=== PATIENT | male | born 1965 | race Caucasian/White ===

== ENCOUNTER → 2019-05-26 | Outpatient (CLI) | payer BC, SELFPAY | PROVIDERS: Family Provider Nurse Practitioner Family; Visit Provider Nurse Practitioner Family | DX: K92.1 Melena (principal); R10.30 Lower abdominal pain, unspecified; Z90.49 Acquired absence of other specified parts of digestive tract | CPT/HCPCS: 74018 ==

== ENCOUNTER → 2019-06-09 13:40 | Outpatient (BNVA) | payer BC, SELFPAY | PROVIDERS: PCP Nurse Practitioner Family; Visit Provider Nurse Practitioner Psychiatric/Mental Health | DX: F33.2 Major depressive disorder, recurrent severe without psychotic features (principal); F41.1 Generalized anxiety disorder; F17.210 Nicotine dependence, cigarettes, uncomplicated | CPT/HCPCS: 99214; 99215 ==

== ENCOUNTER 2019-06-24 07:13 | Emergency (ER) | payer BC, SELFPAY ==
[2019-06-24 07:18] VITALS: BP 131/89; PULSE 101; RESP 20; TEMP 36.5; O2SAT 98; BMI 26.4
[2019-06-24 07:32] VITALS: BP 113/73; PULSE 99; RESP 18; O2SAT 97
--- NOTE | 2019-06-24 07:32 | XR_ITS ---
WS: [id number] PORTABLE CHEST HISTORY: Chest pain, SOB COMPARISON: 03/14/2019 Lungs are clear. Very slight pleural thickening at the RIGHT apex is stable. No pneumonia. Normal vas culature. No pleural effusion or pneumothorax. Cardiac size: Normal. Mediastinum/Aorta: Normal mediastinum. No osseous abnormality seen. XR/XR chest 1V portable [id number] IMPRESSION: Unremarkable portable chest.
--- NOTE | 2019-06-24 07:32 | ECG_ITS ---
Measurements Intervals [place] Rate: 99 P: 66 [place]: 146 QRS: 58 QRSD: 86 T: 72 QT: 346 QTc: 446 SINUS RHYTHM Compared to ECG 03/14/2019 23:24:25 No significant changes Electronically Signed On 06-24-2019 16:18:36 [employer] by Jhony Moe M.D. [id number] f
[2019-06-24 07:38] LABS: Basophils # 0.1 10^3/uL (0.0-0.1); Basophils % 0.7 %; Eosinophils # 0.1 10^3/uL (0.0-0.8); Eosinophils % 0.7 %; Hematocrit 41.6 % (42.0-52.0); Hemoglobin 14.2 g/dL (11.7-16.6); Lymphocytes # 1.8 10^3/uL (0.8-4.8); Lymphocytes % 26.5 %; Mean Corpuscular HGB Conc 34.1 g/dL (30.0-36.0); Mean Corpuscular Hemoglobin 32.4 pg (28.0-34.0); Mean Platelet Volume 9.2 fL (7.4-10.4); Monocytes # 0.5 10^3/uL (0.2-0.9); Monocytes % 7.9 %; Neutrophils # 4.3 10^3/uL (1.8-7.7); Neutrophils % 63.8 %; Nucleated Red Blood Cells % 0 %; Platelet Count 221 10^3/cmm (130-400); Red Blood Count 4.38 10^6/uL (4.1-5.3); Red Cell Distribution Width 11.9 % (12.1-15.1); White Blood Count 6.7 10^3/uL (4.0-10.0)
--- NOTE | 2019-06-24 07:44 | ED_ITS ---
HPI - Chest Pain General: Chief Complaint: Chest Pain Stated Complaint: Chest pain Time Seen by Provider: 06/24/19 07:43 History of Present Illness: HPI narrative: 53-year-old male presents emergency room with complaint of chest discomfort pressure radiating into his back. Is a history of atrial fibrillation he is on flecainide and atenolol he has had this multiple times in the past he tells me he started having it this morning around 430. He gets up around 3 AM he states he was sitting in a chair and began having along with episodes of anxiety and sensation of being short of breath. He has not had any fever sweats chills or productive cough. He denies previous angiography. He has intermittent atrial fibrillation. MD complaint: chest pain, chest heaviness and chest discomfort Pertinent past history: other (Atrial fibrillation) Onset (ago): hour(s) (3 to 4 hours ago) Timing of current episode: episodic Onset: during rest Pain location: substernal Pain radiation: back Severity: moderate Quality: tightness and heaviness Relieving factors: nothing Exacerbating factors: movement Associated symptoms: Reports dyspnea and sense of impending doom; Deny diaphoresis, nausea, palpitations or vomiting Treatment prior to arrival: other (His usual morning medications) Review of Systems Const: Denies: diaphoresis ENMT: Denies: throat pain, ear pain, nasal discharge or nasal congestion Card: Reports: chest pain and shortness of breath on exertion; Denies: palpitations Resp: Reports: shortness of breath GI: Denies: nausea or vomiting : Denies: flank pain, painful urination, urinary frequency or urinary urgency Skin/Breast: Denies: rash or itching PFS ED PFSH: Statuses (acute, chronic, etc) shown below reflect problem list status as previously entered and may not be historically accurate Medical History Cigarette nicotine dependence (Acute) Generalized anxiety disorder (Acute) Major depressive disorder, recurrent severe without psychotic features (Acute) Social History Smoking and tobacco status: current every day smoker Physical Exam Const: COMMON NORMALS: no apparent distress GENERAL APPEARANCE: cooperative and comfortable ORIENTATION/CONSCIOUSNESS: Yes awake, Yes oriented to person, Yes oriented to place and Yes oriented to time HENMT: COMMON NORMALS: normocephalic, head/scalp atraumatic, hearing grossly normal bilaterally, external ears normal, EAC's normal, TM's normal bilaterally, nasal mucous membranes and turbinates normal, moist oral mucous membranes and oropharynx normal HEAD & SCALP: normocephalic and atraumatic NOSE: nasal mucous membranes and turbinates normal EXTERNAL EAR: Yes external ears normal EXTERNAL AUDITORY CANAL: EAC's normal TYMPANIC MEMBRANE: TM's normal bilaterally Eye: COMMON NORMALS: PERRL, EOMs intact bilaterally, conjunctivae normal and no scleral icterus CONJUNCTIVA: Yes conjunctivae normal PUPIL: Yes PERRL Neck/C-Spine: COMMON NORMALS: full ROM, no lymphadenopathy, supple and no JVD Lymph: LYMPHATIC: no lymphadenopathy noted and no lymphedema noted Resp: COMMON NORMALS: normal respiratory effort, no retractions, no use of accessory muscles and clear to auscultation bilaterally AUSCULTATION: clear to auscultation bilaterally Cardio: COMMON NORMALS: no JVD, regular rate, regular rhythm and no murmurs RATE: regular rate RHYTHM: regular rhythm GI: COMMON NORMALS: soft to palpation and no hepatosplenomegaly AUSCULTATION: Yes normoactive bowel sounds PALPATION: Yes soft, No tender, No guarding and Yes no hepatosplenomegaly Extremity: COMMON NORMALS: normal to inspection, normal capillary refill, no clubbing, cyanosis or edema, no calf tenderness and no pedal edema Neuro: SENSORIUM/ORIENTATION: Yes oriented to person, Yes oriented to place and Yes oriented to time Skin: COMMON NORMALS: no rashes or lesions noted GENERAL SKIN EXAM: no rashes or lesions noted Course ED course: Continue his medications for now with no changes he is no longer in atrial fibrillation he is tolerating the medicine well. If he has any recurrence or change of symptoms return to the emergency room malaise follow-up with primary care provider. Vital Signs: Vital signs: Vital Signs Temperature 97.7 F 06/24/19 07:18 Pulse Rate 70 06/24/19 11:03 Respiratory Rate 18 06/24/19 11:03 Blood Pressure 114/79 06/24/19 11:03 Pulse Oximetry 96 06/24/19 11:03 MDM - Chest Pain Lab Data: Labs: Lab Results 06/24/19 06/24/19 06/24/19 Range/Units 07:32 07:32 07:32 WBC 6.7 (4.0-10.0) 10^3/ uL RBC 4.38 (4.1-5.3) 10^6/u L Hgb 14.2 (11.7-16.6) g/dL Hct 41.6 L (42.0-52.0) % MCV 95.0 H (80-94) fL MCH 32.4 (28.0-34.0) pg MCHC 34.1 (30.0-36.0) g/dL RDW 11.9 L (12.1-15.1) % Plt Count 221 (130-400) 10^3/c mm MPV 9.2 (7.4-10.4) fL Neut % (Auto) 63.8 % Lymph % (Auto) 26.5 % [place] % (Auto) 7.9 % Eos % (Auto) 0.7 % Baso % (Auto) 0.7 % Neut # (Auto) 4.3 (1.8-7.7) 10^3/u L Lymph # (Auto) 1.8 (0.8-4.8) 10^3/u L [place] # (Auto) 0.5 (0.2-0.9) 10^3/u L Eos # (Auto) 0.1 (0.0-0.8) 10^3/u L Baso # (Auto) 0.1 (0.0-0.1) 10^3/u L Nucleated RBC % (a uto) 0 % Nucleated RBCs # 0.0 /100WBC PT 13.10 (10.5-13.3) SECO NDS INR 0.96 (0.8-1.2) APTT 29.1 (23.9-36.7) SECO NDS Specimen Type Sample Site ABG pH (7.35-7.45) ABG pCO2 (35-45) mmHg ABG pO2 (80.0-100.0) mmH g ABG HCO3 (22-26) mmol/L ABG O2 Saturation ABG Base Excess (-2.0-2.0) mmol/ L Edaurdo Test A-a O2 Gradient (5-10) mmHg Hematocrit (42-52) % Hgb O2 Saturation (95-100) % Carboxyhemoglobin (0.4-20.1) %THgb Methemoglobin (0.4-1.5) % Total Hemoglobin (14-18) g/dL Ionized Calcium (1.1-1.4) mmol/L O2 Delivery Device FiO2 % Dye Machine Operator ID Sodium 138 (136-145) mmol/L Potassium 3.7 (3.5-5.1) mmol/L Chloride 101 (98-107) mmol/L Carbon Dioxide 22 (22-29) mmol/L Anion Gap 18.7 (5-19) BUN 14 (6-20) mg/dL Creatinine 0.8 (0.7-1.2) mg/dL GFR Calculation 100.7 (90-130) mL/min Glucose 121 H (74-109) mg/dL Calcium 9.9 (8.5-10.5) mg/dL Total Bilirubin 0.4 (0.15-1.2) mg/dL AST 14 (0-40) U/L ALT 16 (0-41) U/L Alkaline Phosphata se 66 (40-130) IU/L Troponin T Baselin e (0-15) ng/mL Troponin T 120 Min [place] (0-15) ng/mL Delta Troponin T (0-10) ABS# NT-Pro-B Natriuret Pep 88 (0-125) pg/mL Total Protein 7.4 (6.6-8.7) g/dL Albumin 4.9 (3.5-5.2) g/dL Globulin 2.5 (1.3-4.6) g/dL 06/24/19 06/24/19 06/24/19 Range/Units 07:32 08:00 09:27 WBC (4.0-10.0) 10^3/ uL RBC (4.1-5.3) 10^6/u L Hgb (11.7-16.6) g/dL Hct (42.0-52.0) % MCV (80-94) fL MCH (28.0-34.0) pg MCHC (30.0-36.0) g/dL RDW (12.1-15.1) % Plt Count (130-400) 10^3/c mm MPV (7.4-10.4) fL Neut % (Auto) % Lymph % (Auto) % [place] % (Auto) % Eos % (Auto) % Baso % (Auto) % Neut # (Auto) (1.8-7.7) 10^3/u L Lymph # (Auto) (0.8-4.8) 10^3/u L [place] # (Auto) (0.2-0.9) 10^3/u L Eos # (Auto) (0.0-0.8) 10^3/u L Baso # (Auto) (0.0-0.1) 10^3/u L Nucleated RBC % (a uto) % Nucleated RBCs # /100WBC PT (10.5-13.3) SECO NDS INR (0.8-1.2) APTT (23.9-36.7) SECO NDS Specimen Type Arterial Sample Site Radial, right ABG pH 7.47 H (7.35-7.45) ABG pCO2 33.2 L (35-45) mmHg ABG pO2 70.5 L (80.0-100.0) mmH g ABG HCO3 23.8 (22-26) mmol/L ABG O2 Saturation 96.5 ABG Base Excess 0.7 (-2.0-2.0) mmol/ L Eduardo Test Pos A-a O2 Gradient 36.8 H (5-10) mmHg Hematocrit 45.0 (42-52) % Hgb O2 Saturation 91.2 L (95-100) % Carboxyhemoglobin 4.6 (0.4-20.1) %THgb Methemoglobin 0.9 (0.4-1.5) % Total Hemoglobin 14.7 (14-18) g/dL Ionized Calcium 1.2 (1.1-1.4) mmol/L O2 Delivery Device None FiO2 21.0 % Dye Machine Operator ID ed Sodium 142.0 (136-145) mmol/L Potassium 3.4 L (3.5-5.1) mmol/L Chloride (98-107) mmol/L Carbon Dioxide (22-29) mmol/L Anion Gap (5-19) BUN (6-20) mg/dL Creatinine (0.7-1.2) mg/dL GFR Calculation (90-130) mL/min Glucose 105.0 (74-109) mg/dL Calcium (8.5-10.5) mg/dL Total Bilirubin (0.15-1.2) mg/dL AST (0-40) U/L ALT (0-41) U/L Alkaline Phosphata se (40-130) IU/L Troponin T Baselin e 6 (0-15) ng/mL Troponin T 120 Min [place] 6.00 (0-15) ng/mL Delta Troponin T 0 (0-10) ABS# NT-Pro-B Natriuret Pep (0-125) pg/mL Total Protein (6.6-8.7) g/dL Albumin (3.5-5.2) g/dL Globulin (1.3-4.6) g/dL Discharge Plan Discharge Patient Disposition: Home, Self-Care Clinical Impression: Atrial fibrillation, Atypical chest pain, Generalized anxiety disorder Condition: Stable Prescriptions: No Action aspirin 325 mg tablet 325 mg PO DAILY RF: 0 nitroglycerin 0.4 mg tablet, sublingual 0.4 mg SUBLINGUAL Q5M PRN (Reason: Chest Pain) RF: 0 pantoprazole 40 mg tablet,delayed release (DR/EC) 40 mg PO QAM RF: 0 lorazepam [Ativan] 0.5 mg tablet 0.5 mg PO BID PRN (Reason: anxiety) Qty: 60 RF: 4 Tylenol Extra Strength 500 mg Tablet 1,500 mg PO Q4H PRN (Reason: Pain) RF: 0 flecainide 50 mg Tablet 50 mg PO BID RF: 0 metoprolol tartrate 25 mg Tablet 25 mg PO BID RF: 0 Zoloft 100 mg tablet 100 mg PO QAM RF: 0 Discharge Orders: Discharge Order (Routine); Ordered 06/24/19 Ordered By: Jerod Nur Referrals: YING STALEY, CREDIT INTERN [Primary Care Provider] - Discharge Diet: Usual diet Discharge Activity: Resume usual activity Activity Restrictions/Additional Instructions: Case management will call to arrange for a Holter monitor. Interventions: ED Discharge Assessment Last Done: 06/24/19 11:03 Discharge Date/Time: 06/24/19 11:12 Coding Level of Care Code ED Dietary Server for Coleman Sheppard Exam Problem Focused
[2019-06-24 07:49] LABS: INR 0.96 (0.8-1.2); Partial Thromboplastin Time 29.1 SECONDS (23.9-36.7)
[2019-06-24 07:58] LABS: Troponin(5th) Baseline 6 ng/mL (0-15)
[2019-06-24 08:04] LABS: ABG PCO2 33.2 mmHg (35-45); ABG PH Result 7.47 (7.35-7.45); Alveolar-Arterial Oxygen Gradi 36.8 mmHg (5-10); Base Excess ABG 0.7 mmol/L (-2.0-2.0); Blood Gas Allen Test Pos; Blood Gas Sample Site Radial, right; Blood Gas Sample Type Arterial; Carboxyhemoglobin 4.6 %THgb (0.4-20.1); HCO3 ABG 23.8 mmol/L (22-26); HGB O2 Sat 91.2 % (95-100); Ionized Calcium Level - ABG 1.2 mmol/L (1.1-1.4); Methemoglobin 0.9 % (0.4-1.5); Oxygen Saturation ABG 96.5; PO2 ABG 70.5 mmHg (80.0-100.0); Potassium Level - ABG 3.4 mmol/L (3.5-5.0); Total Hemoglobin 14.7 g/dL (14-18)
[2019-06-24 08:06] LABS: Alanine Aminotransferase 16 U/L (0-41); Albumin Level 4.9 g/dL (3.5-5.2); Alkaline Phosphatase 66 IU/L (40-130); Anion Gap 18.7 (5-19); Aspartate Amino Transferase 14 U/L (0-40); Blood Urea Nitrogen 14 mg/dL (6-20); Calcium 9.9 mg/dL (8.5-10.5); Carbon Dioxide 22 mmol/L (22-29); Chloride 101 mmol/L (98-107); Globulin 2.5 g/dL (1.3-4.6); Glomerular Filtration Rate 100.7 mL/min (90-130); Glucose 121 mg/dL (74-109); NT Pro B Type Natriuretic Pept 88 pg/mL (0-125); Potassium 3.7 mmol/L (3.5-5.1); Sodium 138 mmol/L (136-145); Total Bilirubin 0.4 mg/dL (0.15-1.2); Total Protein 7.4 g/dL (6.6-8.7)
[2019-06-24 08:27] VITALS: BP 117/74; PULSE 82; RESP 14; O2SAT 94
--- NOTE | 2019-06-24 09:32 | ECG_ITS ---
Measurements Intervals [place] Rate: 70 P: 61 [place]: 145 QRS: 59 QRSD: 85 T: 73 QT: 397 QTc: 429 SINUS RHYTHM INTERPRETATION BASED ON A DEFAULT AGE OF 40 YEARS Compared to ECG 03/14/2019 23:24:25 No significant changes Electronically Signed On 06-24-2019 16:21:59 SLOT SERVICE SPECIALIST by Jhony Moe M.D. [id number] f
[2019-06-24 09:50] LABS: Troponin 5 2HR Delta 0 ABS# (0-10)
[2019-06-24] MEDS: LORazepam 2 mg/mL INJ 1 mL 0.5 MG IVP (10:04)
[2019-06-24 11:03] VITALS: BP 114/79; PULSE 70; RESP 18; O2SAT 96
--- NOTE | 2019-06-25 13:07 | DCPLANNER ---
medical staff manager had message to schedule a follow up appointment for a 24 hour halter monitor. medical staff manager faxed order to centralized scheduling, will call for appointment information.
--- NOTE | 2019-07-04 11:08 | DCPLANNER ---
Patient had an appointment scheduled for 06.30.19 for a 24 hour halter monitor. Patient did attend the appointment.
== END 2019-06-24 11:12 | disposition home or self-care (01) ==
PROVIDERS: Emergency Provider Family Medicine; PCP Nurse Practitioner Family
DX: I48.91 Unspecified atrial fibrillation (principal); R07.89 Other chest pain; F41.1 Generalized anxiety disorder; Z79.82 Long term (current) use of aspirin; F17.210 Nicotine dependence, cigarettes, uncomplicated
CPT/HCPCS: 36415; 36600; 71045; 80051; 80053; 82810; 83880; 83986; 84484; 85025; 85610; 85730; 93005; 96374; 99283; J2060

== ENCOUNTER 2019-08-07 17:52 | Emergency (ER) | payer BC, SELFPAY ==
[2019-08-07 17:53] VITALS: BP 135/81; PULSE 86; RESP 18; TEMP 36.7; O2SAT 95; BMI 26.4
--- NOTE | 2019-08-07 18:14 | XR_ITS ---
WS: [id number] Portable AP upright chest, 08/07/2019 Clinical Data: cough Comparison: Portable chest, 06/24/2019. Findings: No nodules, masses or effusions are seen. The heart is normal. The pulmonary vascularity is not increased. No pneumonia or pneumothorax is seen. XR/XR chest 1V portable [id number] Impression: Negative chest.
[2019-08-07 18:57] LABS: Alanine Aminotransferase 12 U/L (0-41); Albumin Level 4.3 g/dL (3.5-5.2); Alkaline Phosphatase 84 IU/L (40-130); Anion Gap 17.7 (5-19); Aspartate Amino Transferase 12 U/L (0-40); Blood Urea Nitrogen 9 mg/dL (6-20); Calcium 9.4 mg/dL (8.5-10.5); Carbon Dioxide 24 mmol/L (22-29); Chloride 99 mmol/L (98-107); Globulin 3.3 g/dL (1.3-4.6); Glomerular Filtration Rate 100.7 mL/min (90-130); Glucose 110 mg/dL (65-115); Lipase 27 U/L (13-60); Osmolality Calculated 281 mOsm/kg (285-295); Potassium 3.7 mmol/L (3.5-5.1); Sodium 137 mmol/L (136-145); Total Bilirubin 0.4 mg/dL (0.15-1.2); Total Protein 7.6 g/dL (6.6-8.7)
[2019-08-07 19:55] LABS: Basophils % 0.3 %; Eosinophils # 0.1 10^3/uL (0.0-0.8); Eosinophils % 0.4 %; Hematocrit 42.2 % (42.0-52.0); Hemoglobin 14.3 g/dL (11.7-16.6); Lymphocytes # 1.9 10^3/uL (0.8-4.8); Lymphocytes % 16.3 %; Mean Corpuscular HGB Conc 33.9 g/dL (30.0-36.0); Mean Corpuscular Volume 97.5 fL (80-94); Mean Platelet Volume 9.1 fL (7.4-10.4); Monocytes % 8.9 %; Neutrophils # 8.5 10^3/uL (1.8-7.7); Neutrophils % 73.7 %; Nucleated Red Blood Cells % 0 %; Platelet Count 233 10^3/cmm (130-400); Red Blood Count 4.33 10^6/uL (4.1-5.3); White Blood Count 11.6 10^3/uL (4.0-10.0)
--- NOTE | 2019-08-07 20:06 | ED_ITS ---
HPI - Fever General: Chief Complaint: Fever Stated Complaint: body aches/cough Time Seen by Provider: 08/07/19 20:06 Source: patient Mode of arrival: ambulatory Limitations: no limitations History of Present Illness: HPI Narrative: Patient comes in for worsening diffuse muscle and bone pain. Patient has had symptoms since May. Patient appears well. Patient appears in moderate to severe pain. Respirations are even lungs are clear to auscultation. 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 Review of Systems General: Reports: 10 or more systems reviewed and unremarkable except in HPI and below Musc: Reports: other (Diffuse muscle pain.) PFSH ED PFSH: Social History Smoking and tobacco status: current every day smoker Alcohol intake: former Physical Exam Const: COMMON NORMALS: no apparent distress and oriented x3 GENERAL APPEARANCE: cooperative HENMT: COMMON NORMALS: normocephalic, external ears normal, EAC's normal, TM's normal bilaterally and external nose normal HEAD & SCALP: normal to inspection and normocephalic FACE & SINUS: normal facial exam NOSE: external nose normal GENERAL EAR: hearing not grossly impaired EXTERNAL EAR: Yes external ears normal EXTERNAL AUDITORY CANAL: EAC's normal TYMPANIC MEMBRANE: TM's normal bilaterally MOUTH: oral and palatal mucosa normal THROAT: posterior oropharynx normal Eye: COMMON NORMALS: PERRL and EOMs intact bilaterally PUPIL: Yes PERRL Neck/C-Spine: COMMON NORMALS: full ROM and no lymphadenopathy Lymph: LYMPHATIC: no lymphedema noted Chest: COMMONS NORMALS: inspection of chest normal and palpation of chest normal Resp: COMMON NORMALS: normal respiratory effort and clear to auscultation bilaterally AUSCULTATION: clear to auscultation bilaterally Cardio: COMMON NORMALS: regular rate and regular rhythm RATE: regular rate RHYTHM: regular rhythm GI: COMMON NORMALS: normal to inspection, nondistended, normoactive bowel sounds and non-tender : COMMON NORMALS: Yes no CVA tenderness BLADDER/KIDNEY EXAM: Yes no CVA tenderness Back/Pelvis: COMMON NORMALS: no CVA tenderness and thoracic and lumbar spine normal to inspection Extremity: COMMON NORMALS: normal to inspection GENERAL: No edema Neuro: COMMON NORMALS: oriented x3, moves all extremities and no focal motor deficits Psych: COMMON NORMALS: mental status grossly normal and cooperative Skin: COMMON NORMALS: no rashes or lesions noted GENERAL SKIN EXAM: no rashes or lesions noted Course Vital Signs: Vital signs: Vital Signs Temperature 98.0 F 08/07/19 17:53 Pulse Rate 81 08/07/19 20:14 Respiratory Rate 16 08/07/19 20:14 Blood Pressure 108/73 08/07/19 20:14 Pulse Oximetry 96 08/07/19 20:14 MDM - Fever MDM Narrative: Medical decision making narrative: Patient comes in with 6 to 7 weeks of diffuse muscle pain. Patient reports over the last week it seems to have gotten worse. Patient appears well. Exam respirations are even lungs are clear to auscultation vital signs are normal. No fever is reported. Lungs are clear to auscultation. Skin is warm and dry and color is pink. Differential diagnosis includes polymyalgia rheumatica, rheumatoid arthritis, rhabdomyolysis, lupus, fibromyalgia, chronic fatigue syndrome, other autoimmune disorder, malingering. Laboratory values noted no significant white blood cell count. Metabolic panel was normal. CRP was elevated at 145. CPK was negative. Reviewed exam with patient recommended treatment to start for polymyalgia rheumatica with high-dose steroid and medication for pain. Encourage patient drink plenty of fluids and use medication as directed. Recommend follow-up with primary care in 1 week for review of outstanding lab work and need for further evaluation. Patient reports understanding agreed to plan. Lab Data: Labs: Lab Results 08/07/19 08/07/19 08/07/19 Range/Units 18:25 18:25 18:25 WBC (4.0-10.0) 10^3/ uL RBC (4.1-5.3) 10^6/u L Hgb (11.7-16.6) g/dL Hct (42.0-52.0) % MCV (80-94) fL MCH (28.0-34.0) pg MCHC (30.0-36.0) g/dL RDW (12.1-15.1) % Plt Count (130-400) 10^3/c mm MPV (7.4-10.4) fL Neut % (Auto) % Lymph % (Auto) % [place] % (Auto) % Eos % (Auto) % Baso % (Auto) % Neut # (Auto) (1.8-7.7) 10^3/u L Lymph # (Auto) (0.8-4.8) 10^3/u L [place] # (Auto) (0.2-0.9) 10^3/u L Eos # (Auto) (0.0-0.8) 10^3/u L Baso # (Auto) (0.0-0.1) 10^3/u L Nucleated RBC % (a uto) % Nucleated RBCs # /100WBC Sodium 137 (136-145) mmol/L Potassium 3.7 (3.5-5.1) mmol/L Chloride 99 (98-107) mmol/L Carbon Dioxide 24 (22-29) mmol/L Anion Gap 17.7 (5-19) BUN 9 (6-20) mg/dL Creatinine 0.8 (0.7-1.2) mg/dL GFR Calculation 100.7 (90-130) mL/min Glucose 110 (65-115) mg/dL Calculated Osmolal ity 281 L (285-295) mOsm/k g Calcium 9.4 (8.5-10.5) mg/dL Total Bilirubin 0.4 (0.15-1.2) mg/dL AST 12 (0-40) U/L ALT 12 (0-41) U/L Alkaline Phosphata se 84 (40-130) IU/L Creatine Kinase 78 (39-308) U/L C-Reactive Protein 145.7 H (0.0-4.9) mg/L Total Protein 7.6 (6.6-8.7) g/dL Albumin 4.3 (3.5-5.2) g/dL Globulin 3.3 (1.3-4.6) g/dL Lipase 27 (13-60) U/L TSH (0.27-4.20) uIU/ mL Urine Color (Yellow) Urine Appearance (CLEAR) Urine pH (5-7) Ur Specific Gravit y (1.005-1.030) Urine Protein (Negative) Urine Glucose (UA) (Normal) Urine Ketones (Negative) Urine Blood (Negative) Urine Nitrate (Negative) Urine Bilirubin (NEGATIVE) Urine Urobilinogen (Negative) mg/dL Ur Leukocyte Roselyn ase (Negative) Urine RBC (0-2) /hpf Urine WBC (0-5) /hpf Ur Squamous Epith Cells (0-5) Urine Bacteria (NONE) 08/07/19 08/07/19 08/07/19 Range/Units 18:25 19:46 21:29 WBC 11.6 H (4.0-10.0) 10^3/ uL RBC 4.33 (4.1-5.3) 10^6/u L Hgb 14.3 (11.7-16.6) g/dL Hct 42.2 (42.0-52.0) % MCV 97.5 H (80-94) fL MCH 33.0 (28.0-34.0) pg MCHC 33.9 (30.0-36.0) g/dL RDW 12.0 L (12.1-15.1) % Plt Count 233 (130-400) 10^3/c mm MPV 9.1 (7.4-10.4) fL Neut % (Auto) 73.7 % Lymph % (Auto) 16.3 % [place] % (Auto) 8.9 % Eos % (Auto) 0.4 % Baso % (Auto) 0.3 % Neut # (Auto) 8.5 H (1.8-7.7) 10^3/u L Lymph # (Auto) 1.9 (0.8-4.8) 10^3/u L [place] # (Auto) 1.0 H (0.2-0.9) 10^3/u L Eos # (Auto) 0.1 (0.0-0.8) 10^3/u L Baso # (Auto) 0.0 (0.0-0.1) 10^3/u L Nucleated RBC % (a uto) 0 % Nucleated RBCs # 0.0 /100WBC Sodium (136-145) mmol/L Potassium (3.5-5.1) mmol/L Chloride (98-107) mmol/L Carbon Dioxide (22-29) mmol/L Anion Gap (5-19) BUN (6-20) mg/dL Creatinine (0.7-1.2) mg/dL GFR Calculation (90-130) mL/min Glucose (65-115) mg/dL Calculated Osmolal ity (285-295) mOsm/k g Calcium (8.5-10.5) mg/dL Total Bilirubin (0.15-1.2) mg/dL AST (0-40) U/L ALT (0-41) U/L Alkaline Phosphata se (40-130) IU/L Creatine Kinase (39-308) U/L C-Reactive Protein (0.0-4.9) mg/L Total Protein (6.6-8.7) g/dL Albumin (3.5-5.2) g/dL Globulin (1.3-4.6) g/dL Lipase (13-60) U/L TSH 1.59 (0.27-4.20) uIU/ mL Urine Color Yellow (Yellow) Urine Appearance Clear (CLEAR) Urine pH 6 (5-7) Ur Specific Gravit y 1.010 (1.005-1.030) Urine Protein Neg (Negative) Urine Glucose (UA) Norm (Normal) Urine Ketones Negative (Negative) Urine Blood Neg (Negative) Urine Nitrate Negative (Negative) Urine Bilirubin Neg (NEGATIVE) Urine Urobilinogen Norm (Negative) mg/dL Ur Leukocyte Roselyn ase Negative (Negative) Urine RBC None (0-2) /hpf Urine WBC None (0-5) /hpf Ur Squamous Epith Cells None (0-5) Urine Bacteria None (NONE) Discharge Plan Discharge Patient Disposition: Home, Self-Care Clinical Impression: Polymyalgia rheumatica Condition: Stable Prescriptions: New prednisone 20 mg tablet 20 mg PO DAILY Qty: 35 RF: 0 hydrocodone-acetaminophen 5-325 mg tablet 1 tab PO Q6H PRN (Reason: pain (scale score 7-10)) Qty: 10 RF: 0 No Action aspirin 325 mg tablet 325 mg PO DAILY RF: 0 nitroglycerin 0.4 mg tablet, sublingual 0.4 mg SUBLINGUAL Q5M PRN (Reason: Chest Pain) RF: 0 pantoprazole 40 mg tablet,delayed release (DR/EC) 40 mg PO QAM RF: 0 lorazepam [Ativan] 0.5 mg tablet 0.5 mg PO BID PRN (Reason: anxiety) Qty: 60 RF: 4 Tylenol Extra Strength 500 mg Tablet 1,500 mg PO Q4H PRN (Reason: Pain) RF: 0 flecainide 50 mg Tablet 50 mg PO BID RF: 0 metoprolol tartrate 25 mg Tablet 25 mg PO BID RF: 0 Zoloft 100 mg tablet 100 mg PO QAM RF: 0 Discharge Orders: Discharge Order (Routine); Ordered 08/07/19 Ordered By: Lloyd Rosas Referrals: YING STALEY FNP [Primary Care Provider] - Discharge Diet: Usual diet Discharge Activity: Increase activity as tolerated Patient Instructions: Polymyalgia Rheumatica Activity Restrictions/Additional Instructions: Take medications as directed. Drink plenty of fluids with medications. Activity as tolerated. Follow-up with primary care in 3 to 5 days for recheck on symptoms, and to review outstanding labs. Return to the emergency room for high fever or new concerns. Coding Level of Care Code ED Journeyman Electrician for Coleman Fwraghav Exam Comprehensive
[2019-08-07 20:14] VITALS: BP 108/73; PULSE 81; RESP 16; O2SAT 96
[2019-08-07 20:41] LABS: Creatine Phosphokinase 78 U/L (39-308)
[2019-08-07] MEDS: sodium chloride 0.9% 500 ML 999 ML IV (20:41)
[2019-08-07] MEDS: ketorolac 30 mg/mL INJ 15 MG IVP (20:42)
[2019-08-07 21:04] LABS: C Reactive Protein 145.7 mg/L (0.0-4.9)
[2019-08-07] MEDS: HYDROcodone-acetaminophen 7.5-325 mg Tablet 1 TAB PO (21:25)
[2019-08-07 21:42] LABS: Thyroid Stimulating Hormone 1.59 uIU/mL (0.27-4.20)
[2019-08-07 21:46] LABS: Urine Appearance Clear (CLEAR); Urine Color Yellow (Yellow); pH Urine 6 (5-7)
[2019-08-07 21:47] LABS: Bilirubin Urine Neg (NEGATIVE); Blood Urine Neg (Negative); Glucose Urine UA Norm (Normal); Ketones Urine Negative (Negative); Leukocyte Esterase Urine Negative (Negative); Nitrate Urine Negative (Negative); Protein Urine Neg (Negative); Urobilinogen Urine Norm (Negative)
[2019-08-07] MEDS: dexamethasone 10 mg/mL INJ IVP (22:00)
[2019-08-07 22:29] VITALS: BP 116/75; PULSE 67; RESP 12; O2SAT 92
[2019-08-11 12:21] LABS: Anti-Double Strand DNA AB 1 IU/mL; Jo-1 Antibody <1.0 NEG AI (<1.0 NEG); SM/RNP Antibodies <1.0 NEG AI (<1.0 NEG); SS-B/LA IGG <1.0 NEG AI (<1.0 NEG); Scleroderma Ab(Scl-70) Ab <1.0 NEG AI (<1.0 NEG); Ss-A/Ro Igg <1.0 NEG AI (<1.0 NEG)
== END 2019-08-07 22:31 | disposition home or self-care (01) ==
PROVIDERS: Emergency Medicine; Emergency Provider Nurse Practitioner Family; PCP Nurse Practitioner Family
DX: M35.3 Polymyalgia rheumatica (principal); F17.200 Nicotine dependence, unspecified, uncomplicated
CPT/HCPCS: 12345; 36415; 71045; 80053; 81001; 82550; 83690; 84443; 85025; 86140; 86225; 86235; 86431; 87040; 96360; 96374; 96375; 99283; 99284; J1100; J1885; J2930; J7040

== ENCOUNTER 2019-09-08 09:35 | Outpatient (CLI) | payer BC, SELFPAY ==
--- NOTE | 2019-09-08 09:45 | XR_ITS ---
WS: [id number] CHEST 2 VIEWS HISTORY: PMR,STARTING METHOTREXATE COMPARISON: None available. Lungs: Clear with no abnormality. Mild hyperexpansion. No pleural effusion or pneumothorax. No bullou s disease identified radiographically. Cardiac size: Normal. Mediastinum/Aorta: Normal mediastinum. Bones: Normal. XR/XR chest 2V* [id number] IMPRESSION: Mild emphysema. Otherwise negative.
[2019-09-10 14:41] LABS: Quantiferon Mitogen 6.85 IU/mL; Quantiferon Nil 0.02 IU/mL; Quantiferon Plus TB2 0.01 IU/mL; Quantiferon TB Gold NEGATIVE (NEGATIVE)
== END 2019-09-08 09:36 | disposition home or self-care (01) ==
LOC: RAD 09:41
PROVIDERS: PCP Nurse Practitioner Family; Visit Provider Family Medicine
DX: M35.3 Polymyalgia rheumatica (principal); J43.9 Emphysema, unspecified
CPT/HCPCS: 71046; 86480

== ENCOUNTER → 2019-09-11 08:28 | Outpatient (BNVA) | payer BC, SELFPAY | PROVIDERS: PCP Nurse Practitioner Family; Visit Provider Nurse Practitioner Psychiatric/Mental Health | DX: F33.2 Major depressive disorder, recurrent severe without psychotic features (principal); F41.1 Generalized anxiety disorder; F17.210 Nicotine dependence, cigarettes, uncomplicated; M35.3 Polymyalgia rheumatica; I48.19 Other persistent atrial fibrillation; G47.33 Obstructive sleep apnea (adult) (pediatric); Z79.899 Other long term (current) drug therapy; Z79.52 Long term (current) use of systemic steroids | CPT/HCPCS: 99204; 99213 ==

== ENCOUNTER → 2019-10-31 12:08 | Outpatient (BNVA) | payer BC, SELFPAY | PROVIDERS: PCP Nurse Practitioner Family; Visit Provider Internal Medicine Rheumatology | DX: M35.3 Polymyalgia rheumatica (principal); Z79.899 Other long term (current) drug therapy; L23.9 Allergic contact dermatitis, unspecified cause; I48.19 Other persistent atrial fibrillation; F17.210 Nicotine dependence, cigarettes, uncomplicated | CPT/HCPCS: 36415; 80076; 82306; 82565; 85025; 85651; 86140; 96372; 99214; J1040 ==

== ENCOUNTER 2019-11-14 04:53 | Emergency (ER) | payer BC, SELFPAY ==
[2019-11-14] VITALS (15 sets, daily range): BP systolic 120–165; BP diastolic 71–111; PULSE 49–71; RESP 8–20; TEMP 36.5; O2SAT 92–98; BMI 27.8
--- NOTE | 2019-11-14 05:39 | ECG_ITS ---
[facility] Test Date: 2019-11-14 Pat Name: Dalton Dumont Department: Room: Gender: Male Piler: : 1965 Requested By: America Braga Order Number: [id number] Green MD: Jhony Moe M.D. Measurements Intervals [place] Rate: 50 P: 51 [place]: 131 QRS: 44 QRSD: 86 T: 46 QT: 437 QTc: 401 Interpretive Statements SINUS BRADYCARDIA WITH SINUS ARRHYTHMIA Compared to ECG 06/24/2019 09:05:05 Sinus rhythm no longer present Electronically Signed On 11-14-2019 13:06:46 CDT by Jhony Moe M.D. [id number]
[2019-11-14] MEDS: ondansetron 2 mg/ML SDV 2 mL 4 MG IVP (05:55)
[2019-11-14] MEDS: HYDROmorphone 1 mg/mL INJ 1 mL IVP (05:56)
[2019-11-14] MEDS: sodium chloride 0.9% 1,000 ML 100 ML IV (05:56)
[2019-11-14 05:58] LABS: Basophils % 0.1 %; Eosinophils # 0.1 10^3/uL (0.0-0.8); Eosinophils % 0.4 %; Hematocrit 45.3 % (42.0-52.0); Hemoglobin 15.1 g/dL (11.7-16.6); Lymphocytes # 2.9 10^3/uL (0.8-4.8); Lymphocytes % 20.7 %; Mean Corpuscular HGB Conc 33.3 g/dL (30.0-36.0); Mean Corpuscular Hemoglobin 33.2 pg (28.0-34.0); Mean Corpuscular Volume 99.6 fL (80-94); Mean Platelet Volume 8.9 fL (7.4-10.4); Monocytes % 7.1 %; Neutrophils # 9.6 10^3/uL (1.8-7.7); Neutrophils % 69.9 %; Nucleated Red Blood Cells % 0 %; Platelet Count 290 10^3/cmm (130-400); Red Blood Count 4.55 10^6/uL (4.1-5.3); Red Cell Distribution Width 14.5 % (12.1-15.1); White Blood Count 13.8 10^3/uL (4.0-10.0)
[2019-11-14 06:21] LABS: Alanine Aminotransferase 18 U/L (0-41); Albumin Level 4.9 g/dL (3.5-5.2); Alkaline Phosphatase 47 IU/L (40-130); Anion Gap 17.4 (5-19); Aspartate Amino Transferase 15 U/L (0-40); Blood Urea Nitrogen 25 mg/dL (6-20); C Reactive Protein 2.6 mg/L (0.0-4.9); Carbon Dioxide 29 mmol/L (22-29); Chloride 97 mmol/L (98-107); Creatine Phosphokinase 138 U/L (39-308); Globulin 2.3 g/dL (1.3-4.6); Glomerular Filtration Rate 77.9 mL/min (90-130); Glucose 111 mg/dL (65-115); Magnesium 2.5 mg/dL (1.7-2.3); Osmolality Calculated 286 mOsm/kg (285-295); Potassium 4.4 mmol/L (3.5-5.1); Sodium 139 mmol/L (136-145); Total Bilirubin 0.6 mg/dL (0.15-1.2); Total Protein 7.2 g/dL (6.6-8.7)
[2019-11-14 06:23] LABS: Troponin(5th) Baseline 13 ng/L (0-15)
--- NOTE | 2019-11-14 06:24 | W.ED.GENADLT ---
Documented by User: America Briceno 11/14/19 06:29 HPI - General Adult General: Chief complaint: General Medical Stated complaint: leg and arm pain Time Seen by Provider: 11/14/19 05:32 Source: patient Mode of arrival: ambulatory Limitations: no limitations History of Present Illness: HPI narrative: Dalton is a 53-year-old male who comes in complaining of diffuse pain. He complains of pain in his shoulders, legs, back, chest and all of his joints. He believes this is a flareup of his polymyalgia rheumatica. Patient states he is on prednisone which takes care of most of his discomfort but over the past few days his pain is been severe. He denies fever, chills, cough, abdominal pain or any other focal symptoms just diffuse aches and pains. Associated symptoms: Reports malaise; Deny chest pain, confusion, diaphoresis, dyspnea, headache(s), nausea, rash, palpitations, syncope or vomiting Review of Systems Const: Reports: body aches, fatigue and malaise; Denies: fever(s), chills or diaphoresis Eyes: Denies: change in vision, blurry vision, blind spots, photophobia, eye discharge or eye redness ENMT: Denies: throat pain, odynophagia, hoarseness, swelling of lips/tongue, oral sores, ear or mastoid pain, ear discharge, change in hearing or nasal discharge Card: Denies: chest pain, palpitations, irregular heart rhythm, edema, lightheadedness, syncope, pre-syncope, dyspnea on exertion or orthopnea Resp: Denies: dyspnea, productive cough, non-productive cough, wheezing, hemoptysis or chest congestion GI: Denies: abdominal pain, nausea, vomiting, hematemesis, coffee ground emesis, heartburn, diarrhea, constipation, GI cramping, hematochezia or melena : Denies: flank pain, dysuria, urinary frequency, urinary urgency or hematuria Musc: Reports: extremity pain and joint pain; Denies: neck pain, back pain, extremity swelling, joint swelling, joint redness, joint warmth or joint stiffness Skin/Breast: Denies: rash, pruritus, erythema, skin tenderness or jaundice Neuro: Denies: headache(s), numbness in extremities, weakness in extremities, sensory changes, lack of coordination, difficulty walking, dizziness, vertigo, confusion, Slurred speech present or seizure-like activity Jonathan/Lymph: Denies: easy bruising, easy bleeding, petechiae, purpura or enlarged lymph nodes All/Imm: Denies: urticaria, throat swelling, tongue swelling, facial swelling or acute wheezing PFSH ED PFSH: Medical History Allergic contact dermatitis Atrial fibrillation Cigarette nicotine dependence Generalized anxiety disorder GERD (gastroesophageal reflux disease) High risk medication use Major depressive disorder, recurrent severe without psychotic features Polymyalgia rheumatica Smoking addiction 30 years currently smokes half a pack a day. Squamous cell carcinoma Surgical History History of kidney surgery Previous back surgery Family History Other Cancer Diabetes Family history of premature coronary artery disease Hypertension Psychiatric illness Rheumatoid arthritis Stroke Denies family history of Chronic kidney disease (CKD) Systemic lupus erythematosus (SLE) in adult Social History Smoking and tobacco status: current every day smoker Alcohol intake: former History of recent travel: No Physical Exam Const: COMMON NORMALS: no acute distress, patient oriented x3, no limitations, healthy appearing and well nourished GENERAL APPEARANCE: cooperative, well kempt and well developed HENMT: COMMON NORMALS: normocephalic, atraumatic, external ears normal, EAC's normal and Normal external nose present HEAD & SCALP: normal to inspection, normocephalic and atraumatic FACE & SINUS: normal facial exam and face symmetric NOSE: Normal external nose present and Normal nares present EXTERNAL EAR: Yes external ears normal EXTERNAL AUDITORY CANAL: EAC's normal MOUTH: Normal oral and palatal mucosa present, lip normal and tongue normal Eye: COMMON NORMALS: Equal, round and reactive pupils present and conjunctivae normal GENERAL EYE: appearance normal, both eyes and all related structures ALIGNMENT: Yes alignment normal PERIORBITAL: periorbital findings normal EYELID: eyelids normal CONJUNCTIVA: Yes conjunctivae normal SCLERA: sclerae normal PUPIL: Yes Equal, round and reactive pupils present Neck/C-Spine: COMMON NORMALS: full ROM, no lymphadenopathy, supple, no meningeal signs and no JVD GENERAL: Yes normal visual inspection and Yes trachea midline Chest: COMMONS NORMALS: normal inspection of the chest and normal palpation of entire chest wall Resp: COMMON NORMALS: normal respiratory effort, No retractions and No use of accessory muscles EFFORT & INSPECTION: Yes able to speak in complete sentences and Yes symmetric chest movement AUSCULTATION: no crackles, no rales, no rhonchi and no wheezes Cardio: COMMON NORMALS: no JVD, regular rate, regular rhythm, S1 normal heart sound present and S2 normal heart sound present RATE: regular rate RHYTHM: regular rhythm HEART SOUNDS: S1 normal heart sound present, S2 normal heart sound present, no click, no gallops, no murmurs, no rubs and abnormal split S2 GI: COMMON NORMALS: Soft to palpation and No hepatosplenomegaly present PALPATION: Yes Soft to palpation, No Tenderness to palpation present (GI), No Guarding due to palpation present (GI), No Rigid due to palpation, Yes No hepatosplenomegaly present, No Hernia present, No Palpable mass present and No Pulsatile mass present : COMMON NORMALS: Yes no CVA tenderness BLADDER/KIDNEY EXAM: Yes no CVA tenderness Back/Pelvis: COMMON NORMALS: no CVA tenderness, thoracic and lumbar spine normal to inspection, no thoracic nor lumbar tenderness and thoraco-lumbar ROM normal Extremity: COMMON NORMALS: normal to inspection, full ROM, capillary refill normal, no joint enlargement, no clubbing, cyanosis or edema and no calf tenderness Neuro: COMMON NORMALS: patient oriented x3, CN's II-XII intact bilaterally, moves all extremities, no focal motor deficits and no sensory deficits noted MENINGEAL SIGNS: Yes no meningeal signs SPEECH: speech normal Psych: COMMON NORMALS: mental status grossly normal, Normal thought process present, cooperative, normal affect, speech normal and activity/motor behavior normal APPEARANCE: Yes well kempt SPEECH: Yes normal speech THOUGHT PROCESS: Normal thought process present Skin: COMMON NORMALS: no rashes or lesions noted, turgor normal, no jaundice, no petechiae and no mottling GENERAL SKIN EXAM: no rashes or lesions noted and turgor normal Course Vital Signs: Vital signs: Vital Signs Temperature 97.7 F 11/14/19 05:09 Pulse Rate 56 L 11/14/19 11:36 Respiratory Rate 18 11/14/19 11:36 Blood Pressure 165/103 11/14/19 11:36 Pulse Oximetry 98 11/14/19 11:36 MDM - General Adult MDM Narrative: Medical decision making narrative: Case turned over to Dr. Nur at change of shift. Lab Data: Labs: Lab Results 11/14/19 11/14/19 11/14/19 Range/Units 05:51 05:51 05:51 WBC 13.8 H (4.0-10.0) 10^3/ uL RBC 4.55 (4.1-5.3) 10^6/u L Hgb 15.1 (11.7-16.6) g/dL Hct 45.3 (42.0-52.0) % MCV 99.6 H (80-94) fL MCH 33.2 (28.0-34.0) pg MCHC 33.3 (30.0-36.0) g/dL RDW 14.5 (12.1-15.1) % Plt Count 290 (130-400) 10^3/c mm MPV 8.9 (7.4-10.4) fL Neut % (Auto) 69.9 % Lymph % (Auto) 20.7 % Newton % (Auto) 7.1 % Eos % (Auto) 0.4 % Baso % (Auto) 0.1 % Neut # (Auto) 9.6 H (1.8-7.7) 10^3/u L Lymph # (Auto) 2.9 (0.8-4.8) 10^3/u L Newton # (Auto) 1.0 H (0.2-0.9) 10^3/u L Eos # (Auto) 0.1 (0.0-0.8) 10^3/u L Baso # (Auto) 0.0 (0.0-0.1) 10^3/u L Nucleated RBC % (a uto) 0 % Nucleated RBCs # 0.0 /100WBC ESR 8 (0-10) mm/hr Sodium 139 (136-145) mmol/L Potassium 4.4 (3.5-5.1) mmol/L Chloride 97 L (98-107) mmol/L Carbon Dioxide 29 (22-29) mmol/L Anion Gap 17.4 (5-19) BUN 25 H (6-20) mg/dL Creatinine 1.0 (0.7-1.2) mg/dL GFR Calculation 77.9 L (90-130) mL/min Glucose 111 (65-115) mg/dL Calculated Osmolal ity 286 (285-295) mOsm/k g Calcium 10.0 (8.5-10.5) mg/dL Phosphorus (2.5-4.5) mg/dL Magnesium 2.5 H (1.7-2.3) mg/dL Total Bilirubin 0.6 (0.15-1.2) mg/dL AST 15 (0-40) U/L ALT 18 (0-41) U/L Alkaline Phosphata se 47 (40-130) IU/L Creatine Kinase 138 (39-308) U/L Troponin T Baselin e (0-15) ng/L C-Reactive Protein 2.6 (0.0-4.9) mg/L Total Protein 7.2 (6.6-8.7) g/dL Albumin 4.9 (3.5-5.2) g/dL Globulin 2.3 (1.3-4.6) g/dL 11/14/19 11/14/19 Range/Units 05:51 05:51 WBC (4.0-10.0) 10^3/ uL RBC (4.1-5.3) 10^6/u L Hgb (11.7-16.6) g/dL Hct (42.0-52.0) % MCV (80-94) fL MCH (28.0-34.0) pg MCHC (30.0-36.0) g/dL RDW (12.1-15.1) % Plt Count (130-400) 10^3/c mm MPV (7.4-10.4) fL Neut % (Auto) % Lymph % (Auto) % Newton % (Auto) % Eos % (Auto) % Baso % (Auto) % Neut # (Auto) (1.8-7.7) 10^3/u L Lymph # (Auto) (0.8-4.8) 10^3/u L Newton # (Auto) (0.2-0.9) 10^3/u L Eos # (Auto) (0.0-0.8) 10^3/u L Baso # (Auto) (0.0-0.1) 10^3/u L Nucleated RBC % (a uto) % Nucleated RBCs # /100WBC ESR (0-10) mm/hr Sodium (136-145) mmol/L Potassium (3.5-5.1) mmol/L Chloride (98-107) mmol/L Carbon Dioxide (22-29) mmol/L Anion Gap (5-19) BUN (6-20) mg/dL Creatinine (0.7-1.2) mg/dL GFR Calculation (90-130) mL/min Glucose (65-115) mg/dL Calculated Osmolal ity (285-295) mOsm/k g Calcium (8.5-10.5) mg/dL Phosphorus 4.5 (2.5-4.5) mg/dL Magnesium (1.7-2.3) mg/dL Total Bilirubin (0.15-1.2) mg/dL AST (0-40) U/L ALT (0-41) U/L Alkaline Phosphata se (40-130) IU/L Creatine Kinase (39-308) U/L Troponin T Baselin e 13 (0-15) ng/L C-Reactive Protein (0.0-4.9) mg/L Total Protein (6.6-8.7) g/dL Albumin (3.5-5.2) g/dL Globulin (1.3-4.6) g/dL Discharge Plan Discharge Patient Disposition: Home, Self-Care Clinical Impression: Polymyalgia rheumatica Condition: Stable Prescriptions: New methylprednisolone 8 mg tablet 40 mg PO BID Qty: 90 RF: 0 tizanidine 4 mg capsule 4 mg PO TID PRN (Reason: muscle spasticity) Qty: 90 RF: 0 Discontinued prednisone 5 mg tablet See Rx Instructions PO .COMPLEX Qty: 210 RF: 2 No Action Zoloft 100 mg tablet 100 mg PO QAM Qty: 30 RF: 3 aspirin 325 mg tablet 325 mg PO DAILY RF: 0 nitroglycerin 0.4 mg tablet, sublingual 0.4 mg SUBLINGUAL Q5M PRN (Reason: Chest Pain) RF: 0 pantoprazole 40 mg tablet,delayed release (DR/EC) 40 mg PO QAM RF: 0 lorazepam [Ativan] 0.5 mg tablet 0.5 mg PO BID PRN (Reason: anxiety) Qty: 60 RF: 4 flecainide 50 mg tablet 50 mg PO BID Qty: 180 RF: 3 metoprolol tartrate 25 mg tablet 25 mg PO BID Qty: 180 RF: 3 ProAir HFA 90 mcg/actuation Hfa Aerosol Inhaler 2 puff INHALATION Q4H PRN (Reason: Shortness Of Breath) RF: 0 Vitamin C 2 tab PO DAILY RF: 0 Vitamin D3 2 tab PO DAILY RF: 0 acetaminophen [Tylenol Extra Strength] 500 mg Tablet 1,500 mg PO Q4H PRN (Reason: Pain) RF: 0 Discharge Orders: Discharge Order (Routine); Ordered 11/14/19 Ordered By: Jerod Nur Referrals: YING STALEY SOUND RECORDING TECHNICIAN [Primary Care Provider] - Discharge Diet: Usual diet Discharge Activity: Increase activity as tolerated Activity Restrictions/Additional Instructions: This management will call to follow-up with rheumatology early next week. Stand Alone Forms: Work/School Release Discharge Date/Time: 11/14/19 11:37 Sign Out Sign Out Data: Patient Sign Out occurred on 11/14/19 at 07:30. Patient's care was discussed, and care was transferred from to Jerod Nur DO. Coding Level of Care Code ED Brand Protection Manager for Chg Fwd Exam Comprehensive Documented by User: Jerod Nur DO 11/17/19 06:26 HPI - General Adult General: Chief complaint: General Medical Stated complaint: leg and arm pain Time Seen by Provider: 11/14/19 05:32 PFSH ED PFSH: Medical History Allergic contact dermatitis Atrial fibrillation Cigarette nicotine dependence Generalized anxiety disorder GERD (gastroesophageal reflux disease) High risk medication use Major depressive disorder, recurrent severe without psychotic features Polymyalgia rheumatica Smoking addiction 30 years currently smokes half a pack a day. Squamous cell carcinoma Surgical History History of kidney surgery Previous back surgery Family History Other Cancer Diabetes Family history of premature coronary artery disease Hypertension Psychiatric illness Rheumatoid arthritis Stroke Denies family history of Chronic kidney disease (CKD) Systemic lupus erythematosus (SLE) in adult Social History Smoking and tobacco status: current every day smoker Alcohol intake: former History of recent travel: No Course Vital Signs: Vital signs: Vital Signs Temperature 97.7 F 11/14/19 05:09 Pulse Rate 56 L 11/14/19 11:36 Respiratory Rate 18 11/14/19 11:36 Blood Pressure 165/103 11/14/19 11:36 Pulse Oximetry 98 11/14/19 11:36 MDM - General Adult MDM Narrative: Medical decision making narrative: Discussed with 1 of the services tech at the rheumatology clinic here at [facility]. We reviewed his entire case including his previous work-up. Is somewhat concerning that at the high doses of prednisone that he is on is not had improvement with polymyalgia rheumatica generally at 20 mg daily would expect to see market improvement. That does raise concern that there is some other underlying or other secondary process going on. He recommends we change the patient to methylprednisolone 40 mg twice daily. He also recommends a return to the rheumatology clinic for further evaluation. Had a very long discussion with the patient regarding this approach. Did advise him that neither the services tech nor I are convinced that this change in medication will bring about significant improvement however it is encouraging that the last time he was here with [facility]-Medrol he noted a big improvement. More we do hope to see some improvement of his overall symptoms with this change to methylprednisolone. In addition to that discussed the potential that there may be another underlying problem and he may need further evaluation and reexamination in the rheumatology clinic that this is not likely to be something that we can fully diagnose in the emergency room as it appears to be more of an advanced rheumatology issue. He is welcome to return if he has any significant problems and he was asked to call the rheumatology clinic at his first possible convenience to reschedule a follow-up. Lab Data: Labs: Lab Results 11/14/19 11/14/19 11/14/19 Range/Units 05:51 05:51 05:51 WBC 13.8 H (4.0-10.0) 10^3/ uL RBC 4.55 (4.1-5.3) 10^6/u L Hgb 15.1 (11.7-16.6) g/dL Hct 45.3 (42.0-52.0) % MCV 99.6 H (80-94) fL MCH 33.2 (28.0-34.0) pg MCHC 33.3 (30.0-36.0) g/dL RDW 14.5 (12.1-15.1) % Plt Count 290 (130-400) 10^3/c mm MPV 8.9 (7.4-10.4) fL Neut % (Auto) 69.9 % Lymph % (Auto) 20.7 % Newton % (Auto) 7.1 % Eos % (Auto) 0.4 % Baso % (Auto) 0.1 % Neut # (Auto) 9.6 H (1.8-7.7) 10^3/u L Lymph # (Auto) 2.9 (0.8-4.8) 10^3/u L Newton # (Auto) 1.0 H (0.2-0.9) 10^3/u L Eos # (Auto) 0.1 (0.0-0.8) 10^3/u L Baso # (Auto) 0.0 (0.0-0.1) 10^3/u L Nucleated RBC % (a uto) 0 % Nucleated RBCs # 0.0 /100WBC ESR 8 (0-10) mm/hr Sodium 139 (136-145) mmol/L Potassium 4.4 (3.5-5.1) mmol/L Chloride 97 L (98-107) mmol/L Carbon Dioxide 29 (22-29) mmol/L Anion Gap 17.4 (5-19) BUN 25 H (6-20) mg/dL Creatinine 1.0 (0.7-1.2) mg/dL GFR Calculation 77.9 L (90-130) mL/min Glucose 111 (65-115) mg/dL Calculated Osmolal ity 286 (285-295) mOsm/k g Calcium 10.0 (8.5-10.5) mg/dL Phosphorus (2.5-4.5) mg/dL Magnesium 2.5 H (1.7-2.3) mg/dL Total Bilirubin 0.6 (0.15-1.2) mg/dL AST 15 (0-40) U/L ALT 18 (0-41) U/L Alkaline Phosphata se 47 (40-130) IU/L Creatine Kinase 138 (39-308) U/L Troponin T Baselin e (0-15) ng/L C-Reactive Protein 2.6 (0.0-4.9) mg/L Total Protein 7.2 (6.6-8.7) g/dL Albumin 4.9 (3.5-5.2) g/dL Globulin 2.3 (1.3-4.6) g/dL 11/14/19 11/14/19 Range/Units 05:51 05:51 WBC (4.0-10.0) 10^3/ uL RBC (4.1-5.3) 10^6/u L Hgb (11.7-16.6) g/dL Hct (42.0-52.0) % MCV (80-94) fL MCH (28.0-34.0) pg MCHC (30.0-36.0) g/dL RDW (12.1-15.1) % Plt Count (130-400) 10^3/c mm MPV (7.4-10.4) fL Neut % (Auto) % Lymph % (Auto) % Newton % (Auto) % Eos % (Auto) % Baso % (Auto) % Neut # (Auto) (1.8-7.7) 10^3/u L Lymph # (Auto) (0.8-4.8) 10^3/u L Newton # (Auto) (0.2-0.9) 10^3/u L Eos # (Auto) (0.0-0.8) 10^3/u L Baso # (Auto) (0.0-0.1) 10^3/u L Nucleated RBC % (a uto) % Nucleated RBCs # /100WBC ESR (0-10) mm/hr Sodium (136-145) mmol/L Potassium (3.5-5.1) mmol/L Chloride (98-107) mmol/L Carbon Dioxide (22-29) mmol/L Anion Gap (5-19) BUN (6-20) mg/dL Creatinine (0.7-1.2) mg/dL GFR Calculation (90-130) mL/min Glucose (65-115) mg/dL Calculated Osmolal ity (285-295) mOsm/k g Calcium (8.5-10.5) mg/dL Phosphorus 4.5 (2.5-4.5) mg/dL Magnesium (1.7-2.3) mg/dL Total Bilirubin (0.15-1.2) mg/dL AST (0-40) U/L ALT (0-41) U/L Alkaline Phosphata se (40-130) IU/L Creatine Kinase (39-308) U/L Troponin T Baselin e 13 (0-15) ng/L C-Reactive Protein (0.0-4.9) mg/L Total Protein (6.6-8.7) g/dL Albumin (3.5-5.2) g/dL Globulin (1.3-4.6) g/dL Discharge Plan Discharge Patient Disposition: Home, Self-Care Clinical Impression: Polymyalgia rheumatica Condition: Stable Prescriptions: New methylprednisolone 8 mg tablet 40 mg PO BID Qty: 90 RF: 0 tizanidine 4 mg capsule 4 mg PO TID PRN (Reason: muscle spasticity) Qty: 90 RF: 0 Discontinued prednisone 5 mg tablet See Rx Instructions PO .COMPLEX Qty: 210 RF: 2 No Action Zoloft 100 mg tablet 100 mg PO QAM Qty: 30 RF: 3 aspirin 325 mg tablet 325 mg PO DAILY RF: 0 nitroglycerin 0.4 mg tablet, sublingual 0.4 mg SUBLINGUAL Q5M PRN (Reason: Chest Pain) RF: 0 pantoprazole 40 mg tablet,delayed release (DR/EC) 40 mg PO QAM RF: 0 lorazepam [Ativan] 0.5 mg tablet 0.5 mg PO BID PRN (Reason: anxiety) Qty: 60 RF: 4 flecainide 50 mg tablet 50 mg PO BID Qty: 180 RF: 3 metoprolol tartrate 25 mg tablet 25 mg PO BID Qty: 180 RF: 3 ProAir HFA 90 mcg/actuation Hfa Aerosol Inhaler 2 puff INHALATION Q4H PRN (Reason: Shortness Of Breath) RF: 0 Vitamin C 2 tab PO DAILY RF: 0 Vitamin D3 2 tab PO DAILY RF: 0 acetaminophen [Tylenol Extra Strength] 500 mg Tablet 1,500 mg PO Q4H PRN (Reason: Pain) RF: 0 Discharge Orders: Discharge Order (Routine); Ordered 11/14/19 Ordered By: Jerod Nur Referrals: YING STALEY, SOUND RECORDING TECHNICIAN [Primary Care Provider] - Discharge Diet: Usual diet Discharge Activity: Increase activity as tolerated Activity Restrictions/Additional Instructions: This management will call to follow-up with rheumatology early next week. Stand Alone Forms: Work/School Release Discharge Date/Time: 11/14/19 11:37 Sign Out Sign Out Data: Patient Sign Out occurred on 11/14/19 at 07:30. Patient's care was discussed, and care was transferred from to Jerod Nur DO. Coding Level of Care Code ED Brand Protection Manager for Chg Fwd Exam Comprehensive
[2019-11-14 06:52] LABS: Erythrocyte Sedimentation Rate 8 mm/hr (0-10)
--- NOTE | 2019-11-14 07:39 | ECG_ITS ---
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 Measurements Intervals [place] Rate: 51 P: 41 ME: 119 QRS: 56 QRSD: 83 T: 58 QT: 440 QTc: 407 Interpretive Statements SINUS BRADYCARDIA WITH SHORT ME INTERVAL Compared to ECG 11/14/2019 08:22:44 Short ME interval now present Sinus arrhythmia no longer present Electronically Signed On 11-15-2019 23:02:34 CDT by Lorin Andujar M.D. [id number]
[2019-11-14] MEDS: ketorolac 30 mg/mL INJ IVP (07:53)
[2019-11-14] MEDS: HYDROmorphone 1 mg/mL INJ 1 mL 0.5 MG IVP (09:42)
--- NOTE | 2019-11-14 10:20 | XR_ITS ---
WS: [id number] XR lumbar spine 2-3V* [id number] REASON FOR EXAM: pain FINDINGS: The disc spaces and vertebral body heights are normal. There is arteriosclerotic changes of the aorta and iliac arteries. The lamina, pedicles, spinous processes, were all normal. There is no fractures or other dyscrasias seen. 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
--- NOTE | 2019-11-14 10:20 | XR_ITS ---
WS: [id number] XR cervical spine 3V* [id number] REASON FOR EXAM: pain FINDINGS: Mild spurring of the joints of [place]. There is degenerate disc changes C5-C6. The remaining cervical spine essentially normal. The odontoid process was normal. The lamina, pedicles, spinous processes are normal. XR/XR cervical spine 3V* [id number] IMPRESSION: Mild cervical spondylosis Degenerated disc changes C5-C6.
--- NOTE | 2019-11-14 10:20 | XR_ITS ---
WS: [id number] XR thoracic spine 3V* [id number] REASON FOR EXAM: pain FINDINGS: The cervicothoracic junction was normal. No disc bulge or herniation C7-T1. No fractures no shara. The remaining thoracic spine show normal disc spaces and vertebral body heights. There was no hernias seen or fractures noted. XR/XR thoracic spine 3V* [id number] IMPRESSION: Normal thoracic spine series.
[2019-11-14 10:52] LABS: Phosphorus 4.5 mg/dL (2.5-4.5)
--- NOTE | 2019-11-14 12:21 | DCPLANNER ---
Addendum entered by Cathy Zacarias 11/14/19 12:23: pharmacy operations manager called patient and informed patient of the scheduled appointment. Original Note: pharmacy operations manager was asked to schedule a follow up appointment for patient with rheumatology. pharmacy operations manager called the rheumatology clinic, spoke with Johnny, a follow up appointment was scheduled for November at 10:[address] Cool.
--- NOTE | 2019-11-27 10:47 | DCPLANNER ---
Patient did attend appointment scheduled for 11.26.19 with rheumatology.
== END 2019-11-14 11:37 | disposition home or self-care (01) ==
PROVIDERS: Emergency Medicine; Emergency Provider Family Medicine; PCP Nurse Practitioner Family
DX: M35.3 Polymyalgia rheumatica (principal); Z79.82 Long term (current) use of aspirin; I48.91 Unspecified atrial fibrillation; F17.210 Nicotine dependence, cigarettes, uncomplicated
CPT/HCPCS: 12345; 72040; 72072; 72100; 80053; 82550; 83735; 84100; 84484; 85025; 85651; 86140; 93005; 96361; 96374; 96375; 96376; 99284; J0131; J1170; J1885; J2405; J2930; J7030

== ENCOUNTER → 2019-11-26 10:00 | Outpatient (BNVA) | payer BC, SELFPAY | PROVIDERS: PCP Nurse Practitioner Family; Visit Provider Internal Medicine Rheumatology | DX: M35.3 Polymyalgia rheumatica (principal); M05.9 Rheumatoid arthritis with rheumatoid factor, unspecified; Z79.899 Other long term (current) drug therapy; F17.210 Nicotine dependence, cigarettes, uncomplicated; I48.91 Unspecified atrial fibrillation; Z79.52 Long term (current) use of systemic steroids | CPT/HCPCS: 99214 ==

== ENCOUNTER 2019-12-22 09:33 | Outpatient (CLI) | payer BC, SELFPAY ==
--- NOTE | 2019-12-22 09:44 | XR_ITS ---
WS: [id number] CHEST 2 VIEWS HISTORY: COUGH COMPARISON: 09/08/2019 Lungs: Mild pulmonary hyperinflation with flattening of the diaphragms. No mass or nodule. No pneumon ia. Normal vasculature. Cardiac size: Normal. Mediastinum/Aorta: Normal mediastinum. Bones: Normal. XR/XR chest 2V* [id number] IMPRESSION: Mild chronic emphysema. No pneumonia.
== END 2019-12-22 09:34 | disposition home or self-care (01) ==
LOC: RADWPI 09:36
PROVIDERS: PCP Nurse Practitioner Family; Visit Provider Nurse Practitioner Family
DX: R05 Cough (principal); J43.9 Emphysema, unspecified
CPT/HCPCS: 71046

== ENCOUNTER 2019-12-24 16:41 | Emergency (ER) | payer BC, SELFPAY ==
[2019-12-24 16:42] VITALS: BMI 27.1
[2019-12-24 16:46] VITALS: BP 138/79; PULSE 114; RESP 20; TEMP 36.8; O2SAT 99
--- NOTE | 2019-12-24 16:46 | ECG_ITS ---
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 Measurements Intervals [place] Rate: 111 P: 53 MA: 134 QRS: 46 QRSD: 80 T: 65 QT: 321 QTc: 438 Interpretive Statements SINUS TACHYCARDIA POSSIBLE LEFT ATRIAL ENLARGEMENT [-0.1mV P WAVE IN V1/V2] NONSPECIFIC ST & T-WAVE ABNORMALITY ABNORMAL RHYTHM ECG Compared to ECG 11/14/2019 11:12:54 T-wave abnormality now present Sinus bradycardia no longer present Short MA interval no longer present Electronically Signed On 12-25-2019 0:21:39 CDT by Klaudia Rose M.D. [id number]
[2019-12-24 17:10] LABS: Basophils % 0.4 %; Hematocrit 42.5 % (42.0-52.0); Hemoglobin 14.4 g/dL (11.7-16.6); Lymphocytes % 13.1 %; Mean Corpuscular HGB Conc 33.9 g/dL (30.0-36.0); Mean Corpuscular Hemoglobin 35.2 pg (28.0-34.0); Mean Corpuscular Volume 103.9 fL (80-94); Mean Platelet Volume 8.9 fL (7.4-10.4); Monocytes # 0.3 10^3/uL (0.2-0.9); Monocytes % 4.2 %; Neutrophils # 5.88 10^3/uL (1.8-7.7); Neutrophils % 80.4 %; Nucleated Red Blood Cells % 0 %; Platelet Count 184 10^3/cmm (130-400); Red Blood Count 4.09 10^6/uL (4.1-5.3); Red Cell Distribution Width 13.4 % (12.1-15.1); White Blood Count 7.3 10^3/uL (4.0-10.0)
--- NOTE | 2019-12-24 17:17 | W.ED.CHESTPA ---
Documented by User: Jerod Nur DO 12/25/19 06:05 HPI - Chest Pain General: Chief Complaint: Chest Pain Stated Complaint: CHEST PAIN Time Seen by Provider: 12/24/19 16:45 History of Present Illness: HPI narrative: 54-year-old male comes in complaining of chest pain that he had today while rest today he was having what he thought was atrial fibrillation symptoms he took a nitro which states he is also having some chest discomfort states he did not have any relief from them sublingual nitro. He has a history of atrial fibrillation he sees Dr. Rose he also has a history of polymyalgia rheumatica he states he has been sick off and on for the last 2 weeks with respiratory symptoms and a cough he has seen his primary care doctor been tested for flu and COVID both of which were negative. Paid the discomfort did not radiate to the neck or arms he has not been diaphoretic dyspneic or nauseous. He does states he has had several stress tests in the past all of which have been negative. But he cannot recall the date of his last test. Reviewing old records patient had a normal cardiac catheterization in 2015 and subsequently in July 2018 he had a normal sestamibi stress test MD complaint: chest heaviness and chest discomfort Pertinent past history: other (Normal stress test and cath see above) Onset (ago): hour(s) Timing of current episode: episodic Prior episodes: Yes Onset: during rest Pain location: left chest Pain radiation: none Quality: heaviness Relieving factors: nothing Exacerbating factors: nothing Context: recent illness (Upper respiratory janine illness) Associated symptoms: Reports palpitations and sense of impending doom; Deny abdominal pain, dyspnea, fever(s), nausea or vomiting Treatment prior to arrival: nitroglycerin Review of Systems Const: Denies: fever(s), chills, body aches, change in appetite, fatigue or malaise ENMT: Denies: throat pain, ear or mastoid pain, nasal discharge or nasal congestion Card: Reports: palpitations Resp: Denies: dyspnea, productive cough or non-productive cough GI: Denies: abdominal pain, nausea, vomiting, hematemesis, coffee ground emesis, diarrhea, constipation, bloating, hematochezia or melena : Denies: flank pain, dysuria, urinary frequency or urinary urgency Skin/Breast: Denies: rash or pruritus PFSH ED PFSH: Medical History Allergic contact dermatitis Atrial fibrillation Cigarette nicotine dependence Generalized anxiety disorder GERD (gastroesophageal reflux disease) High risk medication use Major depressive disorder, recurrent severe without psychotic features Polymyalgia rheumatica Smoking addiction 30 years currently smokes half a pack a day. Squamous cell carcinoma Surgical History History of kidney surgery Previous back surgery Family History Other Cancer Diabetes Family history of premature coronary artery disease Hypertension Psychiatric illness Rheumatoid arthritis Stroke Denies family history of Chronic kidney disease (CKD) Systemic lupus erythematosus (SLE) in adult Social History Smoking and tobacco status: current every day smoker Alcohol intake: former History of recent travel: No Physical Exam Const: COMMON NORMALS: no acute distress GENERAL APPEARANCE: cooperative and comfortable ORIENTATION/CONSCIOUSNESS: Yes awake, Yes oriented to person, Yes oriented to place and Yes oriented to time HENMT: COMMON NORMALS: normocephalic and atraumatic HEAD & SCALP: normocephalic and atraumatic Eye: COMMON NORMALS: Equal, round and reactive pupils present, EOMs intact bilaterally, conjunctivae normal and no scleral icterus CONJUNCTIVA: Yes conjunctivae normal PUPIL: Yes Equal, round and reactive pupils present Neck/C-Spine: COMMON NORMALS: full ROM, no lymphadenopathy, supple and no JVD Lymph: LYMPHATIC: no lymphadenopathy noted and no lymphedema noted Resp: COMMON NORMALS: normal respiratory effort, No retractions, No use of accessory muscles and clear to auscultation bilaterally AUSCULTATION: clear to auscultation bilaterally Cardio: COMMON NORMALS: no JVD, regular rate, regular rhythm and No murmurs present (Cardio) RATE: regular rate RHYTHM: regular rhythm GI: COMMON NORMALS: Soft to palpation and No hepatosplenomegaly present AUSCULTATION: Yes normoactive bowel sounds PALPATION: Yes Soft to palpation, No Tenderness to palpation present (GI), No Guarding due to palpation present (GI) and Yes No hepatosplenomegaly present Extremity: COMMON NORMALS: normal to inspection, capillary refill normal, no clubbing, cyanosis or edema, no calf tenderness and no pedal edema Neuro: SENSORIUM/ORIENTATION: Yes oriented to person, Yes oriented to place and Yes oriented to time Skin: COMMON NORMALS: no rashes or lesions noted GENERAL SKIN EXAM: no rashes or lesions noted Course Vital Signs: Vital signs: Vital Signs Temperature 98.0 F 12/24/19 20:54 Pulse Rate 110 H 12/24/19 20:54 Respiratory Rate 16 12/24/19 20:54 Blood Pressure 127/88 12/24/19 20:54 Pulse Oximetry 96 12/24/19 20:54 MDM - Chest Pain MDM Narrative: Medical decision making narrative: Care turned over to Dr. Redd at change of shift Lab Data: Labs: Lab Results 12/24/19 12/24/19 12/24/19 Range/Units 17:03 17:03 17:03 WBC 7.3 (4.0-10.0) 10^3/ uL RBC 4.09 L (4.1-5.3) 10^6/u L Hgb 14.4 (11.7-16.6) g/dL Hct 42.5 (42.0-52.0) % MCV 103.9 H (80-94) fL MCH 35.2 H (28.0-34.0) pg MCHC 33.9 (30.0-36.0) g/dL RDW 13.4 (12.1-15.1) % Plt Count 184 (130-400) 10^3/c mm MPV 8.9 (7.4-10.4) fL Neut % (Auto) 80.4 % Lymph % (Auto) 13.1 % [place] % (Auto) 4.2 % Eos % (Auto) 0.0 % Baso % (Auto) 0.4 % Neut # (Auto) 5.88 (1.8-7.7) 10^3/u L Lymph # (Auto) 1.0 (0.8-4.8) 10^3/u L [place] # (Auto) 0.3 (0.2-0.9) 10^3/u L Eos # (Auto) 0.0 (0.0-0.8) 10^3/u L Baso # (Auto) 0.0 (0.0-0.1) 10^3/u L Nucleated RBC % (a uto) 0 % Nucleated RBCs # 0.0 /100WBC Sodium 136 (136-145) mmol/L Potassium 3.9 (3.5-5.1) mmol/L Chloride 97 L (98-107) mmol/L Carbon Dioxide 26 (22-29) mmol/L Anion Gap 16.9 (5-19) BUN 13 (6-20) mg/dL Creatinine 0.9 (0.7-1.2) mg/dL GFR Calculation 87.6 L (90-130) mL/min Glucose 104 (65-115) mg/dL Calculated Osmolal ity 278 L (285-295) mOsm/k g Calcium 9.4 (8.5-10.5) mg/dL Total Bilirubin 0.7 (0.15-1.2) mg/dL AST 16 (0-40) U/L ALT 25 (0-41) U/L Alkaline Phosphata se 83 (40-130) IU/L Troponin T Baselin e 21 H (0-15) ng/L Troponin T 120 Min [place] (0-15) ng/L Delta Troponin T (0-10) ABS# Total Protein 6.9 (6.6-8.7) g/dL Albumin 4.3 (3.5-5.2) g/dL Globulin 2.6 (1.3-4.6) g/dL 12/24/19 Range/Units 18:54 WBC (4.0-10.0) 10^3/ uL RBC (4.1-5.3) 10^6/u L Hgb (11.7-16.6) g/dL Hct (42.0-52.0) % MCV (80-94) fL MCH (28.0-34.0) pg MCHC (30.0-36.0) g/dL RDW (12.1-15.1) % Plt Count (130-400) 10^3/c mm MPV (7.4-10.4) fL Neut % (Auto) % Lymph % (Auto) % [place] % (Auto) % Eos % (Auto) % Baso % (Auto) % Neut # (Auto) (1.8-7.7) 10^3/u L Lymph # (Auto) (0.8-4.8) 10^3/u L [place] # (Auto) (0.2-0.9) 10^3/u L Eos # (Auto) (0.0-0.8) 10^3/u L Baso # (Auto) (0.0-0.1) 10^3/u L Nucleated RBC % (a uto) % Nucleated RBCs # /100WBC Sodium (136-145) mmol/L Potassium (3.5-5.1) mmol/L Chloride (98-107) mmol/L Carbon Dioxide (22-29) mmol/L Anion Gap (5-19) BUN (6-20) mg/dL Creatinine (0.7-1.2) mg/dL GFR Calculation (90-130) mL/min Glucose (65-115) mg/dL Calculated Osmolal ity (285-295) mOsm/k g Calcium (8.5-10.5) mg/dL Total Bilirubin (0.15-1.2) mg/dL AST (0-40) U/L ALT (0-41) U/L Alkaline Phosphata se (40-130) IU/L Troponin T Baselin e (0-15) ng/L Troponin T 120 Min [place] 21.95 H (0-15) ng/L Delta Troponin T 0.95 (0-10) ABS# Total Protein (6.6-8.7) g/dL Albumin (3.5-5.2) g/dL Globulin (1.3-4.6) g/dL Discharge Plan Discharge Patient Disposition: Home Clinical Impression: Atypical chest pain, Generalized anxiety disorder Condition: Stable Prescriptions: No Action Zoloft 100 mg tablet 100 mg PO QAM Qty: 30 RF: 3 aspirin 325 mg tablet 325 mg PO DAILY RF: 0 nitroglycerin 0.4 mg tablet, sublingual 0.4 mg SUBLINGUAL Q5M PRN (Reason: Chest Pain) RF: 0 pantoprazole 40 mg tablet,delayed release (DR/EC) 40 mg PO QAM RF: 0 lorazepam [Ativan] 0.5 mg tablet 0.5 mg PO BID PRN (Reason: anxiety) Qty: 60 RF: 4 folic acid 1 mg tablet 1 mg PO DAILY Qty: 90 RF: 3 flecainide 50 mg tablet 50 mg PO BID Qty: 180 RF: 3 metoprolol tartrate 25 mg tablet 25 mg PO BID Qty: 180 RF: 3 prednisone 5 mg tablet See Rx Instructions PO .COMPLEX Qty: 210 RF: 3 hydroxyzine pamoate [Vistaril] 50 mg capsule 50 mg PO TID PRN (Reason: anxiety) Qty: 90 RF: 0 Vitamin C 2 tab PO DAILY RF: 0 Vitamin D3 2 - 3 tab PO DAILY RF: 0 Advair Diskus 250-50 mcg/dose blister with device 1 inh INHALATION BID RF: 0 Anoro Ellipta 62.5-25 mcg/actuation blister with device 1 inh INHALATION DAILY RF: 0 methotrexate sodium 2.5 mg tablet 15 mg PO Q7D RF: 0 acetaminophen [Tylenol Extra Strength] 500 mg Tablet 1,500 mg PO Q4H PRN (Reason: Pain) RF: 0 Discharge Orders: Discharge Order (Routine); Ordered 12/24/19 Ordered By: Vinnie Redd Referrals: YING STALEY, TUBULAR RIVETER [Primary Care Provider] - 1-3 days Discharge Diet: Advance as tolerated Discharge Activity: Resume usual activity Patient Instructions: Chest Pain (ED) Discharge Date/Time: 12/24/19 21:13 Coding Level of Care Code ED Online Banking Specialist for Chg Fwd Exam Comprehensive Documented by User: Vinnie Redd MD 12/24/19 21:20 HPI - Chest Pain General: Chief Complaint: Chest Pain Stated Complaint: CHEST PAIN Time Seen by Provider: 12/24/19 16:45 PFSH ED PFSH: Medical History Allergic contact dermatitis Atrial fibrillation Cigarette nicotine dependence Generalized anxiety disorder GERD (gastroesophageal reflux disease) High risk medication use Major depressive disorder, recurrent severe without psychotic features Polymyalgia rheumatica Smoking addiction 30 years currently smokes half a pack a day. Squamous cell carcinoma Surgical History History of kidney surgery Previous back surgery Family History Other Cancer Diabetes Family history of premature coronary artery disease Hypertension Psychiatric illness Rheumatoid arthritis Stroke Denies family history of Chronic kidney disease (CKD) Systemic lupus erythematosus (SLE) in adult Social History Smoking and tobacco status: current every day smoker Alcohol intake: former History of recent travel: No Course Vital Signs: Vital signs: Vital Signs Temperature 98.0 F 12/24/19 20:54 Pulse Rate 110 H 12/24/19 20:54 Respiratory Rate 16 12/24/19 20:54 Blood Pressure 127/88 12/24/19 20:54 Pulse Oximetry 96 12/24/19 20:54 MDM - Chest Pain MDM Narrative: Medical decision making narrative: Patient presents for chest pain is likely anxiety related. He states he has been quite anxious. He feels much improved here and GI cocktail took his pain completely away. Patient's x-ray and troponins are normal. Patient is stable for discharge and return if worsening. Lab Data: Labs: Lab Results 12/24/19 12/24/19 12/24/19 Range/Units 17:03 17:03 17:03 WBC 7.3 (4.0-10.0) 10^3/ uL RBC 4.09 L (4.1-5.3) 10^6/u L Hgb 14.4 (11.7-16.6) g/dL Hct 42.5 (42.0-52.0) % MCV 103.9 H (80-94) fL MCH 35.2 H (28.0-34.0) pg MCHC 33.9 (30.0-36.0) g/dL RDW 13.4 (12.1-15.1) % Plt Count 184 (130-400) 10^3/c mm MPV 8.9 (7.4-10.4) fL Neut % (Auto) 80.4 % Lymph % (Auto) 13.1 % [place] % (Auto) 4.2 % Eos % (Auto) 0.0 % Baso % (Auto) 0.4 % Neut # (Auto) 5.88 (1.8-7.7) 10^3/u L Lymph # (Auto) 1.0 (0.8-4.8) 10^3/u L [place] # (Auto) 0.3 (0.2-0.9) 10^3/u L Eos # (Auto) 0.0 (0.0-0.8) 10^3/u L Baso # (Auto) 0.0 (0.0-0.1) 10^3/u L Nucleated RBC % (a uto) 0 % Nucleated RBCs # 0.0 /100WBC Sodium 136 (136-145) mmol/L Potassium 3.9 (3.5-5.1) mmol/L Chloride 97 L (98-107) mmol/L Carbon Dioxide 26 (22-29) mmol/L Anion Gap 16.9 (5-19) BUN 13 (6-20) mg/dL Creatinine 0.9 (0.7-1.2) mg/dL GFR Calculation 87.6 L (90-130) mL/min Glucose 104 (65-115) mg/dL Calculated Osmolal ity 278 L (285-295) mOsm/k g Calcium 9.4 (8.5-10.5) mg/dL Total Bilirubin 0.7 (0.15-1.2) mg/dL AST 16 (0-40) U/L ALT 25 (0-41) U/L Alkaline Phosphata se 83 (40-130) IU/L Troponin T Baselin e 21 H (0-15) ng/L Troponin T 120 Min [place] (0-15) ng/L Delta Troponin T (0-10) ABS# Total Protein 6.9 (6.6-8.7) g/dL Albumin 4.3 (3.5-5.2) g/dL Globulin 2.6 (1.3-4.6) g/dL 12/24/19 Range/Units 18:54 WBC (4.0-10.0) 10^3/ uL RBC (4.1-5.3) 10^6/u L Hgb (11.7-16.6) g/dL Hct (42.0-52.0) % MCV (80-94) fL MCH (28.0-34.0) pg MCHC (30.0-36.0) g/dL RDW (12.1-15.1) % Plt Count (130-400) 10^3/c mm MPV (7.4-10.4) fL Neut % (Auto) % Lymph % (Auto) % [place] % (Auto) % Eos % (Auto) % Baso % (Auto) % Neut # (Auto) (1.8-7.7) 10^3/u L Lymph # (Auto) (0.8-4.8) 10^3/u L [place] # (Auto) (0.2-0.9) 10^3/u L Eos # (Auto) (0.0-0.8) 10^3/u L Baso # (Auto) (0.0-0.1) 10^3/u L Nucleated RBC % (a uto) % Nucleated RBCs # /100WBC Sodium (136-145) mmol/L Potassium (3.5-5.1) mmol/L Chloride (98-107) mmol/L Carbon Dioxide (22-29) mmol/L Anion Gap (5-19) BUN (6-20) mg/dL Creatinine (0.7-1.2) mg/dL GFR Calculation (90-130) mL/min Glucose (65-115) mg/dL Calculated Osmolal ity (285-295) mOsm/k g Calcium (8.5-10.5) mg/dL Total Bilirubin (0.15-1.2) mg/dL AST (0-40) U/L ALT (0-41) U/L Alkaline Phosphata se (40-130) IU/L Troponin T Baselin e (0-15) ng/L Troponin T 120 Min [place] 21.95 H (0-15) ng/L Delta Troponin T 0.95 (0-10) ABS# Total Protein (6.6-8.7) g/dL Albumin (3.5-5.2) g/dL Globulin (1.3-4.6) g/dL Imaging Data^: CXR: Attestation: I personally reviewed and interpreted this imaging study as follows: My impression: No acute abnormality EKG Data^: EKG 2: Attestation: I personally reviewed and interpreted this EKG as follows: EKG interpretation date: 12/24/19 EKG interpretation time: 18:36 Interpretation: sinus tach hr [address] or t wave abnormalities qrs 81 qtc 371 Discharge Plan Discharge Patient Disposition: Home Clinical Impression: Atypical chest pain, Generalized anxiety disorder Condition: Stable Prescriptions: No Action Zoloft 100 mg tablet 100 mg PO QAM Qty: 30 RF: 3 aspirin 325 mg tablet 325 mg PO DAILY RF: 0 nitroglycerin 0.4 mg tablet, sublingual 0.4 mg SUBLINGUAL Q5M PRN (Reason: Chest Pain) RF: 0 pantoprazole 40 mg tablet,delayed release (DR/EC) 40 mg PO QAM RF: 0 lorazepam [Ativan] 0.5 mg tablet 0.5 mg PO BID PRN (Reason: anxiety) Qty: 60 RF: 4 folic acid 1 mg tablet 1 mg PO DAILY Qty: 90 RF: 3 flecainide 50 mg tablet 50 mg PO BID Qty: 180 RF: 3 metoprolol tartrate 25 mg tablet 25 mg PO BID Qty: 180 RF: 3 prednisone 5 mg tablet See Rx Instructions PO .COMPLEX Qty: 210 RF: 3 hydroxyzine pamoate [Vistaril] 50 mg capsule 50 mg PO TID PRN (Reason: anxiety) Qty: 90 RF: 0 Vitamin C 2 tab PO DAILY RF: 0 Vitamin D3 2 - 3 tab PO DAILY RF: 0 Advair Diskus 250-50 mcg/dose blister with device 1 inh INHALATION BID RF: 0 Anoro Ellipta 62.5-25 mcg/actuation blister with device 1 inh INHALATION DAILY RF: 0 methotrexate sodium 2.5 mg tablet 15 mg PO Q7D RF: 0 acetaminophen [Tylenol Extra Strength] 500 mg Tablet 1,500 mg PO Q4H PRN (Reason: Pain) RF: 0 Discharge Orders: Discharge Order (Routine); Ordered 12/24/19 Ordered By: Vinnie Redd Referrals: YING STALEY TUBULAR RIVETER [Primary Care Provider] - 1-3 days Discharge Diet: Advance as tolerated Discharge Activity: Resume usual activity Patient Instructions: Chest Pain (ED) Discharge Date/Time: 12/24/19 21:13 Coding Level of Care Code ED Online Banking Specialist for Vasiliyg Fwd Exam Comprehensive
[2019-12-24 17:28] LABS: Alanine Aminotransferase 25 U/L (0-41); Albumin Level 4.3 g/dL (3.5-5.2); Alkaline Phosphatase 83 IU/L (40-130); Anion Gap 16.9 (5-19); Aspartate Amino Transferase 16 U/L (0-40); Blood Urea Nitrogen 13 mg/dL (6-20); Calcium 9.4 mg/dL (8.5-10.5); Carbon Dioxide 26 mmol/L (22-29); Chloride 97 mmol/L (98-107); Globulin 2.6 g/dL (1.3-4.6); Glomerular Filtration Rate 87.6 mL/min (90-130); Glucose 104 mg/dL (65-115); Osmolality Calculated 278 mOsm/kg (285-295); Potassium 3.9 mmol/L (3.5-5.1); Sodium 136 mmol/L (136-145); Total Bilirubin 0.7 mg/dL (0.15-1.2); Total Protein 6.9 g/dL (6.6-8.7); Troponin(5th) Baseline 21 ng/L (0-15)
[2019-12-24] MEDS: aspirin 81 mg Chew Tablet 324 MG PO (17:57)
[2019-12-24] MEDS: LORazepam 2 mg/mL INJ 1 mL 1 MG IVP (17:57)
[2019-12-24 18:18] VITALS: BP 122/79; PULSE 112; RESP 20; O2SAT 97
[2019-12-24 18:43] VITALS: RESP 16
[2019-12-24] MEDS: morphine 4 mg/mL SDV 1 mL IVP (18:43)
[2019-12-24 18:46] VITALS: BP 122/79; PULSE 115; RESP 18; TEMP 36.8; O2SAT 97
--- NOTE | 2019-12-24 18:46 | ECG_ITS ---
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 Measurements Intervals [place] Rate: 112 P: 55 NV: 131 QRS: 51 QRSD: 81 T: 66 QT: 305 QTc: 417 Interpretive Statements SINUS TACHYCARDIA NONSPECIFIC ST & T-WAVE ABNORMALITY ABNORMAL RHYTHM ECG Compared to ECG 12/24/2019 17:04:31 No significant changes Electronically Signed On 12-25-2019 0:30:19 CDT by Klaudia Rose M.D. [email or web address]
--- NOTE | 2019-12-24 19:01 | XRR_ITS ---
PROCEDURE INFORMATION: Exam: XR Chest, 1 View Exam date and time: 12/24/2019 7:16 PM Age: 54 years old Clinical indication: Chest pain; Other: [facility]; Additional info: Cp TECHNIQUE: Imaging protocol: XR of the chest Views: 1 view. Other technique: Frontal portable upright view of the chest. COMPARISON: CR XR chest 2V* [id number] 12/22/2019 9:49 AM FINDINGS: Lungs: The lungs are clear bilaterally. The pulmonary vasculature is normal. Pleural space: No pleural effusion. No pneumothorax. Heart/Mediastinum: The heart is normal in size and contour. Mediastinum: Stable. Bones/joints: Stable. XR/XR chest 1V portable [id number] IMPRESSION: No acute cardiopulmonary abnormality identified.
[2019-12-24 19:03] VITALS: BP 138/93; PULSE 57; RESP 18; O2SAT 96
[2019-12-24 19:16] LABS: Troponin 5 2HR 21.95 ng/L (0-15); Troponin 5 2HR Delta 0.95 ABS# (0-10)
[2019-12-24] MEDS: lidocaine 2% viscous 15 ML, aluminum-mag hydrox-simethicon 30 ML, sucralfate oral liq 1 GM PO (19:24)
[2019-12-24] MEDS: LORazepam 1 mg Tablet PO (19:49)
[2019-12-24 20:54] VITALS: BP 127/88; PULSE 110; RESP 16; TEMP 36.7; O2SAT 96
== END 2019-12-24 21:13 | disposition home or self-care (01) ==
PROVIDERS: Family Medicine; Emergency Provider Emergency Medicine; PCP Nurse Practitioner Family
DX: R07.89 Other chest pain (principal); F41.1 Generalized anxiety disorder; Z79.82 Long term (current) use of aspirin; I48.91 Unspecified atrial fibrillation; Z85.828 Personal history of other malignant neoplasm of skin; F17.210 Nicotine dependence, cigarettes, uncomplicated
CPT/HCPCS: 12345; 36415; 71045; 80053; 84484; 85025; 93005; 96374; 96375; 99283; 99284; J2060; J2270

== ENCOUNTER → 2019-12-26 07:38 | Outpatient (BNVA) | payer BC, SELFPAY | PROVIDERS: PCP Nurse Practitioner Family; Visit Provider Nurse Practitioner Psychiatric/Mental Health | DX: F33.2 Major depressive disorder, recurrent severe without psychotic features (principal); F41.1 Generalized anxiety disorder; F17.210 Nicotine dependence, cigarettes, uncomplicated | CPT/HCPCS: 99214 ==

== ENCOUNTER → 2019-12-29 08:44 | Outpatient (BNVA) | payer BC, SELFPAY | PROVIDERS: PCP Nurse Practitioner Family; Visit Provider Internal Medicine Rheumatology | DX: Z79.899 Other long term (current) drug therapy (principal) | CPT/HCPCS: 36415; 80076; 82565; 85025; 85651; 86140 ==

== ENCOUNTER → 2020-01-26 07:48 | Outpatient (BNVA) | payer BC, SELFPAY | PROVIDERS: PCP Nurse Practitioner Family; Visit Provider Nurse Practitioner Psychiatric/Mental Health | DX: F33.2 Major depressive disorder, recurrent severe without psychotic features (principal); F41.1 Generalized anxiety disorder; F17.210 Nicotine dependence, cigarettes, uncomplicated | CPT/HCPCS: 99214 ==

== ENCOUNTER → 2020-02-19 13:16 | Outpatient (BNVA) | payer BC, SELFPAY | PROVIDERS: PCP Nurse Practitioner Family; Visit Provider Internal Medicine Rheumatology | DX: M35.3 Polymyalgia rheumatica (principal); Z79.899 Other long term (current) drug therapy; L23.9 Allergic contact dermatitis, unspecified cause; I48.19 Other persistent atrial fibrillation; F17.210 Nicotine dependence, cigarettes, uncomplicated; M54.5 Low back pain; G89.29 Other chronic pain; Z79.52 Long term (current) use of systemic steroids | CPT/HCPCS: 99214 ==

== ENCOUNTER → 2020-03-15 07:25 | Outpatient (BNVA) | payer BC, SELFPAY | PROVIDERS: PCP Nurse Practitioner Family; Visit Provider Nurse Practitioner Psychiatric/Mental Health | DX: F33.2 Major depressive disorder, recurrent severe without psychotic features (principal); F41.1 Generalized anxiety disorder; F17.210 Nicotine dependence, cigarettes, uncomplicated | CPT/HCPCS: 99214 ==

== ENCOUNTER 2020-04-17 03:08 | Emergency (ER) | payer BC, SELFPAY ==
[2020-04-17] VITALS (10 sets, daily range): BP systolic 116–173; BP diastolic 88–99; PULSE 81–109; RESP 15–24; TEMP 36.9; O2SAT 93–98; BMI 27.8
--- NOTE | 2020-04-17 03:46 | XRR_ITS ---
PROCEDURE INFORMATION: Exam: XR Chest, 1 View Exam date and time: 04/17/2020 4:01 AM Age: 54 years old Clinical indication: Chest pain; Type not specified; Additional info: Cp TECHNIQUE: Imaging protocol: XR of the chest Views: 1 view. COMPARISON: CR XR chest 1V portable [id number] 12/24/2019 7:06 PM FINDINGS: Lungs: Emphysematous change and interstitial prominence. Pleural space: Mild pleural thickening without dependent pleural effusion. Heart/Mediastinum: Epicardial fat, without cardiomegaly. Bones/joints: Unremarkable. When correlating with the previous study, no significant interval changes are present. XR/XR chest 1V portable [id number] IMPRESSION: Emphysematous change and interstitial prominence.
--- NOTE | 2020-04-17 03:49 | ECG_ITS ---
[facility] Test Date: 2020-04-17 Pat Name: Dalton Dumont Department: Room: Gender: Male Data Conversion Developer: : 1965 Requested By: Xander Lofton Order Number: [id number] Peter MD: Kennedy Bunn M.D. Measurements Intervals [place] Rate: 96 P: 53 [place]: 142 QRS: 40 QRSD: 82 T: 62 QT: 334 QTc: 423 Interpretive Statements SINUS RHYTHM POSSIBLE LEFT ATRIAL ENLARGEMENT [-0.1mV P WAVE IN V1/V2] NONSPECIFIC T-WAVE ABNORMALITY Compared to ECG 12/24/2019 18:36:48 Sinus tachycardia no longer present T-wave abnormality still present Electronically Signed On 04-18-2020 18:47:36 [employer] BUSINESS INTELLIGENCE CONSULTANT by Kennedy Bunn M.D. [id number]
[2020-04-17 03:54] LABS: Basophils % 0.4 %; Eosinophils % 0.2 %; Hematocrit 42.2 % (42.0-52.0); Hemoglobin 14.5 g/dL (11.7-16.6); Lymphocytes # 1.6 10^3/uL (0.8-4.8); Lymphocytes % 14.6 %; Mean Corpuscular HGB Conc 34.4 g/dL (30.0-36.0); Mean Corpuscular Volume 99.1 fL (80-94); Mean Platelet Volume 9.3 fL (7.4-10.4); Monocytes # 0.9 10^3/uL (0.2-0.9); Monocytes % 8.7 %; Neutrophils # 8.13 10^3/uL (1.8-7.7); Neutrophils % 75.3 %; Nucleated Red Blood Cells % 0 %; Platelet Count 198 10^3/cmm (130-400); Red Blood Count 4.26 10^6/uL (4.1-5.3); Red Cell Distribution Width 12.5 % (12.1-15.1); White Blood Count 10.8 10^3/uL (4.0-10.0)
[2020-04-17] MEDS: ondansetron 2 mg/ML SDV 2 mL 4 MG IVP (04:01)
[2020-04-17] MEDS: HYDROmorphone 1 mg/mL INJ 1 mL IVP ×2 (04:02→06:59)
[2020-04-17 04:07] LABS: Troponin(5th) Baseline 16 ng/L (0-15)
[2020-04-17] MEDS: sodium chloride 0.9% 1,000 ML 999 ML IV (04:11)
[2020-04-17 04:16] LABS: Procalcitonin 2.35 ng/mL (0-0.5)
[2020-04-17 04:27] LABS: Alanine Aminotransferase 20 U/L (0-41); Albumin Level 4.6 g/dL (3.5-5.2); Alkaline Phosphatase 76 IU/L (40-130); Anion Gap 19.9 (5-19); Aspartate Amino Transferase 14 U/L (0-40); Blood Urea Nitrogen 11 mg/dL (6-20); C Reactive Protein 205.7 mg/L (0.0-4.9); Calcium 10.5 mg/dL (8.5-10.5); Carbon Dioxide 21 mmol/L (22-29); Chloride 97 mmol/L (98-107); Globulin 2.2 g/dL (1.3-4.6); Glomerular Filtration Rate 139.9 mL/min (90-130); Glucose 139 mg/dL (65-115); Lipase 40 U/L (13-60); Magnesium 1.5 mg/dL (1.7-2.3); Osmolality Calculated 280 mOsm/kg (285-295); Potassium 3.9 mmol/L (3.5-5.1); Sodium 134 mmol/L (136-145); Total Bilirubin 0.5 mg/dL (0.15-1.2); Total Protein 6.8 g/dL (6.6-8.7)
--- NOTE | 2020-04-17 04:39 | ED_ITS ---
HPI - General Adult General: Chief complaint: General Medical Stated complaint: diah/vomiting/lower back pain/ bmr symptoms Time Seen by Provider: 04/17/20 03:17 History of Present Illness: HPI narrative: 54-year-old gentleman with a history of PMR presents to the ER with pain to the upper extremities and across his upper back, belly discomfort, distention, vomiting, and diarrhea. No blood in the stool. No fever. He states that the pain was quite intense. No known contact with anyone with Covid, or any other illness. Onset (ago): hour(s) Location: back and upper extremity Radiation: non-radiation Severity: moderate and similar to prior episodes Pain Consistency: constant Relieving factors: none Exacerbating factors: none Associated symptoms: Reports cough, headache(s), nausea and vomiting; Deny chest pain, dyspnea, fevers/chills or rash Review of Systems Const: Denies: fever(s) or chills Eyes: Denies: change in vision ENMT: Denies: odynophagia or swelling of lips/tongue Card: Denies: chest pain, irregular heart rhythm or orthopnea Resp: Denies: dyspnea, productive cough, non-productive cough or wheezing GI: Reports: nausea and vomiting : Denies: difficulty urinating or hematuria Musc: Denies: neck pain, back pain, joint redness or joint warmth Skin/Breast: Denies: rash Neuro: Reports: headache(s) Psych: Denies: anxiety, visual hallucinations or auditory hallucinations PFSH ED PFSH: Medical History (Updated 04/17/20 @ 07:41 by Xander Davila DO) Allergic contact dermatitis Atrial fibrillation Chronic steroid use Cigarette nicotine dependence Generalized anxiety disorder Severe GERD (gastroesophageal reflux disease) High risk medication use Major depressive disorder, recurrent severe without psychotic features Polymyalgia rheumatica Smoking addiction 30 years currently smokes half a pack a day. Squamous cell carcinoma Surgical History History of kidney surgery Previous back surgery Family History Other Cancer Diabetes Family history of premature coronary artery disease Hypertension Psychiatric illness Rheumatoid arthritis Stroke Denies family history of Chronic kidney disease (CKD) Systemic lupus erythematosus (SLE) in adult Social History (Reviewed 02/19/20 @ 13:38 by TAMI Ortiz Smoking and tobacco status: current every day smoker Alcohol intake: former History of recent travel: No Physical Exam Const: GENERAL APPEARANCE: cooperative, well developed and ill appearing ORIENTATION/CONSCIOUSNESS: Yes oriented to person, Yes oriented to place and Yes oriented to time HENMT: COMMON NORMALS: normocephalic, external ears normal and Normal external nose present HEAD & SCALP: normocephalic FACE & SINUS: normal facial exam NOSE: Normal external nose present and No nasal discharge present EXTERNAL EAR: Yes external ears normal THROAT: posterior oropharynx normal; no peritonsillar mass Eye: COMMON NORMALS: Equal, round and reactive pupils present, EOMs intact bilaterally and conjunctivae normal EYELID: eyelids normal CONJUNCTIVA: Yes conjunctivae normal PUPIL: Yes Equal, round and reactive pupils present Neck/C-Spine: GENERAL: No tracheal deviation Chest: COMMONS NORMALS: normal inspection of the chest CHEST: No tenderness Resp: COMMON NORMALS: clear to auscultation bilaterally EFFORT & INSPECTION: No tachypneic, No respiratory distress, No retractions, No uses accessory muscles and No tracheal deviation AUSCULTATION: clear to auscultati on bilaterally, no rhonchi, no wheezes and lung sounds not diminished Cardio: COMMON NORMALS: regular rate and regular rhythm RATE: regular rate RHYTHM: regular rhythm HEART SOUNDS: no murmurs PERIPHERAL PULSES: radial pulses present GI: INSPECTION: No abdominal distension AUSCULTATION: No Hyperactive bowel sounds present and No Hypoactive bowel sounds present PALPATION: Yes Firmness to palpation present (GI), Yes Tenderness to palpation present (GI), No Guarding due to palpation present (GI) and No Rigid due to palpation PERCUSSION: no dullness to percussion and tympanic to percussion Neuro: SENSORIUM/ORIENTATION: Yes oriented to person, Yes oriented to place and Yes oriented to time Psych: COMMON NORMALS: mental status grossly normal Skin: COMMON NORMALS: no rashes or lesions noted GENERAL SKIN EXAM: no rashes or lesions noted Course Vital Signs: Vital signs: Vital Signs Temperature 98.5 F 04/17/20 03:19 Pulse Rate 84 04/17/20 07:03 Respiratory Rate 23 H 04/17/20 05:00 Blood Pressure 173/99 04/17/20 07:03 Pulse Oximetry 96 04/17/20 07:03 MDM - General Adult MDM Narrative: Medical decision making narrative: 54-year-old male with a flare in his polymyalgia rheumatica pain, along with abdominal pain and distention with vomiting and diarrhea. His white blood cell count is 10.8. His CRP is significantly elevated. His sed rate is mildly elevated. He is feeling better after steroids, and some pain medication. Awaiting CT result CT shows acute diverticulitis, likely the cause of the elevation in inflammatory markers. We will treat polymyalgia rheumatica flare with a Medrol Dosepak, and diverticulitis as an outpatient, as the patient would like to try treatment at home. No vomiting since here. Lab Data: Labs: Lab Results 04/17/20 04/17/20 04/17/20 Range/Units 03:32 03:32 03:32 WBC 10.8 H (4.0-10.0) 10^3/ uL RBC 4.26 (4.1-5.3) 10^6/u L Hgb 14.5 (11.7-16.6) g/dL Hct 42.2 (42.0-52.0) % MCV 99.1 H (80-94) fL MCH 34.0 (28.0-34.0) pg MCHC 34.4 (30.0-36.0) g/dL RDW 12.5 (12.1-15.1) % Plt Count 198 (130-400) 10^3/c mm MPV 9.3 (7.4-10.4) fL Neut % (Auto) 75.3 % Lymph % (Auto) 14.6 % [place] % (Auto) 8.7 % Eos % (Auto) 0.2 % Baso % (Auto) 0.4 % Neut # (Auto) 8.13 H (1.8-7.7) 10^3/u L Lymph # (Auto) 1.6 (0.8-4.8) 10^3/u L [place] # (Auto) 0.9 (0.2-0.9) 10^3/u L Eos # (Auto) 0.0 (0.0-0.8) 10^3/u L Baso # (Auto) 0.0 (0.0-0.1) 10^3/u L Nucleated RBC % (a uto) 0 % Nucleated RBCs # 0.0 /100WBC ESR 57 H (0-10) mm/hr Sodium 134 L (136-145) mmol/L Potassium 3.9 (3.5-5.1) mmol/L Chloride 97 L (98-107) mmol/L Carbon Dioxide 21 L (22-29) mmol/L Anion Gap 19.9 H (5-19) BUN 11 (6-20) mg/dL Creatinine 0.6 L (0.7-1.2) mg/dL GFR Calculation 139.9 H (90-130) mL/min Glucose 139 H (65-115) mg/dL Calculated Osmolal ity 280 L (285-295) mOsm/k g Lactate (0.5-2.2) mmol/L Calcium 10.5 (8.5-10.5) mg/dL Magnesium 1.5 L (1.7-2.3) mg/dL Total Bilirubin 0.5 (0.15-1.2) mg/dL AST 14 (0-40) U/L ALT 20 (0-41) U/L Alkaline Phosphata se 76 (40-130) IU/L Troponin T Baselin e (0-15) ng/L Troponin T 120 Min [place] (0-15) ng/L Delta Troponin T (0-10) ABS# C-Reactive Protein 205.7 H (0.0-4.9) mg/L Total Protein 6.8 (6.6-8.7) g/dL Albumin 4.6 (3.5-5.2) g/dL Globulin 2.2 (1.3-4.6) g/dL Lipase 40 (13-60) U/L Procalcitonin 2.35 H (0-0.5) ng/mL Urine Color (Yellow) Urine Appearance (CLEAR) Urine pH (5-7) Ur Specific Gravit y (1.005-1.030) Urine Protein (Negative) Urine Glucose (UA) (Normal) Urine Ketones (Negative) Urine Blood (Negative) Urine Nitrate (Negative) Urine Bilirubin (Negative) Urine Urobilinogen (Negative) mg/dL Ur Leukocyte Roselyn ase (Negative) 04/17/20 04/17/20 04/17/20 Range/Units 03:32 04:21 05:00 WBC (4.0-10.0) 10^3/ uL RBC (4.1-5.3) 10^6/u L Hgb (11.7-16.6) g/dL Hct (42.0-52.0) % MCV (80-94) fL MCH (28.0-34.0) pg MCHC (30.0-36.0) g/dL RDW (12.1-15.1) % Plt Count (130-400) 10^3/c mm MPV (7.4-10.4) fL Neut % (Auto) % Lymph % (Auto) % [place] % (Auto) % Eos % (Auto) % Baso % (Auto) % Neut # (Auto) (1.8-7.7) 10^3/u L Lymph # (Auto) (0.8-4.8) 10^3/u L [place] # (Auto) (0.2-0.9) 10^3/u L Eos # (Auto) (0.0-0.8) 10^3/u L Baso # (Auto) (0.0-0.1) 10^3/u L Nucleated RBC % (a uto) % Nucleated RBCs # /100WBC ESR (0-10) mm/hr Sodium (136-145) mmol/L Potassium (3.5-5.1) mmol/L Chloride (98-107) mmol/L Carbon Dioxide (22-29) mmol/L Anion Gap (5-19) BUN (6-20) mg/dL Creatinine (0.7-1.2) mg/dL GFR Calculation (90-130) mL/min Glucose (65-115) mg/dL Calculated Osmolal ity (285-295) mOsm/k g Lactate 1.4 (0.5-2.2) mmol/L Calcium (8.5-10.5) mg/dL Magnesium (1.7-2.3) mg/dL Total Bilirubin (0.15-1.2) mg/dL AST (0-40) U/L ALT (0-41) U/L Alkaline Phosphata se (40-130) IU/L Troponin T Baselin e 16 H (0-15) ng/L Troponin T 120 Min [place] (0-15) ng/L Delta Troponin T (0-10) ABS# C-Reactive Protein (0.0-4.9) mg/L Total Protein (6.6-8.7) g/dL Albumin (3.5-5.2) g/dL Globulin (1.3-4.6) g/dL Lipase (13-60) U/L Procalcitonin (0-0.5) ng/mL Urine Color Yellow (Yellow) Urine Appearance Clear (CLEAR) Urine pH 5 (5-7) Ur Specific Gravit y 1.015 (1.005-1.030) Urine Protein Neg (Negative) Urine Glucose (UA) Norm (Normal) Urine Ketones Negative (Negative) Urine Blood Neg (Negative) Urine Nitrate Negative (Negative) Urine Bilirubin Neg (Negative) Urine Urobilinogen Norm (Negative) mg/dL Ur Leukocyte Roselyn ase Negative (Negative) 04/17/20 Range/Units 06:06 WBC (4.0-10.0) 10^3/ uL RBC (4.1-5.3) 10^6/u L Hgb (11.7-16.6) g/dL Hct (42.0-52.0) % MCV (80-94) fL MCH (28.0-34.0) pg MCHC (30.0-36.0) g/dL RDW (12.1-15.1) % Plt Count (130-400) 10^3/c mm MPV (7.4-10.4) fL Neut % (Auto) % Lymph % (Auto) % [place] % (Auto) % Eos % (Auto) % Baso % (Auto) % Neut # (Auto) (1.8-7.7) 10^3/u L Lymph # (Auto) (0.8-4.8) 10^3/u L [place] # (Auto) (0.2-0.9) 10^3/u L Eos # (Auto) (0.0-0.8) 10^3/u L Baso # (Auto) (0.0-0.1) 10^3/u L Nucleated RBC % (a uto) % Nucleated RBCs # /100WBC ESR (0-10) mm/hr Sodium (136-145) mmol/L Potassium (3.5-5.1) mmol/L Chloride (98-107) mmol/L Carbon Dioxide (22-29) mmol/L Anion Gap (5-19) BUN (6-20) mg/dL Creatinine (0.7-1.2) mg/dL GFR Calculation (90-130) mL/min Glucose (65-115) mg/dL Calculated Osmolal ity (285-295) mOsm/k g Lactate (0.5-2.2) mmol/L Calcium (8.5-10.5) mg/dL Magnesium (1.7-2.3) mg/dL Total Bilirubin (0.15-1.2) mg/dL AST (0-40) U/L ALT (0-41) U/L Alkaline Phosphata se (40-130) IU/L Troponin T Baselin e (0-15) ng/L Troponin T 120 Min [place] 13.27 (0-15) ng/L Delta Troponin T -2.73 L (0-10) ABS# C-Reactive Protein (0.0-4.9) mg/L Total Protein (6.6-8.7) g/dL Albumin (3.5-5.2) g/dL Globulin (1.3-4.6) g/dL Lipase (13-60) U/L Procalcitonin (0-0.5) ng/mL Urine Color (Yellow) Urine Appearance (CLEAR) Urine pH (5-7) Ur Specific Gravit y (1.005-1.030) Urine Protein (Negative) Urine Glucose (UA) (Normal) Urine Ketones (Negative) Urine Blood (Negative) Urine Nitrate (Negative) Urine Bilirubin (Negative) Urine Urobilinogen (Negative) mg/dL Ur Leukocyte Roselyn ase (Negative) Discharge Plan Discharge Patient Disposition: Home Clinical Impression: Diverticulitis, Polymyalgia rheumatica Condition: Stable Prescriptions: New Flagyl 500 mg tablet 500 mg PO BID 7 Days Qty: 14 RF: 0 Cipro 500 mg tablet 500 mg PO BID Qty: 14 RF: 0 Zofran 4 mg tablet 4 mg PO Q6H PRN (Reason: nausea and vomiting) Qty: 10 RF: 0 Percocet 7.5-325 mg tablet 1 tab PO Q6H PRN (Reason: pain) Qty: 10 RF: 0 Medrol ([place]) 4 mg tablets,dose pack See Rx Instructions .ROUTE .COMPLEX Qty: 21 RF: 0 No Action pantoprazole 40 mg tablet,delayed release (DR/EC) 40 mg PO QAM Qty: 30 RF: 3 prednisone 5 mg tablet See Rx Instructions PO .COMPLEX Qty: 210 RF: 3 diclofenac sodium 1 % gel 2 gm TOPICAL QID Qty: 100 RF: 2 Actemra ACTPen 162 mg/0.9 mL pen injector 162 mg SUBCUT .Q7days Qty: 4 RF: 2 aspirin 325 mg tablet 325 mg PO DAILY RF: 0 nitroglycerin 0.4 mg tablet, sublingual 0.4 mg SUBLINGUAL Q5M PRN (Reason: Chest Pain) RF: 0 lorazepam 1 mg tablet 1 mg PO TID PRN (Reason: anxiety) Qty: 90 RF: 3 Zoloft 100 mg tablet 200 mg PO QAM Qty: 60 RF: 3 gabapentin 300 mg capsule 300 mg PO BID Qty: 60 RF: 3 flecainide 50 mg tablet 50 mg PO BID Qty: 180 RF: 3 metoprolol tartrate 25 mg tablet 25 mg PO BID Qty: 180 RF: 3 Vitamin C 2 tab PO DAILY RF: 0 Vitamin D3 2 - 3 tab PO DAILY RF: 0 Advair Diskus 250-50 mcg/dose blister with device 1 inh INHALATION BID RF: 0 Anoro Ellipta 62.5-25 mcg/actuation blister with device 1 inh INHALATION DAILY RF: 0 acetaminophen [Tylenol Extra Strength] 500 mg Tablet 1,500 mg PO Q4H PRN (Reason: Pain) RF: 0 Discharge Orders: Discharge Order (Routine); Ordered 04/17/20 Ordered By: Xander Davila Referrals: YING 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 Coding Level of Care Code ED Epitaxial Reactor Operator for Coleman Fwd Exam Comprehensive
[2020-04-17 04:49] LABS: Erythrocyte Sedimentation Rate 57 mm/hr (0-10)
[2020-04-17 05:01] LABS: Lactate (Lactic Acid level) 1.4 mmol/L (0.5-2.2)
[2020-04-17 05:45] LABS: Add Urine Microscopic? NO
--- NOTE | 2020-04-17 06:06 | CTR_ITS ---
PROCEDURE INFORMATION: Exam: CT Abdomen And Pelvis With Contrast Exam date and time: 04/17/2020 6:24 AM Age: 54 years old Clinical indication: Abdominal tenderness and vomiting; Additional info: Vomiting, abdominal pain TECHNIQUE: Imaging protocol: Computed tomography of the abdomen and pelvis with intravenous contrast. Radiation optimization: All CT scans at this facility use at least one of these dose optimization techniques: automated exposure control; mA and/or kV adjustment per patient size (includes targeted exams where dose is matched to clinical indication); or iterative reconstruction. Contrast material: OMNI 300; Contrast volume: 95 ml; Contrast route: INTRAVENOUS (IV); COMPARISON: CR XR KUB [id number] 05/26/2019 12:07 PM RADIATION DOSE METRICS: Total DLP (mGy-cm): 1125.28 FINDINGS: Lungs: Interstitial prominence and trace airspace disease. Extrapleural thickening. Small hiatal hernia. Liver: Fatty infiltration of the liver. Gallbladder and bile ducts: No cholelithiasis or biliary ductal dilatation. Pancreas: No pancreatic mass or ductal dilatation. Spleen: No splenomegaly. Adrenal glands: Status post right adrenalectomy. Left adrenal nodularity. Kidneys and ureters: Normal renal morphology. No hydronephrosis. Stomach and bowel: Gastric wall thickening. No significant small bowel dilatation. Sigmoid diverticulitis. Mild rectocolonic wall thickening and scattered diverticula. Appendix: No acute appendicitis. Intraperitoneal space: No significant free fluid. Vasculature: Normal caliber of the abdominal aorta. Vascular calcification. Lymph nodes: Subcentimeter lymph nodes. Urinary bladder: Normal bladder morphology. Reproductive: Punctate prostate calcification. Bones/joints: Healing right rib fractures. Transitional vertebra at the lumbosacral junction. Mild degenerative change. Soft tissues: Small fat containing inguinal hernia. CT/CT abdomen pelvis w con* [id number] IMPRESSION: 1. Gastric wall thickening. 2. Sigmoid diverticulitis. 3. Additional findings as described above. Radiation Dose CTDIVOL = (mGy): DLP = 1125.28 (mGy-cm)
[2020-04-17 06:26] LABS: Bilirubin Urine Neg (Negative); Blood Urine Neg (Negative); Glucose Urine UA Norm (Normal); Ketones Urine Negative (Negative); Leukocyte Esterase Urine Negative (Negative); Nitrate Urine Negative (Negative); Protein Urine Neg (Negative); Specific Gravity, Urine 1.015 (1.005-1.030); Urine Appearance Clear (CLEAR); Urine Color Yellow (Yellow); Urobilinogen Urine Norm (Negative); pH Urine 5 (5-7)
[2020-04-17] MEDS: iohexol 300 mg/mL 100 mL Btl IV (06:40)
[2020-04-17 06:55] LABS: Troponin 5 2HR 13.27 ng/L (0-15)
[2020-04-17 06:58] LABS: Troponin 5 2HR Delta -2.73 ABS# (0-10)
[2020-04-17] MEDS: ketorolac 30 mg/mL INJ IVP (06:59)
[2020-04-17] MEDS: ciprofloxacin 500 mg Tablet PO (07:42)
[2020-04-17] MEDS: metroNIDAZOLE 500 MG Tablet PO (07:42)
--- NOTE | 2020-04-17 07:57 | PC.NURSE ---
Discharge instructions and prescriptions given to patient, verbal understanding. IV removed.
== END 2020-04-17 08:00 | disposition home or self-care (01) ==
PROVIDERS: Emergency Provider Emergency Medicine; PCP Nurse Practitioner Family
DX: K57.92 Diverticulitis of intestine, part unspecified, without perforation or abscess without bleeding (principal); M35.3 Polymyalgia rheumatica; Z79.82 Long term (current) use of aspirin; I48.91 Unspecified atrial fibrillation; F17.210 Nicotine dependence, cigarettes, uncomplicated
CPT/HCPCS: 12345; 71045; 74177; 80053; 81003; 83605; 83690; 83735; 84145; 84484; 85025; 85651; 86140; 93005; 96361; 96374; 96375; 96376; 99283; 99284; J1170; J1885; J2405; J2930; J7030; Q9967

== ENCOUNTER → 2020-04-19 07:45 | Outpatient (BNVA) | payer BC, SELFPAY | PROVIDERS: PCP Nurse Practitioner Family; Visit Provider Nurse Practitioner Psychiatric/Mental Health | DX: F33.2 Major depressive disorder, recurrent severe without psychotic features (principal); F41.1 Generalized anxiety disorder; F17.210 Nicotine dependence, cigarettes, uncomplicated | CPT/HCPCS: 99214 ==

== ENCOUNTER 2020-04-21 04:31 | Emergency (ER) | payer BC, SELFPAY ==
[2020-04-21] VITALS (8 sets, daily range): BP systolic 94–120; BP diastolic 48–81; PULSE 70–91; RESP 18–26; TEMP 36.6–37.2; O2SAT 91–95; BMI 27.8
--- NOTE | 2020-04-21 04:45 | XR_ITS ---
WS: [id number] XR chest 1V portable [id number] REASON FOR EXAM: Chest pressure FINDINGS: The chest is unchanged compared to previous examination of 04/17/2020. The heart and mediastinum are within normal limits. Calcified granulomatous changes in both hemithoraces. No active pulmonary parenchymal or pleural dise ase. Bony thorax is intact. XR/XR chest 1V portable [id number] IMPRESSION: No acute abnormality.
--- NOTE | 2020-04-21 04:45 | CTR_ITS ---
PROCEDURE INFORMATION: Exam: CT Abdomen And Pelvis With Contrast Exam date and time: 04/21/2020 4:58 AM Age: 54 years old Clinical indication: Abdominal pain; Generalized TECHNIQUE: Imaging protocol: Computed tomography of the abdomen and pelvis with intravenous contrast. Radiation optimization: All CT scans at this facility use at least one of these dose optimization techniques: automated exposure control; mA and/or kV adjustment per patient size (includes targeted exams where dose is matched to clinical indication); or iterative reconstruction. Contrast material: OMNIPAQUE 300; Contrast volume: 95 ml; Contrast route: INTRAVENOUS (IV); COMPARISON: CT abdomen pelvis w con* [id number] 04/17/2020 6:21 AM RADIATION DOSE METRICS: Total DLP (mGy-cm): 1166.14 FINDINGS: Lungs: Mild interstitial prominence. Extrapleural thickening. Liver: Fatty infiltration of the liver. Gallbladder and bile ducts: no cholelithiasis or biliary ductal dilatation. Pancreas: borderline pancreatic ductal dilatation without focal mass. Spleen: No splenomegaly. Adrenal glands: Right adrenalectomy. Stable left adrenal nodularity. Kidneys and ureters: Normal renal morphology. No hydronephrosis. Mild infiltration of perinephric fat. New Stomach and bowel: Gastric wall thickening. No significant small bowel dilatation. Prominent stool and diverticula. Interval resolution of previously visualized sigmoid diverticulitis. Appendix: No acute appendicitis. Intraperitoneal space: No significant free fluid. Vasculature: Vascular calcification. Normal caliber of the abdominal aorta. Lymph nodes: Subcentimeter lymph nodes. Urinary bladder: Normal bladder morphology. Reproductive: punctate prostate calcification. Bones/joints: Healing bilateral rib fractures. Mild degenerative change. Transitional vertebra at the lumbosacral junction. Soft tissues: Small fat containing umbilical and inguinal hernias. CT/CT abdomen pelvis w con* [id number] IMPRESSION: 1. Gastric wall thickening. 2. Interval resolution of previously visualized sigmoid diverticulitis. 3. Additional findings as described above. Radiation Dose CTDIVOL = (mGy): DLP = 1166.14 (mGy-cm)
--- NOTE | 2020-04-21 04:47 | ECG_ITS ---
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: : 1965 Requested By: America Braga Order Number: [id number] Peter MD: DARYN NANCE Measurements Intervals [place] Rate: 92 P: 55 NH: 137 QRS: 40 QRSD: 81 T: 63 QT: 342 QTc: 424 Interpretive Statements SINUS RHYTHM POSSIBLE LEFT ATRIAL ENLARGEMENT [-0.1mV P WAVE IN V1/V2] INTERPRETATION BASED ON A DEFAULT AGE OF 40 YEARS Compared to ECG 04/17/2020 04:19:32 T-wave abnormality no longer present Electronically Signed On 04-22-2020 15:24:27 BRIDGE ENGINEER by DARYN NANCE [id number]
--- NOTE | 2020-04-21 04:48 | W.ED.CHESTPA ---
Documented by User: America Briceno 04/21/20 05:11 HPI - Chest Pain General: Chief Complaint: Chest Pain Stated Complaint: suspects heart attack Time Seen by Provider: 04/21/20 04:37 Source: patient Mode of arrival: ambulatory Limitations: no limitations History of Present Illness: HPI narrative: Mr. Dumont is a 54-year-old male who comes in with multiple complaints. First complaint is that of chest discomfort. Describes the pain as a pressure in his chest. It radiates through to his back. He has associated nausea and diaphoresis. Patient not vomited. He does have shortness of breath. She complains that of abdominal pain. Patient states he has severe pain when he wipes. He is having diarrhea. He denies any fever. Of note the patient was seen here 4 days ago for similar complaints. At that time he was found to have diverticulitis and was placed on Cipro and Flagyl. Since leaving the patient states that his symptoms have not improved and tonight they got much worse. Because of this he thought he could be having a heart attack and he came here to the hospital. When asked what hurts more his chest or his abdomen the patient cannot answer this directly but complains of both problems again. He has no exacerbating or alleviating factors. He denies other complaints or concerns. Associated symptoms: Reports abdominal pain, diaphoresis and nausea; Deny fever(s), palpitations, syncope or vomiting Review of Systems Const: Reports: diaphoresis; Denies: fever(s), chills, body aches, fatigue or malaise Eyes: Denies: change in vision, blurry vision, photophobia, eye discomfort, eye discharge, eye redness or yellow eyes ENMT: Denies: throat pain, odynophagia, hoarseness, swelling of lips/tongue, ear or mastoid pain, ear discharge, change in hearing or nasal discharge Card: Reports: chest pain; Denies: palpitations, irregular heart rhythm, edema, lightheadedness, syncope, pre-syncope, dyspnea on exertion or orthopnea Resp: Denies: productive cough, non-productive cough, wheezing, hemoptysis or chest congestion GI: Reports: abdominal pain and nausea; Denies: vomiting, hematemesis, coffee ground emesis, heartburn, diarrhea, constipation, GI cramping, hematochezia or melena : Denies: flank pain, dysuria, urinary frequency, urinary urgency or hematuria Musc: Denies: neck pain, back pain, extremity pain, extremity swelling, joint pain, joint swelling, joint redness, joint warmth or joint stiffness Skin/Breast: Denies: rash, pruritus, erythema, skin pain or skin tenderness Neuro: Denies: headache(s), numbness in extremities, weakness in extremities, sensory changes, lack of coordination, difficulty walking, dizziness, vertigo, confusion, Slurred speech present or seizure-like activity Jonathan/Lymph: Denies: easy bruising, easy bleeding, petechiae, purpura or enlarged lymph nodes All/Imm: Denies: urticaria, throat swelling, tongue swelling, facial swelling or acute wheezing PFSH ED PFSH: Medical History Allergic contact dermatitis Atrial fibrillation Chronic steroid use Cigarette nicotine dependence Generalized anxiety disorder Severe GERD (gastroesophageal reflux disease) High risk medication use Major depressive disorder, recurrent severe without psychotic features Polymyalgia rheumatica Smoking addiction 30 years currently smokes half a pack a day. Squamous cell carcinoma Surgical History History of kidney surgery Previous back surgery Family History Other Cancer Diabetes Family history of premature coronary artery disease Hypertension Psychiatric illness Rheumatoid arthritis Stroke Denies family history of Chronic kidney disease (CKD) Systemic lupus erythematosus (SLE) in adult Social History Smoking and tobacco status: current every day smoker Alcohol intake: former History of recent travel: No Physical Exam Const: COMMON NORMALS: no acute distress, patient oriented x3, no limitations and alert GENERAL APPEARANCE: cooperative HENMT: COMMON NORMALS: normocephalic, atraumatic, external ears normal, EAC's normal and Normal external nose present HEAD & SCALP: normal to inspection, normocephalic and atraumatic FACE & SINUS: normal facial exam and face symmetric NOSE: Normal external nose present and Normal nares present EXTERNAL EAR: Yes external ears normal EXTERNAL AUDITORY CANAL: EAC's normal MOUTH: Normal oral and palatal mucosa present, lip normal and tongue normal Eye: COMMON NORMALS: Equal, round and reactive pupils present and conjunctivae normal GENERAL EYE: appearance normal, both eyes and all related structures ALIGNMENT: Yes alignment normal PERIORBITAL: periorbital findings normal EYELID: eyelids normal CONJUNCTIVA: Yes conjunctivae normal SCLERA: sclerae normal PUPIL: Yes Equal, round and reactive pupils present Neck/C-Spine: COMMON NORMALS: full ROM, no lymphadenopathy, supple, no meningeal signs and no JVD GENERAL: Yes normal visual inspection and Yes trachea midline Chest: COMMONS NORMALS: normal inspection of the chest and normal palpation of entire chest wall Resp: COMMON NORMALS: normal respiratory effort, No retractions, No use of accessory muscles and clear to auscultation bilaterally EFFORT & INSPECTION: Yes able to speak in complete sentences and Yes symmetric chest movement AUSCULTATION: clear to auscultation bilaterally, no crackles, no rales, no rhonchi and no wheezes Cardio: COMMON NORMALS: no JVD, regular rate, regular rhythm, S1 normal heart sound present and S2 normal heart sound present RATE: regular rate RHYTHM: regular rhythm HEART SOUNDS: S1 normal heart sound present, S2 normal heart sound present, no click, no gallops, no murmurs and no rubs GI: COMMON NORMALS: Soft to palpation and No hepatosplenomegaly present PALPATION: Yes Soft to palpation, Yes Tenderness to palpation present (GI) (Diffusely), No Guarding due to palpation present (GI), No Rigid due to palpation, Yes No hepatosplenomegaly present, No Hernia present, No Palpable mass present and No Pulsatile mass present : COMMON NORMALS: Yes no CVA tenderness BLADDER/KIDNEY EXAM: Yes no CVA tenderness Back/Pelvis: COMMON NORMALS: no CVA tenderness, thoracic and lumbar spine normal to inspection, no thoracic nor lumbar tenderness and thoraco-lumbar ROM normal Extremity: COMMON NORMALS: normal to inspection, full ROM, capillary refill normal, no joint enlargement, no clubbing, cyanosis or edema and no calf tenderness Neuro: COMMON NORMALS: patient oriented x3, CN's II-XII intact bilaterally, moves all extremities, no focal motor deficits and no sensory deficits noted SENSORIUM/ORIENTATION: Yes alert MENINGEAL SIGNS: Yes no meningeal signs SPEECH: speech normal Psych: COMMON NORMALS: mental status grossly normal, Normal thought process present, cooperative, normal affect, speech normal and activity/motor behavior normal SPEECH: Yes normal speech THOUGHT PROCESS: Normal thought process present Skin: COMMON NORMALS: no rashes or lesions noted, turgor normal, no jaundice, no petechiae and no mottling GENERAL SKIN EXAM: no rashes or lesions noted and turgor normal Course Vital Signs: Vital signs: Vital Signs Temperature 97.9 F 04/21/20 04:36 Pulse Rate 70 04/21/20 07:08 Respiratory Rate 18 04/21/20 07:08 Blood Pressure 103/58 04/21/20 07:08 Pulse Oximetry 92 04/21/20 07:08 MDM - Chest Pain Lab Data: Labs: Lab Results 04/21/20 04/21/20 04/21/20 Range/Units 04:46 04:46 04:46 WBC 8.0 (4.0-10.0) 10^3/ uL RBC 4.40 (4.1-5.3) 10^6/u L Hgb 14.7 (11.7-16.6) g/dL Hct 44.2 (42.0-52.0) % MCV 100.5 H (80-94) fL MCH 33.4 (28.0-34.0) pg MCHC 33.3 (30.0-36.0) g/dL RDW 12.3 (12.1-15.1) % Plt Count 247 (130-400) 10^3/c mm MPV 9.6 (7.4-10.4) fL Neut % (Auto) 51.5 % Lymph % (Auto) 38.3 % Runnels % (Auto) 6.9 % Eos % (Auto) 0.4 % Baso % (Auto) 0.6 % Neut # (Auto) 4.10 (1.8-7.7) 10^3/u L Lymph # (Auto) 3.1 (0.8-4.8) 10^3/u L Runnels # (Auto) 0.6 (0.2-0.9) 10^3/u L Eos # (Auto) 0.0 (0.0-0.8) 10^3/u L Baso # (Auto) 0.1 (0.0-0.1) 10^3/u L Nucleated RBC % (a uto) 0.4 % Nucleated RBCs # 0.0 /100WBC Sodium 143 (136-145) mmol/L Potassium 3.6 (3.5-5.1) mmol/L Chloride 101 (98-107) mmol/L Carbon Dioxide 27 (22-29) mmol/L Anion Gap 18.6 (5-19) BUN 13 (6-20) mg/dL Creatinine 0.8 (0.7-1.2) mg/dL GFR Calculation 100.4 (90-130) mL/min Glucose 129 H (65-115) mg/dL Calculated Osmolal ity 298 H (285-295) mOsm/k g Lactic Acid 3.1 H (0.5-2.2) mmol/L Lactic Acid (Sepsi s) (0.5-2.2) mmol/L Calcium 10.0 (8.5-10.5) mg/dL Magnesium 1.7 (1.7-2.3) mg/dL Total Bilirubin 0.3 (0.15-1.2) mg/dL AST 12 (0-40) U/L ALT 18 (0-41) U/L Alkaline Phosphata se 78 (40-130) IU/L Troponin T Baselin e (0-15) ng/L Troponin T 120 Min port gamble (0-15) ng/L Delta Troponin T (0-10) ABS# Total Protein 6.3 L (6.6-8.7) g/dL Albumin 4.4 (3.5-5.2) g/dL Globulin 1.9 (1.3-4.6) g/dL Lipase 45 (13-60) U/L Urine Color (Yellow) Urine Appearance (CLEAR) Urine pH (5-7) Ur Specific Gravit y (1.005-1.030) Urine Protein (Negative) Urine Glucose (UA) (Normal) Urine Ketones (Negative) Urine Blood (Negative) Urine Nitrate (Negative) Urine Bilirubin (Negative) Urine Urobilinogen (Negative) mg/dL Ur Leukocyte Roselyn ase (Negative) 04/21/20 04/21/20 04/21/20 Range/Units 04:46 06:10 06:42 WBC (4.0-10.0) 10^3/ uL RBC (4.1-5.3) 10^6/u L Hgb (11.7-16.6) g/dL Hct (42.0-52.0) % MCV (80-94) fL MCH (28.0-34.0) pg MCHC (30.0-36.0) g/dL RDW (12.1-15.1) % Plt Count (130-400) 10^3/c mm MPV (7.4-10.4) fL Neut % (Auto) % Lymph % (Auto) % Runnels % (Auto) % Eos % (Auto) % Baso % (Auto) % Neut # (Auto) (1.8-7.7) 10^3/u L Lymph # (Auto) (0.8-4.8) 10^3/u L Runnels # (Auto) (0.2-0.9) 10^3/u L Eos # (Auto) (0.0-0.8) 10^3/u L Baso # (Auto) (0.0-0.1) 10^3/u L Nucleated RBC % (a uto) % Nucleated RBCs # /100WBC Sodium (136-145) mmol/L Potassium (3.5-5.1) mmol/L Chloride (98-107) mmol/L Carbon Dioxide (22-29) mmol/L Anion Gap (5-19) BUN (6-20) mg/dL Creatinine (0.7-1.2) mg/dL GFR Calculation (90-130) mL/min Glucose (65-115) mg/dL Calculated Osmolal ity (285-295) mOsm/k g Lactic Acid (0.5-2.2) mmol/L Lactic Acid (Sepsi s) (0.5-2.2) mmol/L Calcium (8.5-10.5) mg/dL Magnesium (1.7-2.3) mg/dL Total Bilirubin (0.15-1.2) mg/dL AST (0-40) U/L ALT (0-41) U/L Alkaline Phosphata se (40-130) IU/L Troponin T Baselin e 20 H (0-15) ng/L Troponin T 120 Min port gamble 18.03 H (0-15) ng/L Delta Troponin T -1.97 L (0-10) ABS# Total Protein (6.6-8.7) g/dL Albumin (3.5-5.2) g/dL Globulin (1.3-4.6) g/dL Lipase (13-60) U/L Urine Color Straw (Yellow) Urine Appearance Clear (CLEAR) Urine pH 7.0 (5-7) Ur Specific Gravit y 1.005 (1.005-1.030) Urine Protein Neg (Negative) Urine Glucose (UA) Norm (Normal) Urine Ketones Negative (Negative) Urine Blood Neg (Negative) Urine Nitrate Negative (Negative) Urine Bilirubin Neg (Negative) Urine Urobilinogen Norm (Negative) mg/dL Ur Leukocyte Roselyn ase Negative (Negative) 04/21/20 Range/Units 07:05 WBC (4.0-10.0) 10^3/ uL RBC (4.1-5.3) 10^6/u L Hgb (11.7-16.6) g/dL Hct (42.0-52.0) % MCV (80-94) fL MCH (28.0-34.0) pg MCHC (30.0-36.0) g/dL RDW (12.1-15.1) % Plt Count (130-400) 10^3/c mm MPV (7.4-10.4) fL Neut % (Auto) % Lymph % (Auto) % Runnels % (Auto) % Eos % (Auto) % Baso % (Auto) % Neut # (Auto) (1.8-7.7) 10^3/u L Lymph # (Auto) (0.8-4.8) 10^3/u L Runnels # (Auto) (0.2-0.9) 10^3/u L Eos # (Auto) (0.0-0.8) 10^3/u L Baso # (Auto) (0.0-0.1) 10^3/u L Nucleated RBC % (a uto) % Nucleated RBCs # /100WBC Sodium (136-145) mmol/L Potassium (3.5-5.1) mmol/L Chloride (98-107) mmol/L Carbon Dioxide (22-29) mmol/L Anion Gap (5-19) BUN (6-20) mg/dL Creatinine (0.7-1.2) mg/dL GFR Calculation (90-130) mL/min Glucose (65-115) mg/dL Calculated Osmolal ity (285-295) mOsm/k g Lactic Acid (0.5-2.2) mmol/L Lactic Acid (Sepsi s) 1.0 (0.5-2.2) mmol/L Calcium (8.5-10.5) mg/dL Magnesium (1.7-2.3) mg/dL Total Bilirubin (0.15-1.2) mg/dL AST (0-40) U/L ALT (0-41) U/L Alkaline Phosphata se (40-130) IU/L Troponin T Baselin e (0-15) ng/L Troponin T 120 Min port gamble (0-15) ng/L Delta Troponin T (0-10) ABS# Total Protein (6.6-8.7) g/dL Albumin (3.5-5.2) g/dL Globulin (1.3-4.6) g/dL Lipase (13-60) U/L Urine Color (Yellow) Urine Appearance (CLEAR) Urine pH (5-7) Ur Specific Gravit y (1.005-1.030) Urine Protein (Negative) Urine Glucose (UA) (Normal) Urine Ketones (Negative) Urine Blood (Negative) Urine Nitrate (Negative) Urine Bilirubin (Negative) Urine Urobilinogen (Negative) mg/dL Ur Leukocyte Roselyn ase (Negative) Imaging Data^: CXR: Attestation: I personally reviewed and interpreted this imaging study as follows: My impression: No acute cardiopulmonary findings. EKG Data^: EKG 1: Attestation: I personally reviewed and interpreted this EKG as follows: EKG interpretation date: 04/21/20 EKG interpretation time: 04:36 Interpretation: Normal sinus rhythm at 92 beats a minute, normal axis, no blocks, normal intervals, no acute ST-T wave changes. Discharge Plan Discharge Patient Disposition: Home Clinical Impression: Atypical chest pain, Polymyalgia rheumatica, Generalized anxiety disorder, Diverticulitis, Chronic steroid use, Atrial fibrillation, IVON (obstructive sleep apnea) Condition: Stable Prescriptions: Changed pantoprazole 40 mg tablet,delayed release (DR/EC) 40 mg PO BID Qty: 30 RF: 3 No Action prednisone 5 mg tablet See Rx Instructions PO .COMPLEX Qty: 210 RF: 3 diclofenac sodium 1 % gel 2 gm TOPICAL QID Qty: 100 RF: 2 Actemra ACTPen 162 mg/0.9 mL pen injector 162 mg SUBCUT .Q7days Qty: 4 RF: 2 sertraline [Zoloft] 50 mg tablet 50 mg PO .morning Qty: 30 RF: 1 buspirone 10 mg tablet 10 mg PO .morning Qty: 30 RF: 1 aspirin 325 mg tablet 325 mg PO DAILY RF: 0 nitroglycerin 0.4 mg tablet, sublingual 0.4 mg SUBLINGUAL Q5M PRN (Reason: Chest Pain) RF: 0 lorazepam 1 mg tablet 1 mg PO TID PRN (Reason: anxiety) Qty: 90 RF: 3 gabapentin 300 mg capsule 300 mg PO BID Qty: 60 RF: 3 flecainide 50 mg tablet 50 mg PO BID Qty: 180 RF: 3 metoprolol tartrate 25 mg tablet 25 mg PO BID Qty: 180 RF: 3 Vitamin C 2 tab PO DAILY RF: 0 Vitamin D3 2 - 3 tab PO DAILY RF: 0 Advair Diskus 250-50 mcg/dose blister with device 1 inh INHALATION BID RF: 0 Anoro Ellipta 62.5-25 mcg/actuation blister with device 1 inh INHALATION DAILY RF: 0 acetaminophen [Tylenol Extra Strength] 500 mg Tablet 1,500 mg PO Q4H PRN (Reason: Pain) RF: 0 Flagyl 500 mg tablet 500 mg PO BID 7 Days Qty: 14 RF: 0 Cipro 500 mg tablet 500 mg PO BID Qty: 14 RF: 0 Zofran 4 mg tablet 4 mg PO Q6H PRN (Reason: nausea and vomiting) Qty: 10 RF: 0 Percocet 7.5-325 mg tablet 1 tab PO Q6H PRN (Reason: pain) Qty: 10 RF: 0 Medrol (Chaparro) 4 mg tablets,dose pack See Rx Instructions .ROUTE .COMPLEX Qty: 21 RF: 0 Discharge Orders: Discharge Order (Routine); Ordered 04/21/20 Ordered By: Jerod Nur Referrals: YING STALEY, NEUROPSYCHIATRIST [Primary Care Provider] - Discharge Activity: Increase activity as tolerated Activity Restrictions/Additional Instructions: Increase your pantoprazole to twice a day for 7 days then resume once a day. Case management will call to get you set up for a stress test and a 24-hour Holter. After these are completed follow-up with Dr. Rose. Sign Out Sign Out Data: Patient Sign Out occurred on 04/21/20 at 06:03. Patient's care was discussed, and care was transferred from to Jerod Nur DO. Coding Level of Care Code ED Financial Systems Manager for Chg Fwd Exam Comprehensive Documented by User: Jerod Nur DO 04/21/20 07:47 HPI - Chest Pain General: Chief Complaint: Chest Pain Stated Complaint: suspects heart attack Time Seen by Provider: 04/21/20 04:37 PFSH ED PFSH: Medical History Allergic contact dermatitis Atrial fibrillation Chronic steroid use Cigarette nicotine dependence Generalized anxiety disorder Severe GERD (gastroesophageal reflux disease) High risk medication use Major depressive disorder, recurrent severe without psychotic features Polymyalgia rheumatica Smoking addiction 30 years currently smokes half a pack a day. Squamous cell carcinoma Surgical History History of kidney surgery Previous back surgery Family History Other Cancer Diabetes Family history of premature coronary artery disease Hypertension Psychiatric illness Rheumatoid arthritis Stroke Denies family history of Chronic kidney disease (CKD) Systemic lupus erythematosus (SLE) in adult Social History Smoking and tobacco status: current every day smoker Alcohol intake: former History of recent travel: No Course Vital Signs: Vital signs: Vital Signs Temperature 97.9 F 04/21/20 04:36 Pulse Rate 70 04/21/20 07:08 Respiratory Rate 18 04/21/20 07:08 Blood Pressure 103/58 04/21/20 07:08 Pulse Oximetry 92 04/21/20 07:08 MDM - Chest Pain MDM Narrative: Medical decision making narrative: Care assumed a change of shift chest pain resolved patient is not in A. fib although he reports earlier today feeling like he was he took his regular medications and felt like it resolved. His troponin delta is negative and his EKGs do not show anything acute we will go ahead and discharge him home. I suspect there is significant GI component here he has had that in the past recently the addition of Flagyl will probably exacerbate that as well as a prednisone that he is on and the no NSAIDs. In addition to that he has had a stress test about 4 years ago which was negative we will go ahead and repeat the stress test and set him up for 24-hour Holter to see how well his A. fib is controlled. Return if he has further problems otherwise follow-up with Dr. Rose when these tests are completed. We are going to have him double up on his Protonix for the next 7 days then resume daily after that. Lab Data: Labs: Lab Results 04/21/20 04/21/20 04/21/20 Range/Units 04:46 04:46 04:46 WBC 8.0 (4.0-10.0) 10^3/ uL RBC 4.40 (4.1-5.3) 10^6/u L Hgb 14.7 (11.7-16.6) g/dL Hct 44.2 (42.0-52.0) % MCV 100.5 H (80-94) fL MCH 33.4 (28.0-34.0) pg MCHC 33.3 (30.0-36.0) g/dL RDW 12.3 (12.1-15.1) % Plt Count 247 (130-400) 10^3/c mm MPV 9.6 (7.4-10.4) fL Neut % (Auto) 51.5 % Lymph % (Auto) 38.3 % Runnels % (Auto) 6.9 % Eos % (Auto) 0.4 % Baso % (Auto) 0.6 % Neut # (Auto) 4.10 (1.8-7.7) 10^3/u L Lymph # (Auto) 3.1 (0.8-4.8) 10^3/u L Runnels # (Auto) 0.6 (0.2-0.9) 10^3/u L Eos # (Auto) 0.0 (0.0-0.8) 10^3/u L Baso # (Auto) 0.1 (0.0-0.1) 10^3/u L Nucleated RBC % (a uto) 0.4 % Nucleated RBCs # 0.0 /100WBC Sodium 143 (136-145) mmol/L Potassium 3.6 (3.5-5.1) mmol/L Chloride 101 (98-107) mmol/L Carbon Dioxide 27 (22-29) mmol/L Anion Gap 18.6 (5-19) BUN 13 (6-20) mg/dL Creatinine 0.8 (0.7-1.2) mg/dL GFR Calculation 100.4 (90-130) mL/min Glucose 129 H (65-115) mg/dL Calculated Osmolal ity 298 H (285-295) mOsm/k g Lactic Acid 3.1 H (0.5-2.2) mmol/L Lactic Acid (Sepsi s) (0.5-2.2) mmol/L Calcium 10.0 (8.5-10.5) mg/dL Magnesium 1.7 (1.7-2.3) mg/dL Total Bilirubin 0.3 (0.15-1.2) mg/dL AST 12 (0-40) U/L ALT 18 (0-41) U/L Alkaline Phosphata se 78 (40-130) IU/L Troponin T Baselin e (0-15) ng/L Troponin T 120 Min port gamble (0-15) ng/L Delta Troponin T (0-10) ABS# Total Protein 6.3 L (6.6-8.7) g/dL Albumin 4.4 (3.5-5.2) g/dL Globulin 1.9 (1.3-4.6) g/dL Lipase 45 (13-60) U/L Urine Color (Yellow) Urine Appearance (CLEAR) Urine pH (5-7) Ur Specific Gravit y (1.005-1.030) Urine Protein (Negative) Urine Glucose (UA) (Normal) Urine Ketones (Negative) Urine Blood (Negative) Urine Nitrate (Negative) Urine Bilirubin (Negative) Urine Urobilinogen (Negative) mg/dL Ur Leukocyte Roselyn ase (Negative) 04/21/20 04/21/20 04/21/20 Range/Units 04:46 06:10 06:42 WBC (4.0-10.0) 10^3/ uL RBC (4.1-5.3) 10^6/u L Hgb (11.7-16.6) g/dL Hct (42.0-52.0) % MCV (80-94) fL MCH (28.0-34.0) pg MCHC (30.0-36.0) g/dL RDW (12.1-15.1) % Plt Count (130-400) 10^3/c mm MPV (7.4-10.4) fL Neut % (Auto) % Lymph % (Auto) % Runnels % (Auto) % Eos % (Auto) % Baso % (Auto) % Neut # (Auto) (1.8-7.7) 10^3/u L Lymph # (Auto) (0.8-4.8) 10^3/u L Runnels # (Auto) (0.2-0.9) 10^3/u L Eos # (Auto) (0.0-0.8) 10^3/u L Baso # (Auto) (0.0-0.1) 10^3/u L Nucleated RBC % (a uto) % Nucleated RBCs # /100WBC Sodium (136-145) mmol/L Potassium (3.5-5.1) mmol/L Chloride (98-107) mmol/L Carbon Dioxide (22-29) mmol/L Anion Gap (5-19) BUN (6-20) mg/dL Creatinine (0.7-1.2) mg/dL GFR Calculation (90-130) mL/min Glucose (65-115) mg/dL Calculated Osmolal ity (285-295) mOsm/k g Lactic Acid (0.5-2.2) mmol/L Lactic Acid (Sepsi s) (0.5-2.2) mmol/L Calcium (8.5-10.5) mg/dL Magnesium (1.7-2.3) mg/dL Total Bilirubin (0.15-1.2) mg/dL AST (0-40) U/L ALT (0-41) U/L Alkaline Phosphata se (40-130) IU/L Troponin T Baselin e 20 H (0-15) ng/L Troponin T 120 Min port gamble 18.03 H (0-15) ng/L Delta Troponin T -1.97 L (0-10) ABS# Total Protein (6.6-8.7) g/dL Albumin (3.5-5.2) g/dL Globulin (1.3-4.6) g/dL Lipase (13-60) U/L Urine Color Straw (Yellow) Urine Appearance Clear (CLEAR) Urine pH 7.0 (5-7) Ur Specific Gravit y 1.005 (1.005-1.030) Urine Protein Neg (Negative) Urine Glucose (UA) Norm (Normal) Urine Ketones Negative (Negative) Urine Blood Neg (Negative) Urine Nitrate Negative (Negative) Urine Bilirubin Neg (Negative) Urine Urobilinogen Norm (Negative) mg/dL Ur Leukocyte Roselyn ase Negative (Negative) 04/21/20 Range/Units 07:05 WBC (4.0-10.0) 10^3/ uL RBC (4.1-5.3) 10^6/u L Hgb (11.7-16.6) g/dL Hct (42.0-52.0) % MCV (80-94) fL MCH (28.0-34.0) pg MCHC (30.0-36.0) g/dL RDW (12.1-15.1) % Plt Count (130-400) 10^3/c mm MPV (7.4-10.4) fL Neut % (Auto) % Lymph % (Auto) % Runnels % (Auto) % Eos % (Auto) % Baso % (Auto) % Neut # (Auto) (1.8-7.7) 10^3/u L Lymph # (Auto) (0.8-4.8) 10^3/u L Runnels # (Auto) (0.2-0.9) 10^3/u L Eos # (Auto) (0.0-0.8) 10^3/u L Baso # (Auto) (0.0-0.1) 10^3/u L Nucleated RBC % (a uto) % Nucleated RBCs # /100WBC Sodium (136-145) mmol/L Potassium (3.5-5.1) mmol/L Chloride (98-107) mmol/L Carbon Dioxide (22-29) mmol/L Anion Gap (5-19) BUN (6-20) mg/dL Creatinine (0.7-1.2) mg/dL GFR Calculation (90-130) mL/min Glucose (65-115) mg/dL Calculated Osmolal ity (285-295) mOsm/k g Lactic Acid (0.5-2.2) mmol/L Lactic Acid (Sepsi s) 1.0 (0.5-2.2) mmol/L Calcium (8.5-10.5) mg/dL Magnesium (1.7-2.3) mg/dL Total Bilirubin (0.15-1.2) mg/dL AST (0-40) U/L ALT (0-41) U/L Alkaline Phosphata se (40-130) IU/L Troponin T Baselin e (0-15) ng/L Troponin T 120 Min port gamble (0-15) ng/L Delta Troponin T (0-10) ABS# Total Protein (6.6-8.7) g/dL Albumin (3.5-5.2) g/dL Globulin (1.3-4.6) g/dL Lipase (13-60) U/L Urine Color (Yellow) Urine Appearance (CLEAR) Urine pH (5-7) Ur Specific Gravit y (1.005-1.030) Urine Protein (Negative) Urine Glucose (UA) (Normal) Urine Ketones (Negative) Urine Blood (Negative) Urine Nitrate (Negative) Urine Bilirubin (Negative) Urine Urobilinogen (Negative) mg/dL Ur Leukocyte Roselyn ase (Negative) Discharge Plan Discharge Patient Disposition: Home Clinical Impression: Atypical chest pain, Polymyalgia rheumatica, Generalized anxiety disorder, Diverticulitis, Chronic steroid use, Atrial fibrillation, IVON (obstructive sleep apnea) Condition: Stable Prescriptions: Changed pantoprazole 40 mg tablet,delayed release (DR/EC) 40 mg PO BID Qty: 30 RF: 3 No Action prednisone 5 mg tablet See Rx Instructions PO .COMPLEX Qty: 210 RF: 3 diclofenac sodium 1 % gel 2 gm TOPICAL QID Qty: 100 RF: 2 Actemra ACTPen 162 mg/0.9 mL pen injector 162 mg SUBCUT .Q7days Qty: 4 RF: 2 sertraline [Zoloft] 50 mg tablet 50 mg PO .morning Qty: 30 RF: 1 buspirone 10 mg tablet 10 mg PO .morning Qty: 30 RF: 1 aspirin 325 mg tablet 325 mg PO DAILY RF: 0 nitroglycerin 0.4 mg tablet, sublingual 0.4 mg SUBLINGUAL Q5M PRN (Reason: Chest Pain) RF: 0 lorazepam 1 mg tablet 1 mg PO TID PRN (Reason: anxiety) Qty: 90 RF: 3 gabapentin 300 mg capsule 300 mg PO BID Qty: 60 RF: 3 flecainide 50 mg tablet 50 mg PO BID Qty: 180 RF: 3 metoprolol tartrate 25 mg tablet 25 mg PO BID Qty: 180 RF: 3 Vitamin C 2 tab PO DAILY RF: 0 Vitamin D3 2 - 3 tab PO DAILY RF: 0 Advair Diskus 250-50 mcg/dose blister with device 1 inh INHALATION BID RF: 0 Anoro Ellipta 62.5-25 mcg/actuation blister with device 1 inh INHALATION DAILY RF: 0 acetaminophen [Tylenol Extra Strength] 500 mg Tablet 1,500 mg PO Q4H PRN (Reason: Pain) RF: 0 Flagyl 500 mg tablet 500 mg PO BID 7 Days Qty: 14 RF: 0 Cipro 500 mg tablet 500 mg PO BID Qty: 14 RF: 0 Zofran 4 mg tablet 4 mg PO Q6H PRN (Reason: nausea and vomiting) Qty: 10 RF: 0 Percocet 7.5-325 mg tablet 1 tab PO Q6H PRN (Reason: pain) Qty: 10 RF: 0 Medrol ([place]) 4 mg tablets,dose pack See Rx Instructions .ROUTE .COMPLEX Qty: 21 RF: 0 Discharge Orders: Discharge Order (Routine); Ordered 04/21/20 Ordered By: Jerod Nur Referrals: YING STALEY, NEUROPSYCHIATRIST [Primary Care Provider] - Discharge Activity: Increase activity as tolerated Activity Restrictions/Additional Instructions: Increase your pantoprazole to twice a day for 7 days then resume once a day. Case management will call to get you set up for a stress test and a 24-hour Holter. After these are completed follow-up with Dr. Rose. Sign Out Sign Out Data: Patient Sign Out occurred on 04/21/20 at 06:03. Patient's care was discussed, and care was transferred from to Jerod Nur DO. Coding Level of Care Code ED Financial Systems Manager for [facility] Fwd Exam Comprehensive
--- NOTE | 2020-04-21 04:51 | PC.NURSE ---
Pt reports took 325mg aspirin at home around 4:[address] Briceno notified and order to discontinue aspirin received.
[2020-04-21] MEDS: ondansetron 2 mg/ML SDV 2 mL 4 MG IVP (04:54)
[2020-04-21] MEDS: sodium chloride 0.9% 1,000 ML 100 ML IV (04:55)
[2020-04-21] MEDS: morphine 4 mg/mL SDV 1 mL 5 MG IVP (04:56)
[2020-04-21 04:59] LABS: Basophils # 0.1 10^3/uL (0.0-0.1); Basophils % 0.6 %; Eosinophils % 0.4 %; Hematocrit 44.2 % (42.0-52.0); Hemoglobin 14.7 g/dL (11.7-16.6); Lymphocytes # 3.1 10^3/uL (0.8-4.8); Lymphocytes % 38.3 %; Mean Corpuscular HGB Conc 33.3 g/dL (30.0-36.0); Mean Corpuscular Hemoglobin 33.4 pg (28.0-34.0); Mean Corpuscular Volume 100.5 fL (80-94); Mean Platelet Volume 9.6 fL (7.4-10.4); Monocytes # 0.6 10^3/uL (0.2-0.9); Monocytes % 6.9 %; Neutrophils % 51.5 %; Nucleated Red Blood Cells % 0.4 %; Platelet Count 247 10^3/cmm (130-400); Red Cell Distribution Width 12.3 % (12.1-15.1)
[2020-04-21] MEDS: nitroglycerin 0.4 mg sublingual Tablet SUBLINGUAL ×2 (05:04→05:13)
--- NOTE | 2020-04-21 05:14 | PC.NURSE ---
pain 9/10 after Morphine given Ntg after 5 min no change 2nd Ntg given- with increase in pain per patient- very anxious restless
[2020-04-21] MEDS: LORazepam 2 mg/mL INJ 1 mL 1 MG IVP (05:15)
[2020-04-21 05:27] LABS: Lactic Sepsis W/Reflex 3.1 mmol/L (0.5-2.2)
[2020-04-21 05:28] LABS: Alanine Aminotransferase 18 U/L (0-41); Albumin Level 4.4 g/dL (3.5-5.2); Alkaline Phosphatase 78 IU/L (40-130); Anion Gap 18.6 (5-19); Aspartate Amino Transferase 12 U/L (0-40); Blood Urea Nitrogen 13 mg/dL (6-20); Carbon Dioxide 27 mmol/L (22-29); Chloride 101 mmol/L (98-107); Globulin 1.9 g/dL (1.3-4.6); Glomerular Filtration Rate 100.4 mL/min (90-130); Glucose 129 mg/dL (65-115); Lipase 45 U/L (13-60); Magnesium 1.7 mg/dL (1.7-2.3); Osmolality Calculated 298 mOsm/kg (285-295); Potassium 3.6 mmol/L (3.5-5.1); Sodium 143 mmol/L (136-145); Total Bilirubin 0.3 mg/dL (0.15-1.2); Total Protein 6.3 g/dL (6.6-8.7)
[2020-04-21 05:30] LABS: Troponin(5th) Baseline 20 ng/L (0-15)
[2020-04-21] MEDS: iohexol 300 mg/mL 100 mL Btl IV (05:41)
[2020-04-21 06:20] LABS: Add Urine Microscopic? NO
[2020-04-21 06:27] LABS: Bilirubin Urine Neg (Negative); Blood Urine Neg (Negative); Glucose Urine UA Norm (Normal); Ketones Urine Negative (Negative); Leukocyte Esterase Urine Negative (Negative); Nitrate Urine Negative (Negative); Protein Urine Neg (Negative); Specific Gravity, Urine 1.005 (1.005-1.030); Urine Appearance Clear (CLEAR); Urine Color Straw (Yellow); Urobilinogen Urine Norm (Negative)
[2020-04-21 06:45] LABS: Reflex Lactate Order REFLEX LACTIC ORDERD
--- NOTE | 2020-04-21 06:47 | ECG_ITS ---
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
--- NOTE | 2020-04-21 07:08 | PC.NURSE ---
Received report assumed care. No acute distress note. Rates pain 11/04. at bedside. Labs drawn and taken to lab. Continue to monitor.
[2020-04-21 07:15] LABS: Troponin 5 2HR 18.03 ng/L (0-15)
[2020-04-21 07:16] LABS: Troponin 5 2HR Delta -1.97 ABS# (0-10)
--- NOTE | 2020-04-21 09:11 | DCPLANNER ---
commercial portfolio manager had message to schedule an outpatient stress test for patient and a 24 hour halter monitor for patient. commercial portfolio manager faxed orders to Centralized scheduling, and to [facility]. Clinic and centralized scheduling will call patient with appointment information.
--- NOTE | 2020-04-28 10:30 | DCPLANNER ---
Patient has a follow up appointment scheduled for a holter monitor for Sunday, May 12, 2020 with [facility]. Clinic will call patient with appointment information.
--- NOTE | 2020-04-30 10:54 | DCPLANNER ---
Centralized scheduling contacted casey saw operator stating that patients insurance required a peer to peer for a stress test to be scheduled. manager track called patient and explained that with his insurance he would need to see his primary care physician, or heart care. Patient stated that he would follow up with his internal control analyst. manager track offered to schedule a follow up appointment for patient with [facility]. Patient stated that he would like for casey saw operator to make appointment. manager track called the [facility] heart care and lung clinic, spoke with Carin, a follow up appointment was scheduled for Tuesday, May 12, 2020 at 10:[address] Rose. manager track called patient with the appointment information.
--- NOTE | 2020-05-13 13:37 | DCPLANNER ---
Patient had a follow up appointment scheduled for 05.12.20 with [facility] and for testing - patient attended both appointments.
== END 2020-04-21 08:04 | disposition home or self-care (01) ==
PROVIDERS: Emergency Medicine; Emergency Provider Family Medicine; PCP Nurse Practitioner Family
DX: R07.89 Other chest pain (principal); M35.3 Polymyalgia rheumatica; F41.1 Generalized anxiety disorder; K57.92 Diverticulitis of intestine, part unspecified, without perforation or abscess without bleeding; Z79.52 Long term (current) use of systemic steroids; I48.91 Unspecified atrial fibrillation; G47.33 Obstructive sleep apnea (adult) (pediatric); Z79.82 Long term (current) use of aspirin; F17.210 Nicotine dependence, cigarettes, uncomplicated
CPT/HCPCS: 12345; 71045; 74177; 80053; 81003; 83605; 83690; 83735; 84484; 85025; 93005; 96361; 96374; 96375; 99283; 99284; J2060; J2270; J2405; J7030; Q9967

== ENCOUNTER → 2020-05-18 07:33 | Outpatient (BNVA) | payer BC, SELFPAY | PROVIDERS: PCP Nurse Practitioner Family; Visit Provider Nurse Practitioner Psychiatric/Mental Health | DX: F33.2 Major depressive disorder, recurrent severe without psychotic features (principal); F41.1 Generalized anxiety disorder; F17.210 Nicotine dependence, cigarettes, uncomplicated | CPT/HCPCS: 99214 ==

== ENCOUNTER → 2020-06-07 07:32 | Outpatient (BNVA) | payer BC, SELFPAY | PROVIDERS: PCP Nurse Practitioner Family; Visit Provider Nurse Practitioner Psychiatric/Mental Health | DX: F33.2 Major depressive disorder, recurrent severe without psychotic features (principal); F41.1 Generalized anxiety disorder; F17.210 Nicotine dependence, cigarettes, uncomplicated | CPT/HCPCS: 99214 ==

== ENCOUNTER → 2020-06-08 13:52 | Outpatient (BNVA) | payer BC, SELFPAY | PROVIDERS: PCP Nurse Practitioner Family; Visit Provider Internal Medicine Rheumatology | DX: M35.3 Polymyalgia rheumatica (principal); M19.90 Unspecified osteoarthritis, unspecified site; Z79.899 Other long term (current) drug therapy; Z79.52 Long term (current) use of systemic steroids; M54.5 Low back pain; G89.29 Other chronic pain; M31.6 Other giant cell arteritis; F17.210 Nicotine dependence, cigarettes, uncomplicated | CPT/HCPCS: 99214 ==

== ENCOUNTER → 2020-06-25 07:47 | Outpatient (BNVA) | payer BC, SELFPAY | PROVIDERS: PCP Nurse Practitioner Family; Visit Provider Nurse Practitioner Psychiatric/Mental Health | DX: F33.2 Major depressive disorder, recurrent severe without psychotic features (principal); F41.1 Generalized anxiety disorder; F17.210 Nicotine dependence, cigarettes, uncomplicated | CPT/HCPCS: 99214 ==

== ENCOUNTER 2020-07-05 07:40 | Inpatient (IN) | payer MEDICAID, SELFPAY ==
[2020-07-05 07:47] VITALS: BP 181/107; PULSE 92; RESP 18; TEMP 35.8; O2SAT 96; BMI 29.5
--- NOTE | 2020-07-05 08:17 | XRR_ITS ---
PROCEDURE INFORMATION: Exam: XR Chest, 1 View Exam date and time: 07/05/2020 8:44 AM Age: 54 years old Clinical indication: Cough and dyspnea; Additional info: Dyspnea/cough TECHNIQUE: Imaging protocol: XR of the chest Views: 1 view. COMPARISON: CR XR chest 1V portable [id number] 04/21/2020 4:57 AM FINDINGS: Lungs: Unremarkable. No consolidation. Pleural spaces: Unremarkable. No pleural effusion. No pneumothorax. Heart/Mediastinum: Unremarkable. No cardiomegaly. Bones/joints: Unremarkable. XR/XR chest 1V portable [id number] IMPRESSION: No acute findings.
--- NOTE | 2020-07-05 08:18 | ED_ITS ---
HPI - Psych General: Chief Complaint: Psychiatric Symptoms Stated Complaint: in mental/physical pain Time Seen by Provider: 07/05/20 07:50 History of Present Illness: HPI Narrative: 54-year-old male presents emergency room with complaint of severe myalgias. He has been being treated for polymyalgia rheumatica he is very frustrated the process does not feel like he is getting better he seen a bonded structures repairer a couple times we have seen him in the emergency room sometime in the past I have consulted the bonded structures repairer there is concern that there may be some other underlying cause bonded structures repairer that we consulted on the phone agreed and advised us to increase his prednisone and then follow-up for reevaluation to the clinic they have some biological that he is to start but these not yet begun. Patient become extremely frustrated to the point of self mutilating and stating he does not want to live. He is not previously been hospitalized for suicidalIdeation in the past. MD complaint: suicidal ideation and feels depressed Onset (ago): week(s) Duration: constant History of same: No Relieving factors: none Exacerbating factors: other (Myalgia) Associated psychiatric symptoms: depression and suicidal ideation Associated symptoms: Reports depression and suicidal ideation; Deny auditory hallucinations, visual hallucinations, delusions, homicidal ideation or racing thoughts Treatments prior to arrival: none If self harm: admits thoughts of self harm and self-inflicted trauma Review of Systems Const: Denies: fever(s), chills, body aches, change in appetite, fatigue or malaise ENMT: Denies: throat pain, ear or mastoid pain, nasal discharge or nasal congestion Card: Denies: chest pain, edema, dyspnea on exertion or orthopnea Resp: Denies: dyspnea, productive cough or non-productive cough GI: Denies: abdominal pain, nausea, vomiting, hematemesis, coffee ground emesis, diarrhea, constipation, bloating, hematochezia or melena : Denies: flank pain, dysuria, urinary frequency or urinary urgency Skin/Breast: Denies: rash or pruritus Psych: Reports: depression and suicidal ideation; Denies: visual hallucinations, auditory hallucinations or homicidal ideation PFS ED PFSH: Medical History (Updated 07/05/20 @ 15:19 by Jerod Nur DO) Allergic contact dermatitis Atrial fibrillation Benign essential HTN Chronic steroid use Cigarette nicotine dependence Generalized anxiety disorder Severe GERD (gastroesophageal reflux disease) High risk medication use Inflammatory arthritis Major depressive disorder, recurrent severe without psychotic features Paroxysmal atrial fibrillation Polymyalgia rheumatica Smoking addiction 30 years currently smokes half a pack a day. Squamous cell carcinoma Surgical History History of kidney surgery Previous back surgery Family History Sister CAD (coronary artery disease) Psychiatric illness Mother Cancer Rheumatoid arthritis Father Diabetes Hyperlipidemia Hypertension Grandmother Diabetes Other Family history of premature coronary artery disease Denies family history of Clotting disorder Dementia Chronic kidney disease (CKD) Systemic lupus erythematosus (SLE) in adult Suicide Anesthesia complication Bleeding disorder Lung disease Stroke Social History Smoking and tobacco status: current every day smoker Alcohol intake: former History of recent travel: No Physical Exam Const: COMMON NORMALS: no acute distress GENERAL APPEARANCE: cooperative and comfortable ORIENTATION/CONSCIOUSNESS: Yes awake, Yes oriented to person, Yes oriented to place and Yes oriented to time HENMT: COMMON NORMALS: normocephalic, atraumatic and hearing grossly normal bilaterally HEAD & SCALP: normocephalic and atraumatic Neck/C-Spine: COMMON NORMALS: no JVD Resp: COMMON NORMALS: normal respiratory effort, No retractions, No use of accessory muscles and clear to auscultation bilaterally AUSCULTATION: clear to auscultation bilaterally Cardio: COMMON NORMALS: no JVD, regular rate, regular rhythm and No murmurs present (Cardio) RATE: regular rate RHYTHM: regular rhythm GI: COMMON NORMALS: Soft to palpation and No hepatosplenomegaly present AUSCULTATION: Yes normoactive bowel sounds PALPATION: Yes Soft to palpation, No Tenderness to palpation present (GI), No Guarding due to palpation present (GI) and Yes No hepatosplenomegaly present Extremity: COMMON NORMALS: normal to inspection, capillary refill normal, no clubbing, cyanosis or edema, no calf tenderness and no pedal edema Neuro: SENSORIUM/ORIENTATION: Yes oriented to person, Yes oriented to place and Yes oriented to time Psych: THOUGHT CONTENT: No delusions Skin: COMMON NORMALS: no rashes or lesions noted GENERAL SKIN EXAM: no rashes or lesions noted MDM - Psych MDM Narrative: Medical decision making narrative: Patient has multiple cuts on his forearms from self-mutilation from within the last 24 hours. He makes comments about harming himself in a more permanent manner. We will go ahead and admit him to the psychiatric unit discussed with Dr. Gonzalez. Will also get medical consult because of his rheumatologic issues that are ongoing. Lab Data: Labs: Lab Results 07/05/20 07/05/20 07/05/20 Range/Units 08:32 08:32 08:32 WBC 8.4 (4.0-10.0) 10^3/ uL RBC 4.26 (4.1-5.3) 10^6/u L Hgb 14.6 (11.7-16.6) g/dL Hct 43.5 (42.0-52.0) % MCV 102.1 H (80-94) fL MCH 34.3 H (28.0-34.0) pg MCHC 33.6 (30.0-36.0) g/dL RDW 14.3 (12.1-15.1) % Plt Count 185 (130-400) 10^3/c mm MPV 9.9 (7.4-10.4) fL Neut % (Auto) 76.5 % Lymph % (Auto) 13.4 % Talbot % (Auto) 6.8 % Eos % (Auto) 0.1 % Baso % (Auto) 0.2 % Neut # (Auto) 6.41 (1.8-7.7) 10^3/u L Lymph # (Auto) 1.1 (0.8-4.8) 10^3/u L Talbot # (Auto) 0.6 (0.2-0.9) 10^3/u L Eos # (Auto) 0.0 (0.0-0.8) 10^3/u L Baso # (Auto) 0.0 (0.0-0.1) 10^3/u L Nucleated RBC % (a uto) 0.4 % Nucleated RBCs # 0.0 /100WBC Sodium 135 L (136-145) mmol/L Potassium 4.1 (3.5-5.1) mmol/L Chloride 98 (98-107) mmol/L Carbon Dioxide 26 (22-29) mmol/L Anion Gap 15.1 (5-19) BUN 24 H (6-20) mg/dL Creatinine 0.9 (0.7-1.2) mg/dL GFR Calculation 87.6 L (90-130) mL/min Glucose 96 (65-115) mg/dL Calculated Osmolal ity 284 L (285-295) mOsm/k g Calcium 8.9 (8.5-10.5) mg/dL Total Bilirubin 0.4 (0.15-1.2) mg/dL AST 28 (0-40) U/L ALT 58 H (0-41) U/L Alkaline Phosphata se 76 (40-130) IU/L Total Protein 6.5 L (6.6-8.7) g/dL Albumin 4.2 (3.5-5.2) g/dL Globulin 2.3 (1.3-4.6) g/dL Urine Color (Yellow) Urine Appearance (CLEAR) Urine pH (5-7) Ur Specific Gravit y (1.005-1.030) Urine Protein (Negative) Urine Glucose (UA) (Normal) Urine Ketones (Negative) Urine Blood (Negative) Urine Nitrate (Negative) Urine Bilirubin (Negative) Urine Urobilinogen (Negative) mg/dL Ur Leukocyte Roselyn ase (Negative) Salicylates 0.5 L (3-10) mg/dL Urine Opiates Scre en (Negative) ng/mL Acetaminophen < 5.0 L (10-30) ug/mL Ur Barbiturates Sc reen (Negative) ng/mL Ur Phencyclidine S crn (Negative) ng/mL Ur Amphetamines Sc reen (Negative) ng/mL U Benzodiazepines Scrn (Negative) ng/mL Urine Cocaine Scre en (Negative) ng/mL U Marijuana (THC) Screen (Negative) ng/mL Ethyl Alcohol < 10 (0-10) mg/dL SARS-CoV-2 Ag (Rap id) Negative (Negative) 07/05/20 07/05/20 Range/Units 08:40 08:40 WBC (4.0-10.0) 10^3/ uL RBC (4.1-5.3) 10^6/u L Hgb (11.7-16.6) g/dL Hct (42.0-52.0) % MCV (80-94) fL MCH (28.0-34.0) pg MCHC (30.0-36.0) g/dL RDW (12.1-15.1) % Plt Count (130-400) 10^3/c mm MPV (7.4-10.4) fL Neut % (Auto) % Lymph % (Auto) % Talbot % (Auto) % Eos % (Auto) % Baso % (Auto) % Neut # (Auto) (1.8-7.7) 10^3/u L Lymph # (Auto) (0.8-4.8) 10^3/u L Talbot # (Auto) (0.2-0.9) 10^3/u L Eos # (Auto) (0.0-0.8) 10^3/u L Baso # (Auto) (0.0-0.1) 10^3/u L Nucleated RBC % (a uto) % Nucleated RBCs # /100WBC Sodium (136-145) mmol/L Potassium (3.5-5.1) mmol/L Chloride (98-107) mmol/L Carbon Dioxide (22-29) mmol/L Anion Gap (5-19) BUN (6-20) mg/dL Creatinine (0.7-1.2) mg/dL GFR Calculation (90-130) mL/min Glucose (65-115) mg/dL Calculated Osmolal ity (285-295) mOsm/k g Calcium (8.5-10.5) mg/dL Total Bilirubin (0.15-1.2) mg/dL AST (0-40) U/L ALT (0-41) U/L Alkaline Phosphata se (40-130) IU/L Total Protein (6.6-8.7) g/dL Albumin (3.5-5.2) g/dL Globulin (1.3-4.6) g/dL Urine Color Yellow (Yellow) Urine Appearance Clear (CLEAR) Urine pH 6 (5-7) Ur Specific Gravit y 1.010 (1.005-1.030) Urine Protein Neg (Negative) Urine Glucose (UA) Norm (Normal) Urine Ketones Negative (Negative) Urine Blood Neg (Negative) Urine Nitrate Negative (Negative) Urine Bilirubin Neg (Negative) Urine Urobilinogen 1 H (Negative) mg/dL Ur Leukocyte Roselyn ase Negative (Negative) Salicylates (3-10) mg/dL Urine Opiates Scre en Negative (Negative) ng/mL Acetaminophen (10-30) ug/mL Ur Barbiturates Sc reen Negative (Negative) ng/mL Ur Phencyclidine S crn Negative (Negative) ng/mL Ur Amphetamines Sc reen Negative (Negative) ng/mL U Benzodiazepines Scrn Positive H (Negative) ng/mL Urine Cocaine Scre en Negative (Negative) ng/mL U Marijuana (THC) Screen Negative (Negative) ng/mL Ethyl Alcohol (0-10) mg/dL SARS-CoV-2 Ag (Rap id) (Negative) Discharge Plan Discharge Patient Disposition: Admitted As Inpatient Admit Provider: Mario Alberto Gonzalez Clinical Impression: Suicidal ideation, Major depressive disorder, recurrent severe without psychotic features, Self-mutilation Condition: Stable Coding Level of Care Code ED Costume Shop Coordinator for [facility] Exam Comprehensive
[2020-07-05 08:50] LABS: Basophils % 0.2 %; Eosinophils % 0.1 %; Hematocrit 43.5 % (42.0-52.0); Hemoglobin 14.6 g/dL (11.7-16.6); Lymphocytes # 1.1 10^3/uL (0.8-4.8); Lymphocytes % 13.4 %; Mean Corpuscular HGB Conc 33.6 g/dL (30.0-36.0); Mean Corpuscular Hemoglobin 34.3 pg (28.0-34.0); Mean Corpuscular Volume 102.1 fL (80-94); Mean Platelet Volume 9.9 fL (7.4-10.4); Monocytes # 0.6 10^3/uL (0.2-0.9); Monocytes % 6.8 %; Neutrophils # 6.41 10^3/uL (1.8-7.7); Neutrophils % 76.5 %; Nucleated Red Blood Cells % 0.4 %; Platelet Count 185 10^3/cmm (130-400); Red Blood Count 4.26 10^6/uL (4.1-5.3); Red Cell Distribution Width 14.3 % (12.1-15.1); White Blood Count 8.4 10^3/uL (4.0-10.0)
[2020-07-05 09:04] LABS: Add Urine Microscopic? NO
[2020-07-05] MEDS: tetanus-dipt-pertussis 0.5 mL SDV IM (09:24)
[2020-07-05 09:31] LABS: Bilirubin Urine Neg (Negative); Blood Urine Neg (Negative); Glucose Urine UA Norm (Normal); Ketones Urine Negative (Negative); Leukocyte Esterase Urine Negative (Negative); Nitrate Urine Negative (Negative); Protein Urine Neg (Negative); Urine Appearance Clear (CLEAR); Urine Color Yellow (Yellow); Urobilinogen Urine 1 mg/dL (Negative); pH Urine 6 (5-7)
[2020-07-05 09:37] LABS: SARS Covid-2 Antigen Negative (Negative)
[2020-07-05 09:40] LABS: Amphetamines Screen Urine Negative (Negative); Barbiturates Screen Urine Negative (Negative); Benzodiazepines Screen Urine Positive (Negative); Cocaine Screen Urine Negative (Negative); Opiate Screen Urine Negative (Negative); PCP Screen Urine Negative (Negative); THC Screen Urine Negative (Negative)
[2020-07-05 09:42] LABS: Acetaminophen < 5.0 ug/mL (10-30); Alanine Aminotransferase 58 U/L (0-41); Albumin Level 4.2 g/dL (3.5-5.2); Alcohol Level < 10 mg/dL (0-10); Alkaline Phosphatase 76 IU/L (40-130); Anion Gap 15.1 (5-19); Aspartate Amino Transferase 28 U/L (0-40); Blood Urea Nitrogen 24 mg/dL (6-20); Calcium 8.9 mg/dL (8.5-10.5); Carbon Dioxide 26 mmol/L (22-29); Chloride 98 mmol/L (98-107); Globulin 2.3 g/dL (1.3-4.6); Glomerular Filtration Rate 87.6 mL/min (90-130); Glucose 96 mg/dL (65-115); Osmolality Calculated 284 mOsm/kg (285-295); Potassium 4.1 mmol/L (3.5-5.1); Salicylate 0.5 mg/dL (3-10); Sodium 135 mmol/L (136-145); Total Bilirubin 0.4 mg/dL (0.15-1.2); Total Protein 6.5 g/dL (6.6-8.7)
[2020-07-05] MEDS: HYDROcodone-acetaminophen 10-325 mg Tablet 2 TAB PO (09:47)
[2020-07-05] MEDS: LORazepam 2 mg Tablet PO (09:48)
[2020-07-05 11:18] VITALS: BP 162/94; PULSE 87; RESP 18; O2SAT 96
[2020-07-05 11:29] VITALS: BP 148/90; PULSE 88; RESP 18; TEMP 36.2; O2SAT 95
[2020-07-05] MEDS: nicotine 2 mg Gum BUCCAL (13:34)
--- NOTE | 2020-07-05 13:51 | P.CONIM_ITS ---
Providers/Reason For Consult Consulting Physican/Specialty*: Artie Goodwin MD, hospitalist Reason for Consult*: Medical management Attending Physician: Mario Alberto Gonzalez MD Primary Care Provider: Sugar Adams History of Present Illness History of Present Illness Dalton Dumont is a 54 year old male with polymyalgia rheumatica and chronic pain who presents to the emergency department with history of self-mutilation on Sunday after he had been drinking. He admits to severe depression. He reports he is severely depressed secondary to his chronic pain and polymyalgia rheumatica for which he sees rheumatology. He is awaiting to start a biologic medication that was recently prescribed. Currently he is on prednisone 35 mg a day. He denies any recent fever. He reports no history of Covid, or exposure to it. He is very frustrated regarding his underlying medical condition, and very anxious and depressed about it. Review of Systems General: Reports: 10 or more systems reviewed and unremarkable except in HPI and below Const: Denies: fever(s) or chills Eyes: Denies: change in vision ENMT: Denies: throat pain Card: Denies: chest pain Resp: Reports: wheezing (Reports he chronically wheezes) GI: Denies: abdominal pain : Denies: flank pain Musc: Reports: neck pain, back pain, extremity pain and joint pain Skin/Breast: Denies: rash Neuro: Denies: headache(s) Psych: Reports: anxiety and depression Endo: Denies: polyuria Jonathan/Lymph: Denies: easy bruising All/Imm: Denies: urticaria Meds/Allergies Home Medications and Allergies Home Medications Medication Instructions Recorded Confirmed Last Taken Type aspirin 325 mg tablet 325 mg PO DAILY tab 06/09/19 07/05/20 07/04/20 History nitroglycerin 0.4 mg sublingual 0.4 mg SUBLINGUAL Q5M PRN 06/09/19 07/05/20 12/24/19 History tablet metoprolol tartrate 25 mg tablet 25 mg PO BID #180 tab 09/16/19 07/05/20 07/04/20 Rx Vitamin C 2 tab PO DAILY 11/14/19 07/05/20 07/04/20 History Vitamin D3 2 - 3 tab PO DAILY 11/14/19 07/05/20 07/04/20 History fluticasone propion-salmeterol 1 inh INHALATION BID 12/24/19 07/05/20 07/04/20 History [Advair Diskus] umeclidinium-vilanterol [Anoro 1 inh INHALATION DAILY 12/24/19 07/05/20 07/04/20 History Ellipta] diclofenac sodium 1 % topical gel 2 gm TOPICAL QID #100 gm 02/19/20 07/05/20 Unknown Rx lorazepam 1 mg tablet 1 mg PO TID PRN #90 tab 03/15/20 07/05/20 Unknown Rx pantoprazole 40 mg PO BID #30 tab 04/21/20 07/05/20 07/04/20 Rx flecainide 100 mg tablet 50 mg PO Q12H 30 Days #30 tab MDD 05/12/20 07/05/20 07/04/20 Rx 100 mg in AM and 50 mg PM gabapentin 600 mg tablet 600 mg PO TID #90 tab 06/08/20 07/05/20 07/04/20 Rx prednisone 10 mg tablet See Rx Instructions PO DAILY 90 06/08/20 07/05/20 07/04/20 Rx Days #315 tab tocilizumab 162 mg/0.9 mL 162 mg SUBCUT .Q7days #4 ml 06/08/20 07/05/20 Unknown Rx subcutaneous pen injector ibuprofen 200 mg capsule 400 mg PO BID PRN cap 06/24/20 07/05/20 Unknown History vitamin B complex 1 tab PO DAILY 06/24/20 07/05/20 07/04/20 History Effexor XR 150 mg PO DAILY 07/05/20 07/05/20 07/04/20 History albuterol sulfate [ProAir HFA] 2 puff INHALATION Q6H PRN 07/05/20 07/05/20 Unknown History buspirone 20 mg PO DAILY 07/05/20 07/05/20 07/04/20 History Allergies Allergy/AdvReac Type Severity Reaction Status Date / Time cayenne pepper fruits Allergy Unknown ALGY-Swell Verified 07/05/20 07:52 Lip/Tongue/Throat diltiazem Allergy Unknown ALGY-Swell Verified 07/05/20 07:52 Lip/Tongue/Throat cayenne Allergy Unknown Verified 07/05/20 07:52 methotrexate AdvReac Intermediate tremors Verified 07/05/20 07:52 and nausea and not feel good tizanidine AdvReac Intermediate pain juliette Verified 07/05/20 07:52 in head tramadol AdvReac Mild nausea Verified 07/05/20 07:52 Current Medications Current Medications Generic Name Dose Route Start Last Admin Trade Name Freq PRN Reason Stop Dose Admin Nicotine Polacrilex 2 mg 07/05/20 11:29 07/05/20 13:34 Nicotine 2 Mg Gum BUCCAL 2 mg Q2H PRN Administration NICOTINE WITHDRAWAL PFSH Acute PFSH: Medical History (Updated 07/05/20 @ 14:26 by Artie Goodwin MD) Allergic contact dermatitis Atrial fibrillation Benign essential HTN Chronic steroid use Cigarette nicotine dependence Generalized anxiety disorder Severe GERD (gastroesophageal reflux disease) High risk medication use Inflammatory arthritis Major depressive disorder, recurrent severe without psychotic features Paroxysmal atrial fibrillation Polymyalgia rheumatica Smoking addiction 30 years currently smokes half a pack a day. Squamous cell carcinoma Surgical History History of kidney surgery Previous back surgery Family History Sister CAD (coronary artery disease) Psychiatric illness Mother Cancer Rheumatoid arthritis Father Diabetes Hyperlipidemia Hypertension Grandmother Diabetes Other Family history of premature coronary artery disease Denies family history of Clotting disorder Dementia Chronic kidney disease (CKD) Systemic lupus erythematosus (SLE) in adult Suicide Anesthesia complication Bleeding disorder Lung disease Stroke Social History Smoking and tobacco status: current every day smoker Alcohol intake: former History of recent travel: No Supplemental PFSH Information: Also history of partial amputation finger, right hand Vitals/I&O/Wt Last Vital Signs Temp 97.2 F L 07/05/20 11:29 Pulse 88 07/05/20 11:29 Resp 18 07/05/20 11:29 BP 148/90 07/05/20 11:29 Pulse Ox 95 07/05/20 11:29 Weight last 48 hrs Weight 96.162 kg Physical Exam Narrative: EXAM NARRATIVE: General exam is a white male, somewhat sad, in no apparent distress HEENT: Atraumatic, normocephalic. Pupils equally round. Oropharynx clear. Neck is supple no lymphadenopathy or thyromegaly Cardiovascular regular rate and rhythm without murmur. No S3 or S4 Lungs bilateral expiratory wheezes. No crackles. Abdomen is soft with positive bowel sounds. No obvious organomegaly. was deferred Extremities no cyanosis clubbing or edema, cap refill brisk Skin no rash Neuro no obvious focal deficits, grossly intact Data Other Data: Other data: LFTs normal with the exception of ALT slightly elevated at 58. Urinalysis negative. Urine drug screen positive for benzodiazepines otherwise negative. Alcohol level less than 10. Rapid Covid negative. Chest x-ray reviewed by me no infiltrate. A&P Assessment and plan (1) Major depressive disorder, recurrent severe without psychotic features: Admitted to psychiatry. Denies suicidal ideation currently. Status: Chronic (2) Self-mutilation: Reports this was associated with alcohol ingestion, and triggered by his chronic pain Status: Acute (3) Polymyalgia rheumatica: Followed by rheumatology Continue current dose of prednisone He will initiate biologic when this is arranged by rheumatology Check hepatitis C antibody Status: Acute (4) Smoking addiction: Encourage cessation He may have an element of COPD secondary to wheezing. Albuterol will be used initially as well as smoking cessation. Status: Acute (5) Paroxysmal atrial fibrillation: Continue flecainide, aspirin Status: Acute (6) Chronic steroid use: Continue chronic steroids Status: Acute (7) Benign essential HTN: Continue home medication including metoprolol Status: Acute Additional A&P Information Full code Low risk for DVT in ambulatory setting Thank you for this consultation Consult Attestations Medical Necessity Statement: As per primary Time Spent in Patient Care: Greater than 35 minutes Coding Level of Care Code Acute Pediatric Nurse Practitioner for [facility] Fwd Diagnoses Major depressive disorder, recurrent severe without psychotic features F33.2 Self-mutilation Z72.89 Polymyalgia rheumatica M35.3 Smoking addiction F17.200 Paroxysmal atrial fibrillation I48.0 Chronic steroid use Benign essential HTN I10
[2020-07-05 14:00] VITALS: BP 148/90; PULSE 88; RESP 18; TEMP 36.2; O2SAT 95
[2020-07-05] MEDS: gabapentin 300 mg Capsule 600 MG PO ×2 (14:59→20:43)
[2020-07-05] MEDS: ibuprofen 200 mg Tablet 400 MG PO (15:00)
[2020-07-05 15:22] LABS: Hepatitis C Virus Antibody Non-Reactive (Nonreactive)
--- NOTE | 2020-07-05 17:27 | PC.NURSE ---
refused scheduled Voltaren gel, pt stated no my hands are ok now
[2020-07-05 20:42] VITALS: BP 126/78; PULSE 95; RESP 18; TEMP 36.7; O2SAT 94
[2020-07-05] MEDS: flecainide 100 mg Tablet 50 MG PO (20:43)
[2020-07-05] MEDS: predniSONE 10 mg Tablet PO (20:43)
[2020-07-05] MEDS: pantoprazole DR 40 mg Tablet PO (20:44)
[2020-07-05] MEDS: metoprolol tartrate 25 mg Tablet PO (20:44)
[2020-07-05] MEDS: diclofenac 1% Topical Gel 100 gm 1 APPLIC TOPICAL (20:44)
[2020-07-05 22:53] VITALS: PULSE 74; RESP 17; O2SAT 96
[2020-07-06] VITALS (12 sets, daily range): BP systolic 127–154; BP diastolic 85–103; PULSE 76–94; RESP 17–20; TEMP 36–36.7; O2SAT 95–98
[2020-07-06] MEDS: acetaminophen 325 mg Tablet 650 MG PO (01:13)
[2020-07-06] MEDS: predniSONE 10 mg Tablet 25 MG PO (05:11)
[2020-07-06] MEDS: oxyCODONE-APAP 5-325 mg Tablet 1 TAB PO ×3 (05:12→20:52)
[2020-07-06 07:10] LABS: Basophils % 0.3 %; Eosinophils % 0.1 %; Hematocrit 43.8 % (42.0-52.0); Hemoglobin 14.4 g/dL (11.7-16.6); Lymphocytes # 1.1 10^3/uL (0.8-4.8); Lymphocytes % 15.7 %; Mean Corpuscular HGB Conc 32.9 g/dL (30.0-36.0); Mean Corpuscular Hemoglobin 33.8 pg (28.0-34.0); Mean Corpuscular Volume 102.8 fL (80-94); Mean Platelet Volume 9.8 fL (7.4-10.4); Monocytes # 0.4 10^3/uL (0.2-0.9); Monocytes % 5.2 %; Neutrophils # 5.43 10^3/uL (1.8-7.7); Neutrophils % 74.8 %; Nucleated Red Blood Cells % 0.3 %; Platelet Count 178 10^3/cmm (130-400); Red Blood Count 4.26 10^6/uL (4.1-5.3); Red Cell Distribution Width 14.6 % (12.1-15.1); White Blood Count 7.3 10^3/uL (4.0-10.0)
[2020-07-06 07:15] LABS: Alanine Aminotransferase 90 U/L (0-41); Albumin Level 4.1 g/dL (3.5-5.2); Alkaline Phosphatase 75 IU/L (40-130); Anion Gap 14.3 (5-19); Aspartate Amino Transferase 44 U/L (0-40); Blood Urea Nitrogen 19 mg/dL (6-20); Calcium 9.3 mg/dL (8.5-10.5); Carbon Dioxide 28 mmol/L (22-29); Chloride 96 mmol/L (98-107); Globulin 2.6 g/dL (1.3-4.6); Glomerular Filtration Rate 117.1 mL/min (90-130); Glucose 120 mg/dL (65-115); Osmolality Calculated 281 mOsm/kg (285-295); Potassium 4.3 mmol/L (3.5-5.1); Sodium 134 mmol/L (136-145); Total Bilirubin 0.4 mg/dL (0.15-1.2); Total Protein 6.7 g/dL (6.6-8.7)
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
[2020-07-06] MEDS: metoprolol tartrate 25 mg Tablet PO ×2 (08:42→20:53)
[2020-07-06] MEDS: ibuprofen 200 mg Tablet 400 MG PO (08:42)
[2020-07-06] MEDS: pantoprazole DR 40 mg Tablet PO ×2 (08:43→20:53)
[2020-07-06] MEDS: flecainide 100 mg Tablet 50 MG PO ×2 (08:43→20:51)
[2020-07-06] MEDS: gabapentin 300 mg Capsule 600 MG PO ×3 (08:43→20:52)
[2020-07-06] MEDS: aspirin 325 mg Tablet PO (08:43)
--- NOTE | 2020-07-06 08:49 | PC.NURSE ---
refused scheduled Voltaren gel
[2020-07-06] MEDS: albuterol 8 gm MDI 2 PUFF INHALATION ×3 (08:57→22:35)
--- NOTE | 2020-07-06 09:22 | P.PN_ITS ---
Subjective Subjective: Interval history: Dalton reports he is doing okay. Wheezing less. Feels less depressed. Medications: Reviewed: Yes Vitals/I&O/Wt Last Vital Signs Temp 98.1 F 07/06/20 06:00 Pulse 94 07/06/20 09:04 Resp 18 07/06/20 09:02 BP 143/103 07/06/20 06:00 Pulse Ox 95 07/06/20 09:02 Weight last 48 hrs Weight 96.162 kg Physical Exam Narrative: EXAM NARRATIVE: General exam is a white male no apparent distress Neck is supple no lymphadenopathy or thyromegaly Cardiovascular regular rate and rhythm without murmur. No S3 or S4 Lungs clear without wheezing Abdomen is soft with positive bowel sounds. No obvious organomegaly. Extremities no cyanosis clubbing or edema, cap refill brisk Data : 07/06/20 06:47 07/06/20 06:47 A&P Assessment and plan (1) Major depressive disorder, recurrent severe without psychotic features: Admitted to psychiatry. Denies suicidal ideation currently. Overall he reports he is less depressed. Status: Chronic (2) Self-mutilation: Reports this was associated with alcohol ingestion, and triggered by his chronic pain Status: Acute (3) Polymyalgia rheumatica: Followed by rheumatology Continue current dose of prednisone He will initiate biologic when this is arranged by rheumatology Hepatitis C antibody was negative. Status: Acute (4) Smoking addiction: Encourage cessation He may have an element of COPD secondary to wheezing. Albuterol will be used initially as well as smoking cessation. No wheezing noted today. Status: Acute (5) Paroxysmal atrial fibrillation: Continue flecainide, aspirin Status: Acute (6) Chronic steroid use: Continue chronic steroids Status: Acute (7) Benign essential HTN: Continue home medication including metoprolol Status: Acute Additional A&P Information Full code Low risk for DVT in ambulatory setting Thank you for this consultation No further active medicine concerns. Continue current chronic medications. I will sign off. Please call with questions. Attestations Medical Necessity Statement*: As per primary Coding Level of Care Code Acute Java Solutions Architect for Chg Fwd Diagnoses Major depressive disorder, recurrent severe without psychotic features F33.2 Self-mutilation Z72.89 Polymyalgia rheumatica M35.3 Smoking addiction F17.200 Paroxysmal atrial fibrillation I48.0 Chronic steroid use Benign essential HTN I10
--- NOTE | 2020-07-06 12:44 | PC.NURSE ---
HOME MED VERIFIED BY PHARMACY CALLED [facility] FOR ATIVAN SCRIPT, THEY SAID MED GOT TRANSFERRED TO [facility] PER PT REQUEST. CALLED [facility] & THEY SAID PT HAD RECENTLY PICKED UP ATIVAN SCRIPT FILLED ON 06/18/20 #90 TABLETS, ORDER FOR ATIVAN 1 MG PO TID PRN, NEXT REFILL ISN'T UNIT 07/14. THIS MESSAGE RELAYED TO DR. LOPEZ BY BRENNA WAYNE.
[2020-07-06] MEDS: venlafaxine ER (24HR) 150 mg Capsule PO (15:23)
[2020-07-06] MEDS: diclofenac 1% Topical Gel 100 gm 1 APPLIC TOPICAL (20:51)
[2020-07-06] MEDS: predniSONE 10 mg Tablet PO (20:52)
[2020-07-06] MEDS: BuSPIRONE 10 mg Tablet 20 MG PO (20:52)
[2020-07-06] MEDS: trazodone 50 mg Tablet PO (20:53)
--- NOTE | 2020-07-07 01:53 | PC.NURSE ---
PM ASSESSMENT PT STATES THAT HE IS IN PAIN AND STAYS ABOUT A 8 BASELINE. PT DENIED AH/VH, DENIES SI/HI, PT REQUESTED MEDICATION FOR PAIN CONTROL, MED NURSE NOTIFIED,
--- NOTE | 2020-07-07 01:56 | PC.NURSE ---
MED TIMING CHANGE PT REQUESTED HEART/BP MEDS TO BE GIVEN AT 0500 AND 1700. PHYSICIAN OKAYED THE CHANGE. ENTERED THIS CHANGE IN THE MAR TO UPDATE MED TIMING Initialized on 07/07/20 01:55 - END OF NOTE
[2020-07-07 04:33] VITALS: BP 122/85; PULSE 83; RESP 19; TEMP 36.2; O2SAT 96
[2020-07-07] MEDS: flecainide 100 mg Tablet 50 MG PO (04:40)
[2020-07-07] MEDS: aspirin 325 mg Tablet PO ×2 (04:40→08:42)
[2020-07-07 04:41] VITALS: RESP 17; O2SAT 99
[2020-07-07] MEDS: oxyCODONE-APAP 5-325 mg Tablet 1 TAB PO (04:41)
[2020-07-07] MEDS: predniSONE 10 mg Tablet 25 MG PO (04:42)
[2020-07-07] MEDS: metoprolol tartrate 25 mg Tablet PO (05:46)
[2020-07-07] MEDS: diclofenac 1% Topical Gel 100 gm 1 APPLIC TOPICAL ×2 (08:41→12:02)
[2020-07-07] MEDS: BuSPIRONE 10 mg Tablet 20 MG PO (08:42)
[2020-07-07] MEDS: venlafaxine ER (24HR) 150 mg Capsule PO (08:42)
[2020-07-07] MEDS: pantoprazole DR 40 mg Tablet PO (08:42)
[2020-07-07] MEDS: gabapentin 300 mg Capsule 600 MG PO (08:42)
[2020-07-07] MEDS: albuterol 8 gm MDI 2 PUFF INHALATION (08:57)
[2020-07-07 08:58] VITALS: PULSE 71; RESP 18; O2SAT 98
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
[2020-07-07 14:40] VITALS: PULSE 71; RESP 18; O2SAT 98
== END 2020-07-07 15:40 | disposition home or self-care (01) | DRG 885 ==
LOC: ER 08:34 → NP 11:16
PROVIDERS: Internal Medicine; Admitting Provider Psychiatry & Neurology Psychiatry; Emergency Provider Family Medicine; PCP Nurse Practitioner Family; Visit Provider Psychiatry & Neurology Psychiatry
DX: F33.2 Major depressive disorder, recurrent severe without psychotic features (principal); R45.851 Suicidal ideations; M35.3 Polymyalgia rheumatica; F41.1 Generalized anxiety disorder; F17.210 Nicotine dependence, cigarettes, uncomplicated; Z81.1 Family history of alcohol abuse and dependence; I48.0 Paroxysmal atrial fibrillation; I10 Essential (primary) hypertension; Z79.52 Long term (current) use of systemic steroids; K21.9 Gastro-esophageal reflux disease without esophagitis; M19.90 Unspecified osteoarthritis, unspecified site; G47.33 Obstructive sleep apnea (adult) (pediatric); G89.29 Other chronic pain; F10.21 Alcohol dependence, in remission; F63.9 Impulse disorder, unspecified
CPT/HCPCS: 12345; 36415; 71045; 80053; 80306; 80307; 81003; 85025; 86803; 87426; 90471; 90715; 94640; 99284; J3535; J7512

== ENCOUNTER 2020-08-13 09:21 | Emergency (ER) | payer MEDICAID, SELFPAY ==
[2020-08-13 09:35] VITALS: BP 135/100; PULSE 88; RESP 28; TEMP 37; O2SAT 100; BMI 29.9
--- NOTE | 2020-08-13 09:49 | XR_ITS ---
WS: [id number] XR chest 1V portable [id number] REASON FOR EXAM: pain with deep inspiration FINDINGS: The chest is unchanged compared to 07/05/2020. The heart and mediastinum are within normal limits. Minimal calcified granulomatous changes in both hemithoraces. No active pulmonary parenchymal or pleural disease. The bony thorax is intact. XR/XR chest 1V portable [id number] IMPRESSION: No acute chest abnormality.
--- NOTE | 2020-08-13 09:49 | ECG_ITS ---
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 Measurements Intervals [place] Rate: 89 P: 73 MI: 135 QRS: 67 QRSD: 89 T: 88 QT: 360 QTc: 438 Interpretive Statements SINUS RHYTHM POSSIBLE LEFT ATRIAL ENLARGEMENT [-0.1mV P WAVE IN V1/V2] NONSPECIFIC T-WAVE ABNORMALITY Compared to ECG 04/21/2020 06:35:54 T-wave abnormality now present Electronically Signed On 08-13-2020 23:12:38 CDT by Klaudia Rose M.D. [id number] f
--- NOTE | 2020-08-13 09:50 | ED_ITS ---
HPI - Back Pain/Injury General: Chief Complaint: Back Pain/Injury Stated Complaint: DIFF BREATHING, KNOT ON UPPER BACK Time Seen by Provider: 08/13/20 09:42 History of Present Illness: HPI Narrative: Patient complains about pain with deep inspiration in his upper back. Said this pain started after he is placed on new medications for his polymyalgia rheumatica. Been placed on couple inhalers been on Ceftin near and tocilizumab injections. Patient states his muscles hurt up there in his upper back nonproductive cough denies fever or chills. Having muscle spasms MD elicited complaint: back pain Pertinent past history: prior back pain, arthritis and other (Polymyalgia rheumatica) Onset (ago): hour(s) Timing: constant and progressively worsening Severity: severe Similar Symptoms Previously: No Quality: burning and sharp Location: thoracic spine Radiation: none Exacerbating factors: deep breaths Relieving factors: none Associated symptoms: Reports no associated symptoms; Deny abdominal pain, chills, fever(s), nausea or vomiting Review of Systems Const: Denies: fever(s), chills or body aches Eyes: Denies: change in vision or blurry vision ENMT: Denies: throat pain or nasal congestion Card: Denies: chest pain or dyspnea on exertion Resp: Reports: non-productive cough, pain on inspiration and other (Pain with deep inspiration); Denies: dyspnea or productive cough GI: Denies: abdominal pain, nausea or vomiting : Denies: difficulty urinating Musc: Denies: extremity pain Skin/Breast: Denies: rash Neuro: Denies: headache(s) Psych: Denies: anxiety or depression Jonathan/Lymph: Denies: easy bruising PFS ED PFSH: Medical History (Updated 08/13/20 @ 11:59 by ELLE Hutchinson) Alcohol abuse, episodic drinking behavior Allergic contact dermatitis Atrial fibrillation Benign essential HTN Chronic steroid use Cigarette nicotine dependence Generalized anxiety disorder Severe GERD (gastroesophageal reflux disease) High risk medication use Inflammatory arthritis Major depressive disorder, recurrent severe without psychotic features Paroxysmal atrial fibrillation Polymyalgia rheumatica Smoking addiction 30 years currently smokes half a pack a day. Squamous cell carcinoma Surgical History History of kidney surgery Previous back surgery Family History Sister CAD (coronary artery disease) Psychiatric illness Mother Cancer Rheumatoid arthritis Father Diabetes Hyperlipidemia Hypertension Grandmother Diabetes Other Family history of premature coronary artery disease Denies family history of Clotting disorder Dementia Chronic kidney disease (CKD) Systemic lupus erythematosus (SLE) in adult Suicide Anesthesia complication Bleeding disorder Lung disease Stroke Social History Smoking and tobacco status: current every day smoker Alcohol intake: former History of recent travel: No Physical Exam Const: COMMON NORMALS: no acute distress, average body habitus and patient oriented x3 HENMT: COMMON NORMALS: normocephalic HEAD & SCALP: normal to inspection and normocephalic FACE & SINUS: normal facial exam Eye: COMMON NORMALS: conjunctivae normal GENERAL EYE: appearance normal, both eyes and all related structures CONJUNCTIVA: Yes conjunctivae normal Neck/C-Spine: COMMON NORMALS: no JVD Chest: COMMONS NORMALS: normal inspection of the chest Resp: COMMON NORMALS: normal respiratory effort and clear to auscultation bilaterally AUSCULTATION: clear to auscultation bilaterally Cardio: COMMON NORMALS: no JVD, regular rate and regular rhythm RATE: regular rate RHYTHM: regular rhythm GI: COMMON NORMALS: Normal to inspection, nondistended, normoactive bowel sounds present Back/Pelvis: THORACIC SPINE/UPPER BACK: Yes paraspinal muscle tenderness (Patient jumps when I touch him around his upper thoracic area says it spasm) Extremity: COMMON NORMALS: normal to inspection and full ROM Neuro: COMMON NORMALS: patient oriented x3 Course Vital Signs: Vital signs: Vital Signs Temperature 98.6 F 08/13/20 09:35 Pulse Rate 84 08/13/20 11:36 Respiratory Rate 20 H 08/13/20 11:36 Blood Pressure 138/92 08/13/20 11:36 Pulse Oximetry 98 08/13/20 11:36 MDM - Back Pain/Injury MDM Narrative: Medical decision making narrative: After medications given the last 1 being the Norflex patient felt better. Patient is emphasized bed not breathing hard does not appear in any distress. Says pain has gone down. Advised patient not to take his injectable medication because that is new and symptoms started seemingly soon after that. Needs to talk to his provider to order that to see if this possibly could be the cause of his symptoms. Patient advised to follow-up with his primary care provider. Differential Diagnosis: Differential diagnosis back pain/injury: Likely thoracic back pain and discitis Lab Data: Labs: Lab Results 08/13/20 08/13/20 Range/Units 10:10 10:10 WBC 16.1 H (4.0-10.0) 10^3/ uL RBC 4.41 (4.1-5.3) 10^6/u L Hgb 15.3 (11.7-16.6) g/dL Hct 43.6 (42.0-52.0) % MCV 98.9 H (80-94) fL MCH 34.7 H (28.0-34.0) pg MCHC 35.1 (30.0-36.0) g/dL RDW 13.4 (12.1-15.1) % Plt Count 243 (130-400) 10^3/c mm MPV 9.4 (7.4-10.4) fL Neut % (Auto) 72.3 % Lymph % (Auto) 15.7 % Ballard % (Auto) 4.3 % Eos % (Auto) 0.1 % Baso % (Auto) 0.4 % Neut # (Auto) 11.66 H (1.8-7.7) 10^3/u L Lymph # (Auto) 2.5 (0.8-4.8) 10^3/u L Ballard # (Auto) 0.7 (0.2-0.9) 10^3/u L Eos # (Auto) 0.0 (0.0-0.8) 10^3/u L Baso # (Auto) 0.1 (0.0-0.1) 10^3/u L Nucleated RBC % (a uto) 0 % Nucleated RBCs # 0.0 /100WBC Sodium 134 L (136-145) mmol/L Potassium 4.3 (3.5-5.1) mmol/L Chloride 98 (98-107) mmol/L Carbon Dioxide 24 (22-29) mmol/L Anion Gap 16.3 (5-19) BUN 15 (6-20) mg/dL Creatinine 0.6 L (0.7-1.2) mg/dL GFR Calculation 139.9 H (90-130) mL/min Glucose 110 (65-115) mg/dL Calculated Osmolal ity 279 L (285-295) mOsm/k g Calcium 9.0 (8.5-10.5) mg/dL Total Bilirubin 0.5 (0.15-1.2) mg/dL AST 23 (0-40) U/L ALT 62 H (0-41) U/L Alkaline Phosphata se 63 (40-130) IU/L Total Protein 6.9 (6.6-8.7) g/dL Albumin 4.5 (3.5-5.2) g/dL Globulin 2.4 (1.3-4.6) g/dL Discharge Plan Discharge Patient Disposition: Home Clinical Impression: Spasm Condition: Stable Prescriptions: New cyclobenzaprine 5 mg tablet 10 mg PO TID PRN (Reason: muscle spasm) Qty: 20 RF: 0 No Action diclofenac sodium 1 % gel 2 gm TOPICAL QID Qty: 100 RF: 2 aspirin 325 mg tablet 325 mg PO DAILY RF: 0 nitroglycerin 0.4 mg tablet, sublingual 0.4 mg SUBLINGUAL Q5M PRN (Reason: Chest Pain) RF: 0 gabapentin 600 mg tablet 600 mg PO TID Qty: 90 RF: 4 prednisone 10 mg tablet See Rx Instructions PO DAILY 90 Days Qty: 315 RF: 1 Actemra ACTPen 162 mg/0.9 mL pen injector 162 mg SUBCUT .Q7days Qty: 4 RF: 4 ibuprofen [Motrin IB] 200 mg capsule 400 mg PO BID PRN (Reason: Pain) RF: 0 vitamin B complex [B Complex-Vitamin B12] Tablet 1 tab PO DAILY RF: 0 buspirone 10 mg tablet 20 mg PO DAILY Qty: 60 RF: 3 venlafaxine [Effexor XR] 75 mg capsule,extended release 24hr 75 mg PO BID Qty: 60 RF: 3 lorazepam 1 mg tablet 1 mg PO BID PRN (Reason: anxiety) Qty: 90 RF: 2 metoprolol tartrate 25 mg tablet 25 mg PO BID Qty: 180 RF: 3 flecainide 100 mg tablet 100 mg PO Q12H MDD 100 mg in AM and 50 mg PM Qty: 60 RF: 5 Vitamin C 2 tab PO DAILY RF: 0 Vitamin D3 2 - 3 tab PO DAILY RF: 0 fluticasone propion-salmeterol [Advair Diskus] 250-50 mcg/dose blister with device 1 inh INHALATION BID RF: 0 Anoro Ellipta 62.5-25 mcg/actuation blister with device 1 inh INHALATION DAILY RF: 0 pantoprazole 40 mg tablet,delayed release (DR/EC) 40 mg PO BID Qty: 30 RF: 3 ProAir HFA 90 mcg/actuation HFA aerosol inhaler 2 puff INHALATION Q6H PRN (Reason: Shortness Of Breath) RF: 0 Discharge Orders: Discharge ED (Routine); Ordered 08/13/20 Ordered By: Tristan Mcmullen Discharge Diet: Usual diet Discharge Activity: Increase activity as tolerated Activity Restrictions/Additional Instructions: Call Prescribes her new medication talk to him about side effects. Do not take injection today or tomorrow unless you talk to your doctor. Take medicine as directed follow back up your primary care provider can apply moist heat to area to help with discomfort. Coding Level of Care Code ED Cellophane Wrapping Examiner for Coleman Fwd Exam Comprehensive
[2020-08-13 10:05] VITALS: BP 154/105; PULSE 93; RESP 24; O2SAT 97
[2020-08-13] MEDS: ketorolac 30 mg/mL INJ IVP (10:08)
[2020-08-13] MEDS: sodium chloride 0.9% 1,000 ML 999 ML IV (10:08)
[2020-08-13 10:14] VITALS: BP 136/101; PULSE 90; RESP 15; O2SAT 98
[2020-08-13 10:18] LABS: Basophils # 0.1 10^3/uL (0.0-0.1); Basophils % 0.4 %; Eosinophils % 0.1 %; Hematocrit 43.6 % (42.0-52.0); Hemoglobin 15.3 g/dL (11.7-16.6); Lymphocytes # 2.5 10^3/uL (0.8-4.8); Lymphocytes % 15.7 %; Mean Corpuscular HGB Conc 35.1 g/dL (30.0-36.0); Mean Corpuscular Hemoglobin 34.7 pg (28.0-34.0); Mean Corpuscular Volume 98.9 fL (80-94); Mean Platelet Volume 9.4 fL (7.4-10.4); Monocytes # 0.7 10^3/uL (0.2-0.9); Monocytes % 4.3 %; Neutrophils # 11.66 10^3/uL (1.8-7.7); Neutrophils % 72.3 %; Nucleated Red Blood Cells % 0 %; Platelet Count 243 10^3/cmm (130-400); Red Blood Count 4.41 10^6/uL (4.1-5.3); Red Cell Distribution Width 13.4 % (12.1-15.1); White Blood Count 16.1 10^3/uL (4.0-10.0)
[2020-08-13 10:36] LABS: Albumin Level 4.5 g/dL (3.5-5.2); Alkaline Phosphatase 63 IU/L (40-130)
[2020-08-13] MEDS: acetaminophen 500 mg Tablet 1000 MG PO (10:36)
[2020-08-13 10:52] LABS: Alanine Aminotransferase 62 U/L (0-41); Anion Gap 16.3 (5-19); Aspartate Amino Transferase 23 U/L (0-40); Blood Urea Nitrogen 15 mg/dL (6-20); Carbon Dioxide 24 mmol/L (22-29); Chloride 98 mmol/L (98-107); Globulin 2.4 g/dL (1.3-4.6); Glomerular Filtration Rate 139.9 mL/min (90-130); Glucose 110 mg/dL (65-115); Osmolality Calculated 279 mOsm/kg (285-295); Potassium 4.3 mmol/L (3.5-5.1); Sodium 134 mmol/L (136-145); Total Bilirubin 0.5 mg/dL (0.15-1.2); Total Protein 6.9 g/dL (6.6-8.7)
[2020-08-13 10:58] LABS: Slide Review Slide Review Perform
[2020-08-13 11:00] VITALS: BP 138/92; PULSE 79; RESP 18; O2SAT 98
[2020-08-13] MEDS: orphenadrine 30 mg/mL Inj 2 mL 60 MG IVP (11:30)
[2020-08-13 11:36] VITALS: BP 138/92; PULSE 84; RESP 20; O2SAT 98
== END 2020-08-13 12:22 | disposition home or self-care (01) ==
PROVIDERS: Emergency Provider Nurse Practitioner Family
DX: M62.830 Muscle spasm of back (principal); I48.91 Unspecified atrial fibrillation; I10 Essential (primary) hypertension; F17.210 Nicotine dependence, cigarettes, uncomplicated
CPT/HCPCS: 71045; 80053; 85025; 93005; 96361; 96374; 96375; 99283; J1885; J2360; J2930; J7030

== ENCOUNTER 2020-08-19 11:01 | Inpatient (IN) | payer MEDICAID, SELFPAY ==
[2020-08-19] VITALS (18 sets, daily range): BP systolic 131–174; BP diastolic 79–113; PULSE 83–101; RESP 16–24; TEMP 36.2–36.6; O2SAT 90–98; BMI 30.3
--- NOTE | 2020-08-19 11:21 | CT_ITS ---
WS: [id number] CTA CHEST WITH CT ABDOMEN AND PELVIS. HISTORY: Chest pain radiating to back. Short of breath with abdominal distention. TECHNIQUE: CT angiogram is performed through the chest. Additional imaging is performed through the a bdomen and pelvis with IV contrast. Sagittal and coronal reformats have been submitted. MIP imaging also reviewed. All CT scans at [facility] use at least one of these dose optimization tech niques: automated exposure control; mA and/or kV adjustment per patient size (includes targeted exams where dose is matched to clinical indication); or iterative reconstruction. Contrast: Omnipaque 350; 95 cc IV. DLP: 2822.45 mGy.cm COMPARISON: 04/21/2020 and 07/29/2017 Chest CTA: Adequate evaluation of the pulmonary artery and thoracic aorta. No filling defects in the pulmonary arterial system. No pulmonary embolism. Normal size pulmonary artery. Mild atherosclerosis thoracic aorta with no dissection or aneurysm. No pericardial or pleural effusions. Mild lipomatous c hanges along the intra-atrial septum. There are a few scattered groundglass opacifications bilaterall y throughout both lungs. No pneumonia or pulmonary nodule. No mass. Increased mediastinal fat. No curt nopathy. Abdomen CT: Marked hepatic steatosis and hepatomegaly. Gallbladder, spleen, pancreas and kidneys are negative. RIGHT adrenal gland has been removed. Very minimal hypertrophy of the LEFT adrenal gland is stable. Mild atherosclerotic changes within the aorta but no aneurysm or dissection. No ascites or f ree air. There is mild diffuse fecal retention. The appendix is normal. Numerous diverticula in the descending and sigmoid colon. No evidence for acute diverticulitis. Pelvic CT: Moderately distended urinary bladder. No free fluid or adenopathy in the pelvis. Mild anterior wedging of T5. Remote healed rib fractures in the posterior lateral lower thorax bilate rally. CT/CT angio chest w abd pel w con IMPRESSION: 1. No pulmonary embolism or aortic dissection. 2. Multifocal, multilobar diffuse groundglass opacifications. Consider pneumon itis. These changes can also be seen with fluid overload or small peripheral em boli. 3. Marked hepatomegaly and hepatic steatosis. 4. Sigmoid diverticulosis without acute diverticulitis. 5. Prior RIGHT adrenalectomy.
--- NOTE | 2020-08-19 11:21 | XR_ITS ---
WS: [id number] Exam: XR chest 1V portable [id number] Date/Time of Exam: 08/19/2020 11:21 AM Reason For Exam: chest pain Comparison 08/13/2020. Findings: The lungs are clear and fully expanded. Costophrenic angles are sharp. No infiltrates. Bronchovascula r relief appears normal. Cardiac silhouette is unremarkable. Bony elements are intact. XR/XR chest 1V portable [id number] IMPRESSION: Unremarkable chest radiograph.
--- NOTE | 2020-08-19 11:28 | ECG_ITS ---
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 Measurements Intervals [place] Rate: 94 P: 62 MS: 145 QRS: 59 QRSD: 90 T: 79 QT: 347 QTc: 435 Interpretive Statements SINUS RHYTHM POSSIBLE LEFT ATRIAL ENLARGEMENT [-0.1mV P WAVE IN V1/V2] NONSPECIFIC T-WAVE ABNORMALITY Compared to ECG 08/13/2020 10:07:01 No significant changes Electronically Signed On 08-19-2020 20:37:46 CDT by Klaudia Rose M.D. [id number]
--- NOTE | 2020-08-19 11:40 | W.ED.ALLEREA ---
HPI - Allergic Reaction General: Chief complaint: Allergic Reaction Stated complaint: Reaction to meds Time Seen by Provider: 08/19/20 11:09 Source: patient, family () and old records reviewed Mode of arrival: ambulatory Limitations: no limitations History of Present Illness: HPI narrative: She is a 54-year-old male with a history of polymyalgia rheumatica and he is on prednisone 35 mg daily for these. He also started taking a new medication called Actimra. He takes the medication weekly. After his second dose, the patient developed severe worsening generalized body pains especially in his chest. Pain is worse when he coughs. He said he feels like someone is shooting he cannot through his chest and goes to his back. After the third dose his symptoms got even much worse. Pain is at a maximal and is about 10/10. Several times during the examination when he coughs the patient cries out in pain. He denies any fever, endorses shortness of breath and wheezing. This morning he bumped his right lower extremity against an object and immediately got a large bruise. He is not on anticoagulation. He also complains of bilateral neck swelling, tongue swelling, sores in his mouth, facial rash that resolved spontaneously. He went to see his primary care provider today who was concerned about possible Bassett-Rafael syndrome and so sent him to the emergency department to be evaluated. Patient also complains of abdominal pain and distention, he says his abdomen is about double the size it normally is. MD complaint: allergic reaction Onset (ago): week(s) (2) Exposure: medication Associated symptoms: Reports abdominal pain, difficulty breathing, dysphagia, nausea, rash and tongue swelling; Deny dizziness, facial swelling, hoarseness, itching, lip swelling or vomiting Severity: severe Treatment prior to arrival: steroids Previous Allergic Reaction History: prior ED visit(s) Review of Systems General: Reports: 10 or more systems reviewed and unremarkable except in HPI and below Const: Denies: fever(s), chills or body aches Eyes: Denies: change in vision or blurry vision ENMT: Denies: hoarseness Card: Reports: chest pain; Denies: palpitations, irregular heart rhythm, edema or swelling of feet/ankles Resp: Denies: dyspnea, productive cough or non-productive cough GI: Reports: abdominal pain, nausea and dysphagia; Denies: vomiting : Denies: flank pain, dysuria, urinary frequency, urinary urgency or urinary hesitancy Musc: Denies: neck pain, back pain or extremity swelling Skin/Breast: Denies: rash, pruritus or erythema Neuro: Denies: dizziness Endo: Denies: polyuria, polydipsia or tired all the time All/Imm: Reports: tongue swelling; Denies: facial swelling PFSH ED PFSH: Medical History Alcohol abuse, episodic drinking behavior Allergic contact dermatitis Atrial fibrillation Benign essential HTN Chronic steroid use Cigarette nicotine dependence Generalized anxiety disorder Severe GERD (gastroesophageal reflux disease) High risk medication use Inflammatory arthritis Major depressive disorder, recurrent severe without psychotic features Paroxysmal atrial fibrillation Polymyalgia rheumatica Smoking addiction 30 years currently smokes half a pack a day. Squamous cell carcinoma Surgical History History of kidney surgery Previous back surgery Family History Sister CAD (coronary artery disease) Psychiatric illness Mother Cancer Rheumatoid arthritis Father Diabetes Hyperlipidemia Hypertension Grandmother Diabetes Other Family history of premature coronary artery disease Denies family history of Clotting disorder Dementia Chronic kidney disease (CKD) Systemic lupus erythematosus (SLE) in adult Suicide Anesthesia complication Bleeding disorder Lung disease Stroke Social History Smoking and tobacco status: current every day smoker Alcohol intake: former History of recent travel: No Physical Exam Const: COMMON NORMALS: average body habitus, patient oriented x3, no limitations, healthy appearing, alert and well nourished GENERAL APPEARANCE: in distress (painful) HENMT: COMMON NORMALS: normocephalic, atraumatic and moist oral mucous membranes HEAD & SCALP: normocephalic and atraumatic Eye: COMMON NORMALS: Equal, round and reactive pupils present, EOMs intact bilaterally, conjunctivae normal and no scleral icterus CONJUNCTIVA: Yes conjunctivae normal PUPIL: Yes Equal, round and reactive pupils present Neck/C-Spine: COMMON NORMALS: full ROM, supple, no meningeal signs, no JVD and No carotid bruits OTHER: He has fullness on the lateral part of his neck bilaterally, soft, not tender, not mobile Chest: COMMONS NORMALS: normal inspection of the chest CHEST: Yes tenderness Resp: COMMON NORMALS: normal respiratory effort, No retractions, No use of accessory muscles and percussion normal AUSCULTATION: wheezes and diminished lung sounds PERCUSSION: percussion normal Cardio: COMMON NORMALS: no JVD, regular rate, regular rhythm, S1 normal heart sound present, S2 normal heart sound present, No gallops present (Cardio), No clicks present (Cardio), No murmurs present (Cardio), No rub (Cardio) and Peripheral pulses 2+ throughout RATE: regular rate RHYTHM: regular rhythm HEART SOUNDS: S1 normal heart sound present and S2 normal heart sound present PERIPHERAL PULSES: Peripheral pulses 2+ throughout GI: COMMON NORMALS: Soft to palpation, non-tender, No hepatosplenomegaly present, no masses and no bruits INSPECTION: Yes abdominal distension PALPATION: Yes Soft to palpation, Yes Tenderness to palpation present (GI) (Generalized) and Yes No hepatosplenomegaly present Extremity: COMMON NORMALS: normal to inspection, full ROM, capillary refill normal, no calf tenderness and no pedal edema Neuro: COMMON NORMALS: patient oriented x3 SENSORIUM/ORIENTATION: Yes alert MENINGEAL SIGNS: Yes no meningeal signs Skin: COMMON NORMALS: no rashes or lesions noted, no wounds, turgor normal, no jaundice, no petechiae and no mottling GENERAL SKIN EXAM: no rashes or lesions noted and turgor normal Course Consultations: Consultation #1: Discussed the patient with Dr. Jackson, hospitalist and he kindly accepted the patient to his service. Time: 15:04 Consultation #2: Discussed the patient with Dr. Andujar, bike shop manager and she will evaluate the patient in the hospital. Time: 16:16 Vital Signs: Vital signs: Vital Signs Temperature 97.8 F 08/19/20 19:14 Pulse Rate 90 08/19/20 19:14 Respiratory Rate 16 08/19/20 19:14 Blood Pressure 161/98 08/19/20 19:14 Pulse Oximetry 90 08/19/20 19:14 MDM - Allergic Reaction MDM Narrative: Medical decision making narrative: 54-year-old male who has been having advanced reaction to a biologic that he was given for polymyalgia rheumatica. Each time he received a dose his symptoms got worse. He does have mouth ulcers, erythema of his mouth, generalized body pains but especially worse in his chest. Evaluation in the emergency department shows that he had elevated troponin with a 2-hour delta of -10. He was in excruciating pain in the emergency department and required multiple doses of intravenous hydromorphone to make his pain variable even though he was still pretty significant. He is being admitted for cardiac work-up as well as further management. Medical Records: Attestation: I reviewed the patient's medical records. Lab Data: Attestation: I reviewed the patient's lab results. Labs: Lab Results 08/19/20 08/19/20 08/19/20 Range/Units 12:00 12:00 12:00 WBC 14.0 H (4.0-10.0) 10^3/ uL RBC 4.04 L (4.1-5.3) 10^6/u L Hgb 13.8 (11.7-16.6) g/dL Hct 40.2 L (42.0-52.0) % MCV 99.5 H (80-94) fL MCH 34.2 H (28.0-34.0) pg MCHC 34.3 (30.0-36.0) g/dL RDW 14.2 (12.1-15.1) % Plt Count 174 (130-400) 10^3/c mm MPV 9.5 (7.4-10.4) fL Neut % (Auto) 91.5 % Lymph % (Auto) 3.6 % Sargent % (Auto) 3.3 % Eos % (Auto) 0.0 % Baso % (Auto) 0.2 % Neut # (Auto) 12.83 H (1.8-7.7) 10^3/u L Lymph # (Auto) 0.5 L (0.8-4.8) 10^3/u L Sargent # (Auto) 0.5 (0.2-0.9) 10^3/u L Eos # (Auto) 0.0 (0.0-0.8) 10^3/u L Baso # (Auto) 0.0 (0.0-0.1) 10^3/u L Nucleated RBC % (a uto) 0.4 % Nucleated RBCs # 0.1 /100WBC ESR 4 (0-10) mm/hr PT 12.90 (12.1-14.9) SECO NDS INR 0.95 (0.8-1.2) APTT 22.0 L (23.9-36.7) SECO NDS D-Dimer <= 0.27 (0-0.59) ug/mIFE U Sodium (136-145) mmol/L Potassium (3.5-5.1) mmol/L Chloride (98-107) mmol/L Carbon Dioxide (22-29) mmol/L Anion Gap (5-19) BUN (6-20) mg/dL Creatinine (0.7-1.2) mg/dL GFR Calculation (90-130) mL/min Glucose (65-115) mg/dL Calculated Osmolal ity (285-295) mOsm/k g Lactate (0.5-2.2) mmol/L Calcium (8.5-10.5) mg/dL Total Bilirubin (0.15-1.2) mg/dL AST (0-40) U/L ALT (0-41) U/L Alkaline Phosphata se (40-130) IU/L Creatine Kinase (39-308) U/L Troponin T Baselin e (0-15) ng/L Troponin T 120 Min pokagon (0-15) ng/L Delta Troponin T (0-10) ABS# C-Reactive Protein (0.0-4.9) mg/L Total Protein (6.6-8.7) g/dL Albumin (3.5-5.2) g/dL Globulin (1.3-4.6) g/dL Lipase (13-60) U/L Urine Color (Yellow) Urine Appearance (CLEAR) Urine pH (5-7) Ur Specific Gravit y (1.005-1.030) Urine Protein (Negative) Urine Glucose (UA) (Normal) Urine Ketones (Negative) Urine Blood (Negative) Urine Nitrate (Negative) Urine Bilirubin (Negative) Urine Urobilinogen (Negative) mg/dL Ur Leukocyte Roselyn ase (Negative) SARS-CoV-2 Ag (Rap id) (Negative) 08/19/20 08/19/20 08/19/20 Range/Units 12:00 12:00 12:00 WBC (4.0-10.0) 10^3/ uL RBC (4.1-5.3) 10^6/u L Hgb (11.7-16.6) g/dL Hct (42.0-52.0) % MCV (80-94) fL MCH (28.0-34.0) pg MCHC (30.0-36.0) g/dL RDW (12.1-15.1) % Plt Count (130-400) 10^3/c mm MPV (7.4-10.4) fL Neut % (Auto) % Lymph % (Auto) % Sargent % (Auto) % Eos % (Auto) % Baso % (Auto) % Neut # (Auto) (1.8-7.7) 10^3/u L Lymph # (Auto) (0.8-4.8) 10^3/u L Sargent # (Auto) (0.2-0.9) 10^3/u L Eos # (Auto) (0.0-0.8) 10^3/u L Baso # (Auto) (0.0-0.1) 10^3/u L Nucleated RBC % (a uto) % Nucleated RBCs # /100WBC ESR (0-10) mm/hr PT (12.1-14.9) SECO NDS INR (0.8-1.2) APTT (23.9-36.7) SECO NDS D-Dimer (0-0.59) ug/mIFE U Sodium 126 L (136-145) mmol/L Potassium 4.6 (3.5-5.1) mmol/L Chloride 88 L (98-107) mmol/L Carbon Dioxide 21 L (22-29) mmol/L Anion Gap 21.6 H (5-19) BUN 15 (6-20) mg/dL Creatinine 0.9 (0.7-1.2) mg/dL GFR Calculation 87.6 L (90-130) mL/min Glucose 214 H (65-115) mg/dL Calculated Osmolal ity 269 L (285-295) mOsm/k g Lactate 5.8 H* (0.5-2.2) mmol/L Calcium 8.7 (8.5-10.5) mg/dL Total Bilirubin 0.9 (0.15-1.2) mg/dL AST 30 (0-40) U/L ALT 79 H (0-41) U/L Alkaline Phosphata se 70 (40-130) IU/L Creatine Kinase 199 (39-308) U/L Troponin T Baselin e 20 H (0-15) ng/L Troponin T 120 Min pokagon (0-15) ng/L Delta Troponin T (0-10) ABS# C-Reactive Protein 0.3 (0.0-4.9) mg/L Total Protein 6.3 L (6.6-8.7) g/dL Albumin 4.5 (3.5-5.2) g/dL Globulin 1.8 (1.3-4.6) g/dL Lipase 34 (13-60) U/L Urine Color (Yellow) Urine Appearance (CLEAR) Urine pH (5-7) Ur Specific Gravit y (1.005-1.030) Urine Protein (Negative) Urine Glucose (UA) (Normal) Urine Ketones (Negative) Urine Blood (Negative) Urine Nitrate (Negative) Urine Bilirubin (Negative) Urine Urobilinogen (Negative) mg/dL Ur Leukocyte Roselyn ase (Negative) SARS-CoV-2 Ag (Rap id) (Negative) 08/19/20 08/19/20 08/19/20 Range/Units 12:45 13:20 13:57 WBC (4.0-10.0) 10^3/ uL RBC (4.1-5.3) 10^6/u L Hgb (11.7-16.6) g/dL Hct (42.0-52.0) % MCV (80-94) fL MCH (28.0-34.0) pg MCHC (30.0-36.0) g/dL RDW (12.1-15.1) % Plt Count (130-400) 10^3/c mm MPV (7.4-10.4) fL Neut % (Auto) % Lymph % (Auto) % Sargent % (Auto) % Eos % (Auto) % Baso % (Auto) % Neut # (Auto) (1.8-7.7) 10^3/u L Lymph # (Auto) (0.8-4.8) 10^3/u L Sargent # (Auto) (0.2-0.9) 10^3/u L Eos # (Auto) (0.0-0.8) 10^3/u L Baso # (Auto) (0.0-0.1) 10^3/u L Nucleated RBC % (a uto) % Nucleated RBCs # /100WBC ESR (0-10) mm/hr PT (12.1-14.9) SECO NDS INR (0.8-1.2) APTT (23.9-36.7) SECO NDS D-Dimer (0-0.59) ug/mIFE U Sodium (136-145) mmol/L Potassium (3.5-5.1) mmol/L Chloride (98-107) mmol/L Carbon Dioxide (22-29) mmol/L Anion Gap (5-19) BUN (6-20) mg/dL Creatinine (0.7-1.2) mg/dL GFR Calculation (90-130) mL/min Glucose (65-115) mg/dL Calculated Osmolal ity (285-295) mOsm/k g Lactate (0.5-2.2) mmol/L Calcium (8.5-10.5) mg/dL Total Bilirubin (0.15-1.2) mg/dL AST (0-40) U/L ALT (0-41) U/L Alkaline Phosphata se (40-130) IU/L Creatine Kinase (39-308) U/L Troponin T Baselin e (0-15) ng/L Troponin T 120 Min pokagon 18.75 H (0-15) ng/L Delta Troponin T -1.25 L (0-10) ABS# C-Reactive Protein (0.0-4.9) mg/L Total Protein (6.6-8.7) g/dL Albumin (3.5-5.2) g/dL Globulin (1.3-4.6) g/dL Lipase (13-60) U/L Urine Color Straw (Yellow) Urine Appearance Clear (CLEAR) Urine pH 7 (5-7) Ur Specific Gravit y 1.005 (1.005-1.030) Urine Protein Neg (Negative) Urine Glucose (UA) 1+ (Normal) Urine Ketones Negative (Negative) Urine Blood Neg (Negative) Urine Nitrate Negative (Negative) Urine Bilirubin Neg (Negative) Urine Urobilinogen Norm (Negative) mg/dL Ur Leukocyte Roselyn ase Negative (Negative) SARS-CoV-2 Ag (Rap id) Negative (Negative) Imaging Data^: CXR: Attestation: I personally reviewed and interpreted this imaging study as follows: Radiologist's impression: [employer] [place] [address] XRay Report Signed Patient: Emili Dumont #: [id number] : 1965Acct#:[id number] Age/Sex: 54 / MADM Date: 08/19/20 Loc: ERRoom/Bed: Attending Dr: Ordering Provider/Ordering MD: Neil Farnsworth MD, [facility] Date of Service: 08/19/20 Procedure(s): XR chest 1V portable [id number] Accession Number(s): [id number] Report Number: [id number] WS: [id number] Exam: XR chest 1V portable [id number] Date/Time of Exam: 08/19/2020 11:21 AM Reason For Exam: chest pain Comparison 08/13/2020. Findings: The lungs are clear and fully expanded. Costophrenic angles are sharp. No infiltrates. Bronchovascular relief appears normal. Cardiac silhouette is unremarkable. Bony elements are intact. XR/XR chest 1V portable [id number] IMPRESSION: Unremarkable chest radiograph. Dictated By:Milton Mcdonough DO Signed By:Ricardo Lewis Date/Time:08/19/20 1228 DD/ 1227 CT Chest: Attestation: I personally reviewed and interpreted this imaging study as follows: Radiologist's impression: [employer] [address] [place] [address] CT Scan Report Signed Patient: Emili Dumont #: [id number] : 1965Acct#:[id number] Age/Sex: 54 / MADM Date: 08/19/20 Loc: ERRoo/Bed: Attending Dr: Ordering Provider/Ordering MD: Neil Farnsworth MD, [facility] Date of Service: 08/19/20 Procedure(s): CT angio chest w abd pel w con Accession Number(s): [id number] Report Number: [id number] WS: [id number] CTA CHEST WITH CT ABDOMEN AND PELVIS. HISTORY: Chest pain radiating to back. Short of breath with abdominal distention. TECHNIQUE: CT angiogram is performed through the chest. Additional imaging is performed through the abdomen and pelvis with IV contrast. Sagittal and coronal reformats have been submitted. MIP imaging also reviewed. All CT scans at [facility] use at least one of these dose optimization techniques: automated exposure control; mA and/or kV adjustment per patient size (includes targeted exams where dose is matched to clinical indication); or iterative reconstruction. Contrast: Omnipaque 350; 95 cc IV. DLP: 2822.45 mGy.cm COMPARISON: 04/21/2020 and 07/29/2017 Chest CTA: Adequate evaluation of the pulmonary artery and thoracic aorta. No filling defects in the pulmonary arterial system. No pulmonary embolism. Normal size pulmonary artery. Mild atherosclerosis thoracic aorta with no dissection or aneurysm. No pericardial or pleural effusions. Mild lipomatous changes along the intra-atrial septum. There are a few scattered groundglass opacifications bilaterally throughout both lungs. No pneumonia or pulmonary nodule. No mass. Increased mediastinal fat. No adenopathy. Abdomen CT: Marked hepatic steatosis and hepatomegaly. Gallbladder, spleen, pancreas and kidneys are negative. RIGHT adrenal gland has been removed. Very minimal hypertrophy of the LEFT adrenal gland is stable. Mild atherosclerotic changes within the aorta but no aneurysm or dissection. No ascites or free air. There is mild diffuse fecal retention. The appendix is normal. Numerous diverticula in the descending and sigmoid colon. No evidence for acute diverticulitis. Pelvic CT: Moderately distended urinary bladder. No free fluid or adenopathy in the pelvis. Mild anterior wedging of T5. Remote healed rib fractures in the posterior lateral lower thorax bilaterally. CT/CT angio chest w abd pel w con IMPRESSION: 1. No pulmonary embolism or aortic dissection. 2. Multifocal, multilobar diffuse groundglass opacifications. Consider pneumonitis. These changes can also be seen with fluid overload or small peripheral emboli. 3. Marked hepatomegaly and hepatic steatosis. 4. Sigmoid diverticulosis without acute diverticulitis. 5. Prior RIGHT adrenalectomy. Dictated By:Sharonda Tsai DO Signed By:Sharonda Tsai DOSigned Date/Time:08/19/20 1247 DD/ 1236 EKG Data^: EKG 1: Attestation: I personally reviewed and interpreted this EKG as follows: EKG interpretation date: 08/19/20 EKG interpretation time: 11:19 Prior EKG tracings: not available for review Interpretation: Sinus rhythm. Heart rate 94 bpm. Right atrial enlargement. No ST changes EKG 2: Attestation: I personally reviewed and interpreted this EKG as follows: EKG interpretation date: 08/19/20 EKG interpretation time: 13:20 Prior EKG tracings: available for review Interpretation: Sinus rhythm. Heart rate 97 bpm. Left atrial enlargement. No ST changes. No significant change from earlier Discharge Plan Discharge Patient Disposition: Admitted As Inpatient Admit Provider: Hakeem Jackson Clinical Impression: Adverse reaction to drug, Polymyalgia rheumatica, Chest pain, Acidosis, lactic Condition: Stable Coding Level of Care Code ED Weight Control Engineer for Chg Fwd Exam Comprehensive
[2020-08-19] MEDS: diphenhydrAMINE 50 mg/mL SDV 1mL IVP (11:55)
[2020-08-19] MEDS: HYDROmorphone 1 mg/mL INJ 1 mL IVP ×2 (11:58→14:12)
[2020-08-19] MEDS: famotidine 20 mg/2 mL INJ 40 MG IVP (12:00)
[2020-08-19] MEDS: EPINEPHrine 1 mg/mL INJ 0.3 MG IM (12:02)
[2020-08-19 12:15] LABS: Basophils % 0.2 %; Hematocrit 40.2 % (42.0-52.0); Hemoglobin 13.8 g/dL (11.7-16.6); Lymphocytes # 0.5 10^3/uL (0.8-4.8); Lymphocytes % 3.6 %; Mean Corpuscular HGB Conc 34.3 g/dL (30.0-36.0); Mean Corpuscular Hemoglobin 34.2 pg (28.0-34.0); Mean Corpuscular Volume 99.5 fL (80-94); Mean Platelet Volume 9.5 fL (7.4-10.4); Monocytes # 0.5 10^3/uL (0.2-0.9); Monocytes % 3.3 %; Neutrophils # 12.83 10^3/uL (1.8-7.7); Neutrophils % 91.5 %; Nucleated Red Blood Cells # 0.1 /100WBC; Nucleated Red Blood Cells % 0.4 %; Platelet Count 174 10^3/cmm (130-400); Red Blood Count 4.04 10^6/uL (4.1-5.3); Red Cell Distribution Width 14.2 % (12.1-15.1)
[2020-08-19] MEDS: iohexol 350 mg/mL 100 mL Btl IV ×2 (12:21)
[2020-08-19 12:36] LABS: INR 0.95 (0.8-1.2)
[2020-08-19 12:40] LABS: D Dimer <= 0.27 ug/mIFEU (0-0.59)
[2020-08-19 12:45] LABS: Troponin(5th) Baseline 20 ng/L (0-15)
[2020-08-19 12:50] LABS: Lactate (Lactic Acid level) 5.8 mmol/L (0.5-2.2)
[2020-08-19 12:55] LABS: Alanine Aminotransferase 79 U/L (0-41); Albumin Level 4.5 g/dL (3.5-5.2); Alkaline Phosphatase 70 IU/L (40-130); Aspartate Amino Transferase 30 U/L (0-40); Blood Urea Nitrogen 15 mg/dL (6-20); C Reactive Protein 0.3 mg/L (0.0-4.9); Calcium 8.7 mg/dL (8.5-10.5); Carbon Dioxide 21 mmol/L (22-29); Chloride 88 mmol/L (98-107); Creatine Phosphokinase 199 U/L (39-308); Globulin 1.8 g/dL (1.3-4.6); Glomerular Filtration Rate 87.6 mL/min (90-130); Glucose 214 mg/dL (65-115); Lipase 34 U/L (13-60); Osmolality Calculated 269 mOsm/kg (285-295); Sodium 126 mmol/L (136-145); Total Bilirubin 0.9 mg/dL (0.15-1.2); Total Protein 6.3 g/dL (6.6-8.7)
[2020-08-19 13:01] LABS: Anion Gap 21.6 (5-19); Potassium 4.6 mmol/L (3.5-5.1)
[2020-08-19 13:02] LABS: Add Urine Microscopic? NO
[2020-08-19] MEDS: sodium chloride 0.9% 1,000 ML 999 ML IV (13:04)
[2020-08-19 13:06] LABS: Bilirubin Urine Neg (Negative); Blood Urine Neg (Negative); Glucose Urine UA 1+ (Normal); Ketones Urine Negative (Negative); Leukocyte Esterase Urine Negative (Negative); Nitrate Urine Negative (Negative); Protein Urine Neg (Negative); Specific Gravity, Urine 1.005 (1.005-1.030); Urine Appearance Clear (CLEAR); Urine Color Straw (Yellow); Urobilinogen Urine Norm (Negative); pH Urine 7 (5-7)
--- NOTE | 2020-08-19 13:28 | ECG_ITS ---
Test Date: 2020-08-19 Pat Name: Dalton Dumont Department: Room: Gender: Male [employer] Supervisor: : 1965 Requested By: Neil Farnsworth I Order Number: [id number] Peter MD: Klaudia Rose M.D. Measurements Intervals [place] Rate: 97 P: 62 W[place]: 145 QRS: 52 QRSD: 91 T: 81 QT: 351 QTc: 446 Interpretive Statements SINUS RHYTHM POSSIBLE LEFT ATRIAL ENLARGEMENT [-0.1mV P WAVE IN V1/V2] MINIMAL ST DEPRESSION [0.025+ mV ST DEPRESSION] Compared to ECG 08/19/2020 11:19:15 ST (T wave) deviation now present T-wave abnormality no longer present Electronically Signed On 08-19-2020 20:44:26 CDT by Klaudia Rose M.D. [email or web address]
[2020-08-19 13:44] LABS: Erythrocyte Sedimentation Rate 4 mm/hr (0-10)
[2020-08-19 14:03] LABS: SARS Covid-2 Antigen Negative (Negative)
[2020-08-19 14:39] LABS: Troponin 5 2HR 18.75 ng/L (0-15)
[2020-08-19 14:40] LABS: Troponin 5 2HR Delta -1.25 ABS# (0-10)
[2020-08-19] MEDS: orphenadrine 30 mg/mL Inj 2 mL 60 MG IVP (16:06)
--- NOTE | 2020-08-19 16:23 | PM.HP ---
Providers/Chief Complaint Admitting Physician: Hakeem Jackson Chief Complaint: Reaction to meds History of Present Illness Dalton Dumont is a 54 year old male with past medical history of PMR on chronic steroids therapy and recently administered Biologic medication who is presenting with several complaints. He received 3 treatments with biologic medication. The last one was last Sunday. He developed extensive rash and muscle aches and spasms after the third treatment. He was seen at the time and allergic reaction was suspected. Currently the rash is improved. It has resolved on the face. He still has some skin changes on the lower extremities. He had wheezes which have since improved. However he also reports cough with small amount of mucus. Denies fever. On presentation he is white blood cell count is increased. Chest x-ray was unremarkable but CT revealed bilateral infiltrates. Rapid Covid test was negative. PCR test is sent the results will not be available until tomorrow. The patient reports chest pain. The chest pain is present with and without cough. Cough makes it worse. Substernal. He does have history of atrial fibrillation and coronary artery disease. He is lost cardiac catheterization was in 2016 and was unremarkable. He also underwent stress test in 2019. He denies shortness of breath or diaphoresis. No nausea or vomiting. He reports abdominal distention. He has 1 or 2 loose stools a day which he thinks is due to decaff coffee. He has history of depression. However he denies any suicidal or homicidal thoughts or intentions. He is compliant with his medications. Review of Systems General: Reports: 10 or more systems reviewed and unremarkable except in HPI and below Medications/Allergies Home Medications Medication Instructions Recorded Confirmed Last Taken Type aspirin 325 mg tablet 325 mg PO DAILY@05 tab 06/09/19 08/19/20 08/19/20 History nitroglycerin 0.4 mg sublingual 0.4 mg SUBLINGUAL Q5M PRN 06/09/19 08/19/20 12/24/19 History tablet ascorbic acid (vitamin C) [Vitamin 1,000 mg PO DAILY@05 #0 11/14/19 08/19/20 08/18/20 History C] cholecalciferol (vitamin D3) 25 - 75 mcg PO DAILY@05 #0 11/14/19 08/19/20 08/18/20 History [Vitamin D3] diclofenac sodium 1 % topical gel 2 gm TOPICAL QID #100 gm 02/19/20 08/19/20 08/18/20 Rx gabapentin 600 mg tablet 600 mg PO TID #90 tab 06/08/20 08/19/20 08/19/20 Rx prednisone 10 mg tablet See Rx Instructions PO DAILY 90 06/08/20 08/19/20 08/19/20 Rx Days #315 tab vitamin B complex 1 tab PO DAILY@05 06/24/20 08/19/20 08/18/20 History albuterol sulfate [ProAir HFA] 2 puff INHALATION Q6H PRN 07/05/20 08/19/20 Unknown History lorazepam 1 mg tablet 1 mg PO BID PRN #90 tab 07/23/20 08/19/20 08/19/20 Rx cyclobenzaprine 10 mg PO TID PRN #20 tab 08/13/20 08/19/20 08/19/20 Rx Effexor XR 75 mg PO BID@05,17 08/19/20 08/19/20 08/19/20 History buspirone 20 mg PO DAILY@1700 08/19/20 08/19/20 08/18/20 History cefdinir 300 mg PO BID@05,17 08/19/20 08/19/20 08/19/20 History flecainide See Rx Instructions .ROUTE .COMPLEX 08/19/20 08/19/20 08/19/20 History metoprolol tartrate 25 mg PO BID@05,17 08/19/20 08/19/20 08/19/20 History pantoprazole 40 mg PO DAILY@05 08/19/20 08/19/20 08/19/20 History Allergies Allergy/AdvReac Type Severity Reaction Status Date / Time cayenne pepper fruits Allergy Unknown ALGY-Swell Verified 07/05/20 07:52 Lip/Tongue/Throat diltiazem Allergy Unknown ALGY-Swell Verified 07/05/20 07:52 Lip/Tongue/Throat cayenne Allergy Unknown Verified 07/05/20 07:52 methotrexate AdvReac Intermediate tremors Verified 07/05/20 07:52 and nausea and not feel good tizanidine AdvReac Intermediate pain juliette Verified 07/05/20 07:52 in head tramadol AdvReac Mild nausea Verified 07/05/20 07:52 PFSH Acute PFSH: Medical History (Updated 08/13/20 @ 11:59 by ELLE Hutchinson) Alcohol abuse, episodic drinking behavior Allergic contact dermatitis Atrial fibrillation Benign essential HTN Chronic steroid use Cigarette nicotine dependence Generalized anxiety disorder Severe GERD (gastroesophageal reflux disease) High risk medication use Inflammatory arthritis Major depressive disorder, recurrent severe without psychotic features Paroxysmal atrial fibrillation Polymyalgia rheumatica Smoking addiction 30 years currently smokes half a pack a day. Squamous cell carcinoma Surgical History History of kidney surgery Previous back surgery Family History Sister CAD (coronary artery disease) Psychiatric illness Mother Cancer Rheumatoid arthritis Father Diabetes Hyperlipidemia Hypertension Grandmother Diabetes Other Family history of premature coronary artery disease Denies family history of Clotting disorder Dementia Chronic kidney disease (CKD) Systemic lupus erythematosus (SLE) in adult Suicide Anesthesia complication Bleeding disorder Lung disease Stroke Social History Smoking and tobacco status: current every day smoker Alcohol intake: former History of recent travel: No Vitals/I&O/Wt Last Vital Signs Temp 97.1 F L 08/19/20 11:04 Pulse 91 08/19/20 16:09 Resp 19 H 08/19/20 16:09 BP 146/90 08/19/20 16:09 Pulse Ox 93 08/19/20 16:09 08/19/20 08/19/20 08/19/20 06:59 14:59 22:59 Intake Total 1000 / 1000 Balance 1000 / 1000 Weight last 48 hrs Weight 98.656 kg Physical Exam Narrative: EXAM NARRATIVE: Awake alert oriented. No acute distress. Mood and affect are appropriate. Responses are adequate. Skin is warm and dry. Bilateral bruise-like, purpleish rash on the lower extremities. No swelling. Moist mucous membranes. Clear throat. Neck is supple. No JVD Eyes PERRLA, extraocular muscles are intact Heart. S1, S2, regular Abdomen is soft, obese, nontender, distended, bowel sounds are present Lungs. Bilateral basilar crackles are present. Respiratory distress. Extremities. Bilateral venous stasis changes. Trace edema. No cyanosis or calf tenderness bilaterally Normal speech. No facial asymmetry. No focal muscle weakness. Data : 08/19/20 12:00 08/19/20 12:00 A&P Additional A&P Information 54-year-old male with past medical history of PMR, coronary artery disease, atrial fibrillation, on chronic steroids and recently administered biologic medication x3 for PMR, possible COPD, tobacco abuse, depression who is presenting with several complaints. Chest pain. Associated with cough and leukocytosis. Immunosuppressed host. Has bilateral pneumonia. Covid PCR is pending. Will be admitted to [facility]. We will continue steroids. We will start him on broad-spectrum antibiotics. We will adjust the treatments based on culture results. We will check MRSA status. We will stop vancomycin if it is negative. Will receive respiratory treatments as needed. Lactic acid level is elevated. Possible sepsis. Hemodynamically stable. Will check lactic acid level again after IV fluids in the emergency room. Pneumonia and sepsis. See above. Possible NSTEMI. ER physician is calling audiology consult. We will continue his home medications including aspirin and beta-juan antonio. History of A. fib. Currently in sinus. Rate controlled. Continue home medications. Hyponatremia. Most likely due to pneumonia and dehydration. Will manage it with IV fluids. Will recheck in the morning. If it persists we will consider additional testing. Skin rash suspected to be secondary to biologic medication that he received Sunday. He has been told already not to take this medication anymore due to suspected allergic reaction. Currently his respiratory function is stable. No evidence of uncontrolled bronchospasm. He will be on steroids increased dose until his Covid PCR comes back negative. Then we will taper the dose to his regular maintenance. DVT prophylaxis. High risk for DVT. Will start Lovenox. Elevated LFTs. Could be secondary to sepsis or his prior treatments. He also has hepatic steatosis described on the CT report. He will need to follow-up with his primary care physician for long-term monitoring and management. CODE STATUS. He wants to be full code. The plan of care was discussed with the patient. He verbalized understanding and agreement. Attestations Medical Necessity Statement*: I expect that the patient will spend more than 2 midnights in the hospital. Is being admitted for sepsis and pneumonia. Requires additional testing and IV antibiotics. Coding Level of Care Code Acute Glass Beveller for Coleman Sheppard
[2020-08-19] MEDS: piperacillin-tazobactam 3.375 GM in sodium chloride 0.9% (plus) 50 ML IV ×2 (17:07→23:51)
[2020-08-19] MEDS: sodium chloride 0.9% 1,000 ML 75 ML IV (17:07)
[2020-08-19] MEDS: enoxaparin 40 mg/0.4 mL Syringe SUBCUT (17:07)
[2020-08-19] MEDS: doxycycline 100 mg Tablet PO (17:08)
[2020-08-19 17:27] LABS: Lactic Sepsis W/Reflex 3.8 mmol/L (0.5-2.2)
[2020-08-19 17:28] LABS: Glucose Point of Care 203 mg/dL (70-110)
--- NOTE | 2020-08-19 17:28 | ECG_ITS ---
[facility] Test Date: 2020-08-19 Pat Name: Dalton Dumont Department: Room: 102 Gender: Male Adult Services Librarian: : 1965 Requested By: Neil Farnsworth I Order Number: [id number] Peter MD: Klaudia Rose M.D. Measurements Intervals Rawson Rate: 80 P: 59 FL: 146 QRS: 50 QRSD: 90 T: 74 QT: 372 QTc: 430 Interpretive Statements SINUS RHYTHM POSSIBLE LEFT ATRIAL ENLARGEMENT [-0.1mV P WAVE IN V1/V2] Compared to ECG 08/19/2020 13:19:53 ST (T wave) deviation no longer present Electronically Signed On 08-19-2020 20:45:24 CDT by Klaudia Rose M.D. [email or web address] [id number]
[2020-08-19] MEDS: albuterol 8 gm MDI 2 PUFF INHALATION (17:55)
--- NOTE | 2020-08-19 18:01 | PC.NURSE ---
PATIENT TOOK HIS PO HOME MEDICATIONS. PATIENT WAS INSTRUCTED TO NOT DO SO BY RESPIRATORY THERAPY, AND DID SO ANYWAY. NURSE ENTERED ROOM AND DISCOVERED WHAT MEDICATIONS THAT THE PATIENT HAD TAKEN. THEY WERE ALREADY PREVIOUSLY ORDERED TO BE GIVEN THIS EVENING. DR. BENNETT NOTIFIED. PATIENT'S HOME MEDICATIONS LOCKED IN PYXIS. PATIENT IN AGREEANCE TO THIS. WILL CONTINUE TO MONITOR PATIENT.
[2020-08-19 18:54] LABS: Reflex Lactate Order REFLEX LACTIC ORDERD
[2020-08-19 19:03] LABS: Troponin 5 6HR 17.63 ng/L (0-15); Troponin 5 6HR Delta -2.37 ng/L (0-12)
--- NOTE | 2020-08-19 19:50 | P.CONIM_ITS ---
Providers/Reason For Consult Consulting Physican/Specialty*: Dr. Andujar, Cardiology Reason for Consult*: Chest pain Attending Physician: Hakeem Jackson History of Present Illness History of Present Illness Dalton is 54-year-old man with past medical history of polymyalgia rheumatica on chronic steroid therapy was recently started on Tocilizumab and presented to the ER with multiple complaints that he thinks is reaction to his medications. He complains of extensive rash, bruising in both legs right more than left, muscle aches as well as chest pain. Chest pain described as unlike that he has previously experienced with his heart. He thinks is due to polymyalgia rheumatica it persist throughout the day and is worsened when he coughs. He describes the sensation of a cannonball going through his chest and coming off of it of his back when he coughs. He had some cough and wheezing when he presented without any fever. CT chest revealed bilateral infiltrates and he underwent rapid Covid test which was negative. Covid PCR is pending. He also has history of paroxysmal atrial fibrillation for which he is on flecainide 100 mg twice a day and aspirin, anxiety/MDD, smoking addiction, history of suicidal ideations for which he was hospitalized last month. Review of Systems General: Reports: 10 or more systems reviewed and unremarkable except in HPI and below Const: Reports: body aches, fatigue and malaise; Denies: fever(s), chills or daytime sleepiness Eyes: Denies: blurry vision or eye redness ENMT: Denies: epistaxis Card: Reports: chest pain; Denies: irregular heart rhythm, edema, swelling of feet/ankles or dyspnea on exertion Resp: Reports: wheezing; Denies: dyspnea or hemoptysis GI: Denies: abdominal pain, nausea, vomiting, hematochezia or melena : Denies: urinary frequency, urinary urgency or hematuria Musc: Denies: extremity swelling Skin/Breast: Reports: rash, erythema and changes in skin color Neuro: Denies: weakness in extremities or frequent falls Psych: Reports: anxiety and depression Jonathan/Lymph: Reports: easy bruising Meds/Allergies Home Medications and Allergies Home Medications Medication Instructions Recorded Confirmed Last Taken Type aspirin 325 mg tablet 325 mg PO DAILY@05 tab 06/09/19 08/19/20 08/19/20 History nitroglycerin 0.4 mg sublingual 0.4 mg SUBLINGUAL Q5M PRN 06/09/19 08/19/20 12/24/19 History tablet ascorbic acid (vitamin C) [Vitamin 1,000 mg PO DAILY@05 #0 11/14/19 08/19/20 08/18/20 History C] cholecalciferol (vitamin D3) 25 - 75 mcg PO DAILY@05 #0 11/14/19 08/19/20 08/18/20 History [Vitamin D3] diclofenac sodium 1 % topical gel 2 gm TOPICAL QID #100 gm 02/19/20 08/19/20 08/18/20 Rx gabapentin 600 mg tablet 600 mg PO TID #90 tab 06/08/20 08/19/20 08/19/20 Rx prednisone 10 mg tablet See Rx Instructions PO DAILY 90 06/08/20 08/19/20 08/19/20 Rx Days #315 tab vitamin B complex 1 tab PO DAILY@05 06/24/20 08/19/20 08/18/20 History albuterol sulfate [ProAir HFA] 2 puff INHALATION Q6H PRN 07/05/20 08/19/20 Unknown History lorazepam 1 mg tablet 1 mg PO BID PRN #90 tab 07/23/20 08/19/20 08/19/20 Rx cyclobenzaprine 10 mg PO TID PRN #20 tab 08/13/20 08/19/20 08/19/20 Rx Effexor XR 75 mg PO BID@05,17 08/19/20 08/19/20 08/19/20 History buspirone 20 mg PO DAILY@1700 08/19/20 08/19/20 08/18/20 History cefdinir 300 mg PO BID@,08/19/20 08/19/20 08/19/20 History flecainide See Rx Instructions .ROUTE .COMPLEX 08/19/20 08/19/20 08/19/20 History metoprolol tartrate 25 mg PO BID@,08/19/20 08/19/20 08/19/20 History pantoprazole 40 mg PO DAILY@05 08/19/20 08/19/20 08/19/20 History Allergies Allergy/AdvReac Type Severity Reaction Status Date / Time cayenne pepper fruits Allergy Unknown ALGY-Swell Verified 07/05/20 07:52 Lip/Tongue/Throat diltiazem Allergy Unknown ALGY-Swell Verified 07/05/20 07:52 Lip/Tongue/Throat cayenne Allergy Unknown Verified 07/05/20 07:52 methotrexate AdvReac Intermediate tremors Verified 07/05/20 07:52 and nausea and not feel good tizanidine AdvReac Intermediate pain juliette Verified 07/05/20 07:52 in head tramadol AdvReac Mild nausea Verified 07/05/20 07:52 Current Medications Current Medications Generic Name Dose Route Start Last Admin Trade Name Freq PRN Reason Stop Dose Admin Albuterol Sulfate 2 puff 08/19/20 16:42 08/19/20 17:55 Albuterol 8 Gm Mdi INHALATION 2 puff Q6H.RESPIRATORY PRN Administration Shortness Of Breath Buspirone HCl 20 mg 08/19/20 17:00 08/19/20 18:05 Buspirone 10 Mg Tablet PO Not Given DAILY@1700 ADELFO Doxycycline Monohydrate 100 mg 08/19/20 18:00 08/19/20 17:08 Doxycycline 100 Mg Tablet PO 100 mg BID ADELFO Administration Protocol Enoxaparin Sodium 40 mg 08/19/20 18:00 08/19/20 17:07 Enoxaparin 40 Mg/0.4 Ml Syringe SUBCUT 40 mg Q24H ADELFO Administration Flecainide Acetate 0 mg 08/19/20 18:00 08/19/20 18:06 Flecainide 100 Mg Tablet PO Not Given BID ADELFO Sodium Chloride 1,000 mls @ 75 mls/hr 08/19/20 16:15 08/19/20 17:07 Sodium Chloride 0.9% IV 08/20/20 18:54 75 mls/hr .[id number] ADELFO Administration Piperacillin Sod/Tazobactam 50 mls @ 12.5 mls/hr 08/19/20 16:30 08/19/20 17:07 Sod 3.375 gm/ Sodium Chloride IV 12.5 mls/hr Q8H ADELFO Administration Protocol Insulin Aspart 0 unit 08/19/20 18:00 08/19/20 18:51 Insulin Aspart 100 Unit/1 Ml SUBCUT 4 unit WM&BEDTIME ADELFO Administration Protocol Metoprolol Tartrate 25 mg 08/19/20 17:00 08/19/20 18:05 Metoprolol Tartrate 25 Mg Tablet PO Not Given BID@, [facility] Venlafaxine HCl 75 mg 08/19/20 17:00 08/19/20 18:06 Venlafaxine Er (24hr) 75 Mg Capsule PO Not Given BID@, [facility] PFSH Acute PFSH: Medical History Alcohol abuse, episodic drinking behavior Allergic contact dermatitis Atrial fibrillation Benign essential HTN Chronic steroid use Cigarette nicotine dependence Generalized anxiety disorder Severe GERD (gastroesophageal reflux disease) High risk medication use Inflammatory arthritis Major depressive disorder, recurrent severe without psychotic features Paroxysmal atrial fibrillation Polymyalgia rheumatica Smoking addiction 30 years currently smokes half a pack a day. Squamous cell carcinoma Surgical History History of kidney surgery Previous back surgery Family History Sister CAD (coronary artery disease) Psychiatric illness Mother Cancer Rheumatoid arthritis Father Diabetes Hyperlipidemia Hypertension Grandmother Diabetes Other Family history of premature coronary artery disease Denies family history of Clotting disorder Dementia Chronic kidney disease (CKD) Systemic lupus erythematosus (SLE) in adult Suicide Anesthesia complication Bleeding disorder Lung disease Stroke Social History Smoking and tobacco status: current every day smoker Alcohol intake: former History of recent travel: No Vitals/I&O/Wt Last Vital Signs Temp 97.8 F 08/19/20 19:14 Pulse 90 08/19/20 19:14 Resp 16 08/19/20 19:14 BP 161/98 08/19/20 19:14 Pulse Ox 90 08/19/20 19:14 08/19/20 08/19/20 08/19/20 06:59 14:59 22:59 Intake Total 1000 / 1000 Balance 1000 / 1000 Weight last 48 hrs Weight 217 lb 8 oz Physical Exam Narrative: EXAM NARRATIVE: GENERAL: Obese man sitting in bed in no acute distress HEENT: Pupils equal round reactive to light. No pallor or icterus. NECK: central trachea, No JVD. No carotid bruit. CARDIOVASCULAR SYSTEM: S1-S2 regular. No murmur rubs or gallops. RESPIRATORY SYSTEM: Chest clear to auscultation. No wheezes rhonchi or rubs heard. No use of accessory muscles. ABDOMEN: Soft, nontender and nondistended. Normal bowel sounds present. EXTREMITIES: No cyanosis or clubbing. No edema. No signs of chronic venous insufficiency. 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 No focal neurological deficits. SKIN: Normal turgor and temperature. Bilateral leg bruising noted upper extremity scratch cheung and erythematous rash noted PSYCH: Normal insight and judgment. Data Labs: Other Labs: Lipid panel with total cholesterol 260, triglycerides 75, direct LDL 161 and HDL 36. Calcitonin 0.08. Baseline troponin T of 20 at 120 minutes of 18.7 and at 6 hours of 17.6. Other Data: Attestation for Other Data: I personally reviewed and interpreted the following: Other data: Transthoracic echocardiogram 20 August 2020 CONCLUSIONS 1. Normal left ventricular size, systolic function and wall thickness, with no regional wall motion abnormalities. Left ventricular ejection fraction is estimated at 70 %. Normal diastolic function. 2. Normal right ventricular size and systolic function. 3. Pulmonary artery pressure estimated at 22 mmHg. 4. No significant valvular abnormality. 5. No significant change when compared to previous echocardiogram dated 10/21/2015. Holter Monitor 07/12/19 1. The baseline rhythm was found to be normal sinus with a heart rate of 79 bpm. Rare ventricular and supraventricular ectopics. No significant tachyarrhythmias 2. No significant pauses or bradycardias noted. 3. No symptoms noted. ECHOCARDIOGRAPHY, COMPLETE ([id number]) 10/21/15 Normal transthoracic echocardiogram. There are no prior echocardiogram studies to compare. LEXISCAN SPECT CARDIAC STRESS TEST ([id number]) 08/21/2018 1. No significant EKG changes with the LexiScan infusion 2. No LexiScan induced chest pain or cardiac arrhythmia 3. Normal blood pressure and heart rate response 1. Myocardial perfusion imaging is normal. 2. Overall left ventricular systolic function is normal without regional wall motion abnormalities. 3. The left ventricular ejection fraction is normal with a value of 67%. 4. Scan indicates low risk for cardiac events. Coronary angiogram 22 December 2015 No significant obstructive CAD left ventricle ejection fraction of 55% and LVEDP of 14 mmHg. A&P Assessment and plan (1) Chest pain: Pain is noncardiac in etiology. Musculoskeleta and pleuritic component to the pain -EKG with sinus rhythm, normal axis with possible left atrial enlargement. No significant ST-T wave changes on subsequent EKG's. Echocardiogram with normal LV function and no regional wall motion abnormality. Troponins x3 without any significant delta. -No further cardiac work-up warranted at this point. -He has had normal coronary angiogram as well as stress test in the past. Status: Acute Qualifiers: Chest pain type: unspecified Qualified Code(s): R07.9 - Chest pain, unspecified (2) Paroxysmal atrial fibrillation: He has been taking 100 mg twice a day of flecainide for last 3 months. Continue the same dose Status: Acute (3) Benign essential HTN: Status: Acute (4) Polymyalgia rheumatica: Status: Acute (5) IVON (obstructive sleep apnea): Status: Acute Additional A&P Information Pneumonia Hyponatremia Elevated LFTs Skin rash Dyslipidemia Thank you for allowing me to participate in patient's care. Please feel free to call with questions or concerns. I will sign off for now. Patient may be scheduled with Dr. Rose on discharge in [facility] in 3-4 weeks. Consult Attestations Medical Necessity Statement: As per primary team Time Spent in Patient Care: Greater than 35 minutes (>than 50% of time spent in counselling and/or direct pt care on unit) . Coding Level of Care Code Acute Compensation And Benefits Analyst for Coleman Sheppard Diagnoses Chest pain R07.9 Chest pain type: unspecified Paroxysmal atrial fibrillation I48.0 Benign essential HTN I10 Polymyalgia rheumatica M35.3 IVON (obstructive sleep apnea) G47.33
[2020-08-19 20:11] LABS: Glucose Point of Care 230 mg/dL (70-110)
[2020-08-19] MEDS: gabapentin 300 mg Capsule 600 MG PO (20:15)
[2020-08-19] MEDS: cyclobenzaprine 10 mg Tablet PO (20:15)
[2020-08-19 20:39] LABS: Lactic Acid level (Lactate) 3.8 mmol/L (0.5-2.2)
[2020-08-19 21:00] LABS: Estmated Average Glucose 148; Hemoglobin A1C 6.8 % (4.0-6.0)
[2020-08-19 21:55] LABS: Glucose Point of Care 260 mg/dL (70-110)
[2020-08-19] MEDS: vancomycin 1,500 MG/300 ML PIGGYBACK 200 MG IV (22:01)
[2020-08-20] VITALS (15 sets, daily range): BP systolic 113–169; BP diastolic 66–102; PULSE 76–96; RESP 16–24; TEMP 36.3–37.6; O2SAT 91–95
[2020-08-20] MEDS: LORazepam 1 mg Tablet PO ×4 (03:30→23:14)
--- NOTE | 2020-08-20 03:47 | PC.NURSE ---
Pt complained to COMMERCIAL INSULATOR of chest pain radiating through to his back. Ativan administered for potential anxiety and brought the patient his PRN nitroglycerin. Pt stated why do i need the nitro it isn't heart related. I educated the patient that since he is having chest pain this is the proper route of treatment. Dr. Pizarro notified about the patient's refusal of the nitro and requesting pain medication. Dr. Pizarro requested the patient have the nitro as ordered and then to be notified if it does not correct the problem. Went into the patient's room with nitro again and the patient again animatedly refused the nitro. Stating that it was not cardiac related and that it was related to his experimental medications he was taking and insisted that I read a book that he has hand written with his symptoms he has been having. Dr. Pizarro notified of the refusal again and the patient's request for the physician in the room and he stated that as long as the patient is stable the daytime physician can see the patient. Mariana CEJA charge in to see patient and he is now agreeable to taking Tylenol and have RT evaluate him for a treatment.
[2020-08-20] MEDS: acetaminophen 325 mg Tablet 650 MG PO (04:00)
[2020-08-20] MEDS: metoprolol tartrate 25 mg Tablet PO ×2 (04:15→17:36)
[2020-08-20] MEDS: venlafaxine ER (24HR) 75 mg Capsule PO ×2 (04:15→17:26)
[2020-08-20] MEDS: pantoprazole DR 40 mg Tablet PO (04:15)
[2020-08-20] MEDS: ascorbic acid 500 mg Tablet 1000 MG PO (04:15)
[2020-08-20] MEDS: aspirin 325 mg Tablet PO (04:16)
[2020-08-20] MEDS: cyclobenzaprine 10 mg Tablet PO (04:16)
[2020-08-20] MEDS: albuterol 8 gm MDI 2 PUFF INHALATION ×3 (04:40→21:10)
[2020-08-20 05:22] LABS: Basophils % 0.2 %; Hemoglobin 12.8 g/dL (11.7-16.6); Lymphocytes # 0.6 10^3/uL (0.8-4.8); Lymphocytes % 4.9 %; Mean Corpuscular HGB Conc 33.7 g/dL (30.0-36.0); Mean Corpuscular Hemoglobin 34.3 pg (28.0-34.0); Mean Corpuscular Volume 101.9 fL (80-94); Mean Platelet Volume 9.9 fL (7.4-10.4); Monocytes # 0.6 10^3/uL (0.2-0.9); Neutrophils # 10.59 10^3/uL (1.8-7.7); Neutrophils % 88.6 %; Nucleated Red Blood Cells % 0.2 %; Platelet Count 162 10^3/cmm (130-400); Red Blood Count 3.73 10^6/uL (4.1-5.3); Red Cell Distribution Width 14.3 % (12.1-15.1); White Blood Count 11.9 10^3/uL (4.0-10.0)
[2020-08-20 05:30] LABS: D Dimer 0.31 ug/mIFEU (0-0.59)
[2020-08-20 05:46] LABS: C Reactive Protein 0.3 mg/L (0.0-4.9)
[2020-08-20 05:48] LABS: Alanine Aminotransferase 63 U/L (0-41); Albumin Level 3.9 g/dL (3.5-5.2); Alkaline Phosphatase 67 IU/L (40-130); Anion Gap 17.4 (5-19); Aspartate Amino Transferase 18 U/L (0-40); Blood Urea Nitrogen 18 mg/dL (6-20); Calcium 8.3 mg/dL (8.5-10.5); Carbon Dioxide 23 mmol/L (22-29); Chloride 98 mmol/L (98-107); Globulin 1.7 g/dL (1.3-4.6); Glomerular Filtration Rate 117.1 mL/min (90-130); Glucose 170 mg/dL (65-115); Magnesium 2.3 mg/dL (1.7-2.3); Osmolality Calculated 284 mOsm/kg (285-295); Phosphorus 3.2 mg/dL (2.5-4.5); Potassium 4.4 mmol/L (3.5-5.1); Sodium 134 mmol/L (136-145); Total Bilirubin 0.7 mg/dL (0.15-1.2); Total Protein 5.6 g/dL (6.6-8.7)
[2020-08-20 05:50] LABS: Procalcitonin 0.08 ng/mL (0-0.5)
[2020-08-20 06:01] LABS: Chol HDL Ratio 7.22 mg/dL (1.0-5.00); Cholesterol 260 mg/dL (0-200); HDL Cholesterol 36 mg/dL (60-100); Triglycerides 705 mg/dL (0-150)
[2020-08-20] MEDS: sodium chloride 0.9% 1,000 ML 75 ML IV (06:53)
[2020-08-20 06:55] LABS: Glucose Point of Care 219 mg/dL (70-110)
[2020-08-20] MEDS: perflutren protein-a microsphr 0.22 mg/mL SDV 3 mL IV (07:14)
[2020-08-20 07:28] LABS: LDL Cholesterol Direct 161 mg/dL (0-100)
[2020-08-20] MEDS: piperacillin-tazobactam 3.375 GM in sodium chloride 0.9% (plus) 50 ML IV (07:52)
[2020-08-20] MEDS: flecainide 100 mg Tablet PO ×2 (07:53→17:26)
[2020-08-20] MEDS: gabapentin 300 mg Capsule 600 MG PO ×3 (07:54→21:38)
[2020-08-20] MEDS: doxycycline 100 mg Tablet PO (07:54)
[2020-08-20] MEDS: dexamethasone 4 mg/mL INJ 12 MG IVP (08:08)
--- NOTE | 2020-08-20 09:46 | PC.NURSE ---
dexamethasone given iv earlier this shift.this was dc'd and prednisone po started.dr hendrix stated to start po prednisone with evening dose
[2020-08-20 10:02] LABS: NT Pro B Type Natriuretic Pept 208 pg/mL (0-125)
[2020-08-20] MEDS: acetaminophen-codeine 300-30mg Tablet 1 TAB PO (10:40)
--- NOTE | 2020-08-20 10:55 | P.PN_ITS ---
Subjective Subjective: Interval history: Patient is anxious and little restless. Complaining of generalized muscle aches. He states that this pain started after he experienced side effects to biologic medication for PMR. He denies any shortness of breath or chest pain. The cough is better. No fever or chills. No nausea or vomiting. No diarrhea. Medications: Reviewed: Yes Medication Review Details: Generic Name Dose Route Start Last Admin Trade Name Freq PRN Reason Stop Dose Admin Acetaminophen 650 mg 08/19/20 16:09 08/20/20 04:00 Acetaminophen 32 5 Mg Tablet PO 650 mg Q6H PRN Administration Mild/Mod Pain Or Temp >/= 101 Acetaminophen/Code ine Phosphate 1 tab 08/20/20 10:28 08/20/20 10:40 Acetaminophen-Co deine 300-30mg Tab let PO 1 tab Q4H PRN Administration MODERATE PAIN Albuterol Sulfate 2 puff 08/19/20 16:42 08/20/20 10:21 Albuterol 8 Gm M di INHALATION 2 puff Q6H.RESPIRATORY P RN Administration Shortness Of [place] th Ascorbic Acid 1,000 mg 08/20/20 05:00 08/20/20 04:15 Ascorbic Acid 50 0 Mg Tablet PO 1,000 mg DAILY@05 ADELFO Administration Aspirin 325 mg 08/20/20 05:00 08/20/20 04:16 Aspirin 325 Mg T ablet PO 325 mg DAILY@05 ADELFO Administration Buspirone HCl 20 mg 08/19/20 17:00 08/19/20 18:05 Buspirone 10 Mg Tablet PO Not Given DAILY@1700 [facility] Cyclobenzaprine HC l 10 mg 08/19/20 16:49 08/20/20 04:16 Cyclobenzaprine 10 Mg Tablet PO 10 mg TID PRN Administration muscle spasm Enoxaparin Sodium 40 mg 08/19/20 18:00 08/19/20 17:07 Enoxaparin 40 Mg /0.4 Ml Syringe SUBCUT 40 mg Q24H ADELFO Administration Gabapentin 600 mg 08/19/20 21:00 08/20/20 07:54 Gabapentin 300 M g Capsule PO 600 mg TID ADELFO Administration Sodium Chloride 1,000 mls @ 75 ml s/hr 08/19/20 16:15 08/20/20 06:53 Sodium Chloride 0.9% IV 08/20/20 18:54 75 mls/hr .[id number] [facility] Administration Insulin Aspart 0 unit 08/19/20 18:00 08/20/20 07:57 Insulin Aspart 1 00 Unit/1 Ml SUBCUT 4 unit WM&BEDTIME [facility] Administration Protocol Metoprolol Tartrat e 25 mg 08/19/20 17:00 08/20/20 04:15 Metoprolol Tartr ate 25 Mg Tablet PO 25 mg BID@, [facility] Administration Non-Formulary Medi cation 1 tab 08/20/20 05:00 08/20/20 04:16 Vitamin B Comple x [B Complex-Vitam in B12] PO Not Given DAILY@05 [facility] Pantoprazole Sodiu m 40 mg 08/20/20 05:00 08/20/20 04:[address] 40 Mg Tablet PO 40 mg DAILY@05 [facility] Administration Prednisone 20 mg 08/20/20 09:30 08/20/20 09:46 Prednisone 10 Mg Tablet PO Not Given DAILY [facility] Venlafaxine HCl 75 mg 08/19/20 17:00 08/20/20 04:15 Venlafaxine Er ( 24hr) 75 Mg Capsul e PO 75 mg BID@, [facility] Administration Vitals/I&O/Wt Last Vital Signs Temp 97.4 F L 08/20/20 08:00 Pulse 76 08/20/20 10:24 Resp 18 08/20/20 10:24 BP 161/100 08/20/20 08:00 Pulse Ox 95 08/20/20 10:24 08/19/20 08/20/20 08/20/20 22:59 06:59 14:59 Intake Total 1050 / 1050 1350 / 2400 360 / 360 Balance 1050 / 1050 1350 / 2400 360 / 360 Weight last 48 hrs Weight 98.656 kg Physical Exam Narrative: EXAM NARRATIVE: Awake alert oriented. Responses are adequate. Skin is warm and dry. Bilateral bruise-like, purpleish rash on the lower extremities is unchanged. No swelling. Moist mucous membranes. Clear throat. Neck is supple. No JVD Eyes PERRLA, extraocular muscles are intact Heart. S1, S2, regular Abdomen is soft, obese, nontender, distended, bowel sounds are present Lungs. Much improved bibasilar crackles. No wheezes. No respiratory distress Extremities. Bilateral venous stasis changes. Trace edema. No cyanosis or calf tenderness bilaterally Normal speech. No facial asymmetry. No focal muscle weakness. Data : 08/20/20 04:28 08/20/20 04:28 Other Labs: Laboratory Results WBC 11.9 10^3/uL (4.0-10.0) H 08/20/20 04:28 RBC 3.73 10^6/uL (4.1-5.3) L 08/20/20 04:28 Hgb 12.8 g/dL (11.7-16.6) 08/20/20 04:28 Hct 38.0 % (42.0-52.0) L 08/20/20 04:28 MCV 101.9 fL (80-94) H 08/20/20 04:28 MCH 34.3 pg (28.0-34.0) H 08/20/20 04:28 MCHC 33.7 g/dL (30.0-36.0) 08/20/20 04:28 RDW 14.3 % (12.1-15.1) 08/20/20 04:28 Plt Count 162 10^3/cmm (130-400) 08/20/20 04:28 MPV 9.9 fL (7.4-10.4) 08/20/20 04:28 Neut % (Auto) 88.6 % 08/20/20 04:28 Lymph % (Auto) 4.9 % 08/20/20 04:28 [place] % (Auto) 5.0 % 08/20/20 04:28 Eos % (Auto) 0.0 % 08/20/20 04:28 Baso % (Auto) 0.2 % 08/20/20 04:28 Neut # (Auto) 10.59 10^3/uL (1.8-7.7) H 08/20/20 04:28 Lymph # (Auto) 0.6 10^3/uL (0.8-4.8) L 08/20/20 04:28 [place] # (Auto) 0.6 10^3/uL (0.2-0.9) 08/20/20 04:28 Eos # (Auto) 0.0 10^3/uL (0.0-0.8) 08/20/20 04:28 Baso # (Auto) 0.0 10^3/uL (0.0-0.1) 08/20/20 04:28 Nucleated RBC % (auto) 0.2 % 08/20/20 04:28 Nucleated RBCs # 0.0 /100WBC 08/20/20 04:28 ESR 4 mm/hr (0-10) 08/19/20 12:00 PT 12.90 SECONDS (12.1-14.9) 08/19/20 12:00 INR 0.95 (0.8-1.2) 08/19/20 12:00 APTT 22.0 SECONDS (23.9-36.7) L 08/19/20 12:00 D-Dimer 0.31 ug/mIFEU (0-0.59) 08/20/20 04:28 Sodium 134 mmol/L (136-145) L 08/20/20 04:28 Potassium 4.4 mmol/L (3.5-5.1) 08/20/20 04:28 Chloride 98 mmol/L (98-107) 08/20/20 04:28 Carbon Dioxide 23 mmol/L (22-29) 08/20/20 04:28 Anion Gap 17.4 (5-19) 08/20/20 04:28 BUN 18 mg/dL (6-20) 08/20/20 04:28 Creatinine 0.7 mg/dL (0.7-1.2) 08/20/20 04:28 GFR Calculation 117.1 mL/min (90-130) 08/20/20 04:28 Glucose 170 mg/dL (65-115) H 08/20/20 04:28 POC Glucose 219 mg/dL (70-110) H 08/20/20 06:47 Estimat Average Glucose 148 08/19/20 17:00 Hemoglobin A1c 6.8 % (4.0-6.0) H 08/19/20 17:00 Calculated Osmolality 284 mOsm/kg (285-295) L 08/20/20 04:28 Lactic Acid 3.8 mmol/L (0.5-2.2) H 08/19/20 17:00 Lactic Acid (Sepsis) 3.8 mmol/L (0.5-2.2) H 08/19/20 20:11 Lactate 5.8 mmol/L (0.5-2.2) H* 08/19/20 12:00 Calcium 8.3 mg/dL (8.5-10.5) L 08/20/20 04:28 Phosphorus 3.2 mg/dL (2.5-4.5) 08/20/20 04:28 Magnesium 2.3 mg/dL (1.7-2.3) 08/20/20 04:28 Total Bilirubin 0.7 mg/dL (0.15-1.2) 08/20/20 04:28 AST 18 U/L (0-40) 08/20/20 04:28 ALT 63 U/L (0-41) H 08/20/20 04:28 Alkaline Phosphatase 67 IU/L (40-130) 08/20/20 04:28 Creatine Kinase 199 U/L (39-308) 08/19/20 12:00 Troponin T Baseline 20 ng/L (0-15) H 08/19/20 12:00 Troponin T 120 Minute 18.75 ng/L (0-15) H 08/19/20 13:57 Delta Troponin T -1.25 ABS# (0-10) L 08/19/20 13:57 Troponin T Hi Sens 6Hr 17.63 ng/L (0-15) H 08/19/20 18:24 Troponin T Hi Sens 6Hr Delta -2.37 ng/L (0-12) L 08/19/20 18:24 C-Reactive Protein 0.3 mg/L (0.0-4.9) 08/20/20 04:28 NT-Pro-B Natriuret Pep 208 pg/mL (0-125) H 08/20/20 04:28 Total Protein 5.6 g/dL (6.6-8.7) L 08/20/20 04:28 Albumin 3.9 g/dL (3.5-5.2) 08/20/20 04:28 Globulin 1.7 g/dL (1.3-4.6) 08/20/20 04:28 Triglycerides 705 mg/dL (0-150) H 08/20/20 04:28 Cholesterol 260 mg/dL (0-200) H 08/20/20 04:28 LDL Cholesterol Direct 161 mg/dL (0-100) H 08/20/20 04:28 LDL Cholesterol, Calc Not Reportable 08/20/20 04:28 HDL Cholesterol 36 mg/dL (60-100) L 08/20/20 04:28 LDL/HDL Ratio Not Reportable 08/20/20 04:28 Cholesterol/HDL Ratio 7.22 mg/dL (1.0-5.00) H 08/20/20 04:28 Lipase 34 U/L (13-60) 08/19/20 12:00 Procalcitonin 0.08 ng/mL (0-0.5) 08/20/20 04:28 Urine Color Straw (Yellow) 08/19/20 12:45 Urine Appearance Clear (CLEAR) 08/19/20 12:45 Urine pH 7 (5-7) 08/19/20 12:45 Ur Specific [place] 1.005 (1.005-1.030) 08/19/20 12:45 Urine Protein Neg (Negative) 08/19/20 12:45 Urine Glucose (UA) 1+ (Normal) 08/19/20 12:45 Urine Ketones Negative (Negative) 08/19/20 12:45 Urine Blood Neg (Negative) 08/19/20 12:45 Urine Nitrate Negative (Negative) 08/19/20 12:45 Urine Bilirubin Neg (Negative) 08/19/20 12:45 Urine Urobilinogen Norm mg/dL (Negative) 08/19/20 12:45 Ur Leukocyte Esterase Negative (Negative) 08/19/20 12:45 SARS-CoV-2 Ag (Rapid) Negative (Negative) 08/19/20 13:20 Impressions Chest X-Ray 08/19/20 11:21 IMPRESSION: Unremarkable chest radiograph. Chest/Abdomen/Pelvis CT 08/19/20 11:21 IMPRESSION: 1. No pulmonary embolism or aortic dissection. 2. Multifocal, multilobar diffuse groundglass opacifications. Consider pneumonitis. These changes can also be seen with fluid overload or small michael pheral emboli. 3. Marked hepatomegaly and hepatic steatosis. 4. Sigmoid diverticulosis without acute diverticulitis. 5. Prior RIGHT adrenalectomy. A&P Additional A&P Information 54-year-old male with past medical history of PMR, coronary artery disease, atrial fibrillation, on chronic steroids and recently administered biologic medication x3 for PMR, possible COPD, tobacco abuse, depression who is presenting with several complaints. Chest pain. Associated with cough and leukocytosis. Immunosuppressed host. Has bilateral pulmonary changes consistent with pneumonitis. Covid PCR is pending. However, he is CRP and procalcitonin are within normal range. I doubt infectious or inflammatory process. I will stop antibiotics and hospital steroids. We will continue home steroids. Continue respiratory treatments as needed. Lactic acid level was elevated, but hemodynamically stable. We will recheck it again today. Pneumonia and sepsis?? Doubt. As discussed above. We will continue monitoring. Abnormal troponin and BNP. No specific chest pain. Appreciate dr Andujar's input. Will follow her recomendations. Continue current meds for now. Uncontrolled dyslipidemia. The patient states that he never had problems with his lipids and cholesterol. Asked the nurse to print a copy of the report for his records. Starting the Lipitor. Low-fat diet. History of A. fib. Currently in sinus. Rate controlled. Continue home medications. Hyponatremia. Most likely due to dehydration. Improved with IV fluids. Continue monitoring. Skin rash suspected to be secondary to biologic medication that he received Sunday. He has been told already not to take this medication anymore due to suspected allergic reaction. Currently his respiratory function is stable. No evidence of uncontrolled bronchospasm. . DVT prophylaxis. High risk for DVT. Lovenox. Elevated LFTs. Improved today. He has hepatic steatosis described on the CT report. He will need to follow-up with his primary care physician for long-term monitoring and management. CODE STATUS. Full code. Anxiety. We will continue his home medications. Will slightly increase frequency of as needed lorazepam. History of EtOH per chart. We will start thiamine and CIWA protocol. The plan of care was discussed with the patient. He verbalized understanding and agreement. Attestations Medical Necessity Statement*: Additional work-up is in progress. I still have questions regarding his diagnosis. 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
[2020-08-20 11:16] LABS: Creatine Phosphokinase 75 U/L (39-308)
[2020-08-20 11:49] LABS: Glucose Point of Care 180 mg/dL (70-110)
[2020-08-20] MEDS: thiamine 100 mg Tablet PO (12:47)
[2020-08-20] MEDS: acetaminophen-codeine 300-30mg Tablet 2 TAB PO (15:09)
[2020-08-20 15:37] LABS: Coronavirus Test Green County Not Detected
[2020-08-20] MEDS: predniSONE 10 mg Tablet 15 MG PO (17:25)
[2020-08-20] MEDS: BuSPIRONE 10 mg Tablet 20 MG PO (17:27)
[2020-08-20] MEDS: enoxaparin 40 mg/0.4 mL Syringe SUBCUT (17:28)
[2020-08-20] MEDS: nystatin 100,000 unit/mL UDC 5 mL 500000 UNIT PO ×2 (17:28→21:38)
[2020-08-20] MEDS: nicotine 14 mg Patch 1 PATCH TRANSDERMA (17:28)
[2020-08-20 17:29] LABS: Glucose Point of Care 183 mg/dL (70-110)
[2020-08-20] MEDS: cetylpyridinium Lozenge 1 EACH MUCOUS MEM (17:29)
--- NOTE | 2020-08-20 19:48 | PC.NURSE ---
pt reported early in shift that he has been having much pain for several months r/t his polymyalgia.has had 10/10 pain..back particularly, not relieved by current flexeril.dr hendrix notified and he ordered tylenol#3..and later increased dose to 2 tabs when 1 tab was not adequatly relieving pain.back massages given with some relief.pt got very angry due to lack of pain control and wanted to leave against medical advice.dr hendrix and nurse body care manager notified.they discussed pt's concerns and addressed pain control.soma and dilaudid po ordered and given as ordered with some relief obtained.
--- NOTE | 2020-08-20 19:59 | USCV_ITS ---
Dalton Dumont Age: 54 Gender: M : 1965 Exam Date: 08/20/2020 06:22 Ordering Phys: Lorin Andujar MD ([email or web address]) Technologist: Ludmila Richards [place] [facility] [place]: CHEST PAIN BP: 131 / 101 HR: 73 Rhythm: Sinus Technical Quality: Adequate MEASUREMENTS (Male / Female) Normal Values 2D ECHO LV Diastolic Diameter PLAX 4.4 cm 4.2 - 5.9 / 3.9 - 5.3 cm LV Systolic Diameter PLAX 3.2 cm LV Chamber Size 2.5 cm IVS Diastolic Thickness 1.4 cm 0.6 - 1.0 / 0.6 - 0.9 cm IVS Systolic Thickness 1.6 cm LVPW Diastolic Thickness 1.8 cm 0.6 - 1.0 / 0.6 - 0.9 cm LVPW Systolic Thickness 2.0 cm RV Chamber Size 2.4 cm LVOT Diameter 2.0 cm LV Ejection Fraction 2D Teich 53.2 % LV Ejection Fraction MOD 2C 73.7 % LV Ejection Fraction 2C AL 75.8 % LA Diameter 4.4 cm LA Width 3.0 cm LA Height 5.0 cm RA Width 2.8 cm RA Height 4.6 cm Aorta at Sinotubular Diameter 3.1 cm M-MODE LV Diastolic Diameter MM 5.1 cm 4.2 - 5.9 / 3.9 - 5.3 cm LV Systolic Diameter MM 3.9 cm LV Ejection Fraction MM Teich 45.7 % IVS Diastolic Thickness MM 1.2 cm 0.6 - 1.0 / 0.6 - 0.9 cm IVS Systolic Thickness MM 1.8 cm LVPW Diastolic Thickness MM 1.1 cm 0.6 - 1.0 / 0.6 - 0.9 cm LVPW Systolic Thickness MM 1.8 cm Aortic Annulus Diameter 3.0 cm LA Ao Ratio MM 1.6 MV E Point Septal Separation 0.7 cm DOPPLER AV Peak Velocity 159.0 cm/s LVOT Peak Velocity 78.0 cm/s AV Area Cont Eq vti 1.9 cm squared AV Area Cont Eq pk 1.6 cm squared MV Area PHT 4.0 cm squared Mitral E to A Ratio 1.2 MV E' Velocity 34.0 cm/s Mitral E to MV E' Ratio 6.8 Mitral E to LV E' Lateral Ratio 5.8 Mitral E to LV E' Septal Ratio 8.4 TR Peak Velocity 217.2 cm/s TR Peak Gradient 18.9 mmHg TR Mean Velocity 171.1 cm/s TR Mean Gradient 13.1 mmHg TR Velocity Time Integral 48.0 cm TV Peak E Velocity 45.0 cm/s Right Atrial Pressure 3.0 mmHg Pulmonary Artery Systolic Pressu 21.9 mmHg PV Peak Velocity 63.0 cm/s RV Acceleration Time 0.1 s RV Ejection Time 0.3 s RV AcT/ET 0.4 FINDINGS Left Ventricle Normal left ventricular size, systolic function and wall thickness, with no regional wall motion abnormalities. Left ventricular ejection fraction is estimated at 70 %. Normal diastolic function. Right Ventricle Normal right ventricular size and systolic function. Right ventricular systolic pressure 21.9 mmHg. Right Atrium Normal right atrial size. Left Atrium Normal left atrial size. Mitral Valve Mitral valve not well visualized. No mitral valve stenosis. No mitral valve regurgitation. Aortic Valve No aortic valve stenosis. No aortic valve regurgitation. Tricuspid Valve Structurally normal tricuspid valve. Trace tricuspid valve regurgitation. Pulmonic Valve Pulmonic valve not well visualized. Pericardium No pericardial effusion. Aorta Aorta not well visualized. CONCLUSIONS 1. Normal left ventricular size, systolic function and wall thickness, with no regional wall motion abnormalities. Left ventricular ejection fraction is estimated at 70 %. Normal diastolic function. 2. Normal right ventricular size and systolic function. 3. Pulmonary artery pressure estimated at 22 mmHg. 4. No significant valvular abnormality. 5. No significant change when compared to previous echocardiogram dated 10/21/2015. Lorin Andujar MD (Electronically Signed) Final Date: 20 August 2020 09:27 S
[2020-08-20 20:21] LABS: Glucose Point of Care 255 mg/dL (70-110)
[2020-08-20] MEDS: atorvastatin 40 mg Tablet PO (21:38)
[2020-08-20 23:51] LABS: Vancomycin Trough < 4.0 ug/mL (10-15)
[2020-08-21] VITALS (10 sets, daily range): BP systolic 148–167; BP diastolic 90–111; PULSE 76–95; RESP 16–34; TEMP 36.3–36.6; O2SAT 93–96
[2020-08-21 05:01] LABS: Basophils % 0.1 %; Hematocrit 37.7 % (42.0-52.0); Hemoglobin 12.7 g/dL (11.7-16.6); Lymphocytes # 0.8 10^3/uL (0.8-4.8); Lymphocytes % 6.7 %; Mean Corpuscular HGB Conc 33.7 g/dL (30.0-36.0); Mean Corpuscular Hemoglobin 33.6 pg (28.0-34.0); Mean Corpuscular Volume 99.7 fL (80-94); Mean Platelet Volume 9.8 fL (7.4-10.4); Monocytes # 0.5 10^3/uL (0.2-0.9); Monocytes % 4.8 %; Neutrophils # 9.82 10^3/uL (1.8-7.7); Neutrophils % 87.6 %; Nucleated Red Blood Cells % 0.3 %; Platelet Count 152 10^3/cmm (130-400); Red Blood Count 3.78 10^6/uL (4.1-5.3); Red Cell Distribution Width 13.7 % (12.1-15.1); White Blood Count 11.2 10^3/uL (4.0-10.0)
[2020-08-21] MEDS: ascorbic acid 500 mg Tablet 1000 MG PO (05:24)
[2020-08-21] MEDS: aspirin 325 mg Tablet PO (05:24)
[2020-08-21] MEDS: LORazepam 1 mg Tablet PO (05:25)
[2020-08-21] MEDS: pantoprazole DR 40 mg Tablet PO (05:25)
[2020-08-21] MEDS: venlafaxine ER (24HR) 75 mg Capsule PO (05:25)
[2020-08-21] MEDS: predniSONE 10 mg Tablet 15 MG PO (05:25)
[2020-08-21] MEDS: metoprolol tartrate 25 mg Tablet PO (05:25)
[2020-08-21 05:34] LABS: NT Pro B Type Natriuretic Pept 141 pg/mL (0-125); Procalcitonin 0.03 ng/mL (0-0.5)
[2020-08-21 05:36] LABS: Estmated Average Glucose 143; Hemoglobin A1C 6.6 % (4.0-6.0)
[2020-08-21 05:45] LABS: Albumin Level 4.2 g/dL (3.5-5.2); Anion Gap 16.9 (5-19); Blood Urea Nitrogen 16 mg/dL (6-20); C Reactive Protein 0.3 mg/L (0.0-4.9); Calcium 8.5 mg/dL (8.5-10.5); Carbon Dioxide 26 mmol/L (22-29); Chloride 90 mmol/L (98-107); Glomerular Filtration Rate 100.4 mL/min (90-130); Glucose 200 mg/dL (65-115); Magnesium 1.8 mg/dL (1.7-2.3); Phosphorus 3.2 mg/dL (2.5-4.5); Potassium 3.9 mmol/L (3.5-5.1); Sodium 129 mmol/L (136-145)
--- NOTE | 2020-08-21 05:56 | PC.NURSE ---
pt is ambulatory in his room and in [address] throughout the night. pt removes himself from teletypesetter monitor for extended amounts of time. pt educated on safety of cardiac monitors.
--- NOTE | 2020-08-21 06:00 | XRR_ITS ---
PROCEDURE INFORMATION: Exam: XR Chest Exam date and time: 08/21/2020 12:00 AM Age: 54 years old Clinical indication: Chest pain; Type not specified; Additional info: ? Pneumonitis TECHNIQUE: Imaging protocol: XR of the chest Views: 1 view. COMPARISON: CR XR chest 1V portable [id number] 08/19/2020 12:17 PM FINDINGS: Lungs: See Pleural spaces finding. Pleural spaces: Mild apical pleural thickening on the right. Asymmetric opacity within the right apex. Lungs are otherwise well aerated. Heart/Mediastinum: Unremarkable. No cardiomegaly. Bones/joints: Unremarkable. XR/XR chest 1V portable [id number] IMPRESSION: Mild apical pleural thickening on the right. Asymmetric opacity within the right apex. Lungs are otherwise well aerated.
[2020-08-21 06:59] LABS: Glucose Point of Care 128 mg/dL (70-110)
[2020-08-21] MEDS: albuterol 8 gm MDI 2 PUFF INHALATION (08:39)
[2020-08-21] MEDS: nicotine 14 mg Patch 1 PATCH TRANSDERMA (09:19)
[2020-08-21] MEDS: multivitamin therapeutic Tablet 1 TAB PO (09:20)
[2020-08-21] MEDS: flecainide 100 mg Tablet PO (09:20)
[2020-08-21] MEDS: gabapentin 300 mg Capsule 600 MG PO (09:20)
[2020-08-21] MEDS: FUROsemide 20 mg Tablet PO (09:20)
[2020-08-21] MEDS: folic acid 1 mg Tablet PO (09:21)
[2020-08-21] MEDS: nystatin 100,000 unit/mL UDC 5 mL 500000 UNIT PO (10:13)
[2020-08-21] MEDS: thiamine 100 mg Tablet PO (10:13)
--- NOTE | 2020-08-21 10:30 | PC.CHAP ---
Pastoral Care Encounter/Spiritual Assessment Type of Contact [] Declined chief ii dispatcher visit [] Patient/Family/Request visit [] Outpatient visit [] Follow-up visit [] Physician referral [] Code/Alert [XX] Routine visit [] Staff referral [] Actively dying [] Patient sleeping [] Family support [] [] Out of room [] Palliative care [] [] Receiving care in room [] Pre-surgical visit [] Trauma [] Long length of stay [] ICU visit [] Other: Relational/Emotional Strength [XX] Patient feels connected with others/family/visitors/staff [XX] Distress [] Loneliness/isolation [XX] Abandonment Spirituality of Patient [XX] Person of Janice [] Attends Quaker of their Janice [XX] Believes in Prayer [] Reads Bible or Muslim materials [] There are Spiritual issues to be addressed [facility] Interventions [XX] Prayer [XX] Active listening [XX] Non-anxious presence [XX] Spiritual/emotional support [] Crisis/trauma care [] Spiritual counseling [] Bereavement support [] Provided bereavement packet [] Provided Bible/devotional materials [] Provided toy/stuffed animal, coloring book to patient or family member [] Provided Communion [] Anointing/[place] [] Salvation [XX] Completed spiritual assessment [XX] Other: Resource of [employer] Impact on Illness or Injury [] Angry [] Fearful [XX] Anxious [] Often cries [] Exhaustion [XX] Unable to work [] Unable to attend uatsdin [] Unable to walk/stand [] Unable to read [] Unable to drive [] Unable to eat/drink [] Unable to sleep [] Unable to be with family [] Patient intubated [] Other: Summary: Pt is quite discouraged. Pt reports being diagnosed with a rare polymyalgia that started about one year ago. Pt cannot work, is in chronic pain, and was taking a medication provided through a foundation for management. Unfortunately, the medication caused side effects, which is the reason for his hospitalization. Pt is discouraged because he feels that was his last hope (other than God). [facility] listened to his story, assessed supports and janice. Pt is plugged into behavioral health, relies heavily on his , and believes in prayer. Prayed with pt. The prayer helped to shift his focus onto where God is acting in his life. Time spent with patient: 20 mins
--- NOTE | 2020-08-21 10:34 | P.DS_ITS ---
Discharge Providers Date of Admission: 08/19/20 15:25 Date of Discharge: August 21, 2020 Attending Provider at Admission: Hakeem Jackson Attending Provider at Discharge: Hakeem Jackson Diagnoses at Discharge Discharge Diagnosis (1) Chest pain: Status: Acute Qualifiers: Chest pain type: unspecified Qualified Code(s): R07.9 - Chest pain, unspecified (2) Paroxysmal atrial fibrillation: Status: Acute (3) Benign essential HTN: Status: Acute (4) Polymyalgia rheumatica: Status: Acute (5) IVON (obstructive sleep apnea): Status: Acute Reason for Visit Reason for Visit: Reaction to meds Hospital Course Hospital Course 54-year-old male with past medical history of PMR, coronary artery disease, atrial fibrillation, on chronic steroids and recently administered biologic medication x3 for PMR, possible COPD, tobacco abuse, depression who is presenting with several complaints. Chest pain and generalized muscle aches throughout the body. Patient states that this is due to his PMR. Currently resolved. He requested muscle relaxer which provided most of the relief. Has bilateral pulmonary changes consistent with pneumonitis on CT. No respiratory complaints though. Covid PCR was negative. His CRP and procalcitonin are within normal range. I doubt infectious or inflammatory process. Antibiotics and hospital steroids are discontinued. We will continue home steroids. He remained afebrile without any respiratory complaints or chest pain. He is eager to go home today. He states that current medications are helping with his PMR symptoms. 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 Pneumonia and sepsis?? Doubt. As discussed above. We will continue monitoring. Abnormal troponin and BNP. No specific chest pain. Appreciate dr Andujar's input. Will follow her recomendations. Continue current meds for now. Uncontrolled dyslipidemia. The patient states that he never had problems with his lipids and cholesterol. Asked the nurse to print a copy of the report for his records. Starting the Lipitor. Low-fat diet. History of A. fib. Currently in sinus. Rate controlled. Continue home medications. Hyponatremia. Reports drinking a lot of water and tea. Polydipsia is suspected. I asked him to slightly decrease the amount of water and tea. I asked him to speak with his primary care physician about additional work-up if sodium level remains decreased. He verbalized understanding and agreement. Skin rash suspected to be secondary to biologic medication that he received Sunday. He has been told already not to take this medication anymore due to suspected allergic reaction. Currently his respiratory function is stable. No evidence of uncontrolled bronchospasm. . DVT prophylaxis. High risk for DVT. Received Lovenox. Elevated LFTs. Improved today. He has hepatic steatosis described on the CT report. He will need to follow-up with his primary care physician for long-term monitoring and management. Anxiety. We will continue his home medications. History of EtOH per chart. No evidence of withdrawals at this time. Physical Exam Narrative: EXAM NARRATIVE: Awake alert oriented. Responses are adequate. Skin is warm and dry. Moist mucous membranes. Clear throat. Thrush. Neck is supple. No JVD Eyes PERRLA, extraocular muscles are intact Heart. S1, S2, regular Abdomen is soft, obese, nontender, distended, bowel sounds are present Lungs. Much improved bibasilar crackles. No wheezes. No respiratory distress Extremities. Bilateral venous stasis changes. Trace edema. No cyanosis or calf tenderness bilaterally, no new rash. Muscles are soft without tenderness on palpation. No swelling. Normal speech. No facial asymmetry. No focal muscle weakness. Discharge Data Data Completed and Pending: Completed Studies During Hospitalization Category Date Time Status CT angio chest w abd pel w con Urge nt Cat Scan 08/19/20 11:21 Completed XR chest 1V yves ble [id number] Routine Exams 08/21/20 06:00 Completed XR chest 1V yves ble [id number] Urgent Exams 08/19/20 11:21 Completed CV echo wo/w cont rast [id number] Routine Ultrasound 08/20/20 19:59 Completed Pending at discharge Category Date Time Status MRSA by PCR AM LA BS Lab 08/19/20 17:29 Received Magnesium AM LABS Lab 08/22/20 04:00 Ordered Osmolality Serum Routine Lab 08/21/20 07:41 Ordered Osmolality Urine Routine Lab 08/21/20 07:41 Uncollected Renal Function Pa vani AM LABS Lab 08/22/20 04:00 Ordered Thyroid Stimulati ng Hormone AM LABS Lab 08/22/20 04:00 Ordered Urine Random Sodi um Routine Lab 08/21/20 07:41 Uncollected US/CV paperwork R outine Ultrasound 08/20/20 07:16 Taken Labs from last 24 hours 08/21/20 08/21/20 08/21/20 06:48 04:22 04:22 WBC 11.2 H RBC 3.78 L Hgb 12.7 Hct 37.7 L MCV 99.7 H MCH 33.6 MCHC 33.7 RDW 13.7 Plt Count 152 MPV 9.8 Neut % (Auto) 87.6 Lymph % (Auto) 6.7 [place] % (Auto) 4.8 Eos % (Auto) 0.0 Baso % (Auto) 0.1 Neut # (Auto) 9.82 H Lymph # (Auto) 0.8 [place] # (Auto) 0.5 Eos # (Auto) 0.0 Baso # (Auto) 0.0 Nucleated RBC % (a uto) 0.3 Nucleated RBCs # 0.0 Sodium 129 L Potassium 3.9 Chloride 90 L Carbon Dioxide 26 Anion Gap 16.9 BUN 16 Creatinine 0.8 GFR Calculation 100.4 Glucose 200 H POC Glucose 128 H Estimat Average Gl ucose Hemoglobin A1c Lactate Calcium 8.5 Phosphorus 3.2 Magnesium 1.8 Creatine Kinase C-Reactive Protein 0.3 NT-Pro-B Natriuret Pep 141 H Albumin 4.2 Procalcitonin 0.03 Vancomycin Trough Nasal/Oral COVID-1 9 PCR 08/21/20 08/20/20 08/20/20 04:22 22:39 20:01 WBC RBC Hgb Hct MCV MCH MCHC RDW Plt Count MPV Neut % (Auto) Lymph % (Auto) [place] % (Auto) Eos % (Auto) Baso % (Auto) Neut # (Auto) Lymph # (Auto) [place] # (Auto) Eos # (Auto) Baso # (Auto) Nucleated RBC % (a uto) Nucleated RBCs # Sodium Potassium Chloride Carbon Dioxide Anion Gap BUN Creatinine GFR Calculation Glucose POC Glucose 255 H Estimat Average Gl ucose 143 Hemoglobin A1c 6.6 H Lactate Calcium Phosphorus Magnesium Creatine Kinase C-Reactive Protein NT-Pro-B Natriuret Pep Albumin Procalcitonin Vancomycin Trough < 4.0 L Nasal/Oral COVID-1 9 PCR 08/20/20 08/20/20 08/20/20 17:15 12:11 11:36 WBC RBC Hgb Hct MCV MCH MCHC RDW Plt Count MPV Neut % (Auto) Lymph % (Auto) [place] % (Auto) Eos % (Auto) Baso % (Auto) Neut # (Auto) Lymph # (Auto) [place] # (Auto) Eos # (Auto) Baso # (Auto) Nucleated RBC % (a uto) Nucleated RBCs # Sodium Potassium Chloride Carbon Dioxide Anion Gap BUN Creatinine GFR Calculation Glucose POC Glucose 183 H 180 H Estimat Average Gl ucose Hemoglobin A1c Lactate 2.0 Calcium Phosphorus Magnesium Creatine Kinase C-Reactive Protein NT-Pro-B Natriuret Pep Albumin Procalcitonin Vancomycin Trough Nasal/Oral COVID-1 9 PCR 08/20/20 08/19/20 04:28 13:20 WBC RBC Hgb Hct MCV MCH MCHC RDW Plt Count MPV Neut % (Auto) Lymph % (Auto) [place] % (Auto) Eos % (Auto) Baso % (Auto) Neut # (Auto) Lymph # (Auto) [place] # (Auto) Eos # (Auto) Baso # (Auto) Nucleated RBC % (a uto) Nucleated RBCs # Sodium Potassium Chloride Carbon Dioxide Anion Gap BUN Creatinine GFR Calculation Glucose POC Glucose Estimat Average Gl ucose Hemoglobin A1c Lactate Calcium Phosphorus Magnesium Creatine Kinase 75 C-Reactive Protein NT-Pro-B Natriuret Pep Albumin Procalcitonin Vancomycin Trough Nasal/Oral COVID-1 9 PCR Not detected Echo CONCLUSIONS 1. Normal left ventricular size, systolic function and wall thickness, with no regional wall motion abnormalities. Left ventricular ejection fraction is estimated at 70 %. Normal diastolic function. 2. Normal right ventricular size and systolic function. 3. Pulmonary artery pressure estimated at 22 mmHg. 4. No significant valvular abnormality. 5. No significant change when compared to previous echocardiogram dated 10/21/2015. Vitals: Last Vital Signs Temp 97.8 F 08/21/20 03:32 Pulse 86 08/21/20 08:41 Resp 18 08/21/20 08:40 BP 167/97 08/21/20 03:32 Pulse Ox 94 08/21/20 08:40 Discharge Plan Discharge Patient Disposition: Home Condition: Stable Prescriptions: New carisoprodol 350 mg Tablet 350 mg PO Q8H PRN (Reason: Pain) Qty: 20 RF: 0 atorvastatin 40 mg Tablet 40 mg PO BEDTIME Qty: 30 RF: 0 nystatin 100,000 unit/mL Suspension 500,000 unit PO QID 7 Days Qty: 140 RF: 0 Vitamin B-1 (mononitrate) 100 mg Tablet 100 mg PO DAILY Qty: 30 RF: 0 hydrocodone-acetaminophen 7.5-325 mg tablet 1 tab PO Q6H PRN (Reason: pain) Qty: 30 RF: 0 Continued diclofenac sodium 1 % gel 2 gm TOPICAL QID Qty: 100 RF: 2 aspirin 325 mg tablet 325 mg PO DAILY@05 RF: 0 nitroglycerin 0.4 mg tablet, sublingual 0.4 mg SUBLINGUAL Q5M PRN (Reason: Chest Pain) RF: 0 gabapentin 600 mg tablet 600 mg PO TID Qty: 90 RF: 4 prednisone 10 mg tablet See Rx Instructions PO DAILY 90 Days Qty: 315 RF: 1 vitamin B complex [B Complex-Vitamin B12] Tablet 1 tab PO DAILY@05 RF: 0 lorazepam 1 mg tablet 1 mg PO BID PRN (Reason: anxiety) Qty: 90 RF: 2 ascorbic acid (vitamin C) [Vitamin C] 500 mg Tablet 1,000 mg PO DAILY@05 Qty: 0 RF: 0 cholecalciferol (vitamin D3) [Vitamin D3] 25 mcg (1,000 unit) Capsule 25 - 75 mcg PO DAILY@05 Qty: 0 RF: 0 albuterol sulfate [ProAir HFA] 90 mcg/actuation HFA aerosol inhaler 2 puff INHALATION Q6H PRN (Reason: Shortness Of Breath) RF: 0 cefdinir 300 mg Capsule 300 mg PO BID@05,17 RF: 0 Effexor XR 75 mg capsule,extended release 24hr 75 mg PO BID@05,17 RF: 0 pantoprazole 40 mg tablet,delayed release (DR/EC) 40 mg PO DAILY@05 RF: 0 buspirone 10 mg tablet 20 mg PO DAILY@1700 RF: 0 flecainide 100 mg tablet See Rx Instructions .ROUTE .COMPLEX RF: 0 metoprolol tartrate 25 mg tablet 25 mg PO BID@05,17 RF: 0 Discontinued cyclobenzaprine 5 mg tablet 10 mg PO TID PRN (Reason: muscle spasm) Qty: 20 RF: 0 Discharge Orders: Discharge Order (Routine); Ordered 08/21/20 Ordered By: Hakeem Jackson Other Ambulatory Orders: Basic Metabolic Panel (Routine) Timeframe: 1 Week Facility: [facility] - Location: Lab - Main Lab Ordered By: Hakeem Jackson Complete Blood Count w/Auto (Routine) Timeframe: 1 Week Location: Determined by Patient Ordered By: Hakeem Jackson Discharge Diet: Low Fat Discharge Activity: Resume usual activity Patient Instructions: Atorvastatin (By mouth), Hyponatremia (DC), Diabetes Mellitus Type 2 in Adults (DC), Hyperlipidemia (DC) Activity Restrictions/Additional Instructions: Please come back to emergency room if you develop worsening generalized muscle aches, weakness, fever or chills, nausea or vomiting, chest pain, shortness of breath, cough, palpitations or any other new symptoms. 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 Please do not drive while you are taking muscle relaxers and opiates for pain control. Please ask your provider to recheck your sodium level. Additional testing might need to be considered if your sodium level remains decreased. Discharge Attestations Time Spent in Discharge Care*: less than 30 min Quality Metrics Clinical Quality Measures During this hospital stay, did patient experience: None Coding Level of Care Code Acute Chg FW DC note Diagnoses Chest pain R07.9 Chest pain type: unspecified Paroxysmal atrial fibrillation I48.0 Benign essential HTN I10 Polymyalgia rheumatica M35.3 IVON (obstructive sleep apnea) G47.33
[2020-08-25 15:48] LABS: Osmolality Serum 288 mOsm/kg (278-305)
== END 2020-08-21 11:50 | disposition home or self-care (01) | DRG 313 ==
LOC: ER 11:29 → CSU 16:25
PROVIDERS: Admitting Provider Internal Medicine; Emergency Provider Family Medicine; Visit Provider Internal Medicine
DX: R07.89 Other chest pain (principal); E87.1 Hypo-osmolality and hyponatremia; E87.2 Acidosis; D84.821 Immunodeficiency due to drugs; T50.995A Adverse effect of other drugs, medicaments and biological substances, initial encounter; M35.3 Polymyalgia rheumatica; R07.81 Pleurodynia; M79.10 Myalgia, unspecified site; L27.0 Generalized skin eruption due to drugs and medicaments taken internally; I25.10 Atherosclerotic heart disease of native coronary artery without angina pectoris; E86.0 Dehydration; R05 Cough; R06.2 Wheezing; F32.9 Major depressive disorder, single episode, unspecified; F41.1 Generalized anxiety disorder; E78.5 Hyperlipidemia, unspecified; K76.0 Fatty (change of) liver, not elsewhere classified; I10 Essential (primary) hypertension; I48.0 Paroxysmal atrial fibrillation; G47.33 Obstructive sleep apnea (adult) (pediatric); K21.9 Gastro-esophageal reflux disease without esophagitis; F17.210 Nicotine dependence, cigarettes, uncomplicated; M19.90 Unspecified osteoarthritis, unspecified site; Z79.82 Long term (current) use of aspirin; Z79.52 Long term (current) use of systemic steroids; Z98.61 Coronary angioplasty status
CPT/HCPCS: 36415; 36416; 71045; 71275; 74177; 80053; 80061; 80069; 80202; 81003; 82550; 82962; 83036; 83605; 83690; 83721; 83735; 83880; 83930; 84100; 84145; 84484; 85025; 85378; 85610; 85651; 85730; 86140; 87426; 87635; 87641; 93005; 94640; 94664; 96361; 96372; 96374; 96375; 96376; 97161; 97165; 99285; C8929; J0171; J1100; J1170; J1200; J1650; J1815; J2360; J2543; J2930; J3370; J3490; J3535; J7030; J7512; J7611; Q9956; Q9967

== ENCOUNTER 2020-08-24 19:10 | Observation (INO) | payer MEDICAID, SELFPAY ==
--- NOTE | 2020-08-24 19:13 | ECG_ITS ---
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
--- NOTE | 2020-08-24 19:13 | XR_ITS ---
WS: [id number] Portable AP upright chest, 08/24/2020 Clinical Data: cp Comparison: Chest, 08/21/2020. Findings: No nodules, masses or effusions are seen. The heart is normal. The pulmonary vascularity is not increased. No pneumonia or pneumothorax is present. There are monitor leads on the chest wall. XR/XR chest 1V portable [id number] Impression: Negative chest.
[2020-08-24 19:16] VITALS: BP 156/101; PULSE 84; RESP 22; TEMP 36.4; O2SAT 94; BMI 29.9
--- NOTE | 2020-08-24 19:26 | ED_ITS ---
HPI - Chest Pain General: Chief Complaint: Chest Pain Stated Complaint: CHEST PAIN, DIFF BREATHING Time Seen by Provider: 08/24/20 19:16 Source: patient and EMS Mode of arrival: EMS Limitations: no limitations History of Present Illness: HPI narrative: 54-year-old male who was recently discharged yesterday for pneumonitis. He states he had a continued cough and is now having a very sharp chest pain with his cough. He states it hurts every time he coughs or with palpation. Denies any fever. He has been using antibiotics along with inhaler at home. Denies any vomiting or diarrhea. He states his pain is currently a 9 out of 10. He had a negative Covid when he was here last time. His CT showed no signs of pulmonary [place]. Associated symptoms: Reports dyspnea; Deny abdominal pain, fever(s), nausea or vomiting Review of Systems Const: Denies: fever(s), chills, body aches or change in appetite Eyes: Denies: blurry vision or eye discomfort ENMT: Denies: throat pain or dental pain Card: Reports: chest pain Resp: Reports: dyspnea and non-productive cough GI: Denies: abdominal pain, nausea, vomiting or diarrhea : Denies: dysuria Musc: Denies: neck pain or back pain Skin/Breast: Denies: rash Neuro: Denies: headache(s) Psych: Denies: depression Jonathan/Lymph: Denies: easy bruising All/Imm: Denies: urticaria PFS ED PFSH: Medical History Alcohol abuse, episodic drinking behavior Allergic contact dermatitis Atrial fibrillation Benign essential HTN Chronic steroid use Cigarette nicotine dependence Generalized anxiety disorder Severe GERD (gastroesophageal reflux disease) High risk medication use Inflammatory arthritis Major depressive disorder, recurrent severe without psychotic features IVON (obstructive sleep apnea) Paroxysmal atrial fibrillation Polymyalgia rheumatica Smoking addiction 30 years currently smokes half a pack a day. Squamous cell carcinoma Surgical History History of kidney surgery Previous back surgery Family History Sister CAD (coronary artery disease) Psychiatric illness Mother Cancer Rheumatoid arthritis Father Diabetes Hyperlipidemia Hypertension Grandmother Diabetes Other Family history of premature coronary artery disease Denies family history of Clotting disorder Dementia Chronic kidney disease (CKD) Systemic lupus erythematosus (SLE) in adult Suicide Anesthesia complication Bleeding disorder Lung disease Stroke Social History Smoking and tobacco status: current every day smoker Alcohol intake: former History of recent travel: No Physical Exam Const: COMMON NORMALS: no acute distress, patient oriented x3 and healthy appearing HENMT: COMMON NORMALS: normocephalic and atraumatic HEAD & SCALP: normocephalic and atraumatic Eye: COMMON NORMALS: Equal, round and reactive pupils present and EOMs intact bilaterally PUPIL: Yes Equal, round and reactive pupils present Neck/C-Spine: COMMON NORMALS: full ROM and supple Chest: COMMONS NORMALS: normal inspection of the chest OTHER: point tender in center of chest Resp: COMMON NORMALS: normal respiratory effort, No retractions, No use of accessory muscles and clear to auscultation bilaterally AUSCULTATION: clear to auscultation bilaterally Cardio: COMMON NORMALS: regular rate, regular rhythm and No murmurs present (Cardio) RATE: regular rate RHYTHM: regular rhythm GI: COMMON NORMALS: Normal to inspection, nondistended, normoactive bowel sounds present, Soft to palpation, non-tender and no masses PALPATION: Yes Soft to palpation Extremity: COMMON NORMALS: normal to inspection and full ROM Neuro: COMMON NORMALS: patient oriented x3, moves all extremities and no focal motor deficits Psych: COMMON NORMALS: mental status grossly normal, Normal thought process present and cooperative THOUGHT PROCESS: Normal thought process present Skin: COMMON NORMALS: no rashes or lesions noted and no wounds GENERAL SKIN EXAM: no rashes or lesions noted Course Vital Signs: Vital signs: Vital Signs Temperature 97.5 F L 08/24/20 19:16 Pulse Rate 84 08/24/20 19:16 Respiratory Rate 22 H 08/24/20 19:36 Blood Pressure 156/101 08/24/20 19:16 Pulse Oximetry 91 08/24/20 19:36 MDM - Chest Pain MDM Narrative: Medical decision making narrative: Patient presents here with chest wall pain likely from his cough. X-ray shows no definite pneumonia. He does have a hyponatremia that is 123. Hospitalist is seen patient down the ER and will admit for observation for his hyponatremia. Lab Data: Labs: Lab Results 08/24/20 08/24/20 08/24/20 Range/Units 19:38 19:38 19:38 WBC 9.9 (4.0-10.0) 10^3/ uL RBC 3.84 L (4.1-5.3) 10^6/u L Hgb 13.0 (11.7-16.6) g/dL Hct 37.8 L (42.0-52.0) % MCV 98.4 H (80-94) fL MCH 33.9 (28.0-34.0) pg MCHC 34.4 (30.0-36.0) g/dL RDW 14.4 (12.1-15.1) % Plt Count 176 (130-400) 10^3/c mm MPV 9.1 (7.4-10.4) fL Neut % (Auto) 68.7 % Lymph % (Auto) 19.3 % [place] % (Auto) 7.9 % Eos % (Auto) 0.5 % Baso % (Auto) 0.2 % Neut # (Auto) 6.79 (1.8-7.7) 10^3/u L Lymph # (Auto) 1.9 (0.8-4.8) 10^3/u L [place] # (Auto) 0.8 (0.2-0.9) 10^3/u L Eos # (Auto) 0.1 (0.0-0.8) 10^3/u L Baso # (Auto) 0.0 (0.0-0.1) 10^3/u L Nucleated RBC % (a uto) 0.5 % Nucleated RBCs # 0.1 /100WBC Sodium 123 L (136-145) mmol/L Potassium 4.2 (3.5-5.1) mmol/L Chloride 85 L (98-107) mmol/L Carbon Dioxide 25 (22-29) mmol/L Anion Gap 17.2 (5-19) BUN 10 (6-20) mg/dL Creatinine 0.7 (0.7-1.2) mg/dL GFR Calculation 117.1 (90-130) mL/min Glucose 75 (65-115) mg/dL Calculated Osmolal ity 254 L (285-295) mOsm/k g Calcium 8.5 (8.5-10.5) mg/dL Total Bilirubin 0.8 (0.15-1.2) mg/dL AST 31 (0-40) U/L ALT 68 H (0-41) U/L Alkaline Phosphata se 65 (40-130) IU/L Troponin T Baselin e 23 H (0-15) ng/L Total Protein 6.0 L (6.6-8.7) g/dL Albumin 4.5 (3.5-5.2) g/dL Globulin 1.5 (1.3-4.6) g/dL EKG Data^: EKG 1: Attestation: I personally reviewed and interpreted this EKG as follows: EKG interpretation date: 08/24/20 EKG interpretation time: 19:22 Interpretation: nsr hr [address] or t wave abnormalities qrs 98 qtc 405 Discharge Plan Discharge Patient Disposition: Placed in Observation Clinical Impression: Hyponatremia, Chest wall pain Coding Level of Care Code ED Traffic Control Signaler for Chg Fwd Exam Comprehensive
[2020-08-24] MEDS: ondansetron 2 mg/ML SDV 2 mL 4 MG IVP (19:35)
[2020-08-24 19:36] VITALS: RESP 22; O2SAT 91
[2020-08-24] MEDS: HYDROmorphone 1 mg/mL INJ 1 mL IVP (19:36)
[2020-08-24 19:46] LABS: Basophils % 0.2 %; Eosinophils # 0.1 10^3/uL (0.0-0.8); Eosinophils % 0.5 %; Hematocrit 37.8 % (42.0-52.0); Lymphocytes # 1.9 10^3/uL (0.8-4.8); Lymphocytes % 19.3 %; Mean Corpuscular HGB Conc 34.4 g/dL (30.0-36.0); Mean Corpuscular Hemoglobin 33.9 pg (28.0-34.0); Mean Corpuscular Volume 98.4 fL (80-94); Mean Platelet Volume 9.1 fL (7.4-10.4); Monocytes # 0.8 10^3/uL (0.2-0.9); Monocytes % 7.9 %; Neutrophils # 6.79 10^3/uL (1.8-7.7); Neutrophils % 68.7 %; Nucleated Red Blood Cells # 0.1 /100WBC; Nucleated Red Blood Cells % 0.5 %; Platelet Count 176 10^3/cmm (130-400); Red Blood Count 3.84 10^6/uL (4.1-5.3); Red Cell Distribution Width 14.4 % (12.1-15.1); White Blood Count 9.9 10^3/uL (4.0-10.0)
[2020-08-24 20:09] LABS: Alanine Aminotransferase 68 U/L (0-41); Albumin Level 4.5 g/dL (3.5-5.2); Alkaline Phosphatase 65 IU/L (40-130); Anion Gap 17.2 (5-19); Aspartate Amino Transferase 31 U/L (0-40); Blood Urea Nitrogen 10 mg/dL (6-20); Calcium 8.5 mg/dL (8.5-10.5); Carbon Dioxide 25 mmol/L (22-29); Chloride 85 mmol/L (98-107); Globulin 1.5 g/dL (1.3-4.6); Glomerular Filtration Rate 117.1 mL/min (90-130); Glucose 75 mg/dL (65-115); Osmolality Calculated 254 mOsm/kg (285-295); Potassium 4.2 mmol/L (3.5-5.1); Sodium 123 mmol/L (136-145); Total Bilirubin 0.8 mg/dL (0.15-1.2)
[2020-08-24 20:11] LABS: Troponin(5th) Baseline 23 ng/L (0-15)
--- NOTE | 2020-08-24 21:14 | PM.HP ---
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 He is not sure about the name but states it is probably vermad, he was recently discharged from the hospital on 08/21 after management of chest pain, cardiology did not recommend work-up for chest pain considering normal EF, EKG no significant delta troponin, 2016 normal coronary angiogram, and negative stress test 07/2018. He was also managed for hyponatremia with IV fluids because of dehydration, at the time of discharge sodium level was 129 which decreased from 126 with IV fluids. Patient is stating when he went home and in just 1 day he started noticing excessive swelling of his bilateral lower extremities, he started experiencing sharp stabbing pain in between his shoulder blades whenever he was coughing this has not changed since last admission, this chest pain does not radiate, he is not describing it as a squeezing or pressure sensation, is also experiencing dry cough with chest congestion and he is not able to bring up anything however he feels congested, also noticing mild wheezing. He has never been diagnosed with CHF, does not take any Lasix. He does endorse to drinking a lot of water he drinks 7 bottles of 500 cc, he is endorsing drinking a lot of water due to oral thrush which developed due to steroid usage. Because of these recurring chest pain and swelling of lower extremities & concerning symptoms he decided to come to the ED for further evaluation. Diagnosis in the ER revealed hyponatremia sodium 123 he was awake and alert no neurological signs or symptoms, I turned off his oxygen, he saturating well on room air, I gave him some water which definitely helped to improve his mood and he was able to give me a lot of details about his depression however he cut himself in the past and how he is tapping with his depression, nicotine addiction and he is willing to quit smoking and get healthier. No recurrence of chest pain during my evaluation, troponin 23 EKG unremarkable, chest x-ray unremarkable it does show interstitial increased prominence with mild groundglass opacities, CTA on 08/19 ruled out aortic dissection In the ER he was given hydromorphone which relieved his chest discomfort albuterol and Zofran Review of Systems Const: Reports: chills, body aches, change in appetite, change in weight, fatigue and malaise; Denies: fever(s) Eyes: Denies: change in vision ENMT: Denies: throat pain Card: Reports: chest pain, swelling of feet/ankles, dyspnea on exertion and orthopnea Resp: Reports: dyspnea and non-productive cough GI: Reports: early satiety; Denies: abdominal pain : Denies: flank pain Musc: Denies: neck pain Skin/Breast: Denies: rash Neuro: Denies: headache(s) Psych: Denies: anxiety Endo: Denies: polyuria Jonathan/Lymph: Denies: easy bruising All/Imm: Denies: urticaria Medications/Allergies Home Medications Medication Instructions Recorded Confirmed Last Taken Type aspirin 325 mg tablet 325 mg PO DAILY@05 tab 06/09/19 08/19/20 08/19/20 History nitroglycerin 0.4 mg sublingual 0.4 mg SUBLINGUAL Q5M PRN 06/09/19 08/19/20 12/24/19 History tablet ascorbic acid (vitamin C) [Vitamin 1,000 mg PO DAILY@05 #0 11/14/19 08/19/20 08/18/20 History C] cholecalciferol (vitamin D3) 25 - 75 mcg PO DAILY@05 #0 11/14/19 08/19/20 08/18/20 History [Vitamin D3] diclofenac sodium 1 % topical gel 2 gm TOPICAL QID #100 gm 02/19/20 08/19/20 08/18/20 Rx gabapentin 600 mg tablet 600 mg PO TID #90 tab 06/08/20 08/19/20 08/19/20 Rx prednisone 10 mg tablet See Rx Instructions PO DAILY 90 06/08/20 08/19/20 08/19/20 Rx Days #315 tab vitamin B complex 1 tab PO DAILY@05 06/24/20 08/19/20 08/18/20 History albuterol sulfate [ProAir HFA] 2 puff INHALATION Q6H PRN 07/05/20 08/19/20 Unknown History lorazepam 1 mg tablet 1 mg PO BID PRN #90 tab 07/23/20 08/19/20 08/19/20 Rx Effexor XR 75 mg PO BID@,17 08/19/20 08/19/20 08/19/20 History buspirone 20 mg PO DAILY@1700 08/19/20 08/19/20 08/18/20 History flecainide See Rx Instructions .ROUTE .COMPLEX 08/19/20 08/19/20 08/19/20 History metoprolol tartrate 25 mg PO BID@,08/19/20 08/19/20 08/19/20 History pantoprazole 40 mg PO DAILY@05 08/19/20 08/19/20 08/19/20 History atorvastatin 40 mg PO BEDTIME #30 tab 08/21/20 Unknown Rx carisoprodol 350 mg PO Q8H PRN #20 tab 08/21/20 Unknown Rx hydrocodone-acetaminophen 1 tab PO Q6H PRN #30 tab 08/21/20 Unknown Rx nystatin 500,000 unit PO QID 7 Days #140 ml 08/21/20 Unknown Rx Allergies Allergy/AdvReac Type Severity Reaction Status Date / Time tramadol Allergy Mild nausea Verified 08/24/20 19:24 cayenne pepper fruits Allergy Unknown ALGY-Swell Verified 08/24/20 19:24 Lip/Tongue/Throat diltiazem Allergy Unknown ALGY-Swell Verified 08/24/20 19:24 Lip/Tongue/Throat cayenne Allergy Unknown Verified 08/24/20 19:24 methotrexate AdvReac Intermediate tremors Verified 08/24/20 19:24 and nausea and not feel good tizanidine AdvReac Intermediate pain juliette Verified 08/24/20 19:24 in head PFSH Acute PFSH: Medical History Alcohol abuse, episodic drinking behavior Allergic contact dermatitis Atrial fibrillation Benign essential HTN Chronic steroid use Cigarette nicotine dependence Generalized anxiety disorder Severe GERD (gastroesophageal reflux disease) High risk medication use Inflammatory arthritis Major depressive disorder, recurrent severe without psychotic features IVON (obstructive sleep apnea) Paroxysmal atrial fibrillation Polymyalgia rheumatica Smoking addiction 30 years currently smokes half a pack a day. Squamous cell carcinoma Surgical History History of kidney surgery Previous back surgery Family History Sister CAD (coronary artery disease) Psychiatric illness Mother Cancer Rheumatoid arthritis Father Diabetes Hyperlipidemia Hypertension Grandmother Diabetes Other Family history of premature coronary artery disease Denies family history of Clotting disorder Dementia Chronic kidney disease (CKD) Systemic lupus erythematosus (SLE) in adult Suicide Anesthesia complication Bleeding disorder Lung disease Stroke Social History (Updated 08/24/20 @ 21:48 by Ophelia Stringer MD) Smoking and tobacco status: current every day smoker Alcohol intake: former Substance/Drug Use: never Household members: spouse Housing: House 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 History of recent travel: No Vitals/I&O/Wt Last Vital Signs Temp 97.5 F L 08/24/20 19:16 Pulse 84 08/24/20 19:16 Resp 22 H 08/24/20 19:36 BP 156/101 08/24/20 19:16 Pulse Ox 91 08/24/20 19:36 Weight last 48 hrs Weight 97.522 kg Physical Exam Narrative: EXAM NARRATIVE: Very pleasant middle-age male who appears more than stated age, He was on nasal cannula which I discontinued he was saturating well 94% on room air no active chest pain Cushingoid appearance nichols facies Multiple skin laceration and abrasion of upper and lower extremities Maculopapular rash of lower extremities Edema of lower extremities 2+ with pedal edema S1, S2 variable no murmur appreciated with active signs of fluid overload Abdomen distended, multiple bruises and lacerations, nontender Is awake alert oriented x3 GCS 15 Denies suicidal ideation No neurological deficits Oral thrush noted with dry tongue No asterixis Appropriate mood and affect Data : 08/24/20 19:38 08/24/20 19:38 A&P Assessment and plan (1) Chronic hyponatremia: Status: Acute (2) Chest wall pain: Status: Acute (3) Alcohol abuse, episodic drinking behavior: Status: Chronic (4) Self-mutilation: Status: Acute (5) Chronic steroid use: Status: Acute (6) Smoking addiction: Status: Acute (7) Generalized anxiety disorder: Status: Chronic (8) Major depressive disorder, recurrent severe without psychotic features: Status: Chronic (9) Cigarette nicotine dependence: Status: Chronic Qualifiers: Substance use status: uncomplicated Qualified Code(s): F17.210 - Nicotine dependence, cigarettes, uncomplicated (10) Pedal edema: Status: Acute Additional A&P Information Pleuritic chest pain No signs of consolidation or pneumonia on chest x-ray, CT rule out aortic dissection which was done previously, he is endorsing pleuritic chest pain on coughing, is an active smoker, no leukocytosis despite steroid usage, I do believe his symptoms are consistent with bronchitis We will keep him on DuoNeb and cough suppressants I would only use doxycycline for persistent symptoms of bronchitis, procalcitonin level has been unremarkable He is afebrile no signs of sepsis Cardiology evaluated him and recommended no further work-up for his pleuritic chest pain For chest congestion I will give him nebulized treatment and Mucomyst Hyponatremia On previous admission his sodium was 126 which decreased 223 with IV fluids On presentation he clinically looks fluid overloaded, does not have history of congestive heart failure I do believe this has some relation with drug reaction and chronic steroid use however for now I would use low-dose Lasix, patient is endorsing polydipsia drinks 500 cc 7 bottles a day because of oral thrush, we will keep him on full restriction 1.5 L TSH normal We will check serum/urine osmolarity, uric acid, he has been taking antidepressants as well however due to fluid overloaded state my suspicion for SIADH is low Nicotine dependence: Patient is willing to quit smoking, he did not do well with Chantix, he wants to try nicotine replacement therapy, we had a long discussion and spent about 5 to 10 minutes in the ER talk about any consideration, he is also planning to go to his brother for 2 to 3 weeks to avoid smoking at all Generalized anxiety disorder No active suicidal ideation, he endorses signs of depression He does follow-up with behavioral health clinic Continue SNRI, buspirone A. fib Not a candidate of anticoagulation due to low [id number] score he takes high-dose aspirin along with flecainide Drug reaction: Multiple maculopapular rash all over lower extremities, Will request venous Dopplers to rule out DVT Recommended not using biological agent for PMR in future Full code Cardiac diet DVT prophylaxis Lovenox Attestations Medical Necessity Statement*: Anticipating discharge in less than 48 hours continued overnight monitoring because of hyponatremia persistent chest pain Time Spent in Patient Care: (>than 50% of time spent in counselling and/or direct pt care on unit). 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
[2020-08-24 21:37] LABS: Troponin 5 2HR 21.34 ng/L (0-15)
[2020-08-24 21:38] LABS: Troponin 5 2HR Delta -1.66 ABS# (0-10)
[2020-08-24 22:09] VITALS: BP 149/93; PULSE 74; RESP 20; O2SAT 96
[2020-08-24 22:30] VITALS: BP 147/84; PULSE 75; RESP 18; TEMP 36.6; O2SAT 92
[2020-08-24 22:57] LABS: NT Pro B Type Natriuretic Pept 126 pg/mL (0-125); Uric Acid 7.2 mg/dL (3.4-7.0)
[2020-08-24] MEDS: HYDROcodone-acetaminophen 7.5-325 mg Tablet 1 TAB PO (23:26)
[2020-08-24] MEDS: enoxaparin 40 mg/0.4 mL Syringe SUBCUT (23:26)
[2020-08-24 23:46] VITALS: BP 154/97; PULSE 87; RESP 18; TEMP 36.4; O2SAT 91
[2020-08-25] VITALS (13 sets, daily range): BP systolic 107–142; BP diastolic 68–85; PULSE 76–104; RESP 16–28; TEMP 36.2–36.7; O2SAT 90–97
[2020-08-25] MEDS: LORazepam 1 mg Tablet PO (05:03)
[2020-08-25] MEDS: HYDROcodone-acetaminophen 7.5-325 mg Tablet 1 TAB PO ×3 (05:28→16:55)
[2020-08-25] MEDS: aspirin 325 mg Tablet PO (05:28)
[2020-08-25] MEDS: flecainide 100 mg Tablet PO ×2 (05:28→16:55)
[2020-08-25] MEDS: pantoprazole DR 40 mg Tablet PO (05:29)
[2020-08-25] MEDS: venlafaxine ER (24HR) 75 mg Capsule PO ×2 (05:29→16:55)
[2020-08-25] MEDS: metoprolol tartrate 25 mg Tablet PO ×2 (05:29→16:55)
--- NOTE | 2020-08-25 06:09 | PC.NURSE ---
Pain: After resting for several hours the pt woke up saying his pain was extreme, describing it as a burning pain in the middle of his back that was making him difficult to catch his breath. Pt was yelling and pacing his room and even came into the [facility] asking for help. Placed 2L NC on the pt and gave Ativan followed by his morning meds and PRN pain medication along with topical pain reliever. VS taken and Physician notified at the pt request. Orders received.
[2020-08-25] MEDS: lidocaine 2% viscous 15 ML, aluminum-mag hydrox-simethicon 30 ML, sucralfate oral liq 1 GM PO (06:17)
[2020-08-25] MEDS: morphine 4 mg/mL SDV 1 mL 2 MG IVP (06:18)
[2020-08-25 06:30] LABS: Basophils % 0.3 %; Eosinophils % 0.3 %; Hematocrit 44.7 % (42.0-52.0); Lymphocytes # 1.6 10^3/uL (0.8-4.8); Lymphocytes % 22.2 %; Mean Corpuscular HGB Conc 33.6 g/dL (30.0-36.0); Mean Corpuscular Hemoglobin 33.8 pg (28.0-34.0); Mean Corpuscular Volume 100.7 fL (80-94); Mean Platelet Volume 8.9 fL (7.4-10.4); Monocytes # 0.5 10^3/uL (0.2-0.9); Monocytes % 7.2 %; Neutrophils % 65.9 %; Nucleated Red Blood Cells # 0.1 /100WBC; Nucleated Red Blood Cells % 0.7 %; Platelet Count 194 10^3/cmm (130-400); Red Blood Count 4.44 10^6/uL (4.1-5.3); Red Cell Distribution Width 14.4 % (12.1-15.1); White Blood Count 7.1 10^3/uL (4.0-10.0)
[2020-08-25 06:57] LABS: Anion Gap 16.2 (5-19); Blood Urea Nitrogen 15 mg/dL (6-20); Calcium 9.5 mg/dL (8.5-10.5); Carbon Dioxide 28 mmol/L (22-29); Chloride 95 mmol/L (98-107); Glomerular Filtration Rate 87.6 mL/min (90-130); Glucose 93 mg/dL (65-115); Osmolality Calculated 281 mOsm/kg (285-295); Potassium 4.2 mmol/L (3.5-5.1); Sodium 135 mmol/L (136-145)
[2020-08-25 07:16] LABS: Lactate (Lactic Acid level) 0.7 mmol/L (0.5-2.2)
[2020-08-25 07:25] LABS: Prolactin 16.86 ng/mL (4.0-15.2)
[2020-08-25] MEDS: sennosides-docusate Tablet 1 TAB PO (10:44)
[2020-08-25] MEDS: predniSONE 10 mg Tablet PO (10:45)
[2020-08-25] MEDS: nystatin 100,000 unit/mL UDC 5 mL 500000 UNIT PO ×4 (10:45→21:38)
[2020-08-25] MEDS: doxycycline 100 mg Tablet PO ×2 (10:45→16:55)
[2020-08-25] MEDS: FUROsemide 40 mg Tablet PO (10:45)
[2020-08-25] MEDS: morphine 4 mg/mL SDV 1 mL IVP ×3 (12:08→21:15)
[2020-08-25] MEDS: lidocaine 5% Patch 1 PATCH TOPICAL ×2 (12:08→21:43)
--- NOTE | 2020-08-25 12:25 | CT_ITS ---
WS: [id number] CT LUMBAR SPINE, noncontrast. HISTORY: extreme back pain TECHNIQUE: Contiguous 2.5 mm axial imaging are performed. Sagittal and coronal reformats are submitte d and reviewed. All CT scans at [facility] use at least one of these dose optimization te chniques: automated exposure control; mA and/or kV adjustment per patient size (includes targeted exa ms where dose is matched to clinical indication); or iterative reconstruction. IV contrast: None DLP: 1778.64 mGy.cm COMPARISON: None available. Normal posterior lumbar alignment. Disc spaces and vertebral body heights are preserved. No osteoblas tic or osteolytic bone disease. No fracture. Visualized sacrum and SI joints is negative. L1-2: Normal. L2-3: Normal. L3-4: Mild asymmetric annular disc bulging. Disc extends greatest to the LEFT. Mild LEFT foraminal na rrowing. L4-5: Mild diffuse annular disc bulging. Disc osteophyte extends into the RIGHT foramen. There is mil d bilateral foraminal stenosis. L5-S1: Mild broad-based disc bulging without stenosis. Paravertebral soft tissues demonstrate mild thickening of the LEFT adrenal gland. Prior RIGHT adrenal ectomy. Mild atherosclerosis within the aorta. Visualized sigmoid contains a few diverticula. CT/CT lumbar spine wo con* [id number] IMPRESSION: 1. No evidence for lumbar spine fracture or significant stenosis. 2. Mild bilateral foraminal stenosis at L4-5 due to disc osteophyte disease. 3. Mild LEFT foraminal stenosis at L3-4. 4. Mild LEFT adrenal hyperplasia. 5. RIGHT adrenalectomy.
--- NOTE | 2020-08-25 12:25 | CT_ITS ---
WS: [id number] CT THORACIC SPINE HISTORY: extreme back pain TECHNIQUE: Contiguous 2.5 mm axial images are reviewed to thoracic spine. Images are reformatted in s agittal and coronal planes. All CT scans at [facility] use at least one of these dose opt imization techniques: automated exposure control; mA and/or kV adjustment per patient size (includes targeted exams where dose is matched to clinical indication); or iterative reconstruction. DLP: 2232.63 mGy.cm COMPARISON: 07/29/2017 and 08/19/2020 Slight increase in thoracic kyphosis. 15 % anterior compression fracture at T5. There is sclerosis al michelle the superior endplate with no retropulsion. This fracture is new since 07/29/2017 but present on th e prior study of 08/19/2020. No additional fractures. No osteoblastic or osteolytic bone disease. Bilateral foraminal stenosis at C6-7 and C7-T1. No significant central or foraminal stenosis throughout the thoracic spine. There is no compression u sameera the cord. Multifocal areas of mosaic or groundglass attenuation throughout both lungs as describe d on the prior examination from 08/19/2020. Prior RIGHT adrenalectomy. LEFT adrenal hyperplasia. CT/CT thoracic spin wo con* [id number] IMPRESSION: 1. Age-indeterminate 15% compression fracture of T5. No retropulsion. [facility] e 2017 but present on 08/19/2020. 2. No disc protrusions in the thoracic spine or significant stenosis.
[2020-08-25] MEDS: nicotine 21 mg Patch 1 PATCH TRANSDERMA (12:43)
[2020-08-25] MEDS: BuSPIRONE 10 mg Tablet 20 MG PO (16:55)
--- NOTE | 2020-08-25 18:13 | PC.RESP ---
Smoking Cessation information sent to patient.
--- NOTE | 2020-08-25 21:12 | P.PN_ITS ---
Subjective Subjective: Interval history: Yelling out in excruciating pain in his mid back today, radiating to side rib cage, more so on the left. Denies recent fall or trauma. Denies lifting heavy objects. Severe pain worse with movement. Deep breaths. Vitals/I&O/Wt Last Vital Signs Temp 98.0 F 08/25/20 20:32 Pulse 90 08/25/20 20:32 Resp 20 H 08/25/20 20:32 BP 110/68 08/25/20 20:32 Pulse Ox 94 08/25/20 20:32 08/25/20 08/25/20 08/25/20 06:59 14:59 22:59 Intake Total 240 / 240 240 / 480 Output Total 0 / 0 600 / 600 Balance 0 / 0 240 / 240 -360 / -120 Weight last 48 hrs Weight 97.522 kg Physical Exam Narrative: EXAM NARRATIVE: at bedside Const: COMMON NORMALS: patient oriented x3 GENERAL APPEARANCE: in distress and anxious HENMT: COMMON NORMALS: oropharynx normal Neck/C-Spine: COMMON NORMALS: no JVD Resp: COMMON NORMALS: normal respiratory effort and clear to auscultation bilaterally AUSCULTATION: clear to auscultation bilaterally Cardio: COMMON NORMALS: no JVD, regular rhythm, S1 normal heart sound present, S2 normal heart sound present and No murmurs present (Cardio) RHYTHM: regular rhythm HEART SOUNDS: S1 normal heart sound present and S2 normal heart sound present GI: COMMON NORMALS: Normal to inspection, nondistended, normoactive bowel sounds present, Soft to palpation and non-tender PALPATION: Yes Soft to palpation Back/Pelvis: OTHER: Mid back pain, radiating to the left rib cage Extremity: COMMON NORMALS: no joint enlargement and no pedal edema Neuro: COMMON NORMALS: patient oriented x3 and moves all extremities Skin: OTHER: Chronic skin changes on lower extremities after drug reaction. Multiple old/healed linear earl on forearms. Data : 08/25/20 06:09 08/25/20 06:09 A&P Assessment and plan (1) Vertebral compression fracture: Noted acute vertebral compression fracture of T5 on assessment of CT thoracic and lumbar spine due to extreme back pain. Also reported some history of urinary and bowel incontinence recently. Does not appear to have acute cord compression. Is quite symptomatic from the compression fracture. TLSO brace ordered, lidocaine patch. Morphine IV dose increased to 4 mg every 2 hours as needed due to poor response to oral pain agent. Bedrest recommended discussed with him and his . Discussed subsequently when pain is under better control mobilization with PT. Discussed concern for osteopenia/osteoporosis due to chronic steroid use. Would benefit from follow-up bone mineral density testing. Bisphosphonates once out of acute illness/able to stay upright. Discussed additional follow-up imaging with MRI due to history of squamous cell cancer with bone involvement of the digit of his hand to exclude malignancy as the cause of the current pathological fracture. With the amount of pain he is doing, unable to return home currently. Status: Acute (2) Chronic hyponatremia: Improved Status: Acute (3) Chest wall pain: Status: Acute (4) Alcohol abuse, episodic drinking behavior: Status: Chronic (5) Chronic steroid use: Status: Acute (6) Smoking addiction: Status: Acute (7) Generalized anxiety disorder: Status: Chronic (8) Major depressive disorder, recurrent severe without psychotic features: Status: Chronic (9) Cigarette nicotine dependence: Status: Chronic Qualifiers: Substance use status: uncomplicated Qualified Code(s): F17.210 - Nicotine dependence, cigarettes, uncomplicated (10) Pedal edema: Status: Acute Additional A&P Information Drug reaction: Multiple maculopapular rash all over lower extremities, -she reports chronic/persistent rash after reaction to rheumatologic medication. Venous Dopplers Full code Cardiac diet DVT prophylaxis Lovenox Attestations Medical Necessity Statement*: Continue hospitalization for pain control due to extreme back pain in the setting of acute pathological vertebral compression fracture with chronic steroid use, currently inability to move around or take deep breaths without severe pain. 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
[2020-08-25] MEDS: enoxaparin 40 mg/0.4 mL Syringe SUBCUT (21:38)
[2020-08-25] MEDS: atorvastatin 40 mg Tablet PO (21:38)
[2020-08-25] MEDS: ipratropium-albuterol 3 mL Neb INHALATION (21:57)
[2020-08-26] VITALS (10 sets, daily range): BP systolic 122–142; BP diastolic 75–92; PULSE 76–90; RESP 18–20; TEMP 36.6; O2SAT 92–95
[2020-08-26] MEDS: morphine 4 mg/mL SDV 1 mL IVP ×3 (00:05→10:25)
[2020-08-26] MEDS: LORazepam 1 mg Tablet PO (00:15)
[2020-08-26] MEDS: HYDROcodone-acetaminophen 7.5-325 mg Tablet 1 TAB PO ×2 (00:59→08:17)
--- NOTE | 2020-08-26 05:00 | USCV_ITS ---
Dalton Dumont Age: 54 Gender: M : 1965 Exam Date: 08/26/2020 06:25 Ordering Phys: Ophelia Stringer MD Technologist: Nupur Downey [place] [facility] [place]: EDEMA HISTORY: Lower extremity edema. PROCEDURES: Venous duplex imaging was performed in bilateral lower extremities. The following venous structures were evaluated: common femoral vein, profunda vein, proximal portion of the greater saphenous vein, superficial femoral vein, and the popliteal vein. In addition, the posterior tibial and peroneal trunk were evaluated. Serial compression, augmentation maneuvers, and spectral Doppler flow evaluation were performed. FINDINGS: Normal 2-D Doppler and augmentation and compressibility throughout the lower extremity venous structures. Additional imaging through the proximal calf veins also reveals no thrombus. Limited evaluation of the greater saphenous vein is patent with no thrombus. CONCLUSIONS No DVT bilateral lower extremities. Dr. Sharonda Tasi DO (Electronically Signed) Final Date: 26 August 2020 09:06 S
[2020-08-26] MEDS: aspirin 325 mg Tablet PO (05:17)
[2020-08-26] MEDS: flecainide 100 mg Tablet PO (05:18)
[2020-08-26] MEDS: venlafaxine ER (24HR) 75 mg Capsule PO (05:18)
[2020-08-26] MEDS: pantoprazole DR 40 mg Tablet PO (05:18)
[2020-08-26] MEDS: metoprolol tartrate 25 mg Tablet PO (05:18)
[2020-08-26] MEDS: ipratropium-albuterol 3 mL Neb INHALATION (08:05)
[2020-08-26] MEDS: sennosides-docusate Tablet 1 TAB PO (08:17)
[2020-08-26] MEDS: doxycycline 100 mg Tablet PO (08:18)
[2020-08-26] MEDS: nicotine 21 mg Patch 1 PATCH TRANSDERMA (08:18)
[2020-08-26] MEDS: FUROsemide 40 mg Tablet PO (08:18)
[2020-08-26] MEDS: predniSONE 10 mg Tablet PO (08:18)
[2020-08-26] MEDS: lidocaine 5% Patch 1 PATCH TOPICAL (08:18)
[2020-08-26] MEDS: nystatin 100,000 unit/mL UDC 5 mL 500000 UNIT PO ×2 (08:18→12:40)
--- NOTE | 2020-08-26 13:29 | PC.NURSE ---
pt at nurses station states he is ready to go home, informed this patient that we had not made his appointments yet and he was needing to be referred to a pain management clinic. pt states his travel journalist will take care of it I informed patient that we like to do this for them upon discharge and he stated that they can handle it and he was ready to be discharged. Paperwork given to Loretta MAGUIRE for patient to be discharged.
--- NOTE | 2020-08-26 21:01 | PM.DCS ---
Discharge Providers Date of Admission: 08/24/20 20:22 Date of Discharge: August 26, 2020 Attending Provider at Admission: Ophelia Stringer MD Attending Provider at Discharge: Petar Bean Diagnoses at Discharge Discharge Diagnosis (1) Vertebral compression fracture: Status: Acute (2) Chronic hyponatremia: Status: Acute (3) Chest wall pain: Status: Acute (4) Alcohol abuse, episodic drinking behavior: Status: Chronic (5) Chronic steroid use: Status: Acute (6) Smoking addiction: Status: Acute Permanent problem details: 30 years currently smokes half a pack a day. (7) Generalized anxiety disorder: Status: Chronic Permanent problem details: Severe (8) Major depressive disorder, recurrent severe without psychotic features: Status: Chronic (9) Cigarette nicotine dependence: Status: Chronic Qualifiers: Substance use status: uncomplicated Qualified Code(s): F17.210 - Nicotine dependence, cigarettes, uncomplicated (10) Pedal edema: Status: Acute Reason for Visit Reason for Visit: CHEST PAIN, DIFF BREATHING Hospital Course Hospital Course 54-year-old gentleman placed in observation after recent admission due to several symptoms including chest pain, assessed by CTA without PE, assessed by cardiology, without sign of acute [place], with noted pneumonitis on CT, bronchitis, with underlying history of PMR, pain thought to be musculoskeletal, also treated for hyponatremia which improved. Skin rash noted after recent biologic medication treatment for PMR, recommended discontinuation of medication. With noted elevated LFT, hepatomegaly, hepatic steatosis, with previously noted history of EtOH, as well as prediabetes, HLD, metabolic syndrome. He returned to the hospital due to recurrence of chest pain, worsened by respiration, movement/repositioning. Denies any recent trauma or falls. Noted to have bronchitis on admission for which was started on doxycycline, breathing treatments. Reported chronic treatment with prednisone. Hyponatremia noted again on admission, however with improvement closer to normal. TSH normal. Noted at home polydipsia. Placed on fluid restriction 1.5 L. Continued having very severe debilitating pain in left side chest, and mid back. Assessed with CT thoracic and lumbar spine with finding of T5 compression fracture. Pain treated with morphine, lidocaine patch, placed in TLSO brace. Assessed by PT. Due to chronic steroid use discussed with him he will benefit in the future from assessment by bone mineral density testing, as well as bisphosphonates or other osteoporosis medications due to chronic steroid use and pathologic fracture. With history of squamous cell cancer, reportedly with bone involvement? on a digit of his hand, discussed with him to also seek additional assessment by MRI of her spine once he is out of acute episode of illness to exclude other cause of pathological fracture including cancer. He verbalized understanding and will be seeking additional assessment through his primary care provider. Due to chronic and now more severe pain in his back he is referred for management by pain clinic. He reports he was recently prescribed hydrocodone in ER, and states has that prescription at home. He otherwise will be returning to his primary care provider or pain clinic for additional help with controlling his pain. (States that his primary care provider has also provided him a prescription for stronger pain medication just a few days ago, but was not able to fill this due to previous prescription from the ER). We held off on providing additional opioid prescriptions for him at this time on discussion with him so as not to complicate the situation further. Today he is more mobile, walked in the [place], able to reposition himself without needing significant assistance, which is a tremendous improvement comparing to yesterday. He states he still is feeling pain, but agrees he is more mobile. He requested to return home today as he would like to be by his side who had recently fallen down. He understands not to try to lift anything. Discussed with him for several days to avoid prolonged walking or standing or upright positioning. During the hospitalization we also discussed with him regarding hepatomegaly, consideration of nonalcoholic fatty liver disease. HLD, prediabetes, for which he will be seeking reassessment with his primary care provider. He states he is going to continue follow-up with [facility] [place] providers for his generalized anxiety disorder. Physical Exam Const: COMMON NORMALS: no acute distress and patient oriented x3 HENMT: COMMON NORMALS: oropharynx normal Neck/C-Spine: COMMON NORMALS: no JVD Resp: COMMON NORMALS: normal respiratory effort and clear to auscultation bilaterally AUSCULTATION: clear to auscultation bilaterally Cardio: COMMON NORMALS: no JVD, regular rhythm, S1 normal heart sound present, S2 normal heart sound present and No murmurs present (Cardio) RHYTHM: regular rhythm HEART SOUNDS: S1 normal heart sound present and S2 normal heart sound present GI: COMMON NORMALS: Normal to inspection, nondistended, normoactive bowel sounds present, Soft to palpation and non-tender PALPATION: Yes Soft to palpation Extremity: COMMON NORMALS: no joint enlargement and no pedal edema Neuro: COMMON NORMALS: patient oriented x3 and moves all extremities Skin: COMMON NORMALS: no rashes or lesions noted GENERAL SKIN EXAM: no rashes or lesions noted Discharge Data Data Completed and Pending: Completed Studies During Hospitalization Category Date Time Status CT lumbar spine w o con* [id number] Stat Cat Scan 08/25/20 12:[address] thoracic spin wo con* [id number] Stat Cat Scan 08/25/20 12:25 Completed XR chest 1V yves ble [id number] Stat Exams 08/24/20 19:13 [place] [id number] Routin e Ultrasound 08/26/20 05:00 Completed Pending at discharge Category Date Time Status Osmolality Urine Routine Lab 08/26/20 08:47 Received Labs from last 24 hours 08/25/20 08/25/20 00:01 00:01 Urine Osmolality Pending Cancelled Vitals: Last Vital Signs Temp 97.9 F 08/26/20 13:30 Pulse 78 08/26/20 13:30 Resp 18 08/26/20 13:30 BP 132/90 08/26/20 13:30 Pulse Ox 94 08/26/20 13:30 Discharge Plan Discharge Patient Disposition: Home Condition: Stable Prescriptions: New Lidoderm 5 % Adhesive Patch,Medicated 1 patch topical [id number] Qty: 14 RF: 0 nicotine 21 mg/24 hr Patch 24 Hour 1 patch transdermal DAILY Qty: 30 RF: 0 Sportscreme 10 % Cream 1 applic topical TID PRN (Reason: MUSCLE PAIN) Qty: 85 RF: 0 doxycycline monohydrate 100 mg Tablet 100 mg PO BID Qty: 10 RF: 0 Continued diclofenac sodium 1 % gel 2 gm TOPICAL QID Qty: 100 RF: 2 aspirin 325 mg tablet 325 mg PO DAILY@05 RF: 0 nitroglycerin 0.4 mg tablet, sublingual 0.4 mg SUBLINGUAL Q5M PRN (Reason: Chest Pain) RF: 0 gabapentin 600 mg tablet 600 mg PO TID Qty: 90 RF: 4 prednisone 10 mg tablet See Rx Instructions PO DAILY 90 Days Qty: 315 RF: 1 vitamin B complex [B Complex-Vitamin B12] Tablet 1 tab PO DAILY@05 RF: 0 lorazepam 1 mg tablet 1 mg PO BID PRN (Reason: anxiety) Qty: 90 RF: 2 ascorbic acid (vitamin C) [Vitamin C] 500 mg Tablet 1,000 mg PO DAILY@05 Qty: 0 RF: 0 cholecalciferol (vitamin D3) [Vitamin D3] 25 mcg (1,000 unit) Capsule 25 - 75 mcg PO DAILY@05 Qty: 0 RF: 0 albuterol sulfate [ProAir HFA] 90 mcg/actuation HFA aerosol inhaler 2 puff INHALATION Q6H PRN (Reason: Shortness Of Breath) RF: 0 venlafaxine [Effexor XR] 75 mg capsule,extended release 24hr 75 mg PO BID@05,17 RF: 0 pantoprazole 40 mg tablet,delayed release (DR/EC) 40 mg PO DAILY@05 RF: 0 buspirone 10 mg tablet 20 mg PO DAILY@1700 RF: 0 flecainide 100 mg tablet 100 mg PO BID@0500,1700 RF: 0 metoprolol tartrate 25 mg tablet 25 mg PO BID@05,17 RF: 0 carisoprodol 350 mg Tablet 350 mg PO Q8H PRN (Reason: Pain) Qty: 20 RF: 0 atorvastatin 40 mg Tablet 40 mg PO BEDTIME Qty: 30 RF: 0 nystatin 100,000 unit/mL Suspension 500,000 unit PO QID 7 Days Qty: 140 RF: 0 Changed hydrocodone-acetaminophen 7.5-325 mg tablet 1 tab PO Q4H PRN (Reason: pain) Qty: 15 RF: 0 Discharge Orders: Discharge Order (Routine); Ordered 08/26/20 Ordered By: Petar Bean Referrals: Deepak Rodríguez [Other] - 4-7 days (Please call and schedule follow up appointment. [facility] [Provider Group] - 4-7 days (Please call and schedule a referral appointment.) Rheumatology [Provider Group] - 2 weeks (Please call and schedule a follow up appointment. ) Discharge Diet: Low Cholesterol Discharge Activity: Increase activity as tolerated, Limit activity as instructed and As per PT/OT instructions Patient Instructions: Fractures - Compression, Doxycycline (By mouth), Hydrocodone/Acetaminophen (By mouth), Nicotine (Absorbed through the skin), Lidocaine Patch (On the skin), How to Stop Smoking (DC), How to Stop Smoking (GEN), Vertebral Compression Fracture (DC), Hyponatremia (DC), Cigarette Smoking and Your Health (GEN) Activity Restrictions/Additional Instructions: Please maintain brace in place. Avoid walking or staying upright for more than 6 hours a day for the next 1-2 days. Then gradually resume mobility as tolerating. Please discuss with your primary care doctor referral for bone mineral density testing. Please follow-up with rheumatology in office to discuss whether steroid sparing medications are an option. Please discuss with your primary care doctor and chemical radiation technician regarding treatment to prevent osteoporosis with long-term steroid use. Please follow-up regarding MRI of your back with your primary care doctor. Please continue to work with your primary care doctor to help you quit smoking. Discharge Attestations Time Spent in Discharge Care*: greater than 30 min Quality Metrics Clinical Quality Measures During this hospital stay, did patient experience: None Coding Level of Care Code Acute Chg FW DC note Diagnoses Vertebral compression fracture M48.50XA Chronic hyponatremia E87.1 Chest wall pain R07.89 Alcohol abuse, episodic drinking behavior F10.10 Chronic steroid use Smoking addiction F17.200 Generalized anxiety disorder F41.1 Major depressive disorder, recurrent severe without psychotic features F33.2 Cigarette nicotine dependence F17.210 Substance use status: uncomplicated Pedal edema R60.0
--- NOTE | 2020-08-27 13:10 | PC.SOCIAL ---
Antonia called from [facility] pharmacy in [place] and 14 Lidocaine patches were prescribed but they come in a box of 30. They are unable to break up boxes. Dr Bean gave verbal order to indicate agreeable to dispense the 30. [facility] pharmacy updated.
--- NOTE | 2020-08-27 13:38 | PC.SOCIAL ---
Lidocaine patches required [place] through [employer]. PA approved and updated [facility]
[2020-08-27 15:53] LABS: Osmolality Urine 105 mOsm/kg (50-1200)
== END 2020-08-26 13:31 | disposition home or self-care (01) ==
LOC: ER 20:33 → MEDSURG 21:02
PROVIDERS: Admitting Provider Internal Medicine; Emergency Provider Emergency Medicine; Visit Provider Internal Medicine
DX: M48.50XA Collapsed vertebra, not elsewhere classified, site unspecified, initial encounter for fracture (principal); E87.1 Hypo-osmolality and hyponatremia; R07.89 Other chest pain; F10.10 Alcohol abuse, uncomplicated; Z79.52 Long term (current) use of systemic steroids; F17.210 Nicotine dependence, cigarettes, uncomplicated; F41.1 Generalized anxiety disorder; F33.2 Major depressive disorder, recurrent severe without psychotic features; R60.0 Localized edema; I10 Essential (primary) hypertension; G47.33 Obstructive sleep apnea (adult) (pediatric); I48.0 Paroxysmal atrial fibrillation
CPT/HCPCS: 36415; 71045; 72128; 72131; 80048; 80053; 83605; 83880; 83935; 84146; 84484; 84550; 85025; 93005; 93970; 94640; 96372; 96374; 96375; 96376; 97116; 97161; 97760; 99285; G0378; J1170; J1650; J2270; J2405; J7512; L0456; Q3014

== ENCOUNTER 2020-09-09 03:14 | Inpatient (IN) | payer OTHER, SELFPAY ==
[2020-09-09] VITALS (155 sets, daily range): BP systolic 102–179; BP diastolic 68–134; PULSE 82–157; RESP 13–41; TEMP 36.3–37; O2SAT 88–99; BMI 29.2
--- NOTE | 2020-09-09 03:15 | XR_ITS ---
WS: [id number] Portable AP upright chest, 09/09/2020 Clinical Data: cp Comparison: Portable chest, 08/24/2020. Findings: No nodules, masses or effusions are seen. The heart is normal. The pulmonary vascularity is not increased. No pneumothorax is seen. There is minimal patchy opacity over the surface of the rig ht diaphragm which could represent atelectasis and/or minimal pneumonia. XR/XR chest 1V portable [id number] Impression: Patchy opacity in right lower lobe over surface of right diaphragm which could indicate minimal pneumonia.
--- NOTE | 2020-09-09 03:15 | CTR_ITS ---
PROCEDURE INFORMATION: Exam: CT Abdomen And Pelvis With Contrast Exam date and time: 09/09/2020 3:20 AM Age: 54 years old Clinical indication: Abdominal pain; Localized; Right; Prior surgery; Surgery type: Adrenalectomy; Patient HX: Severe RT sided abd and back pain. ; Additional info: Abd pain TECHNIQUE: Imaging protocol: Computed tomography of the abdomen and pelvis with contrast. Radiation optimization: All CT scans at this facility use at least one of these dose optimization techniques: automated exposure control; mA and/or kV adjustment per patient size (includes targeted exams where dose is matched to clinical indication); or iterative reconstruction. Contrast material: OMNI 300; Contrast volume: 95 ml; Contrast route: INTRAVENOUS (IV); COMPARISON: CT angio chest w abd pel w con 08/19/2020 12:25 PM RADIATION DOSE METRICS: Total DLP (mGy-cm): 1494.39 FINDINGS: Liver: Fatty infiltration of the liver with partial sparing at the yves hepatis. Gallbladder and bile ducts: Normal. No calcified stones. No ductal dilation. Pancreas: Normal. No ductal dilation. Spleen: Normal. No splenomegaly. Adrenal glands: Slightly thickened appearance of the left adrenal gland. The right adrenal gland is absent with adjacent numerous surgical clips and surgical clips superior to the right renal margin. Kidneys and ureters: Normal. No hydronephrosis. Stomach and bowel: Fluid-filled proximal to mid small bowel segments with slight accentuation of the mucosa. Prominent sigmoid colonic diverticulosis. Question chronic wall thickening of the sigmoid colon at the level of most prominent diverticulosis. Moderate right and transverse colon fecal debris. Appendix: No evidence of appendicitis. Intraperitoneal space: Unremarkable. No free air. No significant fluid collection. Vasculature: Calcified abdominal aorta. Lymph nodes: Unremarkable. No enlarged lymph nodes. Urinary bladder: Unremarkable as visualized. Reproductive: Unremarkable as visualized. Bones/joints: Unremarkable. No acute fracture. Soft tissues: Unremarkable. CT/CT abdomen pelvis w con* [id number] IMPRESSION: 1. Proximal to mid central abdominal fluid-filled small bowel segments with mild distension. Findings would favor enteritis or ileus. 2. Atherosclerosis abdominal aorta. 3. Nodular thickening left adrenal gland. 4. Fatty infiltration of the liver. 5. Sigmoid colonic diverticulosis with likely or possible segment of wall thickening on a chronic basis. Radiation Dose CTDIVOL = (mGy): DLP = 1494.39 (mGy-cm)
--- NOTE | 2020-09-09 03:19 | W.ED.ABDPA2 ---
HPI - Abdominal Pain General: Chief Complaint: Abdominal Pain Stated Complaint: ABD PAIN Time Seen by Provider: 09/09/20 03:14 Source: patient and EMS Mode of arrival: EMS Limitations: no limitations History of Present Illness: HPI narrative: 54-year-old maleHas history of chronic pain states has been having right upper quadrant abdominal pain over the last 12 to 14 hours. He states has been severe in nature and radiates to his back. Patient is also had some nausea and vomiting. Patient denies any chest pain. Denies any fevers. Denies any worsening improving factors. Associated Symptoms: Reports nausea; Denies chills, dysuria and fever(s) Review of Systems Const: Denies: fever(s), chills, body aches or change in appetite Eyes: Denies: blurry vision or eye discomfort ENMT: Denies: throat pain or dental pain Card: Denies: chest pain Resp: Denies: dyspnea GI: Reports: abdominal pain and nausea : Denies: dysuria Musc: Denies: neck pain or back pain Skin/Breast: Denies: rash Neuro: Denies: headache(s) Psych: Denies: depression Jonathan/Lymph: Denies: easy bruising All/Imm: Denies: urticaria PFSH ED PFSH: Medical History Alcohol abuse, episodic drinking behavior Allergic contact dermatitis Atrial fibrillation Benign essential HTN Chronic steroid use Cigarette nicotine dependence Diverticulitis GCA (giant cell arteritis) Generalized anxiety disorder Severe GERD (gastroesophageal reflux disease) High risk medication use Inflammatory arthritis Major depressive disorder, recurrent severe without psychotic features IVON (obstructive sleep apnea) Paroxysmal atrial fibrillation Polymyalgia rheumatica Smoking addiction 30 years currently smokes half a pack a day. Squamous cell carcinoma Surgical History History of kidney surgery Previous back surgery Family History Sister CAD (coronary artery disease) Psychiatric illness Mother Cancer Rheumatoid arthritis Father Diabetes Hyperlipidemia Hypertension Grandmother Diabetes Other Family history of premature coronary artery disease Denies family history of Clotting disorder Dementia Chronic kidney disease (CKD) Systemic lupus erythematosus (SLE) in adult Suicide Anesthesia complication Bleeding disorder Lung disease Stroke Social History Smoking and tobacco status: current every day smoker Alcohol intake: former Household members: spouse Housing: House 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 History of recent travel: No Physical Exam Const: COMMON NORMALS: no acute distress, patient oriented x3 and healthy appearing HENMT: COMMON NORMALS: normocephalic and atraumatic HEAD & SCALP: normocephalic and atraumatic Eye: COMMON NORMALS: Equal, round and reactive pupils present and EOMs intact bilaterally PUPIL: Yes Equal, round and reactive pupils present Neck/C-Spine: COMMON NORMALS: full ROM and supple Chest: COMMONS NORMALS: normal inspection of the chest and normal palpation of entire chest wall Resp: COMMON NORMALS: normal respiratory effort, No retractions, No use of accessory muscles and clear to auscultation bilaterally AUSCULTATION: clear to auscultation bilaterally Cardio: COMMON NORMALS: regular rate, regular rhythm and No murmurs present (Cardio) RATE: regular rate RHYTHM: regular rhythm GI: COMMON NORMALS: Normal to inspection, nondistended, normoactive bowel sounds present, Soft to palpation and no masses PALPATION: Yes Soft to palpation and Yes Tenderness to palpation present (GI) Details: RUQ Extremity: COMMON NORMALS: normal to inspection and full ROM Neuro: COMMON NORMALS: patient oriented x3, moves all extremities and no focal motor deficits Psych: COMMON NORMALS: mental status grossly normal, Normal thought process present and cooperative THOUGHT PROCESS: Normal thought process present Skin: COMMON NORMALS: no rashes or lesions noted and no wounds GENERAL SKIN EXAM: no rashes or lesions noted Course Vital Signs: Vital signs: Vital Signs Temperature 98.6 F 09/09/20 03:16 Pulse Rate 82 09/09/20 04:53 Respiratory Rate 18 09/09/20 05:33 Blood Pressure 123/79 09/09/20 04:53 Pulse Oximetry 97 09/09/20 04:53 MDM - Abdominal Pain MDM Narrative: Medical decision making narrative: Dalton presents here with abdominal pain along with A. fib with RVR. Patient has had continuing pain. His blood work white count and CT abdomen are all normal. Patient still complains of pain. After he was brought back from CT he went to A. fib with RVR. He does have a history of A. fib and is on flecainide. I did give him metoprolol in the ER. Will check lactate although patient's abdominal exam shows no sign of ischemic bowel and no signs of rigid abdomen or acute surgical abdomen. Spoke to hospitalist will admit for his abdominal pain along with his A. fib with RVR. He has no chest pain here.Patient's still in A. fib with RVR after 2 metoprolol 5 mg doses. We will start him on esmolol drip and admitted to ICU. Lab Data: Labs: Lab Results 09/09/20 09/09/20 09/09/20 Range/Units 03:24 03:24 03:25 WBC 11.9 H (4.0-10.0) 10^3/ uL Corrected WBC 11.4 H (4.8-10.8) 10^3/ cmm RBC 4.52 (4.1-5.3) 10^6/u L Hgb 15.3 (11.7-16.6) g/dL Hct 45.1 (42.0-52.0) % MCV 99.8 H (80-94) fL MCH 33.8 (28.0-34.0) pg MCHC 33.9 (30.0-36.0) g/dL RDW 15.2 H (12.1-15.1) % Plt Count 243 (130-400) 10^3/c mm MPV 9.5 (7.4-10.4) fL Lymph % (Auto) Not Reportable [place] % (Auto) Not Reportable Lymph # (Auto) Not Reportable [place] # (Auto) Not Reportable Total Counted 100 (0-100) Atypical Lymphs % 10.0 H (0-5) % Absolute Neutrophi ls 6.8 H (1.4-6.5) 10^3/c mm Segmented Neutroph ils 43 % Abs Segm Neuts (Ma n) 5.1 (1.6-7.1) 10/cmm Band Neutrophils 14.0 % Abs Band Neuts (Ma n) 1.7 H (0.0-1.2) 10^3/c mm Absolute Lymphocyt es 3.5 H (1.2-3.4) 10^3/c mm Lymphocytes (Manua l) 19 % Monocytes (Manual) 10.0 % Absolute Monocytes 1.2 H (0.1-0.6) 10^3/c mm Eosinophils (Manua l) 0 % Absolute Eosinophi ls 0.0 (0.0-0.7) 10^3/c mm Basophils (Manual) 0.0 % Absolute Basophils 0.0 (0.0-0.2) 10^3/c mm Metamyelocytes 0.0 % Myelocytes 0.0 % Promyelocytes 0.0 % Nucleated RBCs 4.0 H (0-1) /100WBC Blast Cells 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 Platelet Estimate Normal (Normal) Giant Platelets 2+ H Polychromasia 2+ H Anisocytosis 2+ H Sodium 137 (136-145) mmol/L Potassium 4.3 (3.5-5.1) mmol/L Chloride 99 (98-107) mmol/L Carbon Dioxide 24 (22-29) mmol/L Anion Gap 18.3 (5-19) BUN 12 (6-20) mg/dL Creatinine 0.8 (0.7-1.2) mg/dL GFR Calculation 100.4 (90-130) mL/min Glucose 109 (65-115) mg/dL Calculated Osmolal ity 284 L (285-295) mOsm/k g Calcium 9.5 (8.5-10.5) mg/dL Total Bilirubin 0.5 (0.15-1.2) mg/dL AST 25 (0-40) U/L ALT 31 (0-41) U/L Alkaline Phosphata se 144 H (40-130) IU/L Troponin T Baselin e 32 H (0-15) ng/L Total Protein 7.1 (6.6-8.7) g/dL Albumin 4.1 (3.5-5.2) g/dL Globulin 3.0 (1.3-4.6) g/dL Lipase 42 (13-60) U/L Ethyl Alcohol < 10 (0-10) mg/dL Imaging Data ^: CXR: Attestation: I personally reviewed and interpreted this imaging study as follows: My impression: no acute abnormality CT Chest: Attestation: I personally reviewed and interpreted this imaging study as follows: Radiologist's impression: [address] [address] [address] Scan Report Signed Patient: Dalton Dumont Unit #: [id number] : 1965 Age/Sex: 54 / M ADM Date: 09/09/20 Loc: ER Room/Bed: Attending Dr: Ordering Provider/Ordering MD: Vinnie Redd MD Date of Service: 09/09/20 Procedure(s): CT abdomen pelvis w con* [id number] Accession Number(s): [id number] Report Number: [id number] PROCEDURE INFORMATION: Exam: CT Abdomen And Pelvis With Contrast Exam date and time: 09/09/2020 3:20 AM Age: 54 years old Clinical indication: Abdominal pain; Localized; Right; Prior surgery; Surgery type: Adrenalectomy; Patient HX: Severe RT sided abd and back pain. ; Additional info: Abd pain TECHNIQUE: Imaging protocol: Computed tomography of the abdomen and pelvis with contrast. Radiation optimization: All CT scans at this facility use at least one of these dose optimization techniques: automated exposure control; mA and/or kV adjustment per patient size (includes targeted exams where dose is matched to clinical indication); or iterative reconstruction. Contrast material: OMNI 300; Contrast volume: 95 ml; Contrast route: INTRAVENOUS (IV); COMPARISON: CT angio chest w abd pel w con 08/19/2020 12:25 PM RADIATION DOSE METRICS: Total DLP (mGy-cm): 1494.39 FINDINGS: Liver: Fatty infiltration of the liver with partial sparing at the yves hepatis. Gallbladder and bile ducts: Normal. No calcified stones. No ductal dilation. Pancreas: Normal. No ductal dilation. Spleen: Normal. No splenomegaly. Adrenal glands: Slightly thickened appearance of the left adrenal gland. The right adrenal gland is absent with adjacent numerous surgical clips and surgical clips superior to the right renal margin. Kidneys and ureters: Normal. No hydronephrosis. Stomach and bowel: Fluid-filled proximal to mid small bowel segments with slight accentuation of the mucosa. Prominent sigmoid colonic diverticulosis. Question chronic wall thickening of the sigmoid colon at the level of most prominent diverticulosis. Moderate right and transverse colon fecal debris. Appendix: No evidence of appendicitis. Intraperitoneal space: Unremarkable. No free air. No significant fluid collection. Vasculature: Calcified abdominal aorta. Lymph nodes: Unremarkable. No enlarged lymph nodes. Urinary bladder: Unremarkable as visualized. Reproductive: Unremarkable as visualized. Bones/joints: Unremarkable. No acute fracture. Soft tissues: Unremarkable. CT/CT abdomen pelvis w con* [id number] IMPRESSION: 1. Proximal to mid central abdominal fluid-filled small bowel segments with mild distension. Findings would favor enteritis or ileus. 2. Atherosclerosis abdominal aorta. 3. Nodular thickening left adrenal gland. 4. Fatty infiltration of the liver. 5. Sigmoid colonic diverticulosis with likely or possible segment of wall thickening on a chronic basis. Critical Care Time Critical Care Time: Critical Care Time: Yes Total Critical Care Time: 35 Attestation: This case had a high probability of a clinically significant, sudden, or life threatening deterioration of this patient's condition which required my full and direct attention, intervention and personal management. Discharge Plan Discharge Patient Disposition: Admitted As Inpatient Admit Provider: Ophelia Stringer Clinical Impression: Atrial fibrillation with rapid ventricular response Abdominal pain Qualifiers: Abdominal location: generalized Qualified Code(s): R10.84 - Generalized abdominal pain Condition: Stable Coding Level of Care Code ED Printing Supervisor for [facility] Fwd Exam Comprehensive
[2020-09-09] MEDS: ondansetron 2 mg/ML SDV 2 mL 4 MG IVP ×3 (03:27→23:14)
[2020-09-09] MEDS: metoclopramide 5 mg/mL SDV 2 mL 10 MG IVP (03:27)
[2020-09-09] MEDS: HYDROmorphone 1 mg/mL INJ 1 mL IVP (03:27)
[2020-09-09] MEDS: sodium chloride 0.9% 1,000 ML 999 ML IV ×2 (03:27→05:14)
[2020-09-09] MEDS: diphenhydrAMINE 50 mg/mL SDV 1mL IVP (03:28)
[2020-09-09 03:31] LABS: Hematocrit 45.1 % (42.0-52.0); Hemoglobin 15.3 g/dL (11.7-16.6); Mean Corpuscular HGB Conc 33.9 g/dL (30.0-36.0); Mean Corpuscular Hemoglobin 33.8 pg (28.0-34.0); Mean Corpuscular Volume 99.8 fL (80-94); Mean Platelet Volume 9.5 fL (7.4-10.4); Platelet Count 243 10^3/cmm (130-400); Red Blood Count 4.52 10^6/uL (4.1-5.3); Red Cell Distribution Width 15.2 % (12.1-15.1); White Blood Count 11.9 10^3/uL (4.0-10.0)
[2020-09-09 03:50] LABS: Alanine Aminotransferase 31 U/L (0-41); Albumin Level 4.1 g/dL (3.5-5.2); Alkaline Phosphatase 144 IU/L (40-130); Anion Gap 18.3 (5-19); Aspartate Amino Transferase 25 U/L (0-40); Blood Urea Nitrogen 12 mg/dL (6-20); Calcium 9.5 mg/dL (8.5-10.5); Carbon Dioxide 24 mmol/L (22-29); Chloride 99 mmol/L (98-107); Glomerular Filtration Rate 100.4 mL/min (90-130); Glucose 109 mg/dL (65-115); Lipase 42 U/L (13-60); Osmolality Calculated 284 mOsm/kg (285-295); Potassium 4.3 mmol/L (3.5-5.1); Sodium 137 mmol/L (136-145); Total Bilirubin 0.5 mg/dL (0.15-1.2); Total Protein 7.1 g/dL (6.6-8.7)
[2020-09-09 03:51] LABS: Absolute Segmented Neutrophil 5.1 10/cmm (1.6-7.1); Band Neutrophils Absolute 1.7 10^3/cmm (0.0-1.2); Lymphocytes 19 %; Segmented Neutrophils 43 %; Total Cells Counted 100 (0-100)
[2020-09-09 03:52] LABS: Absolute Neutrophil 6.8 10^3/cmm (1.4-6.5); Anisocytosis 2+; Corrected White Blood Count 11.4 10^3/cmm (4.8-10.8); Eosinophils 0 %; Giant Platelets 2+; Lymphocytes Absolute 3.5 10^3/cmm (1.2-3.4); Monocytes Absolute 1.2 10^3/cmm (0.1-0.6); Platelet Estimate Normal (Normal); Polychromasia 2+
[2020-09-09] MEDS: iohexol 300 mg/mL 100 mL Btl IV (03:55)
[2020-09-09 04:01] LABS: Alcohol Level < 10 mg/dL (0-10)
--- NOTE | 2020-09-09 04:54 | ECG_ITS ---
[facility] Test Date: 2020-09-09 Pat Name: Dalton Dumont Department: Room: ICU08 Gender: Male Valet Parker: : 1965 Requested By: Vinnie Redd Order Number: [id number] Peter MD: DARYN NANCE Measurements Intervals [place] Rate: 151 P: [place]: QRS: 51 QRSD: 98 T: 167 QT: 217 QTc: 345 Interpretive Statements ATRIAL FLUTTER/TACHYCARDIA WITH RAPID VENTRICULAR RESPONSE MARKED ST DEPRESSION, CONSIDER SUBENDOCARDIAL INJURY [0.2+ mV ST DEPRESSION] Compared to ECG 08/24/2020 19:22:41 ST (T wave) deviation now present Sinus rhythm no longer present T-wave abnormality no longer present Electronically Signed On 09-09-2020 20:42:51 CDT by DARYN NANCE [id number].pd f
--- NOTE | 2020-09-09 05:06 | ECG_ITS ---
[facility] Test Date: 2020-09-09 Pat Name: Dalton Dumont Department: Room: ICU08 Gender: Male Certified [place] Administrator: : 1965 Requested By: Vinnie Redd Order Number: [id number] Reading MD: DARYN NANCE Measurements Intervals [place] Rate: 148 P: NE: QRS: 52 QRSD: 98 T: 171 QT: 203 QTc: 318 Interpretive Statements ATRIAL FLUTTER/TACHYCARDIA WITH RAPID VENTRICULAR RESPONSE MARKED ST DEPRESSION, CONSIDER SUBENDOCARDIAL INJURY [0.2+ mV ST DEPRESSION] Compared to ECG 09/09/2020 04:59:27 No significant changes Electronically Signed On 09-09-2020 20:42:42 CDT by DARYN NANCE [id number] f
[2020-09-09] MEDS: metoprolol tartrate 1 mg/1 mL SDV 5 mL 5 MG IV ×2 (05:13→05:44)
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
[2020-09-09] MEDS: morphine 4 mg/mL SDV 1 mL IVP (05:33)
[2020-09-09 05:41] LABS: Troponin(5th) Baseline 32 ng/L (0-15)
[2020-09-09 05:50] LABS: Lactate (Lactic Acid level) 1.4 mmol/L (0.5-2.2)
[2020-09-09] MEDS: flecainide 100 mg Tablet PO ×2 (06:21→19:27)
[2020-09-09] MEDS: esmolol drip 2,500 MG/250 ML PREMIX 14.3 MG IV (06:23)
--- NOTE | 2020-09-09 06:49 | PC.NURSE ---
Received report assumed care. Sitting [place], moaning with pain. Rx infusing Esmolol at 14.3 ml/hr. Waiting to call report to ICU.
--- NOTE | 2020-09-09 06:52 | CT_ITS ---
WS: [id number] CT LUMBAR SPINE, noncontrast. HISTORY: fall/pain TECHNIQUE: Contiguous 2.5 mm axial imaging are performed. Sagittal and coronal reformats are submitte d and reviewed. All CT scans at [facility] use at least one of these dose optimization te chniques: automated exposure control; mA and/or kV adjustment per patient size (includes targeted exa ms where dose is matched to clinical indication); or iterative reconstruction. IV contrast: None DLP: 2730.08 mGy.cm COMPARISON: 08/25/2020 Normal lumbar alignment with no loss of disc space height or vertebral body height. Partial sacraliza tion of L5 on the RIGHT with a pseudoarthrosis. L1-2: Normal. L2-3: Normal. L3-4: Mild asymmetric annular disc bulging, greatest to the LEFT. Mild LEFT foraminal narrowing. L4-5: Mild osteophytic ridging and annular disc bulge. Disc osteophyte complex extends into the RIGHT foramen. Mild bilateral foraminal stenosis. L5-S1: Mild disc bulging. No stenosis. Prior RIGHT adrenalectomy. Mild nodularity of the LEFT adrenal gland. Mild atherosclerosis aorta. CT/CT lumbar spine wo con* [id number] IMPRESSION: 1. No acute lumbar spine fracture. 2. Mild bilateral foraminal stenosis at L4-5 due to disc osteophyte complexes. No change. 3. Prior RIGHT adrenalectomy.
--- NOTE | 2020-09-09 06:52 | W.ED.ABDPA2 ---
HPI - Abdominal Pain General: Chief Complaint: Abdominal Pain Stated Complaint: ABD PAIN Time Seen by Provider: 09/09/20 03:14 Source: patient and EMS Mode of arrival: EMS Limitations: no limitations PFSH ED PFSH: Medical History Alcohol abuse, episodic drinking behavior Allergic contact dermatitis Atrial fibrillation Benign essential HTN Chronic steroid use Cigarette nicotine dependence Diverticulitis GCA (giant cell arteritis) Generalized anxiety disorder Severe GERD (gastroesophageal reflux disease) High risk medication use Inflammatory arthritis Major depressive disorder, recurrent severe without psychotic features IVON (obstructive sleep apnea) Paroxysmal atrial fibrillation Polymyalgia rheumatica Smoking addiction 30 years currently smokes half a pack a day. Squamous cell carcinoma Surgical History History of kidney surgery Previous back surgery Family History Sister CAD (coronary artery disease) Psychiatric illness Mother Cancer Rheumatoid arthritis Father Diabetes Hyperlipidemia Hypertension Grandmother Diabetes Other Family history of premature coronary artery disease Denies family history of Clotting disorder Dementia Chronic kidney disease (CKD) Systemic lupus erythematosus (SLE) in adult Suicide Anesthesia complication Bleeding disorder Lung disease Stroke Social History Smoking and tobacco status: current every day smoker Alcohol intake: former Household members: spouse Housing: House 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 Redd has A. fib with RVR he has been admitted on esmolol drip. Dr. Shaw came to see the patient asked that we order a CT lumbar spine he is concerned about compression fractures because the patient's complaint of back pain has history of steroids. Lab Data: Labs: Lab Results 09/09/20 09/09/20 09/09/20 Range/Units 03:24 03:24 03:25 WBC 11.9 H (4.0-10.0) 10^3/ uL Corrected WBC 11.4 H (4.8-10.8) 10^3/ cmm RBC 4.52 (4.1-5.3) 10^6/u L Hgb 15.3 (11.7-16.6) g/dL Hct 45.1 (42.0-52.0) % MCV 99.8 H (80-94) fL MCH 33.8 (28.0-34.0) pg MCHC 33.9 (30.0-36.0) g/dL RDW 15.2 H (12.1-15.1) % Plt Count 243 (130-400) 10^3/c mm MPV 9.5 (7.4-10.4) fL Lymph % (Auto) Not Reportable Cannon % (Auto) Not Reportable Lymph # (Auto) Not Reportable Cannon # (Auto) Not Reportable Total Counted 100 (0-100) Atypical Lymphs % 10.0 H (0-5) % Absolute Neutrophi ls 6.8 H (1.4-6.5) 10^3/c mm Segmented Neutroph ils 43 % Abs Segm Neuts (Ma n) 5.1 (1.6-7.1) 10/cmm Band Neutrophils 14.0 % Abs Band Neuts (Ma n) 1.7 H (0.0-1.2) 10^3/c mm Absolute Lymphocyt es 3.5 H (1.2-3.4) 10^3/c mm Lymphocytes (Manua l) 19 % Monocytes (Manual) 10.0 % Absolute Monocytes 1.2 H (0.1-0.6) 10^3/c mm Eosinophils (Manua l) 0 % Absolute Eosinophi ls 0.0 (0.0-0.7) 10^3/c mm Basophils (Manual) 0.0 % Absolute Basophils 0.0 (0.0-0.2) 10^3/c mm Metamyelocytes 0.0 % Myelocytes 0.0 % Promyelocytes 0.0 % Nucleated RBCs 4.0 H (0-1) /100WBC Blast Cells Property Staff Accountant Platelet Estimate Normal (Normal) Giant Platelets 2+ H Polychromasia 2+ H Anisocytosis 2+ H Sodium 137 (136-145) mmol/L Potassium 4.3 (3.5-5.1) mmol/L Chloride 99 (98-107) mmol/L Carbon Dioxide 24 (22-29) mmol/L Anion Gap 18.3 (5-19) BUN 12 (6-20) mg/dL Creatinine 0.8 (0.7-1.2) mg/dL GFR Calculation 100.4 (90-130) mL/min Glucose 109 (65-115) mg/dL Calculated Osmolal ity 284 L (285-295) mOsm/k g Calcium 9.5 (8.5-10.5) mg/dL Total Bilirubin 0.5 (0.15-1.2) mg/dL AST 25 (0-40) U/L ALT 31 (0-41) U/L Alkaline Phosphata se 144 H (40-130) IU/L Troponin T Baselin e 32 H (0-15) ng/L Total Protein 7.1 (6.6-8.7) g/dL Albumin 4.1 (3.5-5.2) g/dL Globulin 3.0 (1.3-4.6) g/dL Lipase 42 (13-60) U/L Ethyl Alcohol < 10 (0-10) mg/dL Discharge Plan Discharge Patient Disposition: Admitted As Inpatient Admit Provider: Ophelia Stringer Clinical Impression: Atrial fibrillation with rapid ventricular response, Abdominal pain, Back pain Condition: Stable Coding Level of Care Code ED Supervisor Title for Coleman Sheppard
--- NOTE | 2020-09-09 07:06 | ECG_ITS ---
[facility] Test Date: 2020-09-09 Pat Name: Dalton Dumont Department: Room: ICU08 Gender: Male Meal Packer: : [id number] Requested By: Vinnie Redd Order Number: [id number] Reading MD: DARYN NANCE Measurements Intervals [place] Rate: 88 P: 67 PA: 138 QRS: 63 QRSD: 91 T: 77 QT: 352 QTc: 427 Interpretive Statements SINUS RHYTHM POSSIBLE LEFT ATRIAL ENLARGEMENT [-0.1mV P WAVE IN V1/V2] Compared to ECG 09/09/2020 05:05:13 Atrial flutter no longer present ST (T wave) deviation no longer present Electronically Signed On 09-09-2020 20:43:59 CDT by DARYN NANCE [id number]
[2020-09-09 07:29] LABS: Troponin 5 2HR 35.13 ng/L (0-15); Troponin 5 2HR Delta 3.13 ABS# (0-10)
[2020-09-09 08:52] LABS: Magnesium 1.8 mg/dL (1.7-2.3)
[2020-09-09] MEDS: predniSONE 10 mg Tablet PO (08:58)
[2020-09-09] MEDS: enoxaparin 40 mg/0.4 mL Syringe SUBCUT (08:59)
[2020-09-09] MEDS: sodium chloride 0.9% 1,000 ML 75 ML IV ×2 (08:59→22:54)
[2020-09-09] MEDS: HYDROmorphone 1 mg/mL INJ 1 mL 0.5 MG IVP ×3 (08:59→17:06)
[2020-09-09] MEDS: piperacillin-tazobactam 3.375 GM in sodium chloride 0.9% (plus) 50 ML IV ×2 (09:14→17:30)
--- NOTE | 2020-09-09 09:37 | PC.CHAP ---
Pastoral Care Encounter/Spiritual Assessment Type of Contact [] Declined assistant dean of students visit [] Patient/Family/Request visit [] Outpatient visit [] Follow-up visit [] Physician referral [] Code/Alert [x] Routine visit [] Staff referral [] Actively dying [] Patient sleeping [x] Family support [] [] Out of room [] Palliative care [] [x] Receiving care in room [] Pre-surgical visit [] Trauma [] Long length of stay [x] ICU visit [] Other: Relational/Emotional Strength [] Patient feels connected with others/family/visitors/staff [] Distress [] Loneliness/isolation [] Abandonment Spirituality of Patient [] Person of Janice [] Attends Anglican of their Janice [] Believes in Prayer [] Reads Bible or Yarsanism materials [] There are Spiritual issues to be addressed Proposal Manager Writer Interventions [x] Prayer [x] Active listening [x] Non-anxious presence [x] Spiritual/emotional support [] Crisis/trauma care [] Spiritual counseling [] Bereavement support [] Provided bereavement packet [] Provided Bible/devotional materials [] Provided toy/stuffed animal, coloring book to patient or family member [] Provided Communion [] Anointing/[place] [] Salvation [x] Completed spiritual assessment [] Other: Impact on Illness or Injury [] Angry [] Fearful [] Anxious [] Often cries [] Exhaustion [] Unable to work [] Unable to attend anabaptism [] Unable to walk/stand [] Unable to read [] Unable to drive [] Unable to eat/drink [] Unable to sleep [] Unable to be with family [] Patient intubated [] Other: Summary patient in very very bad back pain.. staff looking to administer pain relief... Time spent with patient 10 min
--- NOTE | 2020-09-09 11:11 | P.PN_ITS ---
Subjective Subjective: Interval history: Patient continues to complain of lower back pain, abdominal pain, as well as generalized body pain.No fever , no cough, no chest pain, no shortness of breath. His Other vitals and labs have been reviewed. Vitals/I&O/Wt Last Vital Signs Temp 98.6 F 09/09/20 03:16 Pulse 99 09/09/20 10:25 Resp 21 H 09/09/20 10:25 BP 119/79 09/09/20 10:25 Pulse Ox 97 09/09/20 10:25 09/08/20 09/09/20 09/09/20 22:59 06:59 14:59 Intake Total 1999 65.065 / 65.065 Balance 1999 65.065 / 65.065 Weight last 48 hrs Weight 95.254 kg Physical Exam Const: COMMON NORMALS: patient oriented x3 HENMT: COMMON NORMALS: normocephalic and atraumatic HEAD & SCALP: normocephalic and atraumatic Chest: CHEST: Yes Symmetrical chest wall rise Resp: COMMON NORMALS: normal respiratory effort and clear to auscultation bilaterally EFFORT & INSPECTION: Yes symmetric chest movement AUSCULTATION: clear to auscultation bilaterally Cardio: COMMON NORMALS: regular rate, regular rhythm, S1 normal heart sound present, S2 normal heart sound present, No gallops present (Cardio), No murmurs present (Cardio), No rub (Cardio) and Peripheral pulses 2+ throughout RATE: regular rate RHYTHM: regular rhythm HEART SOUNDS: S1 normal heart sound present and S2 normal heart sound present PERIPHERAL PULSES: Peripheral pulses 2+ throughout GI: COMMON NORMALS: Normal to inspection, nondistended, normoactive bowel sounds present, Soft to palpation, non-tender, No hepatosplenomegaly present and no masses AUSCULTATION: Yes normoactive bowel sounds PALPATION: Yes Soft to palpation and Yes No hepatosplenomegaly present RECTAL EXAM: Yes deferred Extremity: COMMON NORMALS: no clubbing, cyanosis or edema and no pedal edema Neuro: COMMON NORMALS: patient oriented x3 Data : 09/09/20 03:24 09/09/20 03:24 A&P Assessment and plan (1) Atrial fibrillation with rapid ventricular response: Initially started on esmolol drip. Esmolol drip. As the patient converted to normal sinus rhythm. Currently on flecainide 100 mg po BID. [id number] score 1, not a candidate for anticoagulation Aspirin 325 mg p.o. daily Status: Acute (2) Abdominal pain: Status: Acute Qualifiers: Abdominal location: generalized Qualified Code(s): R10.84 - Generalized abdominal pain (3) Back pain: Status: Acute (4) Chronic steroid use: Status: Acute Additional A&P Information Sepsis secondary to enteritis CT abdomen pelvis shows fluid in small intestine, he has hyperactive bowel sounds doubt ileus at this point He is not acidotic, lactic acid normal highly doubt mesenteric ischemia We will start him on maintenance fluid along Zosyn and keep him on full liquid diet Etiology of enteritis unknown at this point, he was discharged on doxycycline few days back Back pain Age-indeterminate : T5 15% compression fracture. I will keep him on opioids, ideally any steroid sparing agent would benefit him for his PMR Consider calcitonin and bisphosphonate for pathological compression fracture, to avoid adrenal insufficiency I would keep him on similar dose of prednisone 30 mg a day for now No active spinal cord compression symptoms A. fib RVR Allergic to Cardizem [id number] score 1, not a candidate for anticoagulation, started on esmolol drip we will keep him on high-dose aspirin TSH normal, check magnesium level Generalized anxiety disorder I will continue his anxiolytics for now, monitor QTc interval, previous QTC 428 Nicotine dependence: Patient willing to quit smoking Does not want to use Chantix Full code Full liquid diet DVT prophylaxis Lovenox Attestations Medical Necessity Statement*: Patient needs to be in hospital for management of with A. fib with RVR , enteritis. Coding Level of Care Code Acute Sergeant Missile Crewman for Chg Fwd Diagnoses Atrial fibrillation with rapid ventricular response I48.91 Abdominal pain R10.84 Abdominal location: generalized Back pain M54.9 Chronic steroid use
[2020-09-09] MEDS: nicotine 21 mg Patch 1 PATCH TRANSDERMA (13:22)
--- NOTE | 2020-09-09 17:14 | PC.NURSE ---
Pt transferred to room 106 from ICU. Pt c/o pain 10/10 in back. Dilaudid 0.5 IVP administered. Will reassess pts pain. Resp even and non-labored no distress noted. Pt call light in reach. Will cont to monitor.
[2020-09-09] MEDS: BuSPIRONE 10 mg Tablet 20 MG PO (17:28)
[2020-09-09] MEDS: oxyCODONE-APAP 5-325 mg Tablet PO ×2 (19:22→22:57)
[2020-09-09] MEDS: zolpidem 5 mg Tablet PO (20:09)
[2020-09-09] MEDS: HYDROmorphone 1 mg/mL INJ 1 mL 2 MG IVP (20:09)
[2020-09-09] MEDS: metoprolol tartrate 25 mg Tablet PO (22:54)
[2020-09-09] MEDS: esmolol drip 2,500 MG/250 ML PREMIX 28.6 MG IV (23:15)
--- NOTE | 2020-09-09 23:25 | PC.NURSE ---
Patient has been c/o severe pain since shift change. Medications have been given as ordered. Have spoken to Dr Stringer numerous times. Patient c/o nausea and noted patient to have heart rate increasing to 220s with dizziness reported. Informed Dr Stringer and received order to start esmolol drip as ordered by doctor. Patient reports taking soma and lorazepam at home and is requesting to have his lorazepam like he takes at home. Informed Dr Stringer of this and that patient takes his lorazepam and soma at home all the time. Received telephone order to start his lorazepam as reported on his medication reconciliation. RBVO
--- NOTE | 2020-09-09 23:38 | PC.NURSE ---
The 2210 dose of flecanide was held per Dr Stringer.
[2020-09-09] MEDS: LORazepam 1 mg Tablet PO (23:43)
[2020-09-10] VITALS (18 sets, daily range): BP systolic 112–143; BP diastolic 65–86; PULSE 80–102; RESP 16–98; TEMP 36.8–36.9; O2SAT 90–98
--- NOTE | 2020-09-10 00:21 | PC.NURSE ---
Patient heart rate currently sustaining mid 80s to mid 90s. BP is 120/83. Informed Dr Stringer and received telephone order to stop esmolol drip and give dose of flecanide now.
[2020-09-10] MEDS: flecainide 100 mg Tablet PO ×2 (00:29→04:40)
[2020-09-10] MEDS: lidocaine 2% viscous 15 ML, aluminum-mag hydrox-simethicon 30 ML, sucralfate oral liq 1 GM PO (00:29)
--- NOTE | 2020-09-10 00:43 | PC.NURSE ---
Esmolol drip stopped at this time. Other medications given as ordered. Patient reports some relief of pain at this time. Instructed patient on all medications. Patient verbalized understanding. Reinforcement is needed for new medications.
[2020-09-10] MEDS: piperacillin-tazobactam 3.375 GM in sodium chloride 0.9% (plus) 50 ML IV ×3 (01:22→18:12)
[2020-09-10] MEDS: oxyCODONE-APAP 5-325 mg Tablet PO ×4 (03:12→18:24)
[2020-09-10] MEDS: venlafaxine ER (24HR) 75 mg Capsule PO ×2 (04:38→18:28)
[2020-09-10] MEDS: metoprolol tartrate 25 mg Tablet PO ×2 (04:39→18:21)
[2020-09-10] MEDS: aspirin 325 mg Tablet PO (04:40)
[2020-09-10] MEDS: pantoprazole DR 40 mg Tablet PO (04:40)
[2020-09-10 04:56] LABS: Basophils # 0.1 10^3/uL (0.0-0.1); Basophils % 0.6 %; Eosinophils % 0.4 %; Hemoglobin 13.2 g/dL (11.7-16.6); Lymphocytes # 1.4 10^3/uL (0.8-4.8); Lymphocytes % 15.8 %; Mean Corpuscular Hemoglobin 33.5 pg (28.0-34.0); Mean Corpuscular Volume 101.5 fL (80-94); Mean Platelet Volume 9.5 fL (7.4-10.4); Monocytes # 1.1 10^3/uL (0.2-0.9); Monocytes % 12.3 %; Neutrophils # 5.78 10^3/uL (1.8-7.7); Neutrophils % 63.7 %; Nucleated Red Blood Cells % 0.2 %; Platelet Count 196 10^3/cmm (130-400); Red Blood Count 3.94 10^6/uL (4.1-5.3); Red Cell Distribution Width 15.3 % (12.1-15.1); White Blood Count 9.1 10^3/uL (4.0-10.0)
[2020-09-10 05:08] LABS: Alanine Aminotransferase 26 U/L (0-41); Albumin Level 3.4 g/dL (3.5-5.2); Alkaline Phosphatase 114 IU/L (40-130); Anion Gap 12.3 (5-19); Aspartate Amino Transferase 19 U/L (0-40); Blood Urea Nitrogen 13 mg/dL (6-20); Calcium 8.6 mg/dL (8.5-10.5); Carbon Dioxide 28 mmol/L (22-29); Chloride 101 mmol/L (98-107); Creatinine Clr Calc Pharmacy 140.4551; Globulin 2.5 g/dL (1.3-4.6); Glomerular Filtration Rate 117.1 mL/min (90-130); Glucose 116 mg/dL (65-115); Magnesium 1.8 mg/dL (1.7-2.3); Osmolality Calculated 287 mOsm/kg (285-295); Potassium 3.3 mmol/L (3.5-5.1); Sodium 138 mmol/L (136-145); Total Bilirubin 0.4 mg/dL (0.15-1.2); Total Protein 5.9 g/dL (6.6-8.7)
[2020-09-10] MEDS: HYDROmorphone 1 mg/mL INJ 1 mL 2 MG IVP (05:10)
[2020-09-10 05:15] LABS: Slide Review Slide Review Perform
[2020-09-10] MEDS: ondansetron 2 mg/ML SDV 2 mL 4 MG IVP ×2 (05:15→18:12)
[2020-09-10 05:22] LABS: Procalcitonin 0.09 ng/mL (0-0.5)
[2020-09-10] MEDS: lidocaine 5% Patch 1 PATCH TOPICAL ×2 (08:40→23:04)
[2020-09-10] MEDS: nicotine 21 mg Patch 1 PATCH TRANSDERMA (08:40)
[2020-09-10] MEDS: gabapentin 300 mg Capsule 600 MG PO ×3 (08:40→20:40)
[2020-09-10] MEDS: potassium chloride oral liq 20 mEq/15 mL UDC 40 MEQ PO (08:41)
[2020-09-10] MEDS: LORazepam 1 mg Tablet PO ×2 (08:41→20:41)
[2020-09-10] MEDS: predniSONE 10 mg Tablet PO (08:41)
--- NOTE | 2020-09-10 10:38 | PM.PN ---
Subjective Subjective: Interval history: Patient continues to complain of lower back pain, abdominal pain,went into breakthrough A.fib with rvr overnight for which he was placed on esmolol drip,converted quickly to sinus. Vitals/I&O/Wt Last Vital Signs Temp 98.2 F 09/10/20 08:03 Pulse 80 09/10/20 08:03 Resp 19 H 09/10/20 08:03 BP 115/84 09/10/20 08:03 Pulse Ox 90 09/10/20 08:03 09/09/20 09/10/20 09/10/20 22:59 06:59 14:59 Intake Total 801.25 / 916.315 80.507 / 996.822 360 / 360 Output Total 350 / 350 200 / 550 Balance 451.25 / 566.315 -119.493 / 446.822 360 / 360 Weight last 48 hrs Weight 95.254 kg Physical Exam Const: COMMON NORMALS: patient oriented x3 HENMT: COMMON NORMALS: normocephalic and atraumatic HEAD & SCALP: normocephalic and atraumatic Chest: CHEST: Yes Symmetrical chest wall rise Resp: COMMON NORMALS: normal respiratory effort and clear to auscultation bilaterally EFFORT & INSPECTION: Yes symmetric chest movement AUSCULTATION: clear to auscultation bilaterally Cardio: COMMON NORMALS: regular rate, regular rhythm, S1 normal heart sound present, S2 normal heart sound present, No gallops present (Cardio), No murmurs present (Cardio), No rub (Cardio) and Peripheral pulses 2+ throughout RATE: regular rate RHYTHM: regular rhythm HEART SOUNDS: S1 normal heart sound present and S2 normal heart sound present PERIPHERAL PULSES: Peripheral pulses 2+ throughout GI: AUSCULTATION: Yes normoactive bowel sounds RECTAL EXAM: Yes deferred OTHER: LUQ Abdominal Tenderness Extremity: COMMON NORMALS: no clubbing, cyanosis or edema and no pedal edema Neuro: COMMON NORMALS: patient oriented x3 Data : 09/10/20 04:38 09/10/20 04:38 A&P Assessment and plan (1) Atrial fibrillation with rapid ventricular response: Initially started on esmolol drip. Esmolol drip. As the patient converted to normal sinus rhythm. Initially on flecainide 100 mg po BID as his home dose,later on the dose has been increased to 150 mg po BID as he is still having breakthrough a.fib with RVR.He will need to have repeat EKG in 11 week for Qtc monitoring. Continue Metoprolol.T 25 MG Q12 H Daily [id number] score 1, not a candidate for anticoagulation Aspirin 325 mg p.o. daily Status: Acute (2) Abdominal pain: Status: Acute Qualifiers: Abdominal location: generalized Qualified Code(s): R10.84 - Generalized abdominal pain (3) Back pain: Status: Acute (4) Chronic steroid use: Status: Acute Additional A&P Information Sepsis secondary to enteritis CT abdomen pelvis shows fluid in small intestine, he has hyperactive bowel sounds doubt ileus at this point He is not acidotic, lactic acid normal highly doubt mesenteric ischemia We will start him on maintenance fluid along Zosyn and keep him on full liquid diet Etiology of enteritis unknown at this point, he was discharged on doxycycline few days back Back pain Age-indeterminate : T5 15% compression fracture. I will keep him on opioids, ideally any steroid sparing agent would benefit him for his PMR Consider calcitonin and bisphosphonate for pathological compression fracture, to avoid adrenal insufficiency I would keep him on similar dose of prednisone 30 mg a day for now No active spinal cord compression symptoms A. fib RVR Allergic to Cardizem [id number] score 1, not a candidate for anticoagulation, started on esmolol drip we will keep him on high-dose aspirin TSH normal, check magnesium level Generalized anxiety disorder I will continue his anxiolytics for now, monitor QTc interval, previous QTC 428 Nicotine dependence: Patient willing to quit smoking Does not want to use Chantix Full code Full liquid diet DVT prophylaxis Lovenox Attestations Medical Necessity Statement*: Patient needs to be in hospital for the management of a.fib,intractable pain,sepsis 2/2 enteritis. Coding Level of Care Code Acute Custody Assistant for Chg Fwd Exam Detailed Diagnoses Atrial fibrillation with rapid ventricular response I48.91 Abdominal pain R10.84 Abdominal location: generalized Back pain M54.9 Chronic steroid use
[2020-09-10] MEDS: enoxaparin 40 mg/0.4 mL Syringe SUBCUT (11:15)
--- NOTE | 2020-09-10 12:38 | PC.RESP ---
Smoking Cessation information sent to patient
[2020-09-10] MEDS: potassium chloride ER 20 mEq Tablet 40 MEQ PO (13:35)
[2020-09-10] MEDS: lactulose oral liq 20 gm/30 mL UDC 30 GM PO ×2 (15:21→20:39)
[2020-09-10] MEDS: BuSPIRONE 10 mg Tablet 20 MG PO (18:20)
[2020-09-10] MEDS: flecainide 100 mg Tablet 150 MG PO (18:23)
[2020-09-10] MEDS: sodium chloride 0.9% 1,000 ML 75 ML IV (18:29)
[2020-09-10] MEDS: zolpidem 5 mg Tablet PO (20:40)
[2020-09-11] VITALS (7 sets, daily range): BP systolic 120–149; BP diastolic 79–86; PULSE 83–123; RESP 18–23; TEMP 36.6; O2SAT 90
[2020-09-11] MEDS: piperacillin-tazobactam 3.375 GM in sodium chloride 0.9% (plus) 50 ML IV ×2 (02:11→08:47)
[2020-09-11] MEDS: aspirin 325 mg Tablet PO (04:27)
[2020-09-11] MEDS: flecainide 100 mg Tablet 150 MG PO (04:27)
[2020-09-11] MEDS: pantoprazole DR 40 mg Tablet PO (04:29)
[2020-09-11] MEDS: metoprolol tartrate 25 mg Tablet PO (04:29)
[2020-09-11] MEDS: oxyCODONE-APAP 5-325 mg Tablet PO (04:30)
[2020-09-11] MEDS: venlafaxine ER (24HR) 75 mg Capsule PO (04:31)
[2020-09-11 06:32] LABS: Alanine Aminotransferase 22 U/L (0-41); Albumin Level 3.2 g/dL (3.5-5.2); Alkaline Phosphatase 116 IU/L (40-130); Aspartate Amino Transferase 19 U/L (0-40); Blood Urea Nitrogen 10 mg/dL (6-20); Carbon Dioxide 26 mmol/L (22-29); Chloride 104 mmol/L (98-107); Globulin 2.7 g/dL (1.3-4.6); Glomerular Filtration Rate 139.9 mL/min (90-130); Glucose 75 mg/dL (65-115); Magnesium 1.8 mg/dL (1.7-2.3); Osmolality Calculated 288 mOsm/kg (285-295); Sodium 140 mmol/L (136-145); Total Bilirubin 0.4 mg/dL (0.15-1.2); Total Protein 5.9 g/dL (6.6-8.7)
[2020-09-11 06:34] LABS: Anion Gap 13.8 (5-19); Potassium 3.8 mmol/L (3.5-5.1)
[2020-09-11] MEDS: gabapentin 300 mg Capsule 600 MG PO (08:45)
[2020-09-11] MEDS: predniSONE 10 mg Tablet PO (08:45)
[2020-09-11] MEDS: lidocaine 5% Patch 1 PATCH TOPICAL (08:46)
[2020-09-11] MEDS: nicotine 21 mg Patch 1 PATCH TRANSDERMA (08:46)
[2020-09-11] MEDS: enoxaparin 40 mg/0.4 mL Syringe SUBCUT (08:47)
--- NOTE | 2020-09-11 09:43 | PM.DCS ---
Discharge Providers Date of Admission: 09/09/20 05:10 Date of Discharge: September 11, 2020 Attending Provider at Admission: Ophelia Stringer MD Attending Provider at Discharge: Rafa Powers MD Primary Care Provider: Deepak Mock MD Diagnoses at Discharge Discharge Diagnosis (1) Atrial fibrillation with rapid ventricular response: (2) Abdominal pain: Qualifiers: Abdominal location: generalized Qualified Code(s): R10.84 - Generalized abdominal pain (3) Back pain: (4) Chronic steroid use: Reason for Visit Reason for Visit: ABD PAIN Hospital Course Hospital Course 54 year old male with PMH Of A.fib, PMR, on chronic steroid,chronic back pain, Alcohol abuse, episodic drinking behavior Allergic contact dermatitis , Benign essential HTN, Cigarette nicotine dependence , GCA (giant cell arteritis), Generalized anxiety disorder Severe GERD (gastroesophageal reflux disease), Inflammatory arthritis, Major depressive disorder, recurrent severe without psychotic features, IVON (obstructive sleep apnea). who presented today with chief complaint of back pain and abdominal pain,was admitted for the management of A.fib with RVR as well on eneteritis, he was kept on esmolol drip as well was kept on flecanide 100 mg po q12 h daily, at the time of discharge flecanide dose was incraesed to 150 mg q12 h daily as there was breakthrough a.fib after initially being converted to NSR,he was continued on his home dose of metoprolol.At the time of discharge patient was in NSR.He will follow with repeat ekg in a week as outpatient in heart care center. He was kept on I.V Zosyn for his eneteritis and was discharged on metronidazole as well as ciprofloxacin.At the time of discharge he was tolerating po diet well,abdominal pain was resolved,though he continued to have chronic back pain. for which he will visit pain clinic as outpatient. Patient responded well to the above medical management and was discharged in stable condition. Physical Exam Const: COMMON NORMALS: patient oriented x3 HENMT: COMMON NORMALS: normocephalic and atraumatic HEAD & SCALP: normocephalic and atraumatic Chest: CHEST: Yes Symmetrical chest wall rise Resp: COMMON NORMALS: normal respiratory effort and clear to auscultation bilaterally EFFORT & INSPECTION: Yes symmetric chest movement AUSCULTATION: clear to auscultation bilaterally Cardio: COMMON NORMALS: regular rate, regular rhythm, S1 normal heart sound present, S2 normal heart sound present, No gallops present (Cardio), No murmurs present (Cardio), No rub (Cardio) and Peripheral pulses 2+ throughout RATE: regular rate RHYTHM: regular rhythm HEART SOUNDS: S1 normal heart sound present and S2 normal heart sound present PERIPHERAL PULSES: Peripheral pulses 2+ throughout GI: COMMON NORMALS: Normal to inspection, nondistended, normoactive bowel sounds present, Soft to palpation, non-tender, No hepatosplenomegaly present and no masses AUSCULTATION: Yes normoactive bowel sounds PALPATION: Yes Soft to palpation and Yes No hepatosplenomegaly present RECTAL EXAM: Yes deferred Extremity: COMMON NORMALS: no clubbing, cyanosis or edema and no pedal edema Neuro: COMMON NORMALS: patient oriented x3 Discharge Data Data Completed and Pending: Completed Studies During Hospitalization Category Date Time Status CT abdomen pelvis w con* [id number] Urge nt Cat Scan 09/09/20 03:[address] lumbar spine w o con* [id number] Stat Cat Scan 09/09/20 06:52 Completed XR chest 1V yves ble [id number] Stat Exams 09/09/20 03:15 Completed Pending at discharge Category Date Time Status Comprehensive Met abolic Panel AM LA BS Lab 09/12/20 04:00 Ordered Magnesium AM LABS Lab 09/12/20 04:00 Ordered Procalcitonin AM LABS Lab 09/12/20 04:00 Ordered Labs from last 24 hours 09/11/20 09/11/20 04:23 04:23 Sodium 140 Potassium 3.8 Chloride 104 Carbon Dioxide 26 Anion Gap 13.8 BUN 10 Creatinine 0.6 L GFR Calculation 139.9 H Glucose 75 Calculated Osmolal ity 288 Calcium 8.0 L Magnesium 1.8 Total Bilirubin 0.4 AST 19 ALT 22 Alkaline Phosphata se 116 Total Protein 5.9 L Albumin 3.2 L Globulin 2.7 Procalcitonin 0.10 Vitals: Last Vital Signs Temp 97.9 F 09/11/20 07:11 Pulse 83 09/11/20 07:11 Resp 18 09/11/20 08:45 BP 120/79 09/11/20 07:11 Pulse Ox 90 09/11/20 07:11 Discharge Plan Discharge Patient Disposition: Home Condition: Stable Prescriptions: New metronidazole 500 mg tablet 500 mg PO BID 7 Days Qty: 14 RF: 0 ciprofloxacin HCl 250 mg tablet 250 mg PO BID Qty: 7 RF: 0 Continued diclofenac sodium 1 % gel 2 gm TOPICAL QID Qty: 100 RF: 2 aspirin 325 mg tablet 325 mg PO DAILY@05 RF: 0 nitroglycerin 0.4 mg tablet, sublingual 0.4 mg SUBLINGUAL Q5M PRN (Reason: Chest Pain) RF: 0 gabapentin 600 mg tablet 600 mg PO TID Qty: 90 RF: 4 prednisone 10 mg tablet See Rx Instructions PO DAILY 90 Days Qty: 315 RF: 1 vitamin B complex [B Complex-Vitamin B12] Tablet 1 tab PO DAILY@05 RF: 0 lorazepam 1 mg tablet 1 mg PO BID PRN (Reason: anxiety) Qty: 90 RF: 2 albuterol sulfate [ProAir HFA] 90 mcg/actuation HFA aerosol inhaler 2 puff INHALATION Q6H PRN (Reason: Shortness Of Breath) Qty: 6.7 RF: 1 metoprolol tartrate 25 mg tablet 25 mg PO BID@05,17 Qty: 180 RF: 3 pantoprazole 40 mg tablet,delayed release (DR/EC) 40 mg PO DAILY@05 Qty: 30 RF: 0 ascorbic acid (vitamin C) [Vitamin C] 500 mg Tablet 1,000 mg PO DAILY@05 Qty: 0 RF: 0 cholecalciferol (vitamin D3) [Vitamin D3] 25 mcg (1,000 unit) Capsule 25 - 75 mcg PO DAILY@05 Qty: 0 RF: 0 atorvastatin 20 mg Tablet 20 mg PO BEDTIME RF: 0 oxycodone-acetaminophen 10-325 mg Tablet 1 tab PO Q6H PRN (Reason: Pain) RF: 0 naproxen 500 mg Tablet 500 mg PO BID PRN (Reason: Pain) RF: 0 Advair Diskus 250-50 mcg/dose Blister With Device 1 inh INHALATION BID@,17 RF: 0 venlafaxine [Effexor XR] 75 mg capsule,extended release 24hr 75 mg PO BID@,17 RF: 0 buspirone 10 mg tablet 10 mg PO BID@,17 RF: 0 carisoprodol 350 mg Tablet 350 mg PO Q8H PRN (Reason: Pain) Qty: 20 RF: 0 lidocaine [Lidoderm] 5 % Adhesive Patch,Medicated 1 patch topical [id number] Qty: 14 RF: 0 nicotine 21 mg/24 hr Patch 24 Hour 1 patch transdermal DAILY Qty: 30 RF: 0 trolamine salicylate [Sportscreme] 10 % Cream 1 applic topical TID PRN (Reason: MUSCLE PAIN) Qty: 85 RF: 0 Changed flecainide 100 mg tablet 150 mg PO BID@0500,1700 Qty: 60 RF: 3 Discharge Orders: Discharge Order (Routine); Ordered 09/11/20 Ordered By: Rafa Powers Referrals: [facility] [Provider Group] - 1-3 days ([facility] will contact you to schedule an appointment. If you haven't heard from them by Sunday. Please call ) Deepak Mock MD [Primary Care Provider] - 4-7 days ([facility] will contact you to schedule an follow-up appointment in 4 to 7 days. If you haven't heard from them by Sunday. Please call ) Yakelin Chance FNP [Nurse Practitioner] - 1 week ([facility] will contact you to schedule an follow-up appointment in 1 week. If you haven't heard from them by Sunday. Please call ) Discharge Diet: Regular Discharge Activity: Increase activity as tolerated Patient Instructions: Ciprofloxacin (By mouth), Metronidazole (By mouth), Opioid Safety Discharge Attestations Time Spent in Discharge Care*: less than 30 min Specific Discharge Activities: educating patient, educating and/or supporting family/caregiver, discussing with field nurse case manager/social workers/dc planners, documenting/other paperwork and evaluating patient/reviewing data Status at Discharge: Cognitive status at discharge: cognitively intact, Behavioral status at discharge: cooperative, Functional status at discharge: independent ambulation Overall status at discharge: patient is back to baseline Quality Metrics Clinical Quality Measures During this hospital stay, did patient experience: None Coding Level of Care Code Acute Chg FW DC note Diagnoses Atrial fibrillation with rapid ventricular response I48.91 Abdominal pain R10.84 Abdominal location: generalized Back pain M54.9 Chronic steroid use
== END 2020-09-11 10:47 | disposition home or self-care (01) | DRG 872 ==
LOC: ER 05:11 → CSU 05:17 → ICU 06:31 → CSU 16:28
PROVIDERS: Emergency Medicine; Admitting Provider Internal Medicine; Emergency Provider Family Medicine; PCP Family Medicine; Visit Provider Internal Medicine
DX: A41.9 Sepsis, unspecified organism (principal); E87.1 Hypo-osmolality and hyponatremia; F33.9 Major depressive disorder, recurrent, unspecified; K52.9 Noninfective gastroenteritis and colitis, unspecified; M31.5 Giant cell arteritis with polymyalgia rheumatica; Z79.52 Long term (current) use of systemic steroids; F41.1 Generalized anxiety disorder; I48.0 Paroxysmal atrial fibrillation; K76.0 Fatty (change of) liver, not elsewhere classified; K57.30 Diverticulosis of large intestine without perforation or abscess without bleeding; F10.10 Alcohol abuse, uncomplicated; I10 Essential (primary) hypertension; F17.210 Nicotine dependence, cigarettes, uncomplicated; K21.9 Gastro-esophageal reflux disease without esophagitis; G47.33 Obstructive sleep apnea (adult) (pediatric); Z85.9 Personal history of malignant neoplasm, unspecified; M48.54XD Collapsed vertebra, not elsewhere classified, thoracic region, subsequent encounter for fracture with routine healing; G89.29 Other chronic pain
CPT/HCPCS: 36415; 71045; 72131; 74177; 80053; 80307; 83605; 83690; 83735; 84145; 84484; 85007; 85025; 93005; 96365; 96372; 96375; 97110; 97112; 97161; 97165; 97530; 99285; J1170; J1200; J1650; J2270; J2405; J2543; J2765; J3490; J7030; J7512; Q9967

== ENCOUNTER 2020-09-13 14:12 | Outpatient (CLI) | payer OTHER, MEDICAID, SELFPAY ==
--- NOTE | 2020-09-13 14:17 | XR_ITS ---
WS: [id number] DEXA (DUAL ENERGY X-RAY ABSORPTIOMETRY) Bone mineral density was performed using a [employer] machine. 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 Lumbar spine BMD (L1-L4): 1.007 g/cm2 T score: -1.8 Z score: -1.9 Total hip BMD: Left: 0.940 g/cm2. T score: -1.1 Z score: -1.0 Right: 0.920 g/cm2. T score: -1.3 Z score: -1.1 10 year probability of a major osteoporotic fracture is 16%. XR/XR DEXA axial skeleton* [id number] IMPRESSION: OSTEOPENIA.
== END 2020-09-13 14:13 | disposition home or self-care (01) ==
PROVIDERS: PCP Family Medicine; Visit Provider Nurse Practitioner Family
DX: Z79.52 Long term (current) use of systemic steroids (principal); M85.88 Other specified disorders of bone density and structure, other site
CPT/HCPCS: 77080

== ENCOUNTER 2020-09-14 16:27 | Outpatient (CLI) | payer OTHER, MEDICAID, SELFPAY ==
--- NOTE | 2020-09-14 16:36 | MR_ITS ---
WS: [id number] MRI THORACIC SPINE noncontrast. 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 TECHNIQUE: Multiplanar sequences are performed in sagittal and axial planes. Very slight increase in the thoracic kyphosis centered at T5. Subacute fracture at the T5 vertebral b varun with anterior wedging by 60%. The fracture has progressed since the prior CT of 08/25/2020. There is very minimal bulging of the posterior superior endplate. There is marrow edema throughout the enti re T5 vertebral body extending into the posterior elements. There is also marrow edema in the intersp inous ligament at T5-6 and posteriorly around the T5 spinous process. No additional marrow edema. T1-2: Normal. T2-3: Normal. T3-4: Normal. T4-5: Mild encroachment upon the ventral thecal sac, no significant foraminal stenosis. T5-6: Normal. T6-7: Normal. T7-8: Normal. T8-9: Normal. T9-10: Normal. T10-11: Normal. T11-12: Normal. MR/MR thoracic spin wo con* [id number] IMPRESSION: 1. Progression of the T5 compression fracture since 08/25/2020. Anterior wedgin g now approximately 60% with very minimal bulging of the posterior superior end plate. 2. Mild encroachment upon the ventral thecal sac at the T4-5 level due to disc and vertebral body encroachment.
--- NOTE | 2020-09-14 16:36 | MR_ITS ---
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 Normal lumbar alignment with no compression fractures or marrow edema. Less than 2 mm retrolisthesis of L4. No marrow edema. Disc spaces and vertebral body heights are well-preserved. Conus terminates normally at L1-2 disc level. L1-L2: Normal. L2-L3: Normal. L3-L4: Very mild annular disc bulging without stenosis. L4-L5: Mild annular disc bulging with a RIGHT foraminal disc protrusion and annular fissure. Mild ost eophytic ridging around the vertebral body. There is very mild bilateral foraminal narrowing due to o steophyte disease. L5-S1: Normal. Marrow edema in the RIGHT sacrum. Suspicious for sacral insufficiency fracture. Only a very small por tion of the sacrum is imaged. Sacrum is reviewed from the study of 09/09/2020 and no fracture is defin itely identified by CT either. MR/MR lumbar spine wo con* [id number] IMPRESSION: 1. No acute lumbar spine fracture. 2. RIGHT foraminal disc protrusion and annular fissure at L4-5 contacting the L4 nerve root. 3. Mild bilateral foraminal narrowing at L4-5. 4. Incompletely visualized marrow edema in the RIGHT sacrum. Suspicious for sa cral insufficiency fracture.
== END 2020-09-14 16:28 | disposition home or self-care (01) ==
LOC: RADSHAW 16:29
PROVIDERS: PCP Family Medicine; Visit Provider Nurse Practitioner Family
DX: M35.3 Polymyalgia rheumatica (principal); Z79.899 Other long term (current) drug therapy; Z79.52 Long term (current) use of systemic steroids; M54.5 Low back pain; G89.29 Other chronic pain; I48.91 Unspecified atrial fibrillation; F17.210 Nicotine dependence, cigarettes, uncomplicated
CPT/HCPCS: 72146; 72148; 99214

== ENCOUNTER → 2020-09-17 10:35 | Outpatient (BNVA) | payer OTHER, MEDICAID, SELFPAY | PROVIDERS: PCP Family Medicine; Referring Provider Internal Medicine Rheumatology; Visit Provider Anesthesiology Pain Medicine | DX: G89.29 Other chronic pain (principal); M35.3 Polymyalgia rheumatica; M51.36 Other intervertebral disc degeneration, lumbar region; S22.000A Wedge compression fracture of unspecified thoracic vertebra, initial encounter for closed fracture; X58.XXXA Exposure to other specified factors, initial encounter; F17.210 Nicotine dependence, cigarettes, uncomplicated; Z79.891 Long term (current) use of opiate analgesic | CPT/HCPCS: 99205 ==

== ENCOUNTER → 2020-09-23 16:04 | Outpatient (BNVA) | payer OTHER, SELFPAY | PROVIDERS: PCP Family Medicine; Visit Provider Nurse Practitioner Family | DX: S22.000A Wedge compression fracture of unspecified thoracic vertebra, initial encounter for closed fracture (principal); X58.XXXA Exposure to other specified factors, initial encounter; Z20.822 Contact with and (suspected) exposure to COVID-19 | CPT/HCPCS: 87635 ==

== ENCOUNTER 2020-09-27 10:56 | Day surgery (SDC) | payer OTHER, MEDICAID, SELFPAY ==
[2020-09-24 14:36] VITALS: BMI 29.4
[2020-09-27] VITALS (7 sets, daily range): BP systolic 118–137; BP diastolic 90–101; PULSE 82–100; RESP 16–20; TEMP 36.1–36.6; O2SAT 95–100
--- NOTE | 2020-09-27 | SCC_ITS ---
Procedure Done: T5 Kyphoplasty 4.3 seconds of fluoroscopic guidance, for a cumulative dose of 3.87 mGy, was provided to Dr. Rizvi by the radiology department. C-arm images of the thoracic spine were saved for the patient's permanent record. [facility]
--- NOTE | 2020-09-27 11:29 | SC_ITS ---
WS: [id number] INTRAOPERATIVE TECHNIQUE: 4 Spot fluoroscopic images for intraoperative purposes. FLUOROSCOPY TIME: 4.3 seconds CLINICAL INFORMATION: kyphoplasty COMPARISON: None. FINDINGS: Images obtained for intraoperative purposes. Kyphoplasty changes visualized in the upper thoracic spi ne. SC/C-arm FL for Kyphoplasty IMPRESSION: Images obtained for intraoperative purposes.
[2020-09-27] MEDS: sodium chloride 0.9% 1,000 ML 30 ML IV (12:08)
[2020-09-27] MEDS: midazolam 1 mg/mL INJ 2 mL 2 MG IVP (12:10)
--- NOTE | 2020-09-27 12:24 | W.PM.OPSUD ---
Surgery/Procedure H&P Update DATE OF PROCEDURE: September 27, 2020 DATE H&P PERFORMED: 09/23/20 H&P UPDATE INFORMATION: I have reviewed H&P completed within last 30 days, I have examined patient prior to procedure and No changes to prior documentation PREOP DIAGNOSIS: T5 Compression fx PLANNED PROCEDURE: Operation Date: 09/27/20 13:00 Proposed Procedures p Kyphoplasty T5 83020 S22.000A(Not Applicable) - Ozzy Rizvi DO
[2020-09-27 12:53] LABS: Glucose Point of Care 140 mg/dL (70-110)
--- NOTE | 2020-09-27 13:01 | P.ANESASSM_ITS ---
Pre-Anesthetic Assessment Pre-Anesthetic Assessment: Height/Weight: Height 1.78 m Weight 92.986 kg Temp Pulse Resp BP Pulse Ox 97.9 F 100 18 120/99 96 09/27/20 11:47 09/27/20 11:47 09/27/20 11:47 09/27/20 11:47 09/27/20 11:47 Preop Diagnosis: T5 Compression fx Proposed Procedure: Operation Date: 09/27/20 13:00 Proposed Procedures p Kyphoplasty T5 51955 S22.000A(Not Applicable) - Ozzy Rizvi, DO Was Beta Lachelle taken within 24 hours: Yes Was Clonidine taken within 24 hours: N/A Last intake: Intake Last Liquid Date 09/26/20 Last Liquid Time 22:00 Last Solid Date 09/26/20 Last Solid Time 18:00 Social: Social History: Alcohol and Tobacco Exam: Pre-Anes Outpt Exam: alert and oriented x 3 Additional Exam Findings (including area of procedure): irr Airway: Submandibular: WNL Cervical ROM: WNL MP: 2 Dentition: Chipped Additional comments: poor dentition Pulmonary: Pulmonary: COPD CV/HEM: CV/HEM: Afib, Arrythmia, CAD and HTN Metabolic: Metabolic: Morbid obesity Comments: Chronic steroid, PMR, GCA Musc/skel: Musc/skel: Lower Back Pain Comments: Chronic pain Neuropsych: Neuropsych: Anxiety and Depression Anesthetic Plan: ASA status: 3 Anesthesia: General Risk of > 500 ml blood loss (7ml/kg in children): No Meds/Allergies Current Medications: Current Medications Generic Name Dose Route Start Last Admin Trade Name Freq PRN Reason Stop Dose Admin Sodium Chloride 1,000 mls @ 30 ml s/hr 09/27/20 11:30 09/27/20 12:08 Sodium Chloride 0.9% IV 09/28/20 11:29 30 mls/hr .Q24H ADELFO Administration Midazolam HCl 2 mg 09/27/20 11:29 09/27/20 12:10 Midazolam 1 Mg/M l Inj 2 Ml IVP 2 mg Q5M PRN Administration Preop Anxiety PFSH Anesthesia PFSH: Medical History Abdominal pain Alcohol abuse, episodic drinking behavior Allergic contact dermatitis Atrial fibrillation with rapid ventricular response Back pain Benign essential HTN Chronic low back pain Chronic steroid use Cigarette nicotine dependence Diverticulitis GCA (giant cell arteritis) Generalized anxiety disorder Severe GERD (gastroesophageal reflux disease) High risk medication use Inflammatory arthritis Major depressive disorder, recurrent severe without psychotic features IVON (obstructive sleep apnea) Paroxysmal atrial fibrillation Polymyalgia rheumatica Smoking addiction 30 years currently smokes half a pack a day. Squamous cell carcinoma Surgical History History of kidney surgery Previous back surgery Family History Sister CAD (coronary artery disease) Psychiatric illness Mother Cancer Rheumatoid arthritis Father Diabetes Hyperlipidemia Hypertension Grandmother Diabetes Other Family history of premature coronary artery disease Denies family history of Clotting disorder Dementia Chronic kidney disease (CKD) Systemic lupus erythematosus (SLE) in adult Suicide Anesthesia complication Bleeding disorder Lung disease Stroke Social History Smoking and tobacco status: current every day smoker Alcohol intake: former Household members: spouse Housing: House 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
--- NOTE | 2020-09-27 14:12 | PM.OP ---
Operative Report Date of procedure: September 27, 2020 Pre-op Diagnosis: T5 Compression fx Post-op diagnosis: same Procedure Done: T5 Kyphoplasty Anesthesia: General Estimated blood loss (mL): 5 Condition: stable Disposition: PACU Procedure: T 5 Kyphoplasty Patient brought to the operative suite placed in the prone position after undergoing anesthesia. All areas impingement well-padded. Patient's prepped and draped normal sterile fashion. Biplanar fluoroscopy was used to image. The T5 vertebral body fracture was identified. A biopsy was taken and sent for pathology. And then balloon was used and then the void was filled with cement. Patient was then had wound irrigated and closed with a stitch. Sterile dressing was applied and patient was transferred to the PACU in stable condition.
--- NOTE | 2020-09-27 14:52 | ANE.PACU2 ---
Inpatient post-anesthesia follow up: Airway intact: Yes Vital signs: Temperature 97.7 F Pulse Rate 86 Respiratory Rate 18 Blood Pressure 128/90 Pulse Oximetry 96 Oxygen Delivery Me thod Room Air Oxygen Flow Rate 6 Fraction of Inspir ed Oxygen Hydration adequate: Yes Nausea and vomiting: No Pain level: 2 Mental status: Baseline
[2020-09-27] MEDS: oxyCODONE-APAP 10-325 mg Tablet 1 TAB PO (15:06)
== END 2020-09-27 15:22 | disposition home or self-care (01) ==
PROVIDERS: PCP Family Medicine; Visit Provider Orthopaedic Surgery
PROC: (CPT 22513; principal; 2020-09-27 13:00)
DX: M48.54XA Collapsed vertebra, not elsewhere classified, thoracic region, initial encounter for fracture (principal); J44.9 Chronic obstructive pulmonary disease, unspecified; I48.91 Unspecified atrial fibrillation; I25.10 Atherosclerotic heart disease of native coronary artery without angina pectoris; I10 Essential (primary) hypertension; E66.01 Morbid (severe) obesity due to excess calories; Z68.29 Body mass index [BMI] 29.0-29.9, adult; G89.29 Other chronic pain; F41.9 Anxiety disorder, unspecified; F32.9 Major depressive disorder, single episode, unspecified; F17.210 Nicotine dependence, cigarettes, uncomplicated
CPT/HCPCS: 22513; 36416; 76000; 82962; 88307; J0690; J1100; J2250; J2405; J2704; J2710; J3010; J3490; J7030

== ENCOUNTER 2020-10-02 06:44 | Emergency (ER) | payer OTHER, SELFPAY ==
[2020-10-02 06:56] VITALS: BP 150/101; PULSE 105; RESP 21; TEMP 36.9; O2SAT 95; BMI 28.7
--- NOTE | 2020-10-02 07:00 | CTR_ITS ---
PROCEDURE INFORMATION: Exam: CT Chest With Contrast; Diagnostic Exam date and time: 10/02/2020 7:22 AM Age: 54 years old Clinical indication: Abdominal pain; Generalized; Chest wall pain; Prior surgery; Surgery type: T-5; Additional info: Trauma abd pain TECHNIQUE: Imaging protocol: Diagnostic computed tomography of the chest with contrast. Radiation optimization: All CT scans at this facility use at least one of these dose optimization techniques: automated exposure control; mA and/or kV adjustment per patient size (includes targeted exams where dose is matched to clinical indication); or iterative reconstruction. Contrast material: OMNI 300; Contrast volume: 95 ml; Contrast route: INTRAVENOUS (IV); COMPARISON: CT angio chest w abd pel w con 08/19/2020 12:25 PM RADIATION DOSE METRICS: Total DLP (mGy-cm): 1802.19 FINDINGS: Lungs: There is pulmonary emphysema with blebs in the lung apices. No pneumonia. Pleural spaces: Unremarkable. No pneumothorax. No pleural effusion. Heart: Unremarkable. No cardiomegaly. No pericardial effusion. Aorta: There is mild atherosclerotic calcification of the aorta. There is no aneurysm. Lymph nodes: Unremarkable. No enlarged lymph nodes. Bones/joints: The patient has undergone T5 vertebral plasty for compression fracture. Radiopaque cement extends into the left T5-6 neural foramen producing foraminal stenosis. There is old healed right 10th rib fracture. Soft tissues: Unremarkable. IMPRESSION: 1. T5 vertebral plasty for compression fracture. 2. Radiopaque cement extends into the left T5-6 neural foramen producing foraminal stenosis. 3. Pulmonary emphysema. 4. No acute abnormalities are seen in the chest. PROCEDURE INFORMATION: Exam: CT Abdomen And Pelvis With Contrast Exam date and time: 10/02/2020 7:22 AM Age: 54 years old Clinical indication: Abdominal pain; Generalized; Chest wall pain; Prior surgery; Surgery type: T-5; Additional info: Trauma abd pain TECHNIQUE: Imaging protocol: Computed tomography of the abdomen and pelvis with contrast. Radiation optimization: All CT scans at this facility use at least one of these dose optimization techniques: automated exposure control; mA and/or kV adjustment per patient size (includes targeted exams where dose is matched to clinical indication); or iterative reconstruction. Contrast material: OMNI 300; Contrast volume: 95 ml; Contrast route: INTRAVENOUS (IV); COMPARISON: CT angio chest w abd pel w con 08/19/2020 12:25 PM RADIATION DOSE METRICS: Total DLP (mGy-cm): 1802.19 FINDINGS: Liver: Fatty liver. Gallbladder and bile ducts: Normal. No calcified stones. No ductal dilation. Pancreas: Normal. No ductal dilation. Spleen: Normal. No splenomegaly. Adrenal glands: Multiple clips are present apparently from right adrenalectomy. The left adrenal is unremarkable. Kidneys and ureters: Normal. No hydronephrosis. Stomach and bowel: Sigmoid diverticulosis. No evidence of acute diverticulitis. There is no bowel obstruction or dilatation. Appendix: The appendix is normal. Intraperitoneal space: Unremarkable. No free air. No significant fluid collection. Vasculature: There is calcification of the aorta. There is no aneurysm. Lymph nodes: Unremarkable. No enlarged lymph nodes. Urinary bladder: Unremarkable as visualized. Reproductive: Unremarkable as visualized. Bones/joints: Mild degenerative changes are present in the lumbar spine. No acute bony abnormalities are seen. Soft tissues: Unremarkable. CT/CT chest abd pel w con* IMPRESSION: 1. Fatty liver. 2. Sigmoid diverticulosis. 3. No acute abnormalities are seen in the abdomen and pelvis. Radiation Dose CTDIVOL = (mGy): DLP = 1802.19~1802.19 (mGy-cm)
--- NOTE | 2020-10-02 07:00 | CTR_ITS ---
PROCEDURE INFORMATION: Exam: CT Lumbar Spine Without Contrast Exam date and time: 10/02/2020 7:22 AM Age: 54 years old Clinical indication: Other: Mid-back pain; Prior surgery; Surgery type: T-5 TECHNIQUE: Imaging protocol: Computed tomography images of the lumbar spine without contrast. Radiation optimization: All CT scans at this facility use at least one of these dose optimization techniques: automated exposure control; mA and/or kV adjustment per patient size (includes targeted exams where dose is matched to clinical indication); or iterative reconstruction. COMPARISON: CT lumbar spine wo con* [id number] 09/09/2020 7:59 AM RADIATION DOSE METRICS: Total DLP (mGy-cm): 2318.84 FINDINGS: Vertebrae: No acute fracture. Normal alignment. Discs/Spinal canal/Neural foramina: No significant disc protrusion. No severe spinal canal stenosis. No significant neural foraminal narrowing. Soft tissues: Unremarkable. CT/CT lumbar spine wo con* [id number] IMPRESSION: No acute findings. Radiation Dose CTDIVOL = (mGy): DLP = 2318.84 (mGy-cm)
--- NOTE | 2020-10-02 07:00 | CTR_ITS ---
PROCEDURE INFORMATION: Exam: CT Thoracic Spine Without Contrast Exam date and time: 10/02/2020 7:22 AM Age: 54 years old Clinical indication: Pain in thoracic spine; Prior surgery; Surgery type: T-5 TECHNIQUE: Imaging protocol: Computed tomography images of the thoracic spine without contrast. Radiation optimization: All CT scans at this facility use at least one of these dose optimization techniques: automated exposure control; mA and/or kV adjustment per patient size (includes targeted exams where dose is matched to clinical indication); or iterative reconstruction. COMPARISON: CT thoracic spin wo con* [id number] 08/25/2020 1:37 PM RADIATION DOSE METRICS: Total DLP (mGy-cm): 1922.2 FINDINGS: Vertebrae: The patient has undergone T5 vertebroplasty for compression fracture. Radiopaque cement is present within the vertebral body. Some of the radiopaque cement extends into the left neural foramen producing moderately tight left T5 neural foraminal stenosis. No retropulsed fracture fragments are seen at this level. There is old nondisplaced fracture through the tip of the T5 spinous process. Discs/Spinal canal/Neural foramina: Mild chronic degenerative changes are present at multiple levels with mild disc space narrowing sclerosis and small osteophytes. Soft tissues: Unremarkable. CT/CT thoracic spin wo con* [id number] IMPRESSION: 1. Patient has undergone T5 vertebroplasty for compression fracture. 2. Radiopaque cement extends into the left T5 neural foramen producing moderately tight foraminal stenosis. 3. No significant central canal stenosis. 4. Nondisplaced old fracture of the tip of the T5 spinous process. 5. No acute fractures are seen. Radiation Dose CTDIVOL = (mGy): DLP = 1922.2 (mGy-cm)
--- NOTE | 2020-10-02 07:02 | ED_ITS ---
HPI - Back Pain/Injury General: Chief Complaint: Back Pain/Injury Stated Complaint: back/spine pain post surgery Time Seen by Provider: 10/02/20 06:50 Source: patient and family Mode of arrival: ambulatory Limitations: no limitations History of Present Illness: HPI Narrative: Dalton Dumont is a very nice 54-year-old male who comes in with a complaint of back pain since having ky phoplasty surgery by Dr. Flores on Sunday. He denies any fever, chills, radicular symptoms, loss of bowel or bladder control, numbness or weakness in his legs, abdominal pain or otherwise. Patient states that the pain is just uncontrolled. He is currently on oxycodone at home and states he is not missed any medications. Any type of movement makes his symptoms worse. He denies any headache or fever. He denies any discharge from the wound. He states the area of pain is right around the patient's wound and somewhat inferior. He otherwise denies any complaints or concerns. He did try to get in to see Dr. Flores before the end of the week but was unable to do so. Associated symptoms: Deny abdominal pain, chills, difficulty walking, dysuria, fatigue, fever(s), hematuria, nausea, syncope, urinary urgency or vomiting Review of Systems Const: Denies: fever(s), chills, body aches, fatigue, malaise or diaphoresis Eyes: Denies: change in vision, blurry vision, photophobia, eye discomfort, eye discharge, eye redness or yellow eyes ENMT: Denies: throat pain, odynophagia, hoarseness, swelling of lips/tongue, ear or mastoid pain, ear discharge, change in hearing or nasal discharge Card: Denies: chest pain, palpitations, irregular heart rhythm, edema, lightheadedness, syncope, pre-syncope, dyspnea on exertion or orthopnea Resp: Denies: dyspnea, productive cough, non-productive cough, wheezing, hemoptysis or chest congestion GI: Denies: abdominal pain, nausea, vomiting, hematemesis, coffee ground emesis, heartburn, diarrhea, constipation, GI cramping, hematochezia or melena : Denies: flank pain, dysuria, urinary frequency, urinary urgency or hematuria Musc: Reports: back pain; Denies: neck pain, extremity pain, extremity swelling, joint pain, joint swelling, joint redness, joint warmth or joint stiffness Skin/Breast: Denies: rash, pruritus, erythema, skin pain or skin tenderness Neuro: Denies: headache(s), numbness in extremities, weakness in extremities, sensory changes, lack of coordination, difficulty walking, dizziness, vertigo, confusion, Slurred speech present or seizure-like activity Jonathan/Lymph: Denies: easy bruising, easy bleeding, petechiae, purpura or enlarged lymph nodes All/Imm: Denies: urticaria, throat swelling, tongue swelling, facial swelling or acute wheezing PFSH ED PFSH: Medical History Abdominal pain Alcohol abuse, episodic drinking behavior Allergic contact dermatitis Atrial fibrillation with rapid ventricular response Back pain Benign essential HTN Chronic low back pain Chronic steroid use Cigarette nicotine dependence Diverticulitis GCA (giant cell arteritis) Generalized anxiety disorder Severe GERD (gastroesophageal reflux disease) High risk medication use Inflammatory arthritis Major depressive disorder, recurrent severe without psychotic features IVON (obstructive sleep apnea) Paroxysmal atrial fibrillation Polymyalgia rheumatica Smoking addiction 30 years currently smokes half a pack a day. Squamous cell carcinoma Surgical History History of kidney surgery Previous back surgery Family History Sister CAD (coronary artery disease) Psychiatric illness Mother Cancer Rheumatoid arthritis Father Diabetes Hyperlipidemia Hypertension Grandmother Diabetes Other Family history of premature coronary artery disease Denies family history of Clotting disorder Dementia Chronic kidney disease (CKD) Systemic lupus erythematosus (SLE) in adult Suicide Anesthesia complication Bleeding disorder Lung disease Stroke Social History Smoking and tobacco status: current every day smoker Alcohol intake: former Household members: spouse Housing: House 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 History of recent travel: No Physical Exam Const: COMMON NORMALS: no acute distress, patient oriented x3, no limitations and alert GENERAL APPEARANCE: cooperative HENMT: COMMON NORMALS: normocephalic, atraumatic, external ears normal, EAC's normal and Normal external nose present HEAD & SCALP: normal to inspection, normocephalic and atraumatic FACE & SINUS: normal facial exam and face symmetric NOSE: Normal external nose present and Normal nares present EXTERNAL EAR: Yes external ears normal EXTERNAL AUDITORY CANAL: EAC's normal MOUTH: Normal oral and palatal mucosa present, lip normal and tongue normal Eye: COMMON NORMALS: Equal, round and reactive pupils present and conjunctivae normal GENERAL EYE: appearance normal, both eyes and all related structures ALIGNMENT: Yes alignment normal PERIORBITAL: periorbital findings normal EYELID: eyelids normal CONJUNCTIVA: Yes conjunctivae normal SCLERA: sclerae normal PUPIL: Yes Equal, round and reactive pupils present Neck/C-Spine: COMMON NORMALS: full ROM, no lymphadenopathy, supple, no meningeal signs and no JVD GENERAL: Yes normal visual inspection and Yes trachea midline Chest: COMMONS NORMALS: normal inspection of the chest and normal palpation of entire chest wall Resp: COMMON NORMALS: normal respiratory effort, No retractions, No use of accessory muscles and clear to auscultation bilaterally EFFORT & INSPECTION: Yes able to speak in complete sentences and Yes symmetric chest movement AUSCULTATION: clear to auscultation bilaterally, no crackles, no rales, no rhonchi and no wheezes Cardio: COMMON NORMALS: no JVD, regular rate, regular rhythm, S1 normal heart sound present and S2 normal heart sound present RATE: regular rate RHYTHM: regular rhythm HEART SOUNDS: S1 normal heart sound present, S2 normal heart sound present, no click, no gallops, no murmurs and no rubs GI: COMMON NORMALS: Soft to palpation and No hepatosplenomegaly present PALPATION: Yes Soft to palpation, No Tenderness to palpation present (GI), No Guarding due to palpation present (GI), No Rigid due to palpation, Yes No hepatosplenomegaly present, No Hernia present, No Palpable mass present and No P ulsatile mass present : COMMON NORMALS: Yes no CVA tenderness BLADDER/KIDNEY EXAM: Yes no CVA tenderness Back/Pelvis: COMMON NORMALS: no CVA tenderness, thoracic and lumbar spine normal to inspection, no thoracic nor lumbar tenderness and thoraco-lumbar ROM normal THORACIC SPINE/UPPER BACK: Yes other soft tissue findings (Surgical incision site appears well healed without sign of infection.) Extremity: COMMON NORMALS: normal to inspection, full ROM, capillary refill normal, no joint enlargement, no clubbing, cyanosis or edema and no calf tenderness Neuro: COMMON NORMALS: patient oriented x3, CN's II-XII intact bilaterally, moves all extremities, no focal motor deficits and no sensory deficits noted SENSORIUM/ORIENTATION: Yes alert MENINGEAL SIGNS: Yes no meningeal signs SPEECH: speech normal Psych: COMMON NORMALS: mental status grossly normal, Normal thought process present, cooperative, normal affect, speech normal and activity/motor behavior normal SPEECH: Yes normal speech THOUGHT PROCESS: Normal thought process present Skin: COMMON NORMALS: no rashes or lesions noted, turgor normal, no jaundice, no petechiae and no mottling GENERAL SKIN EXAM: no rashes or lesions noted and turgor normal Course Vital Signs: Vital signs: Vital Signs Temperature 98.4 F 10/02/20 06:56 Pulse Rate 105 H 10/02/20 06:56 Respiratory Rate 18 10/02/20 08:20 Blood Pressure 150/101 10/02/20 06:56 Pulse Oximetry 95 10/02/20 06:56 MDM - Back Pain/Injury MDM Narrative: Medical decision making narrative: [phone] -patient is feeling much better after the pain medicine given him here. He also states he is out of his muscle relaxers specifically Soma and Ativan. He does have Ativan waiting for him at the pharmacy but he states he is was in too much pain yesterday to go get it. He is feeling better now believes he will be able to go pick it up. This time the patient does not appear septic, there is not appear to be a complication from his surgery, he is neurologically intact. I reviewed the case in full with Dr. Rizvi who is agreeable to see the patient is office in follow- up. I did review the signs and symptoms for which to return to the ER such as leg weakness or numbness, loss of bowel or bladder control or otherwise. Patient states he understands all these things and he will follow-up as directed or return if needed. Medical Records: Attestation: I reviewed the patient's medical records. Lab Data: Attestation: I reviewed the patient's lab results. Labs: Lab Results 10/02/20 10/02/20 10/02/20 Range/Units 07:14 07:14 07:14 WBC 10.6 H (4.0-10.0) 10^3/ uL RBC 4.13 (4.1-5.3) 10^6/u L Hgb 13.9 (11.7-16.6) g/dL Hct 40.4 L (42.0-52.0) % MCV 97.8 H (80-94) fL MCH 33.7 (28.0-34.0) pg MCHC 34.4 (30.0-36.0) g/dL RDW 14.1 (12.1-15.1) % Plt Count 288 (130-400) 10^3/c mm MPV 9.7 (7.4-10.4) fL Neut % (Auto) 67.7 % Lymph % (Auto) 24.1 % [place] % (Auto) 6.7 % Eos % (Auto) 0.4 % Baso % (Auto) 0.2 % Neut # (Auto) 7.15 (1.8-7.7) 10^3/u L Lymph # (Auto) 2.6 (0.8-4.8) 10^3/u L [place] # (Auto) 0.7 (0.2-0.9) 10^3/u L Eos # (Auto) 0.0 (0.0-0.8) 10^3/u L Baso # (Auto) 0.0 (0.0-0.1) 10^3/u L Nucleated RBC % (a uto) 0 % Nucleated RBCs # 0.0 /100WBC PT (12.1-14.9) SECO NDS INR (0.8-1.2) Sodium 137 (136-145) mmol/L Potassium 4.3 (3.5-5.1) mmol/L Chloride 100 (98-107) mmol/L Carbon Dioxide 19 L (22-29) mmol/L Anion Gap 22.3 H (5-19) BUN 16 (6-20) mg/dL Creatinine 0.8 (0.7-1.2) mg/dL GFR Calculation 100.4 (90-130) mL/min Glucose 173 H (65-115) mg/dL Calculated Osmolal ity 289 (285-295) mOsm/k g Lactic Acid 2.1 (0.5-2.2) mmol/L Calcium 8.7 (8.5-10.5) mg/dL Magnesium 1.8 (1.7-2.3) mg/dL Total Bilirubin 0.6 (0.15-1.2) mg/dL AST 32 (0-40) U/L ALT 47 H (0-41) U/L Alkaline Phosphata se 109 (40-130) IU/L Total Protein 7.0 (6.6-8.7) g/dL Albumin 3.9 (3.5-5.2) g/dL Globulin 3.1 (1.3-4.6) g/dL Urine Color (Yellow) Urine Appearance (CLEAR) Urine pH (5-7) Ur Specific Gravit y (1.005-1.030) Urine Protein (Negative) Urine Glucose (UA) (Normal) Urine Ketones (Negative) Urine Blood (Negative) Urine Nitrate (Negative) Urine Bilirubin (Negative) Urine Urobilinogen (Negative) mg/dL Ur Leukocyte Roselyn ase (Negative) 10/02/20 10/02/20 Range/Units 07:32 08:18 WBC (4.0-10.0) 10^3/ uL RBC (4.1-5.3) 10^6/u L Hgb (11.7-16.6) g/dL Hct (42.0-52.0) % MCV (80-94) fL MCH (28.0-34.0) pg MCHC (30.0-36.0) g/dL RDW (12.1-15.1) % Plt Count (130-400) 10^3/c mm MPV (7.4-10.4) fL Neut % (Auto) % Lymph % (Auto) % [place] % (Auto) % Eos % (Auto) % Baso % (Auto) % Neut # (Auto) (1.8-7.7) 10^3/u L Lymph # (Auto) (0.8-4.8) 10^3/u L [place] # (Auto) (0.2-0.9) 10^3/u L Eos # (Auto) (0.0-0.8) 10^3/u L Baso # (Auto) (0.0-0.1) 10^3/u L Nucleated RBC % (a uto) % Nucleated RBCs # /100WBC PT 13.30 (12.1-14.9) SECO NDS INR 0.98 (0.8-1.2) Sodium (136-145) mmol/L Potassium (3.5-5.1) mmol/L Chloride (98-107) mmol/L Carbon Dioxide (22-29) mmol/L Anion Gap (5-19) BUN (6-20) mg/dL Creatinine (0.7-1.2) mg/dL GFR Calculation (90-130) mL/min Glucose (65-115) mg/dL Calculated Osmolal ity (285-295) mOsm/k g Lactic Acid (0.5-2.2) mmol/L Calcium (8.5-10.5) mg/dL Magnesium (1.7-2.3) mg/dL Total Bilirubin (0.15-1.2) mg/dL AST (0-40) U/L ALT (0-41) U/L Alkaline Phosphata se (40-130) IU/L Total Protein (6.6-8.7) g/dL Albumin (3.5-5.2) g/dL Globulin (1.3-4.6) g/dL Urine Color Yellow (Yellow) Urine Appearance Clear (CLEAR) Urine pH 6 (5-7) Ur Specific Gravit y 1.015 (1.005-1.030) Urine Protein Neg (Negative) Urine Glucose (UA) Norm (Normal) Urine Ketones 3+ H (Negative) Urine Blood Neg (Negative) Urine Nitrate Negative (Negative) Urine Bilirubin 1+ H (Negative) Urine Urobilinogen 1 H (Negative) mg/dL Ur Leukocyte Roselyn ase Negative (Negative) Discharge Plan Discharge Patient Disposition: Home Clinical Impression: Thoracic back pain Condition: Stable Prescriptions: New cyclobenzaprine 10 mg tablet 10 mg PO TID PRN (Reason: muscle spasm) Qty: 30 RF: 0 No Action diclofenac sodium 1 % gel 2 gm TOPICAL QID Qty: 100 RF: 2 gabapentin 600 mg tablet 600 mg PO TID Qty: 90 RF: 4 pantoprazole 40 mg tablet,delayed release (DR/EC) 40 mg PO DAILY@05 Qty: 30 RF: 3 prednisone 10 mg tablet See Rx Instructions PO DAILY 90 Days Qty: 60 RF: 4 methotrexate sodium 2.5 mg tablet See Rx Instructions PO .Q7days Qty: 30 RF: 3 folic acid 1 mg tablet 1 mg PO DAILY Qty: 90 RF: 1 ondansetron HCl [Zofran] 4 mg tablet 4 mg PO TID PRN (Reason: nausea and vomiting) Qty: 30 RF: 1 aspirin 325 mg tablet 325 mg PO DAILY@05 RF: 0 nitroglycerin 0.4 mg tablet, sublingual 0.4 mg SUBLINGUAL Q5M PRN (Reason: Chest Pain) RF: 0 vitamin B complex [B Complex-Vitamin B12] Tablet 1 tab PO DAILY@05 RF: 0 lorazepam 1 mg tablet 1 mg PO BID PRN (Reason: anxiety) Qty: 90 RF: 2 albuterol sulfate [ProAir HFA] 90 mcg/actuation HFA aerosol inhaler 2 puff INHALATION Q6H PRN (Reason: Shortness Of Breath) Qty: 6.7 RF: 1 metoprolol tartrate 25 mg tablet 25 mg PO BID@05,17 Qty: 180 RF: 3 ascorbic acid (vitamin C) [Vitamin C] 500 mg Tablet 1,000 mg PO DAILY@05 Qty: 0 RF: 0 cholecalciferol (vitamin D3) [Vitamin D3] 25 mcg (1,000 unit) Capsule 25 - 75 mcg PO DAILY@05 Qty: 0 RF: 0 atorvastatin 20 mg Tablet 20 mg PO BEDTIME RF: 0 oxycodone-acetaminophen 10-325 mg Tablet 1 tab PO Q6H PRN (Reason: Pain) RF: 0 naproxen 500 mg Tablet 500 mg PO BID PRN (Reason: Pain) RF: 0 fluticasone propion-salmeterol [Advair Diskus] 250-50 mcg/dose Blister With Device 1 inh INHALATION BID@,17 RF: 0 flecainide 100 mg tablet 150 mg PO BID@0500,1700 Qty: 60 RF: 3 oxycodone 10 mg tablet 10 mg PO Q4H PRN (Reason: pain) 7 Days Qty: 30 RF: 0 venlafaxine [Effexor XR] 75 mg capsule,extended release 24hr 75 mg PO BID@,17 RF: 0 buspirone 10 mg tablet 10 mg PO BID@,17 RF: 0 carisoprodol 350 mg Tablet 350 mg PO Q8H PRN (Reason: Pain) Qty: 20 RF: 0 lidocaine [Lidoderm] 5 % Adhesive Patch,Medicated 1 patch topical [id number] Qty: 14 RF: 0 nicotine 21 mg/24 hr Patch 24 Hour 1 patch transdermal DAILY Qty: 30 RF: 0 trolamine salicylate [Sportscreme] 10 % Cream 1 applic topical TID PRN (Reason: MUSCLE PAIN) Qty: 85 RF: 0 Discharge Orders: Discharge ED (Routine); Ordered 10/02/20 Ordered By: America Briceno Referrals: Ozzy Rizvi DO [Physician] - (Follow-up on Sunday or Sunday of next week.) Deepak Mock MD [Primary Care Provider] - Discharge Diet: Usual diet Discharge Activity: Limit activity as instructed Patient Instructions: Back Pain (ED), Opioid Safety Activity Restrictions/Additional Instructions: Please return to the ER immediately for any of the signs or symptoms listed on your discharge instruction sheets, worsening/changing of your symptoms, you are not getting better as quickly as expected, or for ANY other cause or concerns. Take the Flexeril as I have prescribed you but do not take Soma/Cisaprodal/Tizanidine while taking the Flexeril. Rest and follow the instructions given to you by Dr. Rizvi after the surgery. Call his office for an appointment to be seen early next week. Return to the ER for numbness or weakness of your legs, loss of bowel or bladder control, or for any other cause for concern. Coding Level of Care Code ED Pl[employer] Mould Maker for Chg Fwd Exam Comprehensive
[2020-10-02 07:22] VITALS: RESP 21
[2020-10-02] MEDS: HYDROmorphone 1 mg/mL INJ 1 mL IVP ×2 (07:22→08:20)
[2020-10-02] MEDS: ondansetron 2 mg/ML SDV 2 mL 4 MG IVP (07:22)
[2020-10-02] MEDS: acetaminophen 1,000 MG/100 ML PIGGYBACK 400 MG IV (07:24)
[2020-10-02 07:26] LABS: Basophils % 0.2 %; Eosinophils % 0.4 %; Hematocrit 40.4 % (42.0-52.0); Hemoglobin 13.9 g/dL (11.7-16.6); Lymphocytes # 2.6 10^3/uL (0.8-4.8); Lymphocytes % 24.1 %; Mean Corpuscular HGB Conc 34.4 g/dL (30.0-36.0); Mean Corpuscular Hemoglobin 33.7 pg (28.0-34.0); Mean Corpuscular Volume 97.8 fL (80-94); Mean Platelet Volume 9.7 fL (7.4-10.4); Monocytes # 0.7 10^3/uL (0.2-0.9); Monocytes % 6.7 %; Neutrophils # 7.15 10^3/uL (1.8-7.7); Neutrophils % 67.7 %; Nucleated Red Blood Cells % 0 %; Platelet Count 288 10^3/cmm (130-400); Red Blood Count 4.13 10^6/uL (4.1-5.3); Red Cell Distribution Width 14.1 % (12.1-15.1); White Blood Count 10.6 10^3/uL (4.0-10.0)
[2020-10-02 07:51] LABS: Alanine Aminotransferase 47 U/L (0-41); Albumin Level 3.9 g/dL (3.5-5.2); Alkaline Phosphatase 109 IU/L (40-130); Aspartate Amino Transferase 32 U/L (0-40); Blood Urea Nitrogen 16 mg/dL (6-20); Calcium 8.7 mg/dL (8.5-10.5); Carbon Dioxide 19 mmol/L (22-29); Chloride 100 mmol/L (98-107); Creatinine Clr Calc Pharmacy 118.1842; Globulin 3.1 g/dL (1.3-4.6); Glomerular Filtration Rate 100.4 mL/min (90-130); Glucose 173 mg/dL (65-115); Magnesium 1.8 mg/dL (1.7-2.3); Osmolality Calculated 289 mOsm/kg (285-295); Sodium 137 mmol/L (136-145); Total Bilirubin 0.6 mg/dL (0.15-1.2)
[2020-10-02 07:52] LABS: Lactic Sepsis W/Reflex 2.1 mmol/L (0.5-2.2)
[2020-10-02] MEDS: iohexol 300 mg/mL 100 mL Btl IV (07:52)
[2020-10-02 07:54] LABS: Anion Gap 22.3 (5-19); Potassium 4.3 mmol/L (3.5-5.1)
[2020-10-02 08:04] LABS: INR 0.98 (0.8-1.2)
[2020-10-02 08:20] VITALS: RESP 18
[2020-10-02 08:34] LABS: Add Urine Microscopic? NO; Charge for UA Resulting for Rev
[2020-10-02 08:51] LABS: Bilirubin Urine 1+ (Negative); Blood Urine Neg (Negative); Glucose Urine UA Norm (Normal); Ketones Urine 3+ (Negative); Leukocyte Esterase Urine Negative (Negative); Nitrate Urine Negative (Negative); Protein Urine Neg (Negative); Specific Gravity, Urine 1.015 (1.005-1.030); Urine Appearance Clear (CLEAR); Urine Color Yellow (Yellow); Urobilinogen Urine 1 mg/dL (Negative); pH Urine 6 (5-7)
[2020-10-02 09:08] LABS: Reflex Lactate Order REFLEX LACTIC ORDERD
[2020-10-02] MEDS: lactated ringers 1,000 ML 999 ML IV (09:15)
[2020-10-02] MEDS: LORazepam 2 mg/mL INJ 1 mL 1 MG IVP (09:25)
[2020-10-02 09:32] VITALS: BP 120/88; PULSE 80; RESP 18; O2SAT 92
[2020-10-02 09:56] VITALS: BP 120/88; PULSE 86; RESP 20; O2SAT 97
--- NOTE | 2020-10-13 10:38 | PC.NURSE ---
spoke with pt regarding letter he received. pt was instructed to follow up with PCP and have repeat BC drawn
== END 2020-10-02 09:58 | disposition home or self-care (01) ==
PROVIDERS: Emergency Provider Emergency Medicine; PCP Family Medicine
DX: M54.6 Pain in thoracic spine (principal); Z79.82 Long term (current) use of aspirin; I10 Essential (primary) hypertension; I48.0 Paroxysmal atrial fibrillation; F17.210 Nicotine dependence, cigarettes, uncomplicated
CPT/HCPCS: 71260; 72128; 72131; 74177; 80053; 81003; 83605; 83735; 85025; 85610; 87040; 87077; 87186; 87205; 96365; 96375; 96376; 99284; J1170; J2060; J2405; Q9967

== ENCOUNTER 2020-10-26 08:00 | Outpatient (RCR) | payer OTHER, SELFPAY | END 2020-11-24 23:59 | disposition home or self-care (01) | LOC: SPT 08:00 | PROVIDERS: PCP Family Medicine; Referring Provider Family Medicine; Visit Provider Family Medicine | DX: Z87.311 Personal history of (healed) other pathological fracture (principal) | CPT/HCPCS: 97110; 97162 ==

== ENCOUNTER 2020-10-27 17:01 | Emergency (ER) | payer OTHER, SELFPAY ==
[2020-10-27 17:37] VITALS: BP 108/73; PULSE 84; RESP 18; TEMP 36.4; O2SAT 97; BMI 27.6
[2020-10-27 18:07] VITALS: BP 111/82; PULSE 81; RESP 19; O2SAT 95
[2020-10-27 18:10] LABS: Basophils # 0.1 10^3/uL (0.0-0.1); Basophils % 0.6 %; Eosinophils # 0.1 10^3/uL (0.0-0.8); Eosinophils % 0.8 %; Hematocrit 42.7 % (42.0-52.0); Hemoglobin 13.9 g/dL (11.7-16.6); Lymphocytes # 2.3 10^3/uL (0.8-4.8); Lymphocytes % 25.8 %; Mean Corpuscular HGB Conc 32.6 g/dL (30.0-36.0); Mean Corpuscular Hemoglobin 32.9 pg (28.0-34.0); Mean Corpuscular Volume 100.9 fL (80-94); Mean Platelet Volume 9.7 fL (7.4-10.4); Monocytes # 0.9 10^3/uL (0.2-0.9); Monocytes % 10.3 %; Neutrophils # 5.58 10^3/uL (1.8-7.7); Neutrophils % 61.6 %; Nucleated Red Blood Cells % 0 %; Platelet Count 245 10^3/cmm (130-400); Red Blood Count 4.23 10^6/uL (4.1-5.3); Red Cell Distribution Width 13.4 % (12.1-15.1)
[2020-10-27] MEDS: lidocaine 2% viscous 15 ML, aluminum-mag hydrox-simethicon 30 ML, sucralfate oral liq 1 GM PO (18:10)
[2020-10-27] MEDS: sodium chloride 0.9% 1,000 ML 999 ML IV (18:10)
[2020-10-27] MEDS: ondansetron 2 mg/ML SDV 2 mL 4 MG IVP (18:10)
--- NOTE | 2020-10-27 18:13 | CTR_ITS ---
PROCEDURE INFORMATION: Exam: CTA Chest With Contrast Exam date and time: 10/27/2020 6:14 PM Age: 54 years old Clinical indication: Nausea and vomiting; Abdominal pain; Shortness of breath; Other: Rib pain; Prior surgery; Additional info: Chest abd pain TECHNIQUE: Imaging protocol: Computed tomographic angiography of the chest with contrast. 3D rendering (Not supervised by radiologist): MIP and/or 3D reconstructed images were created by the technologist. Radiation optimization: All CT scans at this facility use at least one of these dose optimization techniques: automated exposure control; mA and/or kV adjustment per patient size (includes targeted exams where dose is matched to clinical indication); or iterative reconstruction. Contrast material: OMNI 350; Contrast volume: 95 ml; Contrast route: INTRAVENOUS (IV); COMPARISON: CT angio chest w abd pel w con 08/19/2020 12:25 PM RADIATION DOSE METRICS: Total DLP (mGy-cm): 1518.34 FINDINGS: Pulmonary arteries: Normal. No pulmonary emboli. Aorta: Unremarkable. No aortic aneurysm. No aortic dissection. Lungs: Moderate severity emphysematous lung changes. Mild bronchial wall thickening features. Small apical blebs. No airspace consolidation. No obstructing endobronchial lesion. No focal suspicious pulmonary lesion. Pleural spaces: Unremarkable. No pneumothorax. No pleural effusion. Heart: Unremarkable. No cardiomegaly. No pericardial effusion. Lymph nodes: Unremarkable. No enlarged lymph nodes. Bones/joints: No acute thoracic fractures. Percutaneous vertebral augmentation changes are noted at the T5 level for treatment of a prior compression fracture. Thoracic spinal alignment is anatomic. Soft tissues: Unremarkable. IMPRESSION: 1. Negative for pulmonary embolism. 2. Focal acute pulmonary disease. 3. Moderate severity emphysematous lung changes. PROCEDURE INFORMATION: Exam: CT Abdomen And Pelvis With Contrast Exam date and time: 10/27/2020 6:14 PM Age: 54 years old Clinical indication: Nausea and vomiting; Abdominal pain; Shortness of breath; Other: Rib pain; Prior surgery; Additional info: Chest abd pain TECHNIQUE: Imaging protocol: Computed tomography of the abdomen and pelvis with contrast. Radiation optimization: All CT scans at this facility use at least one of these dose optimization techniques: automated exposure control; mA and/or kV adjustment per patient size (includes targeted exams where dose is matched to clinical indication); or iterative reconstruction. Contrast material: OMNI 350; Contrast volume: 95 ml; Contrast route: INTRAVENOUS (IV); COMPARISON: CT angio chest w abd pel w con 08/19/2020 12:25 PM RADIATION DOSE METRICS: Total DLP (mGy-cm): 1518.34 FINDINGS: Liver: Unremarkable. No mass. Gallbladder and bile ducts: Normal. No calcified stones. No ductal dilation. Pancreas: Normal. No ductal dilation. Spleen: Normal. No splenomegaly. Adrenal glands: Right adrenalectomy. Normal left adrenal gland. Kidneys and ureters: Normal. No hydronephrosis. Stomach and bowel: Diverticulosis coli. No focal bowel mass. Negative for bowel obstruction. Negative for bowel perforation. No inflammatory wall thickening of bowel loops. Moderate fecal volume. Appendix: No evidence of appendicitis. Intraperitoneal space: Unremarkable. No free air. No significant fluid collection. Vasculature: Scattered atherosclerosis. No aneurysm. No vascular occlusion. Lymph nodes: Unremarkable. No enlarged lymph nodes. Urinary bladder: Unremarkable as visualized. Reproductive: Unremarkable as visualized. Bones/joints: Unremarkable. No acute fracture. Soft tissues: Unremarkable. CT/CT angio chest w abd pel w con IMPRESSION: 1. Negative for acute pathology in the abdomen or pelvis. 2. No changes from comparison. Radiation Dose CTDIVOL = (mGy): DLP = 1518.34~1518.34 (mGy-cm)
--- NOTE | 2020-10-27 18:21 | ECG_ITS ---
[facility] Test Date: 2020-10-27 Pat Name: Dalton Dumont Department: Room: Gender: Male Help Desk Associate: : 1965 Requested By: Vinnie Redd Order Number: [id number] Peter MD: Kennedy Bunn M.D. Measurements Intervals [place] Rate: 79 P: 62 DC: 179 QRS: 46 QRSD: 91 T: 68 QT: 382 QTc: 440 Interpretive Statements SINUS RHYTHM POSSIBLE LEFT ATRIAL ENLARGEMENT [-0.1mV P WAVE IN V1/V2] Compared to ECG 09/09/2020 08:31:52 No significant changes Electronically Signed On 10-28-2020 18:44:30 CDT by Kennedy Bunn M.D. [id number]
--- NOTE | 2020-10-27 18:21 | W.ED.GENADLT ---
HPI - General Adult General: Chief complaint: General Medical Stated complaint: NAUSEA VOMITING UPPER ABD PAIN Time Seen by Provider: 10/27/20 17:51 Source: patient Mode of arrival: ambulatory Limitations: no limitations History of Present Illness: HPI narrative: 54-year-old male with multiple medical issues including polymyalgia rheumatica causing him a lot of pain. He also has a recent spine fracture with surgery over a month ago. He states that over the last 2 weeks he has been having abdominal and chest wall pain. He states pain is diffuse in nature and worse with palpation. States pain is currently a 5 out of 10. Denies any vomiting or diarrhea. Denies fever Associated symptoms: Reports chest pain; Deny dyspnea, headache(s) or rash Review of Systems Const: Denies: fever(s), chills, body aches or change in appetite Eyes: Denies: blurry vision or eye discomfort ENMT: Denies: throat pain or dental pain Card: Reports: chest pain Resp: Denies: dyspnea GI: Reports: abdominal pain : Denies: dysuria Musc: Denies: neck pain or back pain Skin/Breast: Denies: rash Neuro: Denies: headache(s) Psych: Denies: depression Jonathan/Lymph: Denies: easy bruising All/Imm: Denies: urticaria PFSH ED PFSH: Medical History Abdominal pain Alcohol abuse, episodic drinking behavior Allergic contact dermatitis Atrial fibrillation with rapid ventricular response Back pain Benign essential HTN Chronic low back pain Chronic steroid use Cigarette nicotine dependence Diverticulitis GCA (giant cell arteritis) Generalized anxiety disorder Severe GERD (gastroesophageal reflux disease) High risk medication use Inflammatory arthritis Major depressive disorder, recurrent severe without psychotic features IVON (obstructive sleep apnea) Paroxysmal atrial fibrillation Polymyalgia rheumatica Smoking addiction 30 years currently smokes half a pack a day. Squamous cell carcinoma Surgical History History of kidney surgery Previous back surgery Family History Sister CAD (coronary artery disease) Psychiatric illness Mother Cancer Rheumatoid arthritis Father Diabetes Hyperlipidemia Hypertension Grandmother Diabetes Other Family history of premature coronary artery disease Denies family history of Clotting disorder Dementia Chronic kidney disease (CKD) Systemic lupus erythematosus (SLE) in adult Suicide Anesthesia complication Bleeding disorder Lung disease Stroke Social History Smoking and tobacco status: current every day smoker Alcohol intake: former Household members: spouse Housing: House 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 History of recent travel: No Physical Exam Const: COMMON NORMALS: no acute distress, patient oriented x3 and healthy appearing HENMT: COMMON NORMALS: normocephalic and atraumatic HEAD & SCALP: normocephalic and atraumatic Eye: COMMON NORMALS: Equal, round and reactive pupils present and EOMs intact bilaterally PUPIL: Yes Equal, round and reactive pupils present Neck/C-Spine: COMMON NORMALS: full ROM and supple Chest: COMMONS NORMALS: normal inspection of the chest OTHER: tenderness over left and right chest wall Resp: COMMON NORMALS: normal respiratory effort, No retractions, No use of accessory muscles and clear to auscultation bilaterally AUSCULTATION: clear to auscultation bilaterally Cardio: COMMON NORMALS: regular rate, regular rhythm and No murmurs present (Cardio) RATE: regular rate RHYTHM: regular rhythm GI: COMMON NORMALS: Normal to inspection, nondistended, normoactive bowel sounds present, Soft to palpation and no masses PALPATION: Yes Soft to palpation and Yes Tenderness to palpation present (GI) (diffuese mild tenderness) Extremity: COMMON NORMALS: normal to inspection and full ROM Neuro: COMMON NORMALS: patient oriented x3, moves all extremities and no focal motor deficits Psych: COMMON NORMALS: mental status grossly normal, Normal thought process present and cooperative THOUGHT PROCESS: Normal thought process present Skin: COMMON NORMALS: no rashes or lesions noted and no wounds GENERAL SKIN EXAM: no rashes or lesions noted Course Vital Signs: Vital signs: Vital Signs Temperature 97.5 F L 10/27/20 17:37 Pulse Rate 79 10/27/20 20:00 Respiratory Rate 16 10/27/20 20:00 Blood Pressure 111/74 10/27/20 20:00 Pulse Oximetry 93 10/27/20 20:00 MDM - General Adult MDM Narrative: Medical decision making narrative: Dalton presents with chest and abdominal pain likely muscular in nature. He is point tender. EKG and CT scans here are negative. We will place him on Naprosyn for home and he is to follow-up his PCP. He is to return if worsening. He understands agrees to plan. Lab Data: Labs: Lab Results 10/27/20 10/27/20 Range/Units 18:00 18:00 WBC 9.0 (4.0-10.0) 10^3/ uL RBC 4.23 (4.1-5.3) 10^6/u L Hgb 13.9 (11.7-16.6) g/dL Hct 42.7 (42.0-52.0) % MCV 100.9 H (80-94) fL MCH 32.9 (28.0-34.0) pg MCHC 32.6 (30.0-36.0) g/dL RDW 13.4 (12.1-15.1) % Plt Count 245 (130-400) 10^3/c mm MPV 9.7 (7.4-10.4) fL Neut % (Auto) 61.6 % Lymph % (Auto) 25.8 % Emmet % (Auto) 10.3 % Eos % (Auto) 0.8 % Baso % (Auto) 0.6 % Neut # (Auto) 5.58 (1.8-7.7) 10^3/u L Lymph # (Auto) 2.3 (0.8-4.8) 10^3/u L Emmet # (Auto) 0.9 (0.2-0.9) 10^3/u L Eos # (Auto) 0.1 (0.0-0.8) 10^3/u L Baso # (Auto) 0.1 (0.0-0.1) 10^3/u L Nucleated RBC % (a uto) 0 % Nucleated RBCs # 0.0 /100WBC Sodium 137 (136-145) mmol/L Potassium 4.3 (3.5-5.1) mmol/L Chloride 98 (98-107) mmol/L Carbon Dioxide 26 (22-29) mmol/L Anion Gap 17.3 (5-19) BUN 11 (6-20) mg/dL Creatinine 1.0 (0.7-1.2) mg/dL GFR Calculation 77.6 L (90-130) mL/min Glucose 104 (65-115) mg/dL Calculated Osmolal ity 284 L (285-295) mOsm/k g Calcium 10.7 H (8.5-10.5) mg/dL Total Bilirubin 0.3 (0.15-1.2) mg/dL AST 25 (0-40) U/L ALT 27 (0-41) U/L Alkaline Phosphata se 109 (40-130) IU/L Total Protein 7.1 (6.6-8.7) g/dL Albumin 4.0 (3.5-5.2) g/dL Globulin 3.1 (1.3-4.6) g/dL Lipase 66 H (13-60) U/L Imaging Data^: CT Chest: Attestation: I personally reviewed and interpreted this imaging study as follows: My impression: [address] [place] [address] CT Scan Report Signed Patient: Dalton Dumont Unit #: [id number] : 1965 Age/Sex: 54 / M ADM Date: 10/27/20 Loc: ER Room/Bed: Attending Dr: Ordering Provider/Ordering MD: Vinnie Redd MD Date of Service: 10/27/20 Procedure(s): CT angio chest w abd pel w con Accession Number(s): [id number] Report Number: [id number] PROCEDURE INFORMATION: Exam: CTA Chest With Contrast Exam date and time: 10/27/2020 6:14 PM Age: 54 years old Clinical indication: Nausea and vomiting; Abdominal pain; Shortness of breath; Other: Rib pain; Prior surgery; Additional info: Chest abd pain TECHNIQUE: Imaging protocol: Computed tomographic angiography of the chest with contrast. 3D rendering (Not supervised by radiologist): MIP and/or 3D reconstructed images were created by the technologist. Radiation optimization: All CT scans at this facility use at least one of these dose optimization techniques: automated exposure control; mA and/or kV adjustment per patient size (includes targeted exams where dose is matched to clinical indication); or iterative reconstruction. Contrast material: OMNI 350; Contrast volume: 95 ml; Contrast route: INTRAVENOUS (IV); COMPARISON: CT angio chest w abd pel w con 08/19/2020 12:25 PM RADIATION DOSE METRICS: Total DLP (mGy-cm): 1518.34 FINDINGS: Pulmonary arteries: Normal. No pulmonary emboli. Aorta: Unremarkable. No aortic aneurysm. No aortic dissection. Lungs: Moderate severity emphysematous lung changes. Mild bronchial wall thickening features. Small apical blebs. No airspace consolidation. No obstructing endobronchial lesion. No focal suspicious pulmonary lesion. Pleural spaces: Unremarkable. No pneumothorax. No pleural effusion. Heart: Unremarkable. No cardiomegaly. No pericardial effusion. Lymph nodes: Unremarkable. No enlarged lymph nodes. Bones/joints: No acute thoracic fractures. Percutaneous vertebral augmentation changes are noted at the T5 level for treatment of a prior compression fracture. Thoracic spinal alignment is anatomic. Soft tissues: Unremarkable. IMPRESSION: 1. Negative for pulmonary embolism. 2. Focal acute pulmonary disease. 3. Moderate severity emphysematous lung changes. PROCEDURE INFORMATION: Exam: CT Abdomen And Pelvis With Contrast Exam date and time: 10/27/2020 6:14 PM Age: 54 years old Clinical indication: Nausea and vomiting; Abdominal pain; Shortness of breath; Other: Rib pain; Prior surgery; Additional info: Chest abd pain TECHNIQUE: Imaging protocol: Computed tomography of the abdomen and pelvis with contrast. Radiation optimization: All CT scans at this facility use at least one of these dose optimization techniques: automated exposure control; mA and/or kV adjustment per patient size (includes targeted exams where dose is matched to clinical indication); or iterative reconstruction. Contrast material: OMNI 350; Contrast volume: 95 ml; Contrast route: INTRAVENOUS (IV); COMPARISON: CT angio chest w abd pel w con 08/19/2020 12:25 PM RADIATION DOSE METRICS: Total DLP (mGy-cm): 1518.34 FINDINGS: Liver: Unremarkable. No mass. Gallbladder and bile ducts: Normal. No calcified stones. No ductal dilation. Pancreas: Normal. No ductal dilation. Spleen: Normal. No splenomegaly. Adrenal glands: Right adrenalectomy. Normal left adrenal gland. Kidneys and ureters: Normal. No hydronephrosis. Stomach and bowel: Diverticulosis coli. No focal bowel mass. Negative for bowel obstruction. Negative for bowel perforation. No inflammatory wall thickening of bowel loops. Moderate fecal volume. Appendix: No evidence of appendicitis. Intraperitoneal space: Unremarkable. No free air. No significant fluid collection. Vasculature: Scattered atherosclerosis. No aneurysm. No vascular occlusion. Lymph nodes: Unremarkable. No enlarged lymph nodes. Urinary bladder: Unremarkable as visualized. Reproductive: Unremarkable as visualized. Bones/joints: Unremarkable. No acute fracture. Soft tissues: Unremarkable. CT/CT angio chest w abd pel w con IMPRESSION: 1. Negative for acute pathology in the abdomen or pelvis. 2. No changes from comparison. Radiation Dose CTDIVOL = (mGy): DLP = 1518.34 1518.34 (mGy-cm) Dictated By: Jhony Conrad Signed By: Jhony Conrad Signed Date/Time: 10/27/202004 DD/ 02 EKG Data^: EKG 1: Attestation: I personally reviewed and interpreted this EKG as follows: EKG interpretation date: 10/27/20 EKG interpretation time: 18:27 Interpretation: nsr hr [address] or t wave abnormalities qrs 91 qtc 417 Computer generated interpretation: Chest/Abdomen/Pelvis CT 10/27/20 18:13 IMPRESSION: 1. Negative for acute pathology in the abdomen or pelvis. 2. No changes from comparison. Radiation Dose CTDIVOL = (mGy): DLP = 1518.34~1518.34 (mGy-cm) Discharge Plan Discharge Patient Disposition: Home Clinical Impression: Abdominal pain, Chest wall pain Condition: Stable Prescriptions: New Naprosyn 500 mg tablet 500 mg PO BID PRN (Reason: pain) Qty: 20 RF: 0 ondansetron 4 mg tablet,disintegrating 4 mg PO Q6H PRN (Reason: nausea and vomiting) Qty: 14 RF: 0 No Action diclofenac sodium 1 % gel 2 gm TOPICAL QID Qty: 100 RF: 2 pantoprazole 40 mg tablet,delayed release (DR/EC) 40 mg PO DAILY@05 Qty: 30 RF: 3 ondansetron HCl [Zofran] 4 mg tablet 4 mg PO TID PRN (Reason: nausea and vomiting) Qty: 30 RF: 1 aspirin 325 mg tablet 325 mg PO DAILY@05 RF: 0 nitroglycerin 0.4 mg tablet, sublingual 0.4 mg SUBLINGUAL Q5M PRN (Reason: Chest Pain) RF: 0 vitamin B complex [B Complex-Vitamin B12] Tablet 1 tab PO DAILY@05 RF: 0 lorazepam 1 mg tablet 1 mg PO BID PRN (Reason: anxiety) Qty: 90 RF: 2 albuterol sulfate [ProAir HFA] 90 mcg/actuation HFA aerosol inhaler 2 puff INHALATION Q6H PRN (Reason: Shortness Of Breath) Qty: 6.7 RF: 1 doxycycline hyclate 100 mg capsule 100 mg PO BID@0500,1700 RF: 0 metoprolol tartrate 25 mg tablet 25 mg PO BID@05,17 Qty: 180 RF: 3 ascorbic acid (vitamin C) [Vitamin C] 500 mg Tablet 1,000 mg PO DAILY@05 Qty: 0 RF: 0 cholecalciferol (vitamin D3) [Vitamin D3] 25 mcg (1,000 unit) Capsule 25 - 75 mcg PO DAILY@05 Qty: 0 RF: 0 atorvastatin 20 mg Tablet 20 mg PO DAILY@0500 RF: 0 naproxen 500 mg Tablet 500 mg PO BID PRN (Reason: Pain) RF: 0 fluticasone propion-salmeterol [Advair Diskus] 250-50 mcg/dose Blister With Device 1 inh INHALATION BID@,17 RF: 0 flecainide 100 mg tablet 150 mg PO BID@0500,1700 Qty: 60 RF: 3 gabapentin 600 mg tablet 600 mg PO TID@05,,17 RF: 0 folic acid 1 mg tablet 1 mg PO DAILY@0500 RF: 0 venlafaxine [Effexor XR] 75 mg capsule,extended release 24hr 75 mg PO BID@,17 RF: 0 buspirone 10 mg tablet 10 mg PO BID@,17 RF: 0 carisoprodol 350 mg Tablet 350 mg PO Q8H PRN (Reason: Pain) Qty: 20 RF: 0 lidocaine [Lidoderm] 5 % Adhesive Patch,Medicated 1 patch topical [id number] Qty: 14 RF: 0 trolamine salicylate [Sportscreme] 10 % Cream 1 applic topical TID PRN (Reason: MUSCLE PAIN) Qty: 85 RF: 0 Discharge Orders: Discharge ED (Routine); Ordered 10/27/20 Ordered By: Vinnie Redd Referrals: Deepak Mock MD [Primary Care Provider] - Discharge Diet: Advance as tolerated Discharge Activity: Resume usual activity Patient Instructions: Abdominal Pain (ED) Coding Level of Care Code ED Terminal Gauger for Chg Fwd Exam Comprehensive
[2020-10-27] MEDS: HYDROmorphone 1 mg/mL INJ 1 mL IVP (18:26)
[2020-10-27 18:56] LABS: Alanine Aminotransferase 27 U/L (0-41); Alkaline Phosphatase 109 IU/L (40-130); Anion Gap 17.3 (5-19); Aspartate Amino Transferase 25 U/L (0-40); Blood Urea Nitrogen 11 mg/dL (6-20); Calcium 10.7 mg/dL (8.5-10.5); Carbon Dioxide 26 mmol/L (22-29); Chloride 98 mmol/L (98-107); Globulin 3.1 g/dL (1.3-4.6); Glomerular Filtration Rate 77.6 mL/min (90-130); Glucose 104 mg/dL (65-115); Lipase 66 U/L (13-60); Osmolality Calculated 284 mOsm/kg (285-295); Potassium 4.3 mmol/L (3.5-5.1); Sodium 137 mmol/L (136-145); Total Bilirubin 0.3 mg/dL (0.15-1.2); Total Protein 7.1 g/dL (6.6-8.7)
[2020-10-27] MEDS: iohexol 350 mg/mL 100 mL Btl IV (19:09)
[2020-10-27 20:00] VITALS: BP 111/74; PULSE 79; RESP 16; O2SAT 93
[2020-10-27] MEDS: HYDROcodone-acetaminophen 5-325 mg Tablet 1 TAB PO (20:29)
[2020-10-27 20:33] VITALS: BP 111/74; PULSE 83; RESP 20; O2SAT 93
== END 2020-10-27 20:23 | disposition home or self-care (01) ==
PROVIDERS: Family Medicine; Emergency Provider Emergency Medicine; PCP Family Medicine
DX: R10.9 Unspecified abdominal pain (principal); R07.89 Other chest pain; Z79.82 Long term (current) use of aspirin; I10 Essential (primary) hypertension; F17.210 Nicotine dependence, cigarettes, uncomplicated
CPT/HCPCS: 71275; 74177; 80053; 83690; 85025; 93005; 96374; 96375; 96376; 99284; J1170; J2405; J7030; Q9967

== ENCOUNTER 2020-10-28 12:57 | Emergency (ER) | payer OTHER, SELFPAY ==
[2020-10-28 13:08] VITALS: BP 114/66; PULSE 100; RESP 18; TEMP 36.7; O2SAT 98; BMI 27.5
--- NOTE | 2020-10-28 16:15 | W.ED.GENADLT ---
HPI - General Adult General: Chief complaint: General Medical Stated complaint: INCREASED PAIN SINCE YESTERDAY, DIFF BREATHING Time Seen by Provider: 10/28/20 15:13 History of Present Illness: HPI narrative: 54-year-old male presents emergency room with complaint of dermatomal pain at the thoracic level. He had a previous thoracic lumbar compression fracture which was treated by kyphoplasty. Immediately after the kyphoplasty there was some leakage of bone cement around the thoracic neural foramen this was identified on imaging however he was doing well recently began having this dermatomal-like pain he has been to the emergency room a couple of times he is followed up with Dr. Rizvi. He is complaining of severe pain not relieved by the pain medications he has been taking. Onset (ago): day(s) Location: back Radiation: back Severity: severe Quality: burning and stabbing Pain Consistency: constant Relieving factors: none Exacerbating factors: movement Associated symptoms: Reports chest pain; Deny confusion, cough, diaphoresis, decreased appetite, dyspnea, fevers/chills, headache(s), malaise, nausea, rash, palpitations, seizures, short of breath, syncope, vomiting or weakness Treatments prior to arrival: none Review of Systems Const: Denies: malaise or diaphoresis Card: Reports: chest pain; Denies: palpitations or syncope Resp: Denies: dyspnea GI: Denies: nausea or vomiting Skin/Breast: Denies: rash Neuro: Denies: headache(s) or confusion [facility] ED PFSH: Medical History Abdominal pain Alcohol abuse, episodic drinking behavior Allergic contact dermatitis Atrial fibrillation with rapid ventricular response Back pain Benign essential HTN Chronic low back pain Chronic steroid use Cigarette nicotine dependence Diverticulitis GCA (giant cell arteritis) Generalized anxiety disorder Severe GERD (gastroesophageal reflux disease) High risk medication use Inflammatory arthritis Major depressive disorder, recurrent severe without psychotic features IVON (obstructive sleep apnea) Paroxysmal atrial fibrillation Polymyalgia rheumatica Smoking addiction 30 years currently smokes half a pack a day. Squamous cell carcinoma Surgical History History of kidney surgery Previous back surgery Family History Sister CAD (coronary artery disease) Psychiatric illness Mother Cancer Rheumatoid arthritis Father Diabetes Hyperlipidemia Hypertension Grandmother Diabetes Other Family history of premature coronary artery disease Denies family history of Clotting disorder Dementia Chronic kidney disease (CKD) Systemic lupus erythematosus (SLE) in adult Suicide Anesthesia complication Bleeding disorder Lung disease Stroke Social History Smoking and tobacco status: current every day smoker Alcohol intake: former Household members: spouse Housing: House 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 History of recent travel: No Physical Exam Const: COMMON NORMALS: no acute distress GENERAL APPEARANCE: cooperative and comfortable ORIENTATION/CONSCIOUSNESS: Yes awake, Yes oriented to person, Yes oriented to place and Yes oriented to time HENMT: COMMON NORMALS: normocephalic, atraumatic, hearing grossly normal bilaterally and external ears normal HEAD & SCALP: normocephalic and atraumatic EXTERNAL EAR: Yes external ears normal Neck/C-Spine: COMMON NORMALS: no JVD Resp: COMMON NORMALS: normal respiratory effort, No retractions, No use of accessory muscles and clear to auscultation bilaterally AUSCULTATION: clear to auscultation bilaterally Cardio: COMMON NORMALS: no JVD, regular rate, regular rhythm and No murmurs present (Cardio) RATE: regular rate RHYTHM: regular rhythm GI: COMMON NORMALS: Soft to palpation and No hepatosplenomegaly present AUSCULTATION: Yes normoactive bowel sounds PALPATION: Yes Soft to palpation, No Tenderness to palpation present (GI), No Guarding due to palpation present (GI) and Yes No hepatosplenomegaly present Extremity: COMMON NORMALS: normal to inspection, capillary refill normal, no clubbing, cyanosis or edema, no calf tenderness and no pedal edema Neuro: SENSORIUM/ORIENTATION: Yes oriented to person, Yes oriented to place and Yes oriented to time Skin: COMMON NORMALS: no rashes or lesions noted GENERAL SKIN EXAM: no rashes or lesions noted Course Vital Signs: Vital signs: Vital Signs Temperature 98.0 F 10/28/20 13:08 Pulse Rate 96 10/28/20 17:24 Respiratory Rate 18 10/28/20 17:24 Blood Pressure 114/66 10/28/20 13:08 Pulse Oximetry 94 10/28/20 17:24 MDM - General Adult MDM Narrative: Medical decision making narrative: he has benign abdominal abdominal exam. He has a dermatomal-like pain that I believe is from his compression fracture. There was some concern about some of the bone cement it leaked out and created a little bit of foraminal stenosis but he has not had continuous pain since this happened began initially then resolved and then now is recurring. Dr. Dr. Rizvi he thinks it may be fracture is still unstable and he may have to do a fusion. He will see the patient tomorrow. It may be some time before he is able to get him to the operating room if effusion is indeed what is warranted. As a stopgap ordering to get him into the pain clinic for a possible nerve root ablation at that level which could be therapeutic and diagnostic. Discussed this with the patient. His pain is improved with medications given here we will discharge him home with oral pain medications. Discharge Plan Discharge Patient Disposition: Home Clinical Impression: Neuropathy, Vertebral compression fracture Condition: Stable Prescriptions: New hydrocodone-acetaminophen 5-325 mg tablet 1 tab PO Q6H PRN (Reason: pain) Qty: 20 RF: 0 promethazine 25 mg tablet 25 mg PO Q6H PRN (Reason: nausea and vomiting) Qty: 20 RF: 0 No Action diclofenac sodium 1 % gel 2 gm TOPICAL QID Qty: 100 RF: 2 pantoprazole 40 mg tablet,delayed release (DR/EC) 40 mg PO DAILY@05 Qty: 30 RF: 3 aspirin 325 mg tablet 325 mg PO DAILY@05 RF: 0 nitroglycerin 0.4 mg tablet, sublingual 0.4 mg SUBLINGUAL Q5M PRN (Reason: Chest Pain) RF: 0 vitamin B complex [B Complex-Vitamin B12] Tablet 1 tab PO DAILY@05 RF: 0 lorazepam 1 mg tablet 1 mg PO BID PRN (Reason: anxiety) Qty: 90 RF: 2 albuterol sulfate [ProAir HFA] 90 mcg/actuation HFA aerosol inhaler 2 puff INHALATION Q6H PRN (Reason: Shortness Of Breath) Qty: 6.7 RF: 1 metoprolol tartrate 25 mg tablet 25 mg PO BID@05,17 Qty: 180 RF: 3 ascorbic acid (vitamin C) [Vitamin C] 500 mg Tablet 1,000 mg PO DAILY@05 Qty: 0 RF: 0 cholecalciferol (vitamin D3) [Vitamin D3] 25 mcg (1,000 unit) Capsule 25 - 75 mcg PO DAILY@05 Qty: 0 RF: 0 atorvastatin 20 mg Tablet 20 mg PO DAILY@0500 RF: 0 fluticasone propion-salmeterol [Advair Diskus] 250-50 mcg/dose Blister With Device 1 inh INHALATION BID@,17 RF: 0 flecainide 100 mg tablet 150 mg PO BID@0500,1700 Qty: 60 RF: 3 gabapentin 600 mg tablet 600 mg PO TID@05,12,17 RF: 0 folic acid 1 mg tablet 1 mg PO DAILY@0500 RF: 0 ondansetron 4 mg tablet,disintegrating 4 mg PO Q6H PRN (Reason: nausea and vomiting) Qty: 14 RF: 0 venlafaxine [Effexor XR] 75 mg capsule,extended release 24hr 75 mg PO BID@, RF: 0 buspirone 10 mg tablet 10 mg PO BID@,17 RF: 0 carisoprodol 350 mg Tablet 350 mg PO Q8H PRN (Reason: Pain) Qty: 20 RF: 0 lidocaine [Lidoderm] 5 % Adhesive Patch,Medicated 1 patch topical [id number] Qty: 14 RF: 0 trolamine salicylate [Sportscreme] 10 % Cream 1 applic topical TID PRN (Reason: MUSCLE PAIN) Qty: 85 RF: 0 lisinopril 2.5 mg tablet 2.5 mg PO DAILY@0500 RF: 0 Discharge Orders: Discharge ED (Routine); Ordered 10/28/20 Ordered By: Jerod Nur Referrals: Ozzy Rizvi DO [Physician] - 10/29/20 9:30 am Deepak Mock MD [Primary Care Provider] - Conrad Cantrell MD [Physician] - 11/01/20 8:20 am Patient Instructions: Opioid Safety Activity Restrictions/Additional Instructions: Keep your appointments with Dr. Rizvi and Dr. Cantrell as scheduled listed above. Use the pain medications prescribed today limit lifting and bending should not lift anything greater than 10 pounds (approximate weight of a jug of milk) Coding Level of Care Code ED Yarn Texture Machine Operator for Coleman Sheppard
[2020-10-28 16:28] VITALS: RESP 26
[2020-10-28] MEDS: ondansetron 2 mg/ML SDV 2 mL 4 MG IVP (16:28)
[2020-10-28] MEDS: morphine 4 mg/mL SDV 1 mL 6 MG IVP (16:28)
[2020-10-28 17:17] VITALS: RESP 18; O2SAT 94
[2020-10-28] MEDS: HYDROmorphone 1 mg/mL INJ 1 mL IVP (17:17)
[2020-10-28 17:24] VITALS: PULSE 96; RESP 18; O2SAT 94
--- NOTE | 2020-10-29 08:20 | DCPLANNER ---
merchandise flow manager was asked to schedule a follow up appointment for patient with pain management that Dr. Riziv wanted patient to have, and a follow up appointment with Dr. Rizvi in the ortho clinic. merchandise flow manager called pain management, spoke with Sarah and a follow up appointment was schedule d for Sunday, November 01, 2020 at 8:[address] Conrad Cantrell. merchandise flow manager also called the ortho clinic, spoke with Qiana, and a follow up appointment was scheduled for Thursday, October 29, 2020 at 9:[address] Rizvi. merchandise flow manager informed ED physician and patient of the scheduled appointments.
--- NOTE | 2020-11-11 14:38 | DCPLANNER ---
Patient had a follow up appointment scheduled for 10.29.[address] Rizvi - patient attended appointment. Patient had a follow up appointment scheduled for 11.01.20 with pain management - patient did attend appointment.
== END 2020-10-28 17:57 | disposition home or self-care (01) ==
PROVIDERS: Emergency Provider Family Medicine; PCP Family Medicine
DX: S22.000A Wedge compression fracture of unspecified thoracic vertebra, initial encounter for closed fracture (principal); G62.9 Polyneuropathy, unspecified; Z79.82 Long term (current) use of aspirin; I10 Essential (primary) hypertension; F17.210 Nicotine dependence, cigarettes, uncomplicated; X58.XXXA Exposure to other specified factors, initial encounter
CPT/HCPCS: 96374; 96375; 99283; J1170; J2270; J2405

== ENCOUNTER → 2020-11-01 08:12 | Outpatient (BNVA) | payer OTHER, MEDICAID, SELFPAY | PROVIDERS: PCP Family Medicine; Visit Provider Anesthesiology Pain Medicine | DX: G89.29 Other chronic pain (principal); M35.3 Polymyalgia rheumatica; M51.36 Other intervertebral disc degeneration, lumbar region; S22.000A Wedge compression fracture of unspecified thoracic vertebra, initial encounter for closed fracture; X58.XXXA Exposure to other specified factors, initial encounter; F17.210 Nicotine dependence, cigarettes, uncomplicated; Z79.891 Long term (current) use of opiate analgesic | CPT/HCPCS: 99214 ==

== ENCOUNTER → 2020-11-02 10:43 | Outpatient (BNVA) | payer OTHER, SELFPAY | PROVIDERS: PCP Family Medicine; Visit Provider Orthopaedic Surgery | DX: Z47.89 Encounter for other orthopedic aftercare (principal); Z98.1 Arthrodesis status | CPT/HCPCS: 72070 ==

== ENCOUNTER 2020-11-15 07:53 | Outpatient (CLI) | payer OTHER, SELFPAY ==
--- NOTE | 2020-11-15 07:59 | NM_ITS ---
WS: [id number] NUCLEAR MEDICINE WHOLE BODY BONE SCAN HISTORY: M54.5 - Low back pain COMPARISON: CT 10/27/2020 TECHNIQUE: The patient was injected with 24.9 mCi of Technetium 99m HDP and serial whole-body scintig kaity have been performed with anterior and posterior images. Focal increased uptake is intense involving the T5 vertebral body consistent persistent with prior re cent vertebroplasty. Patient has a known compression fracture. Additional focal areas of increased uptake are moderate to intense involving the lateral 10th ribs on the RIGHT and LEFT. Additional more focal increased uptake anteriorly at what are probably the 11th ribs bilaterally. Focal area of increased uptake involving the RIGHT inferior SI joint. Increasing sc lerosis along the sacral side of the RIGHT SI joint since 09/09/2020. NM/AR bone scan whole body* [id number] IMPRESSION: 1. Increased uptake at T5 probably related to recent compression fracture with vertebroplasty. 2. Increased uptake along the RIGHT SI joint/sacrum. Previous sacral insuffici ency fracture was suspected on MRI from 09/14/2020. New sclerosis in the RIGHT s acrum since 09/09/[address] of 10/27/2020. May be sacral insufficiency fract ure. 3. Bilateral focal areas of increased uptake involving the 10th and 11th ribs a nteriorly. Due to the distribution suspect these are probably fractures. May be from recent fall.
== END 2020-11-15 07:54 | disposition home or self-care (01) ==
PROVIDERS: PCP Family Medicine; Visit Provider Orthopaedic Surgery
DX: M54.5 Low back pain (principal); G89.29 Other chronic pain
CPT/HCPCS: 78306; A9561

== ENCOUNTER 2020-11-20 17:12 | Emergency (ER) | payer OTHER, SELFPAY ==
[2020-11-20 17:21] VITALS: BP 111/65; PULSE 98; RESP 15; TEMP 36.6; O2SAT 97; BMI 27.2
[2020-11-20 17:31] VITALS: BP 106/91; PULSE 99; RESP 27; O2SAT 95
--- NOTE | 2020-11-20 17:54 | ED_ITS ---
HPI - Abdominal Pain General: Chief Complaint: Nausea/Vomiting/Diarrhea Stated Complaint: STOMACH & RIB PAIN Time Seen by Provider: 11/20/20 17:22 Source: patient Mode of arrival: ambulatory Limitations: no limitations History of Present Illness: HPI narrative: Patient is a 54-year-old male who presents to ED today with a complaint of abdominal pain over the past 4 months. Patient tells me he has pain daily affecting the vast majority of the hours in a days time. He states he feels nauseous and has episodes of dry heaving. No active episodes of vomiting. No changes to his bowel movements. Has been on PPI w/o relief. Patient has issues with chronic pain stating he has had several previous back surgeries including a recent kyphoplasty by Dr. Rizvi. He was recently diagnosed with rib fractures on a bone scan 4 days ago. Patient has seen Dr. Cantrell at pain management. He states none of his pain medications work for his discomfort. He has a diagnosis of polymyalgia rheumatica currently not on any therapy for this. PMH significant for: a fib with RVR, chronic back pain, previous alcohol abuse, HTN, polymyalgia rheumatica, hyperlipidemia, anxiety/depression and GERD. He has a referral into GI at [facility] but he could not get an appointment until January. MD elicited complaint: abdominal pain Onset (ago): month(s) Pain Consistency: constant Location: Diffuse Severity: severe Quality: cramping, aching and fullness Radiation: none Migration to: no migration Exacerbating factors: nothing Relieving factors: nothing Associated Symptoms: Reports heartburn and nausea; Denies change in bowel habits, chills, GI cramping, diarrhea, dysuria, fever(s), hematochezia and vomiting Review of Systems Const: Reports: change in appetite; Denies: fever(s), chills, body aches, change in weight, fatigue, malaise or night sweats Eyes: Denies: change in vision or blurry vision Card: Denies: chest pain Resp: Denies: dyspnea GI: Reports: abdominal pain, nausea and heartburn; Denies: vomiting, diarrhea, GI cramping, change in bowel habits or hematochezia : Denies: flank pain, difficulty urinating, dysuria, urinary frequency or urinary urgency Musc: Reports: back pain (chronic); Denies: neck pain, extremity pain, extremity swelling, joint pain or joint swelling Skin/Breast: Denies: rash Neuro: Denies: headache(s), numbness in extremities, weakness in extremities or sensory changes PFSH ED PFSH: Medical History Abdominal pain Alcohol abuse, episodic drinking behavior Allergic contact dermatitis Atrial fibrillation with rapid ventricular response Back pain Benign essential HTN Chronic low back pain Chronic steroid use Cigarette nicotine dependence Diverticulitis GCA (giant cell arteritis) Generalized anxiety disorder Severe GERD (gastroesophageal reflux disease) High risk medication use Inflammatory arthritis Major depressive disorder, recurrent severe without psychotic features IVON (obstructive sleep apnea) Paroxysmal atrial fibrillation Polymyalgia rheumatica Smoking addiction 30 years currently smokes half a pack a day. Squamous cell carcinoma Surgical History History of kidney surgery Previous back surgery Family History Sister CAD (coronary artery disease) Psychiatric illness Mother Cancer Rheumatoid arthritis Father Diabetes Hyperlipidemia Hypertension Grandmother Diabetes Other Family history of premature coronary artery disease Denies family history of Clotting disorder Dementia Chronic kidney disease (CKD) Systemic lupus erythematosus (SLE) in adult Suicide Anesthesia complication Bleeding disorder Lung disease Stroke Social History Smoking and tobacco status: current every day smoker Alcohol intake: former Household members: spouse Housing: House 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 History of recent travel: No Physical Exam Const: COMMON NORMALS: no acute distress, patient oriented x3, no limitations and alert GENERAL APPEARANCE: cooperative NUTRITIONAL APPEARANCE: overweight ORIENTATION/CONSCIOUSNESS: Yes awake, Yes oriented to person, Yes oriented to place and Yes oriented to time Chest: OTHER: bilateral axillary rib discomfort; no crepitus Resp: COMMON NORMALS: normal respiratory effort and clear to auscultation bilaterally AUSCULTATION: clear to auscultation bilaterally Cardio: COMMON NORMALS: regular rate RATE: regular rate RHYTHM: abnormal rhythm irregularly irregular GI: COMMON NORMALS: Normal to inspection, nondistended, normoactive bowel sounds present, Soft to palpation and no masses INSPECTION: Yes normal to inspection AUSCULTATION: Yes normoactive bowel sounds PALPATION: Yes Soft to palpation and Yes Tenderness to palpation present (GI) (diffusely) : COMMON NORMALS: Yes no CVA tenderness BLADDER/KIDNEY EXAM: Yes no CVA tenderness Back/Pelvis: COMMON NORMALS: no CVA tenderness THORACIC SPINE/UPPER BACK: Yes thoracic ROM normal and Yes thoracic spinal tenderness LUMBAR SPINE/LOWER BACK: Yes lumbar ROM normal and Yes lumbar spinal tenderness PELVIS: Yes buttocks normal SACROILIAC JOINTS: Yes SI joints normal Extremity: COMMON NORMALS: normal to inspection, capillary refill normal, no clubbing, cyanosis or edema, no calf tenderness and no pedal edema GENERAL: Yes normal exam except as noted Neuro: COMMON NORMALS: patient oriented x3, moves all extremities, no focal motor deficits, no sensory deficits noted and gait normal SENSORIUM/ORIENTATION: Yes alert, Yes oriented to person, Yes oriented to place and Yes oriented to time Skin: COMMON NORMALS: no rashes or lesions noted GENERAL SKIN EXAM: no rashes or lesions noted Course Vital Signs: Vital signs: Vital Signs Temperature 98 F 11/20/20 17:21 Pulse Rate 91 11/20/20 18:31 Respiratory Rate 16 11/20/20 18:31 Blood Pressure 120/97 11/20/20 18:31 Pulse Oximetry 99 11/20/20 18:31 MDM - Abdominal Pain MDM Narrative: Medical decision making narrative: Patient here with severe diffuse abdominal pain over the past 4 months. Patient has been on pantoprazole without much relief. He states he did not gain any relief from IV morphine here. He did state after GI cocktail that his pain alleviated significantly for approximately an hour. He tells me last time he received a GI cocktail it helped with symptoms as well. Patient has never had an endoscopy. His CT scan today was normal. Labs were fairly unremarkable. He did have an initial elevated lactate at 3.3 but repeat was 1.1. H. pylori was negative. We will have case management set him up with a GI provider for evaluation for the possible need for an endoscopy to try to find a cause for patient's discomfort. We will place him on Pepcid and Carafate to see if this helps. Lab Data: Labs: Lab Results 11/20/20 11/20/20 11/20/20 Range/Units 17:40 17:40 17:40 WBC 10.0 (4.0-10.0) 10^3/ uL RBC 4.87 (4.1-5.3) 10^6/u L Hgb 16.2 (11.7-16.6) g/dL Hct 49.1 (42.0-52.0) % MCV 100.8 H (80-94) fL MCH 33.3 (28.0-34.0) pg MCHC 33.0 (30.0-36.0) g/dL RDW 13.2 (12.1-15.1) % Plt Count 294 (130-400) 10^3/c mm MPV 10.0 (7.4-10.4) fL Neut % (Auto) 57.5 % Lymph % (Auto) 29.7 % [place] % (Auto) 11.0 % Eos % (Auto) 0.7 % Baso % (Auto) 0.6 % Neut # (Auto) 5.76 (1.8-7.7) 10^3/u L Lymph # (Auto) 3.0 (0.8-4.8) 10^3/u L [place] # (Auto) 1.1 H (0.2-0.9) 10^3/u L Eos # (Auto) 0.1 (0.0-0.8) 10^3/u L Baso # (Auto) 0.1 (0.0-0.1) 10^3/u L Nucleated RBC % (a uto) 0 % Nucleated RBCs # 0.0 /100WBC Sodium 137 (136-145) mmol/L Potassium 4.7 (3.5-5.1) mmol/L Chloride 98 (98-107) mmol/L Carbon Dioxide 24 (22-29) mmol/L Anion Gap 19.7 H (5-19) BUN 13 (6-20) mg/dL Creatinine 0.8 (0.7-1.2) mg/dL GFR Calculation 100.4 (90-130) mL/min Glucose 104 (65-115) mg/dL Calculated Osmolal ity 284 L (285-295) mOsm/k g Lactic Acid (0.5-2.2) mmol/L Lactic Acid (Sepsi s) (0.5-2.2) mmol/L Calcium 9.8 (8.5-10.5) mg/dL Total Bilirubin 0.5 (0.15-1.2) mg/dL AST 21 (0-40) U/L ALT 15 (0-41) U/L Alkaline Phosphata se 96 (40-130) IU/L Total Protein 6.8 (6.6-8.7) g/dL Albumin 4.4 (3.5-5.2) g/dL Globulin 2.4 (1.3-4.6) g/dL Lipase 54 (13-60) U/L Urine Color (Yellow) Urine Appearance (CLEAR) Urine pH (5-7) Ur Specific Gravit y (1.005-1.030) Urine Protein (Negative) Urine Glucose (UA) (Normal) Urine Ketones (Negative) Urine Blood (Negative) Urine Nitrate (Negative) Urine Bilirubin (Negative) Urine Urobilinogen (Negative) mg/dL Ur Leukocyte Roselyn ase (Negative) H. pylori IgG Anti body Negative (Negative) 11/20/20 11/20/20 11/20/20 Range/Units 17:40 18:15 20:30 WBC (4.0-10.0) 10^3/ uL RBC (4.1-5.3) 10^6/u L Hgb (11.7-16.6) g/dL Hct (42.0-52.0) % MCV (80-94) fL MCH (28.0-34.0) pg MCHC (30.0-36.0) g/dL RDW (12.1-15.1) % Plt Count (130-400) 10^3/c mm MPV (7.4-10.4) fL Neut % (Auto) % Lymph % (Auto) % [place] % (Auto) % Eos % (Auto) % Baso % (Auto) % Neut # (Auto) (1.8-7.7) 10^3/u L Lymph # (Auto) (0.8-4.8) 10^3/u L [place] # (Auto) (0.2-0.9) 10^3/u L Eos # (Auto) (0.0-0.8) 10^3/u L Baso # (Auto) (0.0-0.1) 10^3/u L Nucleated RBC % (a uto) % Nucleated RBCs # /100WBC Sodium (136-145) mmol/L Potassium (3.5-5.1) mmol/L Chloride (98-107) mmol/L Carbon Dioxide (22-29) mmol/L Anion Gap (5-19) BUN (6-20) mg/dL Creatinine (0.7-1.2) mg/dL GFR Calculation (90-130) mL/min Glucose (65-115) mg/dL Calculated Osmolal ity (285-295) mOsm/k g Lactic Acid 3.3 H (0.5-2.2) mmol/L Lactic Acid (Sepsi s) 1.1 (0.5-2.2) mmol/L Calcium (8.5-10.5) mg/dL Total Bilirubin (0.15-1.2) mg/dL AST (0-40) U/L ALT (0-41) U/L Alkaline Phosphata se (40-130) IU/L Total Protein (6.6-8.7) g/dL Albumin (3.5-5.2) g/dL Globulin (1.3-4.6) g/dL Lipase (13-60) U/L Urine Color Yellow (Yellow) Urine Appearance Clear (CLEAR) Urine pH 5 (5-7) Ur Specific Gravit y 1.020 (1.005-1.030) Urine Protein Neg (Negative) Urine Glucose (UA) Norm (Normal) Urine Ketones 1+ H (Negative) Urine Blood Neg (Negative) Urine Nitrate Negative (Negative) Urine Bilirubin Neg (Negative) Urine Urobilinogen Norm (Negative) mg/dL Ur Leukocyte Roselyn ase Negative (Negative) H. pylori IgG Anti body (Negative) Discharge Plan Discharge Patient Disposition: Home Clinical Impression: Chronic abdominal pain Condition: Stable Prescriptions: New Carafate 1 gram tablet 1 g PO TID 28 Days Qty: 84 RF: 0 Pepcid 40 mg tablet 40 mg PO BID 14 Days Qty: 28 RF: 0 No Action diclofenac sodium 1 % gel 2 gm TOPICAL QID Qty: 100 RF: 2 pantoprazole 40 mg tablet,delayed release (DR/EC) 40 mg PO DAILY@05 Qty: 30 RF: 3 naproxen 500 mg tablet 500 mg PO BID RF: 0 promethazine 25 mg tablet 25 mg PO Q6H PRN (Reason: nausea and vomiting) RF: 0 aspirin 325 mg tablet 325 mg PO DAILY@05 RF: 0 nitroglycerin 0.4 mg tablet, sublingual 0.4 mg SUBLINGUAL Q5M PRN (Reason: Chest Pain) RF: 0 vitamin B complex [B Complex-Vitamin B12] Tablet 1 tab PO DAILY@05 RF: 0 lorazepam 1 mg tablet 1 mg PO BID PRN (Reason: anxiety) Qty: 90 RF: 2 albuterol sulfate [ProAir HFA] 90 mcg/actuation HFA aerosol inhaler 2 puff INHALATION Q6H PRN (Reason: Shortness Of Breath) Qty: 6.7 RF: 1 hydrocodone-acetaminophen 5-325 mg tablet 1 tab PO Q4H PRN (Reason: pain) 7 Days Qty: 30 RF: 0 metoprolol tartrate 25 mg tablet 25 mg PO BID@,17 Qty: 180 RF: 3 ascorbic acid (vitamin C) [Vitamin C] 500 mg Tablet 1,000 mg PO DAILY@05 Qty: 0 RF: 0 cholecalciferol (vitamin D3) [Vitamin D3] 25 mcg (1,000 unit) Capsule 25 - 75 mcg PO DAILY@05 Qty: 0 RF: 0 atorvastatin 20 mg Tablet 20 mg PO DAILY@0500 RF: 0 fluticasone propion-salmeterol [Advair Diskus] 250-50 mcg/dose Blister With Device 1 inh INHALATION BID@,17 RF: 0 flecainide 100 mg tablet 150 mg PO BID@0500,1700 Qty: 60 RF: 3 gabapentin 600 mg tablet 600 mg PO TID@,,17 RF: 0 folic acid 1 mg tablet 1 mg PO DAILY@0500 RF: 0 ondansetron 4 mg tablet,disintegrating 4 mg PO Q6H PRN (Reason: nausea and vomiting) Qty: 14 RF: 0 venlafaxine [Effexor XR] 75 mg capsule,extended release 24hr 75 mg PO BID@,17 RF: 0 buspirone 10 mg tablet 10 mg PO BID@,17 RF: 0 carisoprodol 350 mg Tablet 350 mg PO Q8H PRN (Reason: Pain) Qty: 20 RF: 0 lidocaine [Lidoderm] 5 % Adhesive Patch,Medicated 1 patch topical [id number] Qty: 14 RF: 0 trolamine salicylate [Sportscreme] 10 % Cream 1 applic topical TID PRN (Reason: MUSCLE PAIN) Qty: 85 RF: 0 lisinopril 2.5 mg tablet 2.5 mg PO DAILY@0500 RF: 0 hydrocodone-acetaminophen 5-325 mg tablet 1 tab PO Q6H PRN (Reason: pain) Qty: 20 RF: 0 Discharge Orders: Discharge ED (Routine); Ordered 11/20/20 Ordered By: Keeley Slater Referrals: Deepak Mock MD [Primary Care Provider] - Patient Instructions: Abdominal Pain (ED), Opioid Safety Activity Restrictions/Additional Instructions: [facility] is committed to fighting the nationwide opiate epidemic. We are providing ALL patients with information regarding opiate safety. If you received opiate pain medication during your stay or if you received a prescription for opiate pain medication-please review this handout. If not, you may disregard. Thank you. As we discussed case management should contact you early next week to set you up with a provider that can evaluate you and determine the need for a possible endoscopy. You may return to the emergency department for worsening or uncontro llable pain, repetitive episodes of vomiting, bloody vomit or stools, fevers, or any other concerns you may have. I hope you begin to feel better soon. Coding Level of Care Code ED Government Operations Consultant for Coleman Fwraghav Exam Comprehensive
[2020-11-20 18:06] LABS: Basophils # 0.1 10^3/uL (0.0-0.1); Basophils % 0.6 %; Eosinophils # 0.1 10^3/uL (0.0-0.8); Eosinophils % 0.7 %; Hematocrit 49.1 % (42.0-52.0); Hemoglobin 16.2 g/dL (11.7-16.6); Lymphocytes % 29.7 %; Mean Corpuscular Hemoglobin 33.3 pg (28.0-34.0); Mean Corpuscular Volume 100.8 fL (80-94); Monocytes # 1.1 10^3/uL (0.2-0.9); Neutrophils # 5.76 10^3/uL (1.8-7.7); Neutrophils % 57.5 %; Nucleated Red Blood Cells % 0 %; Platelet Count 294 10^3/cmm (130-400); Red Blood Count 4.87 10^6/uL (4.1-5.3); Red Cell Distribution Width 13.2 % (12.1-15.1)
[2020-11-20 18:11] LABS: H. Pylori IgG Antibody Negative (Negative)
[2020-11-20 18:14] LABS: Alanine Aminotransferase 15 U/L (0-41); Albumin Level 4.4 g/dL (3.5-5.2); Alkaline Phosphatase 96 IU/L (40-130); Aspartate Amino Transferase 21 U/L (0-40); Blood Urea Nitrogen 13 mg/dL (6-20); Calcium 9.8 mg/dL (8.5-10.5); Carbon Dioxide 24 mmol/L (22-29); Chloride 98 mmol/L (98-107); Globulin 2.4 g/dL (1.3-4.6); Glomerular Filtration Rate 100.4 mL/min (90-130); Glucose 104 mg/dL (65-115); Lipase 54 U/L (13-60); Osmolality Calculated 284 mOsm/kg (285-295); Sodium 137 mmol/L (136-145); Total Bilirubin 0.5 mg/dL (0.15-1.2); Total Protein 6.8 g/dL (6.6-8.7)
[2020-11-20 18:16] LABS: Anion Gap 19.7 (5-19); Potassium 4.7 mmol/L (3.5-5.1)
[2020-11-20 18:25] VITALS: RESP 16; O2SAT 96
[2020-11-20] MEDS: morphine 4 mg/mL SDV 1 mL IVP (18:25)
[2020-11-20] MEDS: ondansetron 2 mg/ML SDV 2 mL 4 MG IVP (18:25)
[2020-11-20 18:27] LABS: Add Urine Microscopic? NO; Charge for UA Resulting for Rev
[2020-11-20 18:31] VITALS: BP 120/97; PULSE 91; RESP 16; O2SAT 99
[2020-11-20 18:31] LABS: Lactic Sepsis W/Reflex 3.3 mmol/L (0.5-2.2)
[2020-11-20 18:43] LABS: Bilirubin Urine Neg (Negative); Blood Urine Neg (Negative); Glucose Urine UA Norm (Normal); Ketones Urine 1+ (Negative); Leukocyte Esterase Urine Negative (Negative); Nitrate Urine Negative (Negative); Protein Urine Neg (Negative); Urine Appearance Clear (CLEAR); Urine Color Yellow (Yellow); Urobilinogen Urine Norm (Negative); pH Urine 5 (5-7)
--- NOTE | 2020-11-20 18:53 | CTR_ITS ---
PROCEDURE INFORMATION: Exam: CT Abdomen And Pelvis With Contrast Exam date and time: 11/20/2020 6:53 PM Age: 54 years old Clinical indication: Abdominal pain; Localized; Prior surgery; Surgery date: 6+ months; Surgery type: Kidney, kypho; Patient HX: C/O upper abd pain; Additional info: Diffuse severe abdominal pain TECHNIQUE: Imaging protocol: Computed tomography of the abdomen and pelvis with contrast. Radiation optimization: All CT scans at this facility use at least one of these dose optimization techniques: automated exposure control; mA and/or kV adjustment per patient size (includes targeted exams where dose is matched to clinical indication); or iterative reconstruction. Contrast material: OMNI 300; Contrast volume: 95 ml; Contrast route: INTRAVENOUS (IV); COMPARISON: 1. CT chest abd pel w con* 10/02/2020 7:[address] angio chest w abd pel w con 10/27/2020 7:05:53 PM RADIATION DOSE METRICS: Total DLP (mGy-cm): 1531.15 FINDINGS: Liver: Mild diffuse hepatic steatosis. No focal lesions. Gallbladder and bile ducts: Normal. No calcified stones. No ductal dilation. Pancreas: Normal. No ductal dilation. Spleen: Normal. No splenomegaly. Adrenal glands: Surgical clips in the right adrenal bed with no residual right adrenal tissue seen. Normal left adrenal. Kidneys and ureters: The kidneys enhance normally. No hydronephrosis or visualized calculi. No renal mass. Stomach and bowel: Sigmoid diverticulosis. No evidence of active diverticulitis. No bowel obstruction. Appendix: No evidence of appendicitis. Intraperitoneal space: No free air. No significant fluid collection. Vasculature: Scattered atherosclerotic calcification. No aneurysm. Lymph nodes: Unremarkable. No enlarged lymph nodes. Urinary bladder: Bladder partially filled with nonspecific circumferential wall thickening likely exaggerated by underdistention. No stones. Reproductive: Unremarkable as visualized. Bones/joints: No acute or aggressive osseous lesion. Soft tissues: Unremarkable. Other findings: No acute findings within the included inferior thorax. CT/CT abdomen pelvis w con* [id number] IMPRESSION: 1. No acute findings. 2. Diverticulosis without evidence of active diverticulitis. 3. Mild hepatic steatosis. Radiation Dose CTDIVOL = (mGy): DLP = 1531.15 (mGy-cm)
--- NOTE | 2020-11-20 19:02 | PC.NURSE ---
hand off report to genoveva levin
[2020-11-20] MEDS: iohexol 300 mg/mL 100 mL Btl IV (19:39)
[2020-11-20] MEDS: sodium chloride 0.9% 1,000 ML 999 ML IV (19:45)
[2020-11-20] MEDS: lidocaine 2% viscous 15 ML, aluminum-mag hydrox-simethicon 30 ML, sucralfate oral liq 1 GM PO (19:47)
[2020-11-20 20:07] LABS: Reflex Lactate Order REFLEX LACTIC ORDERD
[2020-11-20 20:57] LABS: Lactic Acid level (Lactate) 1.1 mmol/L (0.5-2.2)
[2020-11-20] MEDS: famotidine 20 mg/2 mL INJ 40 MG IVP (21:13)
[2020-11-20] MEDS: sucralfate 1 gm/10 mL Oral Liq UDC PO (21:13)
[2020-11-20 21:43] VITALS: BP 145/76; PULSE 85; RESP 18; TEMP 36.6; O2SAT 98
[2020-11-20 22:02] VITALS: BP 105/66; PULSE 90; RESP 18; O2SAT 94
--- NOTE | 2020-11-22 09:33 | PC.SOCIAL ---
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 Brink. Original Note: Emailed referral to gen surgery clinic regarding eval for Endoscopy to whichever provider can see him first. Per Keeley ALMEIDA. They will call patient with appointment.
== END 2020-11-20 22:04 | disposition home or self-care (01) ==
PROVIDERS: Emergency Provider Physician Assistant; PCP Family Medicine
DX: G89.29 Other chronic pain (principal); R10.9 Unspecified abdominal pain; Z79.82 Long term (current) use of aspirin; I10 Essential (primary) hypertension; F17.210 Nicotine dependence, cigarettes, uncomplicated
CPT/HCPCS: 74177; 80053; 81003; 83605; 83690; 85025; 86677; 96374; 96375; 99284; J2270; J2405; J3490; J7030; Q9967

== ENCOUNTER 2020-11-26 08:52 | Day surgery (SDC) | payer OTHER, SELFPAY ==
--- NOTE | 2020-11-26 09:08 | ANES.PREANE2 ---
Pre-Anesthetic Assessment Pre-Anesthetic Assessment: Height/Weight: Height 1.78 m Preop Diagnosis: T5 Compression fx Proposed Procedure: Operation Date: 11/26/20 11:45 Proposed Procedures s egd/colon [id number] R10.9 G89.29(Not Applicable) - Saji Brink MD p [id number] R10.9 G89.29(Not Applicable) - Saji Brink MD Was Beta Lachelle taken within 24 hours: Yes Was Clonidine taken within 24 hours: N/A Social: Social History: Tobacco and No alcohol Exam: Pre-Anes Outpt Exam: alert, oriented x 3 and regular rate & rhythm Airway: Submandibular: WNL Cervical ROM: WNL MP: 2 Dentition: Chipped Pulmonary: Pulmonary: COPD CV/HEM: CV/HEM: Afib and HTN Musc/skel: Musc/skel: Lower Back Pain and OA/DJD Comments: PMR, chronic pain/opioid Neuropsych: Neuropsych: Anxiety Anesthetic Plan: ASA status: 3 Anesthesia: MAC Risk of > 500 ml blood loss (7ml/kg in children): No PFSH Anesthesia PFSH: Medical History Abdominal pain Alcohol abuse, episodic drinking behavior Allergic contact dermatitis Atrial fibrillation with rapid ventricular response Back pain Benign essential HTN Chronic low back pain Chronic steroid use Cigarette nicotine dependence Diverticulitis GCA (giant cell arteritis) Generalized anxiety disorder Severe GERD (gastroesophageal reflux disease) High risk medication use Inflammatory arthritis Major depressive disorder, recurrent severe without psychotic features IVON (obstructive sleep apnea) Paroxysmal atrial fibrillation Polymyalgia rheumatica Smoking addiction 30 years currently smokes half a pack a day. Squamous cell carcinoma Surgical History History of kidney surgery Previous back surgery Family History Sister CAD (coronary artery disease) Psychiatric illness Mother Cancer Rheumatoid arthritis Father Diabetes Hyperlipidemia Hypertension Grandmother Diabetes Other Family history of premature coronary artery disease Denies family history of Clotting disorder Dementia Chronic kidney disease (CKD) Systemic lupus erythematosus (SLE) in adult Suicide Anesthesia complication Bleeding disorder Lung disease Stroke Social History Smoking and tobacco status: current every day smoker Alcohol intake: former Household members: spouse Housing: House 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
[2020-11-26 09:13] VITALS: BMI 27.8
[2020-11-26 09:40] VITALS: BP 116/73; PULSE 98; RESP 20; TEMP 36.4; O2SAT 99
[2020-11-26] MEDS: midazolam 1 mg/mL INJ 2 mL 2 MG IVP (09:59)
[2020-11-26] MEDS: sodium chloride 0.9% 1,000 ML 30 ML IV ×2 (09:59→12:01)
--- NOTE | 2020-11-26 10:17 | W.PM.OPSFHP ---
Same Day Surgery H&P Indication for Procedure/HPI DATE OF PROCEDURE: November 26, 2020 CHIEF COMPLAINT/INDICATIONFOR SURGICAL PROCEDURE: Abdominal pain PREOP DIAGNOSIS: T5 Compression fx PLANNED PROCEDRUE: Operation Date: 11/26/20 11:45 Proposed Procedures s egd/colon [id number] R10.9 G89.29(Not Applicable) - Saji Brink MD p [id number] R10.9 G89.29(Not Applicable) - Saji Brink MD Medications/Allergies* Home Medications Medication Instructions Recorded Confirmed Type aspirin 325 mg tablet 325 mg PO DAILY@05 tab 06/09/19 11/26/20 History nitroglycerin 0.4 mg sublingual 0.4 mg SUBLINGUAL Q5M PRN 06/09/19 11/26/20 History tablet ascorbic acid (vitamin C) [Vitamin 1,000 mg PO DAILY@05 #0 11/14/19 11/26/20 History C] cholecalciferol (vitamin D3) 25 - 75 mcg PO DAILY@05 #0 11/14/19 11/26/20 History [Vitamin D3] vitamin B complex 1 tab PO DAILY@05 06/24/20 11/26/20 History buspirone 10 mg PO BID@,08/19/20 11/26/20 History venlafaxine [Effexor XR] 75 mg PO BID@05,17 08/19/20 11/26/20 History atorvastatin 20 mg PO DAILY@0500 09/09/20 11/26/20 History folic acid 1 mg PO DAILY@0500 10/27/20 11/26/20 History gabapentin 600 mg PO TID@05,12,10/27/20 11/26/20 History lisinopril 2.5 mg PO DAILY@0500 10/28/20 11/26/20 History naproxen 500 mg tablet 500 mg PO BID 11/01/20 11/26/20 History promethazine 25 mg tablet 25 mg PO Q6H PRN tab 11/02/20 11/26/20 History Allergies/Adverse Reactions Allergy/AdvReac Type Severity Reaction Status Date / Time tramadol Allergy Mild nausea Verified 11/25/20 14:04 diltiazem Allergy Unknown ALGY-Swell Verified 11/25/20 14:04 Lip/Tongue/Throat methotrexate AdvReac Intermediate tremors Verified 11/25/20 14:04 and nausea and not feel good tizanidine AdvReac Intermediate pain juliette Verified 11/25/20 14:04 in head cayenne AdvReac SWELLING Verified 11/25/20 14:04 IN HANDS Current Medications: Generic Name Dose Route Start Last Admin Trade Name Freq PRN Reason Stop Dose Admin Sodium Chloride 1,000 mls @ 30 mls/hr 11/26/20 09:15 11/26/20 09:59 Sodium Chloride 0.9% IV 30 mls/hr .Q24H ADELFO Administration Midazolam HCl 2 mg 11/26/20 09:40 11/26/20 09:59 Midazolam 1 Mg/Ml Inj 2 Ml IVP 2 mg Q5M PRN Administration Preop Anxiety Pertinent History/Comorbid Conditions* Medical History (Updated 11/20/20 @ 21:30 by NICK Durant) Abdominal pain Alcohol abuse, episodic drinking behavior Allergic contact dermatitis Atrial fibrillation with rapid ventricular response Back pain Benign essential HTN Chronic low back pain Chronic steroid use Cigarette nicotine dependence Diverticulitis GCA (giant cell arteritis) Generalized anxiety disorder Severe GERD (gastroesophageal reflux disease) High risk medication use Inflammatory arthritis Major depressive disorder, recurrent severe without psychotic features IVON (obstructive sleep apnea) Paroxysmal atrial fibrillation Polymyalgia rheumatica Smoking addiction 30 years currently smokes half a pack a day. Squamous cell carcinoma Surgical History (Updated 07/30/19 @ 14:34 by Klaudia Rose MD) History of kidney surgery Previous back surgery Family History (Updated 05/12/20 @ 10:06 by Nikia Gonzalez RN) Rheumatoid arthritis Mother Diabetes Father Grandmother CAD (coronary artery disease) Sister Hyperlipidemia Father Psychiatric illness Sister Family history of premature coronary artery disease Cancer Mother Hypertension Father Denies family history of Clotting disorder Dementia Chronic kidney disease (CKD) Systemic lupus erythematosus (SLE) in adult Suicide Anesthesia complication Bleeding disorder Lung disease Stroke Social History Smoking and tobacco status: current every day smoker Alcohol intake: former Household members: spouse Housing: House 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
[2020-11-26 10:48] VITALS: BP 91/62; PULSE 90; RESP 16; TEMP 36.6; O2SAT 90
[2020-11-26 10:58] VITALS: BP 106/80; PULSE 94; RESP 18; O2SAT 95
[2020-11-26 11:11] VITALS: BP 114/86; PULSE 90; RESP 18; O2SAT 95
--- NOTE | 2020-11-26 15:25 | ANE.PACU2 ---
Inpatient post-anesthesia follow up: Airway intact: Yes Vital signs: Temperature 97.8 F Pulse Rate 90 Respiratory Rate 18 Blood Pressure 114/86 Pulse Oximetry 95 Oxygen Delivery Me thod Room Air Oxygen Flow Rate 4 Fraction of Inspir ed Oxygen Hydration adequate: Yes Nausea and vomiting: No Pain level: 1 Mental status: Baseline
== END 2020-11-26 11:50 | disposition home or self-care (01) ==
PROVIDERS: PCP Family Medicine; Visit Provider Internal Medicine
PROC: 0DJ08ZZ Inspection of Upper Intestinal Tract, Via Natural or Artificial Opening Endoscopic (ICD-10-PCS; CPT 43235; principal; 2020-11-26 11:45)
PROC: 0DJD8ZZ Inspection of Lower Intestinal Tract, Via Natural or Artificial Opening Endoscopic (ICD-10-PCS; CPT 45378; 2020-11-26 11:45)
DX: R10.9 Unspecified abdominal pain (principal); Z79.82 Long term (current) use of aspirin; I48.91 Unspecified atrial fibrillation; I10 Essential (primary) hypertension; K21.9 Gastro-esophageal reflux disease without esophagitis; G47.33 Obstructive sleep apnea (adult) (pediatric); I48.0 Paroxysmal atrial fibrillation; Z82.49 Family history of ischemic heart disease and other diseases of the circulatory system; Z83.3 Family history of diabetes mellitus; F17.210 Nicotine dependence, cigarettes, uncomplicated
CPT/HCPCS: 43235; 45378; 96361; 96374; J2250; J2704; J3010; J7030

== ENCOUNTER 2020-12-14 07:22 | Outpatient (CLI) | payer OTHER, MEDICAID, SELFPAY ==
--- NOTE | 2020-12-14 07:29 | NM_ITS ---
WS: [id number] NUCLEAR MEDICINE HIDA SCAN WITH GALLBLADDER EJECTION FRACTION HISTORY: ABD PAIN COMPARISON: 11/20/2020 TECHNIQUE: The patient was intravenously injected with 5.2 mCi of TC99m Mebrofenin. Immediate imaging over the right upper quadrant was followed by 5 minute image and additional images for a total of 60 minutes. Normal uptake of radiotracer throughout the liver. Activity identified in the gallbladder at 10 minutes and well distended by 60 minutes. Activity in the proximal small bowel was seen by 5 minutes. Good washout of the radiotracer from the liver by 60 minutes. The patient then drank 8 ounces of Ensure Plus. Ejection fraction at 60 minutes was 94%. Normal GB ej ection fraction is 35-75%. Post fatty meal symptoms: None. NM/NM hepatobiliary w phar* [id number] IMPRESSION: 1. Normal HIDA scan. 2. Normal gallbladder ejection fraction.
== END 2020-12-14 07:23 | disposition home or self-care (01) ==
PROVIDERS: PCP Family Medicine; Visit Provider Internal Medicine
DX: R10.9 Unspecified abdominal pain (principal)
CPT/HCPCS: 78227; A9537

== ENCOUNTER 2020-12-23 13:58 | Outpatient (CLI) | payer MEDICAID, SELFPAY ==
--- NOTE | 2020-12-23 14:03 | XR_ITS ---
WS: [id number] Exam: XR elbow LT min 3V* [id number] Date/Time of Exam: 12/23/2020 2:04 PM Reason For Exam: ELBOW JOINT PAIN Findings: There are no fractures, soft tissue swelling, or calcifications. The elbow shows normal bony alignme nt. There is no irregularity of the bony architecture. XR/XR elbow LT min 3V* [id number] IMPRESSION: Negative left elbow.
--- NOTE | 2020-12-23 14:03 | XR_ITS ---
WS: [id number] Exam: XR elbow RT min 3V* [id number] Date/Time of Exam: 12/23/2020 2:04 PM Reason For Exam: ELBOW JOINT PAIN Findings: There are no fractures, soft tissue swelling, or calcifications. The elbow shows normal bony alignme nt. There is no irregularity of the bony architecture. XR/XR elbow RT min 3V* [id number] IMPRESSION: Negative right elbow.
== END 2020-12-23 13:59 | disposition home or self-care (01) ==
PROVIDERS: PCP Family Medicine; Visit Provider Family Medicine
DX: M25.522 Pain in left elbow (principal); M25.521 Pain in right elbow
CPT/HCPCS: 73080

== ENCOUNTER → 2021-01-21 12:31 | Outpatient (BNVA) | payer OTHER, MEDICAID, SELFPAY | PROVIDERS: PCP Family Medicine; Visit Provider Surgery | DX: Z20.822 Contact with and (suspected) exposure to COVID-19 (principal) | CPT/HCPCS: 87635 ==

== ENCOUNTER 2021-01-26 06:49 | Day surgery (SDC) | payer OTHER, MEDICAID, SELFPAY ==
[2021-01-25 12:31] VITALS: BMI 27.2
[2021-01-26 06:59] VITALS: BP 120/76; PULSE 85; RESP 18; TEMP 36.2; O2SAT 96
--- NOTE | 2021-01-26 07:12 | W.PM.OPSUD ---
Surgery/Procedure H&P Update DATE OF PROCEDURE: January 26, 2021 DATE H&P PERFORMED: 01/07/21 H&P UPDATE INFORMATION: I have reviewed H&P completed within last 30 days, I have examined patient prior to procedure and No changes to prior documentation PREOP DIAGNOSIS: Chronic cholecystitis PLANNED PROCEDURE: Operation Date: 01/26/21 08:15 Proposed Procedures p Laparoscopic Cholecystectomy 43444 R10.9(Not Applicable) - Tin Tay MD
[2021-01-26] MEDS: sodium chloride 0.9% 1,000 ML 30 ML IV (07:31)
[2021-01-26] MEDS: midazolam 1 mg/mL INJ 2 mL 2 MG IVP (07:53)
--- NOTE | 2021-01-26 07:55 | ANES.PREANE2 ---
Pre-Anesthetic Assessment Pre-Anesthetic Assessment: Height/Weight: Height 1.78 m Weight 86.183 kg Temp Pulse Resp BP Pulse Ox 97.1 F L 85 18 120/76 96 01/26/21 06:59 01/26/21 06:59 01/26/21 06:59 01/26/21 06:59 01/26/21 06:59 Preop Diagnosis: Chronic cholecystitis Proposed Procedure: Operation Date: 01/26/21 08:15 Proposed Procedures p Laparoscopic Cholecystectomy 16297 R10.9(Not Applicable) - Tin Tay MD Familial anesthetic complications: none Was Beta Lachelle taken within 24 hours: Yes Was Clonidine taken within 24 hours: N/A Last intake: Intake Last Liquid Date 01/25/21 Last Liquid Time 21:00 Last Solid Date 01/25/21 Last Solid Time 18:00 Social: Social History: Tobacco and No alcohol Exam: Pre-Anes Outpt Exam: alert, oriented x 3, clear to auscultation bilaterally and regular rate & rhythm Airway: Cervical ROM: WNL MP: 4 Dentition: Chipped Pulmonary: Pulmonary: COPD CV/HEM: CV/HEM: Afib and HTN Comments: took metoprolol and flecainide this am Musc/skel: Comments: polymyalgia rheumatica - patient complaining of ulnar neuropathy on L side. Educated patient that surgery may exacerbate this neuropathy Neuropsych: Neuropsych: Anxiety Anesthetic Plan: ASA status: 3 Anesthesia: General Risk of > 500 ml blood loss (7ml/kg in children): No Meds/Allergies Current Medications: Current Medications Generic Name Dose Route Start Last Admin Trade Name Freq PRN Reason Stop Dose Admin Sodium Chloride 1,000 mls @ 30 ml s/hr 01/26/21 07:00 01/26/21 07:31 Sodium Chloride 0.9% IV 01/27/21 06:59 30 mls/hr .Q24H ADELFO Administration PFSH Anesthesia PFSH: Medical History (Updated 01/26/21 @ 07:31 by Tin Tay MD) Allergic contact dermatitis Atrial fibrillation with rapid ventricular response Benign essential HTN Chronic low back pain Diverticulitis GCA (giant cell arteritis) Generalized anxiety disorder Severe GERD (gastroesophageal reflux disease) Inflammatory arthritis Major depressive disorder, recurrent severe without psychotic features IVON (obstructive sleep apnea) Polymyalgia rheumatica Squamous cell carcinoma Surgical History (Updated 01/26/21 @ 07:31 by Tin Tay MD) History of amputation of finger History of colonoscopy 11/2020 History of esophagogastroduodenoscopy (EGD) History of kidney surgery Previous back surgery Status post laparoscopic cholecystectomy (01/26/21) Family History Sister CAD (coronary artery disease) Psychiatric illness Mother Cancer Rheumatoid arthritis Father Diabetes Hyperlipidemia Hypertension Grandmother Diabetes Other Family history of premature coronary artery disease Denies family history of Clotting disorder Dementia Chronic kidney disease (CKD) Systemic lupus erythematosus (SLE) in adult Suicide Anesthesia complication Bleeding disorder Lung disease Stroke Social History Alcohol intake: former Household members: spouse Housing: House 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
[2021-01-26 09:11] VITALS: BP 120/75; PULSE 83; RESP 20; TEMP 36.5; O2SAT 92
[2021-01-26 09:15] VITALS: BP 118/81; PULSE 84; RESP 16; O2SAT 93
[2021-01-26 09:20] VITALS: BP 121/81; PULSE 83; RESP 15; TEMP 36.5; O2SAT 94
[2021-01-26 09:25] VITALS: BP 112/76; PULSE 78; RESP 16; TEMP 36.7; O2SAT 94
[2021-01-26] MEDS: HYDROcodone-acetaminophen 5-325 mg Tablet 1 TAB PO (09:40)
--- NOTE | 2021-01-26 09:44 | PC.NURSE ---
Pt and spouse educated on new meds. F/u made Feb 08 815. Pt instructed to follow Dr. Tay's directions on discharge packet.
--- NOTE | 2021-01-26 10:03 | PM.OP ---
Operative Report Date of procedure: January 26, 2021 Pre-op Diagnosis: Chronic cholecystitis Post-op diagnosis: same Procedure Done: Laparoscopic cholecystectomy Specimens removed/disposition: Gallbladder Surgeon: Tin Tay Anesthesia: General Condition: stable Disposition: PACU Procedure: The patient was taken to the operating room and was intubated under general anesthesia. After the antibiotic had been administered, the abdomen was prepped and draped in a sterile manner. Using a #15 blade, a 1 centimeter infraumbilical curvilinear incision was made and using an open Mike technique the peritoneal cavity was entered. A 10 millimeter port was placed and 15 millimeters of pneumoperitoneum was created. A 10 millimeter, 30 degrees scope was then introduced. Three 5 millimeter ports were placed in the epigastric, midclavicular and the anterior axillary line two fingerbreadths below the costal margin on the right side under the direct visualization. Ratcheted forceps were introduced into the lateral most port and was used to retract the fundus of the gallbladder cephalad and using forceps the infundibulum of the gallbladder was retracted laterally. Using L-hook cautery the peritoneum overlying the Calot's triangle was opened medially and laterally until the cystic duct and the cystic artery were skeletonized. Dissection was carried along the body of the gallbladder and after ensuring critical view of safety, 4 clips applied on the cystic duct and 3 clips applied on the cystic artery and cut leaving, 3 clips on the remaining portion of the duct and 2 clips on the remaining portion of the artery. The rest of the gallbladder was dissected off the liver using L-hook cautery. There was a opening in the body of the gallbladder with spillage of bile which was irrigated and suctioned out. There was no bleeding or bile leakage noted from the gallbladder fossa and the clips appeared to be in place. An EndoCatch bag was introduced to remove the gallbladder. All the ports were removed under direct visualization and there was no bleeding noted from the port sites. The fascia of the umbilicus was closed using [id number] 0 Vicryl sutures and the subcutaneous tissue was approximated using 3-0 Vicryl sutures. The skin at all four ports were closed using 4-0 Monocryl and Dermabond. A total of 10 millimeters of 0.5% Marcaine was infiltrated around the port sites. The patient was stable throughout the procedure.
[2021-01-26 10:08] VITALS: BP 117/81; PULSE 71; RESP 18; O2SAT 98
--- NOTE | 2021-01-26 12:14 | ANE.PACU2 ---
Inpatient post-anesthesia follow up: Airway intact: Yes Vital signs: Temperature 98.0 F Pulse Rate 71 Respiratory Rate 18 Blood Pressure 117/81 Pulse Oximetry 98 Oxygen Delivery Me thod Room Air Oxygen Flow Rate Fraction of Inspir ed Oxygen Hydration adequate: Yes Nausea and vomiting: No Pain level: 2 Mental status: Baseline
== END 2021-01-26 10:18 | disposition home or self-care (01) ==
PROVIDERS: PCP Family Medicine; Visit Provider Surgery
PROC: 0FT44ZZ Resection of Gallbladder, Percutaneous Endoscopic Approach (ICD-10-PCS; CPT 47562; principal; 2021-01-26 08:05)
DX: K81.1 Chronic cholecystitis (principal); J44.9 Chronic obstructive pulmonary disease, unspecified; I48.91 Unspecified atrial fibrillation; I10 Essential (primary) hypertension; M35.3 Polymyalgia rheumatica; F41.9 Anxiety disorder, unspecified; G47.33 Obstructive sleep apnea (adult) (pediatric)
CPT/HCPCS: 47562; 88304; J0690; J1100; J1885; J2250; J2370; J2405; J2704; J2710; J3010; J3490; J7030

== ENCOUNTER 2021-02-16 11:37 | Outpatient (CLI) | payer OTHER, MEDICAID, SELFPAY ==
--- NOTE | 2021-02-16 11:55 | XR_ITS ---
WS: [id number] Left hand, 3 views, 02/16/2021 Clinical Data: PAIN IN LEFT HAND Comparison: None. Findings: No fractures or dislocations are seen. The soft tissues are unremarkable. There is osteoarthritis at the base of the left first metacarpal. No bone destruction or erosion is seen. The left fifth finger appears normal. The patient's ring obsc ures minimal detail on the left fourth finger proximal phalanx. XR/XR hand LT min 3V* [id number] Impression: 1. 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 2. No evidence of bone destruction or erosion.
== END 2021-02-16 11:38 | disposition home or self-care (01) ==
PROVIDERS: PCP Family Medicine; Visit Provider Family Medicine
DX: M19.042 Primary osteoarthritis, left hand (principal)
CPT/HCPCS: 73130

== ENCOUNTER → 2021-03-16 09:09 | Outpatient (BNVA) | payer OTHER, MEDICAID, SELFPAY | PROVIDERS: PCP Family Medicine; Visit Provider Orthopaedic Surgery | DX: M79.642 Pain in left hand (principal); M18.12 Unilateral primary osteoarthritis of first carpometacarpal joint, left hand | CPT/HCPCS: 73130 ==

== ENCOUNTER → 2021-03-22 08:00 | Outpatient (BNVA) | payer OTHER, MEDICAID, SELFPAY | PROVIDERS: PCP Family Medicine; Referring Provider Orthopaedic Surgery; Visit Provider Specialist | DX: G56.02 Carpal tunnel syndrome, left upper limb (principal); F41.1 Generalized anxiety disorder | CPT/HCPCS: 95908 ==

== ENCOUNTER → 2021-04-29 10:18 | Outpatient (BNVA) | payer OTHER, MEDICAID, SELFPAY | PROVIDERS: PCP Family Medicine; Visit Provider Orthopaedic Surgery | DX: Z01.818 Encounter for other preprocedural examination (principal); Z20.822 Contact with and (suspected) exposure to COVID-19 | CPT/HCPCS: 87635 ==

== ENCOUNTER 2021-05-05 11:22 | Day surgery (SDC) | payer OTHER, MEDICAID, SELFPAY ==
[2021-05-04 14:38] VITALS: BMI 26.5
--- NOTE | 2021-05-05 11:38 | ECG_ITS ---
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 Measurements Intervals [place] Rate: 84 P: 60 [place]: 168 QRS: 62 QRSD: 90 T: 72 QT: 364 QTc: 430 Interpretive Statements SINUS RHYTHM NONSPECIFIC T-WAVE ABNORMALITY Compared to ECG 10/27/2020 18:27:23 T-wave abnormality now present Electronically Signed On 05-07-2021 7:49:31 [employer] by Kennedy Bunn M.D. [id number]
[2021-05-05 11:39] VITALS: BP 139/97; PULSE 90; RESP 18; TEMP 36.5; O2SAT 97
[2021-05-05] MEDS: sodium chloride 0.9% 1,000 ML 30 ML IV (12:06)
--- NOTE | 2021-05-05 13:52 | P.ANESASSM_ITS ---
Pre-Anesthetic Assessment Pre-Anesthetic Assessment: Height/Weight: Height 1.78 m Weight 83.915 kg Temp Pulse Resp BP Pulse Ox 97.7 F 90 18 139/97 97 05/05/21 11:39 05/05/21 11:39 05/05/21 11:39 05/05/21 11:39 05/05/21 11:39 Preop Diagnosis: Cubital tunnel syndrome Left Proposed Procedure: Operation Date: 05/05/21 13:00 Proposed Procedures p Cubital Tunnel Release(Left) - Donte Delcid MD Was Beta Lachelle taken within 24 hours: Yes Was Clonidine taken within 24 hours: N/A Last intake: Intake Last Liquid Date 05/05/21 Last Liquid Time 05:00 Last Solid Date 05/04/21 Last Solid Time 18:00 Social: Social History: Tobacco and No alcohol Exam: Pre-Anes Outpt Exam: alert, oriented x 3, clear to auscultation bilaterally and regular rate & rhythm Airway: Submandibular: WNL Cervical ROM: WNL MP: 2 Pulmonary: Pulmonary: COPD CV/HEM: CV/HEM: Afib, Arrythmia and HTN : : None reported Hepatic: Hepatic: None reported GI: GI: GERD Metabolic: Metabolic: Hyperlipidemia Musc/skel: Musc/skel: Fibromyalgia, Lower Back Pain, OA/DJD and RA Neuropsych: Neuropsych: None reported Anesthetic Plan: ASA status: 3 Anesthesia: General PFSH Anesthesia PFSH: Medical History Allergic contact dermatitis Atrial fibrillation with rapid ventricular response Benign essential HTN Chronic low back pain Diverticulitis GCA (giant cell arteritis) Generalized anxiety disorder Severe GERD (gastroesophageal reflux disease) Inflammatory arthritis Major depressive disorder, recurrent severe without psychotic features IVON (obstructive sleep apnea) Polymyalgia rheumatica Squamous cell carcinoma Surgical History History of amputation of finger History of colonoscopy 11/2020 History of esophagogastroduodenoscopy (EGD) History of kidney surgery Previous back surgery Status post laparoscopic cholecystectomy (01/26/21) Family History Sister CAD (coronary artery disease) Psychiatric illness Mother Cancer Rheumatoid arthritis Father Diabetes Hyperlipidemia Hypertension Grandmother Diabetes Other Family history of premature coronary artery disease Denies family history of Clotting disorder Dementia Chronic kidney disease (CKD) Systemic lupus erythematosus (SLE) in adult Suicide Anesthesia complication Bleeding disorder Lung disease Stroke Social History Alcohol intake: former Household members: spouse Housing: House 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
--- NOTE | 2021-05-05 13:56 | W.PM.OPSUD ---
Surgery/Procedure H&P Update DATE OF PROCEDURE: May 05, 2021 DATE H&P PERFORMED: 04/13/21 H&P UPDATE INFORMATION: I have reviewed H&P completed within last 30 days PREOP DIAGNOSIS: Cubital tunnel syndrome Left PLANNED PROCEDURE: Operation Date: 05/05/21 13:00 Proposed Procedures p Cubital Tunnel Release(Left) - Donte Delcid MD
--- NOTE | 2021-05-05 15:00 | PM.OP ---
Operative Report Date of procedure: May 05, 2021 Pre-op Diagnosis: Cubital tunnel syndrome Left Post-op diagnosis: same Post-op Findings: Same Procedure Done: Ulnar nerve decompression left arm Pathology: none sent Surgeon: Donte Delcid Anesthesia: General Estimated blood loss (mL): 10 Tourniquet time (min): 10 Findings: No masses or space-occupying lesions were seen behind the medial epicondyle Disposition: PACU Procedure: The patient was taken to the operating room and given a general anesthesia. A tourniquet was inflated to 225 mmHg. A timeout was performed. A 5 cm long incision was made behind the medial epicondyle. Dissection was accomplished bluntly under loupe magnification identifying the ulnar nerve proximally. Utilizing a hemostat the fascia over the nerve was elevated and incised proximally. Dissection was then carried distally behind the medial epicondyle and into the flexor carpi ulnaris musculature. Dissection was stopped with the first muscular branches identified. Elbow was brought through range of motion with the nerve seen to stay reduced behind the medial epicondyle. No formal transition was thought to be warranted. Wounds were irrigated with saline. Deep tissues were closed with 2-0 Vicryl. Subcutaneous is closed with 3-0 Vicryl. The skin was closed with a running 3-0 Prolene. The skin was infiltrated with 10 cc of 0.5% Marcaine solution. Steri-Strips were applied. Xeroform gauze, 4 x 4's, compressive labral, and Broderick wrap, and a sling were applied. The patient was taken recovery room in stable condition.
[2021-05-05 15:02] VITALS: BP 151/86; PULSE 84; RESP 20; O2SAT 96
[2021-05-05 15:05] VITALS: BP 155/96; PULSE 84; PULSE 89; RESP 18; RESP 21; O2SAT 96
[2021-05-05 15:10] VITALS: BP 138/97; PULSE 86; RESP 21; TEMP 36.6; O2SAT 97
[2021-05-05 15:25] VITALS: BP 138/98; PULSE 88; RESP 20; TEMP 36.6; O2SAT 93
[2021-05-05] MEDS: HYDROcodone-acetaminophen 7.5-325 mg Tablet 1 TAB PO (15:37)
--- NOTE | 2021-05-05 20:00 | ANE.PACU2 ---
Inpatient post-anesthesia follow up: Airway intact: Yes Vital signs: Temperature 97.8 F Pulse Rate 88 Respiratory Rate 20 Blood Pressure 138/98 Pulse Oximetry 93 Oxygen Delivery Me thod Room Air Oxygen Flow Rate Fraction of Inspir ed Oxygen Hydration adequate: Yes Nausea and vomiting: No Pain level: 4 Mental status: Baseline
== END 2021-05-05 16:00 | disposition home or self-care (01) ==
PROVIDERS: PCP Family Medicine; Visit Provider Orthopaedic Surgery
PROC: (CPT 64719; principal; 2021-05-05 12:50)
DX: M79.642 Pain in left hand (principal); M35.3 Polymyalgia rheumatica; I10 Essential (primary) hypertension
CPT/HCPCS: 64719; 93005; 96365; J0690; J2405; J2704; J3010; J3490; J7030

== ENCOUNTER 2021-07-20 09:54 | Outpatient (CLI) | payer MEDICAID, SELFPAY ==
--- NOTE | 2021-07-20 10:04 | XR_ITS ---
WS: [id number] Exam: XR KUB [id number] Date/Time of Exam: 07/20/2021 10:08 AM Reason For Exam: ABDOMINAL PAIN Comparison 05/26/2019. Scattered gas in both large and small bowel loops suggesting mild ileus. No sign of nancy bowel obstr uction. No pneumoperitoneum. Numerous surgical clips in the right abdomen. No sign of organ enlargeme nt. Regional bony elements are intact. XR/XR KUB [id number] IMPRESSION: 1. Mild ileus.
== END 2021-07-20 09:55 | disposition home or self-care (01) ==
PROVIDERS: PCP Family Medicine; Visit Provider Family Medicine
DX: R10.9 Unspecified abdominal pain (principal)
CPT/HCPCS: 74018

== ENCOUNTER 2021-07-23 09:14 | Emergency (ER) | payer OTHER, MEDICAID, SELFPAY ==
[2021-07-23 09:25] VITALS: BP 130/104; PULSE 82; RESP 20; TEMP 37; O2SAT 97; BMI 29.1
--- NOTE | 2021-07-23 09:48 | CTR_ITS ---
PROCEDURE INFORMATION: Exam: CT Abdomen And Pelvis With Contrast Exam date and time: 07/23/2021 9:48 AM Age: 55 years old Clinical indication: Generalized abdominal pain. TECHNIQUE: Imaging protocol: Computed tomography of the abdomen and pelvis with contrast. Radiation optimization: All CT scans at this facility use at least one of these dose optimization techniques: automated exposure control; mA and/or kV adjustment per patient size (includes targeted exams where dose is matched to clinical indication); or iterative reconstruction. Contrast material: OMNI 300; Contrast volume: 95 ml; Contrast route: INTRAVENOUS (IV); COMPARISON: CT abdomen pelvis w con* [id number] 11/20/2020 7:35 PM RADIATION DOSE METRICS: Total DLP (mGy-cm): 1645.22 FINDINGS: Heart: Mild scarring at the left base. No pericardial effusion. No hiatal hernia. Liver: The liver is enlarged measuring 18.4 cm. There is probable hepatic steatosis. There is an indeterminate hypodense lesion in the liver measuring 0.8 cm (image 17). There is possible early hepatic cirrhosis. Gallbladder and bile ducts: The gallbladder has been removed. Pancreas: The pancreas is unremarkable. Spleen: The spleen is unremarkable. Adrenal glands: There has been prior right adrenalectomy. Left adrenal nodules appears similar to prior. One of these nodules measures 2.5 x 1.1 cm. Kidneys and ureters: The kidneys are unremarkable. Stomach and bowel: The stomach and small bowel are unremarkable. Colonic diverticulosis without evidence of acute diverticulitis. Appendix: The appendix is unremarkable. Intraperitoneal space: No free intraperitoneal air is identified. Small fat containing umbilical hernia. Vasculature: No abdominal aortic aneurysm. Lymph nodes: No retroperitoneal lymphadenopathy. Urinary bladder: The bladder wall is mildly prominent. Reproductive: The prostate measures 2.6 x 4.0 cm. Bones/joints: No acute fracture is seen. Soft tissues: There is a cutaneous/subcutaneous lesion in the posterior left back that measures 1.6 cm. This could represent a sebaceous or epidermal inclusion cyst. Correlate with physical examination. CT/CT abdomen pelvis w con* [id number] IMPRESSION: 1. Hepatomegaly with probable hepatic steatosis and possible hepatic cirrhosis. Correlate with liver function tests. There is a small indeterminate hepatic lesion. Recommend nonemergent MR abdomen hepatic protocol with and without contrast to better characterize. 2. Nodularity in the left adrenal gland appears similar to prior. This will likely be better characterized on MRI. 3. The bladder wall is mildly prominent. Correlate with urinalysis to assess for cystitis. 4. Colonic diverticulosis without evidence of acute diverticulitis. 5. Cutaneous/subcutaneous lesion in the posterior left back that could represent a sebaceous or epidermal inclusion cyst. Correlate with physical examination.
--- NOTE | 2021-07-23 10:07 | W.ED.ABDPA2 ---
HPI - Abdominal Pain General: Chief Complaint: Abdominal Pain Stated Complaint: ABD pain Time Seen by Provider: 07/23/21 09:22 Source: patient Mode of arrival: ambulatory Limitations: no limitations History of Present Illness: 55-year-old male comes in complaining of generalized abdominal pain discomfort. Most of it is in the epigastric region. He has some periumbilical. He has not had any hematochezia melena hematemesis or coffee-ground emesis. He states he has had this off and on for the last 2 weeks. He had seen his primary care doctor couple of days ago and had a x-ray there was a question of ileus so they wanted him to return. He has been having regular bowel movements and passing gas without difficulty denies dysuria urgency or frequency. MD elicited complaint: abdominal pain Onset (ago): day(s) Pain Consistency: constant Location: RLQ, LLQ and Suprapubic Severity: mild Quality: cramping Exacerbating factors: nothing Relieving factors: nothing Associated Symptoms: Reports anorexia, bloating, GI cramping, nausea and poor appetite; Denies belching, change in bowel habits, change in stool character, chills, coffee ground emesis, constipation, dyspepsia, dysuria, excessive flatus, fever(s), heartburn, hematochezia, hematuria, hematemesis, fecal incontinence, loose stools and vomiting Review of Systems Const: Denies: fever(s) or chills ENMT: Denies: throat pain, ear or mastoid pain, nasal discharge or nasal congestion Card: Denies: chest pain, edema, dyspnea on exertion or orthopnea Resp: Denies: dyspnea, productive cough or non-productive cough GI: Reports: nausea, bloating and GI cramping; Denies: vomiting, hematemesis, coffee ground emesis, heartburn, constipation, belching, excessive flatus, fecal incontinence, change in bowel habits, change in stool character or hematochezia : Denies: dysuria or hematuria Skin/Breast: Denies: rash or pruritus PFSH ED PFSH: Medical History Allergic contact dermatitis Atrial fibrillation with rapid ventricular response Benign essential HTN Chronic low back pain Diverticulitis GCA (giant cell arteritis) Generalized anxiety disorder Severe GERD (gastroesophageal reflux disease) Inflammatory arthritis Major depressive disorder, recurrent severe without psychotic features IVON (obstructive sleep apnea) Polymyalgia rheumatica Squamous cell carcinoma Surgical History History of amputation of finger History of colonoscopy 11/2020 History of esophagogastroduodenoscopy (EGD) History of kidney surgery Previous back surgery Status post laparoscopic cholecystectomy (01/26/21) Family History Sister CAD (coronary artery disease) Psychiatric illness Mother Cancer Rheumatoid arthritis Father Diabetes Hyperlipidemia Hypertension Grandmother Diabetes Other Family history of premature coronary artery disease Denies family history of Clotting disorder Dementia Chronic kidney disease (CKD) Systemic lupus erythematosus (SLE) in adult Suicide Anesthesia complication Bleeding disorder Lung disease Stroke Social History Smoking and tobacco status: current every day smoker Alcohol intake: former Household members: spouse Housing: House 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 History of recent travel: No Physical Exam Const: GENERAL APPEARANCE: cooperative and comfortable ORIENTATION/CONSCIOUSNESS: Yes awake, Yes oriented to person, Yes oriented to place and Yes oriented to time HENMT: COMMON NORMALS: normocephalic, atraumatic and hearing grossly normal bilaterally HEAD & SCALP: normocephalic and atraumatic Resp: COMMON NORMALS: normal respiratory effort, No retractions, No use of accessory muscles and clear to auscultation bilaterally AUSCULTATION: clear to auscultation bilaterally Cardio: COMMON NORMALS: regular rate, regular rhythm and No murmurs present (Cardio) RATE: regular rate RHYTHM: regular rhythm GI: COMMON NORMALS: No hepatosplenomegaly present AUSCULTATION: Yes normoactive bowel sounds PALPATION: Yes Tenderness to palpation present (GI) (Epigastric), No Guarding due to palpation present (GI) and Yes No hepatosplenomegaly present Extremity: COMMON NORMALS: normal to inspection, capillary refill normal, no clubbing, cyanosis or edema, no calf tenderness and no pedal edema Neuro: SENSORIUM/ORIENTATION: Yes oriented to person, Yes oriented to place and Yes oriented to time Skin: COMMON NORMALS: no rashes or lesions noted GENERAL SKIN EXAM: no rashes or lesions noted Course Vital Signs: Vital signs: Vital Signs Temperature 98.6 F 07/23/21 09:25 Pulse Rate 82 07/23/21 09:25 Respiratory Rate 16 07/23/21 12:07 Blood Pressure 130/104 07/23/21 13:35 Pulse Oximetry 92 07/23/21 13:35 MDM - Abdominal Pain Medical Decision Making CT of the abdomen does not show any acute findings. I suspect he has more gastric cause. We will start him on some Carafate and Protonix. Medical Records I reviewed the patient's medical records. Lab Data I reviewed the patient's lab results. : 07/23/21 10:35 07/23/21 10:35 Labs/Radiology: Radiology Impressions Abdomen/Pelvis CT 07/23/21 09:48 IMPRESSION: 1. Hepatomegaly with probable hepatic steatosis and possible hepatic cirrhosis. Correlate with liver function tests. There is a small indeterminate hepatic lesion. Recommend nonemergent MR abdomen hepatic protocol with and without contrast to better characterize. 2. Nodularity in the left adrenal gland appears similar to prior. This will likely be better characterized on MRI. 3. The bladder wall is mildly prominent. Correlate with urinalysis to assess for cystitis. 4. Colonic diverticulosis without evidence of acute diverticulitis. 5. Cutaneous/subcutaneous lesion in the posterior left back that could represent a sebaceous or epidermal inclusion cyst. Correlate with physical examination. Laboratory Results WBC 9.3 10^3/uL (4.0-10.0) 07/23/21 10:35 RBC 4.12 10^6/uL (4.1-5.3) 07/23/21 10:35 Hgb 13.8 g/dL (11.7-16.6) 07/23/21 10:35 Hct 41.3 % (42.0-52.0) L 07/23/21 10:35 MCV 100.2 fl (80-94) H 07/23/21 10:35 MCH 33.5 pg (28.0-34.0) 07/23/21 10:35 MCHC 33.4 g/dL (30.0-36.0) 07/23/21 10:35 RDW 12.2 % (12.1-15.1) 07/23/21 10:35 Plt Count 204 10^3/cmm (130-400) 07/23/21 10:35 MPV 9.6 fL (7.4-10.4) 07/23/21 10:35 Neut % (Auto) 60.6 % 07/23/21 10:35 Lymph % (Auto) 27.8 % 07/23/21 10:35 [place] % (Auto) 9.8 % 07/23/21 10:35 Eos % (Auto) 0.9 % 07/23/21 10:35 Baso % (Auto) 0.4 % 07/23/21 10:35 Neut # (Auto) 5.60 10^3/uL (1.8-7.7) 07/23/21 10:35 Lymph # (Auto) 2.6 10^3/uL (0.8-4.8) 07/23/21 10:35 [place] # (Auto) 0.9 10^3/uL (0.2-0.9) 07/23/21 10:35 Eos # (Auto) 0.1 10^3/uL (0.0-0.8) 07/23/21 10:35 Baso # (Auto) 0.0 10^3/uL (0.0-0.1) 07/23/21 10:35 Nucleated RBC % (auto) 0 % 07/23/21 10:35 Nucleated RBCs # 0.0 /100WBC 07/23/21 10:35 Sodium 134 mmol/L (136-145) L 07/23/21 10:35 Potassium 4.7 mmol/L (3.5-5.1) 07/23/21 10:35 Chloride 100 mmol/L (98-107) 07/23/21 10:35 Carbon Dioxide 26 mmol/L (22-29) 07/23/21 10:35 Anion Gap 12.7 (5-19) 07/23/21 10:35 BUN 24 mg/dL (6-20) H 07/23/21 10:35 Creatinine 1.0 mg/dL (0.7-1.2) 07/23/21 10:35 GFR Calculation 77.3 mL/min (90-130) L 07/23/21 10:35 Glucose 104 mg/dL (65-115) 07/23/21 10:35 Calculated Osmolality 282 mOsm/kg (285-295) L 07/23/21 10:35 Lactic Acid 0.9 mmol/L (0.5-2.2) 07/23/21 10:35 Calcium 9.1 mg/dL (8.5-10.5) 07/23/21 10:35 Total Bilirubin 0.7 mg/dL (0.15-1.2) 07/23/21 10:35 AST 20 U/L (0-40) 07/23/21 10:35 ALT 29 U/L (0-41) 07/23/21 10:35 Alkaline Phosphatase 114 IU/L (40-130) 07/23/21 10:35 Creatine Kinase 107 U/L (39-308) 07/23/21 10:35 Total Protein 7.1 g/dL (6.6-8.7) 07/23/21 10:35 Albumin 4.1 g/dL (3.5-5.2) 07/23/21 10:35 Globulin 3.0 g/dL (1.3-4.6) 07/23/21 10:35 Urine Color Straw (Yellow) 07/23/21 13:08 Urine Appearance Clear (CLEAR) 07/23/21 13:08 Urine pH 6 (5-7) 07/23/21 13:08 Ur Specific [place] 1.005 (1.005-1.030) 07/23/21 13:08 Urine Protein Neg (Negative) 07/23/21 13:08 Urine Glucose (UA) Norm (Normal) 07/23/21 13:08 Urine Ketones Negative (Negative) 07/23/21 13:08 Urine Blood Neg (Negative) 07/23/21 13:08 Urine Nitrate Negative (Negative) 07/23/21 13:08 Urine Bilirubin Neg (Negative) 07/23/21 13:08 Urine Urobilinogen Norm mg/dL (Negative) 07/23/21 13:08 Ur Leukocyte Esterase Negative (Negative) 07/23/21 13:08 Discharge Plan Discharge Patient Disposition: Home Clinical Impression: Duodenitis Condition: Stable Prescriptions: New Carafate 1 gram tablet 1 g PO Q6H 28 Days Qty: 112 0RF Protonix 40 mg tablet,delayed release (DR/EC) 40 mg PO BID Qty: 60 0RF No Action pantoprazole 40 mg tablet,delayed release (DR/EC) 40 mg PO DAILY@05 Qty: 30 3RF gabapentin 300 mg capsule 300 mg PO TID Qty: 90 2RF Rx Instructions: Take one capsule three times per day aspirin 325 mg tablet 325 mg PO DAILY@05 0RF nitroglycerin 0.4 mg tablet, sublingual 0.4 mg SUBLINGUAL Q5M PRN (Reason: Chest Pain) 0RF vitamin B complex [B Complex-Vitamin B12] Tablet 1 tab PO DAILY@05 0RF albuterol sulfate [ProAir HFA] 90 mcg/actuation HFA aerosol inhaler 2 puff INHALATION Q6H PRN (Reason: Shortness Of Breath) Qty: 6.7 1RF celecoxib [Celebrex] 200 mg capsule 200 mg PO DAILY@0500 0RF metoprolol tartrate 25 mg tablet 25 mg PO BID@05,17 Qty: 180 3RF ascorbic acid (vitamin C) [Vitamin C] 500 mg Tablet 1,000 mg PO DAILY@05 Qty: 0 0RF cholecalciferol (vitamin D3) [Vitamin D3] 25 mcg (1,000 unit) Capsule 75 mcg PO DAILY@05 Qty: 0 0RF atorvastatin [Lipitor] 20 mg Tablet 20 mg PO DAILY@0500 0RF lisinopril 2.5 mg tablet 2.5 mg PO DAILY@0500 0RF Lidoderm 5 % adhesive patch,medicated 1 patch topical [id number] PRN (Reason: Pain) 0RF flecainide 100 mg tablet 100 mg PO BID@0500,1700 0RF Prozac 20 mg capsule 20 mg PO DAILY@0500 0RF Rx Instructions: Take one capsule every morning when finished with the Effexor IR titration Discharge Orders: Discharge ED (Routine); Ordered 07/23/21 Ordered By: Jerod Nur Referrals: Deepak Mock MD [Primary Care Provider] - Discharge Diet: Clear Liquid Discharge Activity: Resume usual activity Patient Instructions: Duodenitis (ED), Opioid Safety Coding Level of Care Code ED Treatment Technician for Coleman Fwd Exam Comprehensive
[2021-07-23] MEDS: iohexol 300 mg/mL 100 mL Btl IV (10:23)
[2021-07-23 10:34] VITALS: RESP 16; O2SAT 95
[2021-07-23] MEDS: morphine 4 mg/mL SDV 1 mL IVP ×2 (10:34→12:07)
[2021-07-23] MEDS: lactated ringers 1,000 ML 999 ML IV (10:36)
[2021-07-23] MEDS: ondansetron 2 mg/ML SDV 2 mL 4 MG IVP (10:36)
[2021-07-23 10:46] LABS: Basophils % 0.4 %; Eosinophils # 0.1 10^3/uL (0.0-0.8); Eosinophils % 0.9 %; Hematocrit 41.3 % (42.0-52.0); Hemoglobin 13.8 g/dL (11.7-16.6); Lymphocytes # 2.6 10^3/uL (0.8-4.8); Lymphocytes % 27.8 %; Mean Corpuscular HGB Conc 33.4 g/dL (30.0-36.0); Mean Corpuscular Hemoglobin 33.5 pg (28.0-34.0); Mean Corpuscular Volume 100.2 fl (80-94); Mean Platelet Volume 9.6 fL (7.4-10.4); Monocytes # 0.9 10^3/uL (0.2-0.9); Monocytes % 9.8 %; Neutrophils % 60.6 %; Nucleated Red Blood Cells % 0 %; Platelet Count 204 10^3/cmm (130-400); Red Blood Count 4.12 10^6/uL (4.1-5.3); Red Cell Distribution Width 12.2 % (12.1-15.1); White Blood Count 9.3 10^3/uL (4.0-10.0)
[2021-07-23 11:04] LABS: Alanine Aminotransferase 29 U/L (0-41); Albumin Level 4.1 g/dL (3.5-5.2); Alkaline Phosphatase 114 IU/L (40-130); Anion Gap 12.7 (5-19); Aspartate Amino Transferase 20 U/L (0-40); Blood Urea Nitrogen 24 mg/dL (6-20); Calcium 9.1 mg/dL (8.5-10.5); Carbon Dioxide 26 mmol/L (22-29); Chloride 100 mmol/L (98-107); Creatine Phosphokinase 107 U/L (39-308); Glomerular Filtration Rate 77.3 mL/min (90-130); Glucose 104 mg/dL (65-115); Osmolality Calculated 282 mOsm/kg (285-295); Potassium 4.7 mmol/L (3.5-5.1); Sodium 134 mmol/L (136-145); Total Bilirubin 0.7 mg/dL (0.15-1.2); Total Protein 7.1 g/dL (6.6-8.7)
[2021-07-23 11:05] LABS: Lactic Sepsis W/Reflex 0.9 mmol/L (0.5-2.2)
[2021-07-23] MEDS: lidocaine 2% viscous 15 ML, aluminum-mag hydrox-simethicon 30 ML, sucralfate oral liq 1 GM PO (12:06)
[2021-07-23 12:07] VITALS: RESP 16; O2SAT 93
[2021-07-23 13:33] LABS: Add Urine Microscopic? NO; Charge for UA Resulting for Rev
[2021-07-23 13:35] VITALS: BP 130/104; O2SAT 92
[2021-07-23 13:36] LABS: Bilirubin Urine Neg (Negative); Blood Urine Neg (Negative); Glucose Urine UA Norm (Normal); Ketones Urine Negative (Negative); Leukocyte Esterase Urine Negative (Negative); Nitrate Urine Negative (Negative); Protein Urine Neg (Negative); Specific Gravity, Urine 1.005 (1.005-1.030); Urine Appearance Clear (CLEAR); Urine Color Straw (Yellow); Urobilinogen Urine Norm (Negative); pH Urine 6 (5-7)
== END 2021-07-23 14:03 | disposition home or self-care (01) ==
PROVIDERS: Emergency Provider Family Medicine; PCP Family Medicine
DX: K29.80 Duodenitis without bleeding (principal); Z79.82 Long term (current) use of aspirin; I10 Essential (primary) hypertension; F17.210 Nicotine dependence, cigarettes, uncomplicated
CPT/HCPCS: 74177; 80053; 81003; 82550; 83605; 85025; 96361; 96374; 96375; 96376; 99284; J2270; J2405; Q9967

== ENCOUNTER 2021-07-28 12:03 | Outpatient (CLI) | payer OTHER, MEDICAID, SELFPAY ==
--- NOTE | 2021-07-28 12:33 | XR_ITS ---
WS: [id number] KUB, AP view, 07/28/2021 Clinical Data: ABD PAIN Comparison: KUB, 07/20/2021. Findings: No abnormal intraabdominal masses or calcifications are seen. There is no dilatated small bowel or ev idence of obstruction. There is minimal air in the small bowel and colon. There is a moderate amount of fecal material throu ghout the colon. There are numerous surgery clips in the right upper quadrant from cholecystectomy an d other surgery. XR/XR KUB [id number] Impression: Moderate generalized ileus.
== END 2021-07-28 12:04 | disposition home or self-care (01) ==
LOC: RAD 12:11
PROVIDERS: PCP Family Medicine; Visit Provider Family Medicine
DX: R10.9 Unspecified abdominal pain (principal); K56.7 Ileus, unspecified
CPT/HCPCS: 74018

== ENCOUNTER 2021-07-29 11:48 | Outpatient (CLI) | payer OTHER, MEDICAID, SELFPAY ==
--- NOTE | 2021-07-29 11:56 | XR_ITS ---
WS: [email or web address] Thoracic spine, 3 views, 07/29/2021 Clinical Data: CHRONIC BACK PAIN Comparison: Thoracic spine, 11/02/2020. Findings: There is vertebroplasty cement in the T5 vertebral body. No new compression fractures are seen. There are clips in the upper abdomen. The paravertebral region is normal. XR/XR thoracic spine 2V [id number] Impression: T5 vertebroplasty.
== END 2021-07-29 11:49 | disposition home or self-care (01) ==
PROVIDERS: PCP Family Medicine; Visit Provider Family Medicine
DX: M54.6 Pain in thoracic spine (principal)
CPT/HCPCS: 72070

== ENCOUNTER 2021-08-15 16:09 | Outpatient (CLI) | payer OTHER, MEDICAID, SELFPAY ==
--- NOTE | 2021-08-15 | MR_ITS ---
WS: [id number] MRI ABDOMEN with and without CONTRAST. COMPARISON: CT 07/23/2021 and 11/20/2020 and 10/27/2020 Multiplanar, multisequence imaging is performed with and without contrast. Contrast: 20 mL MultiHance. HISTORY: Liver lesion and abdominal pain. Nonenhancing 5 mm cystic nodule just to the RIGHT of the falciform ligament has been present on multi ple prior CT evaluations. No increase in size. There is also no enhancement on the postcontrast imagi ng today. No enhancing liver lesions. Mild diffuse hepatic steatosis. The portal vein is normally enh ancing. Spleen is normal size. Normal pancreas. Normal pancreatic duct. Common bile duct is normal. S tatus post RIGHT adrenalectomy. The LEFT adrenal gland is mildly enlarged. Adrenal hyperplasia is als o present on multiple prior studies with no increase. There is no enhancing nodule or mass identified . Both kidneys are enhancing normally with no obstruction. No solid mass. No ascites or adenopathy. No effusion at the lung bases. MR/MR abdomen wo/w con* [id number] IMPRESSION: 1. 5 mm nonenhancing nodule just to the RIGHT of the falciform ligament is a c yst. This has been present on multiple prior CTs with no increase in size. 2. Mild diffuse hepatic steatosis. 3. Prior RIGHT adrenalectomy. 4. Mild stable hyperplasia LEFT adrenal gland.
== END 2021-08-15 16:10 | disposition home or self-care (01) ==
LOC: RAD 16:15
PROVIDERS: PCP Family Medicine; Visit Provider Family Medicine
DX: K76.89 Other specified diseases of liver (principal); R10.9 Unspecified abdominal pain; K76.0 Fatty (change of) liver, not elsewhere classified; Q89.1 Congenital malformations of adrenal gland; E27.8 Other specified disorders of adrenal gland
CPT/HCPCS: 74183; A9577

== ENCOUNTER → 2021-09-29 10:33 | Outpatient (BNVA) | payer OTHER, SELFPAY | PROVIDERS: PCP Family Medicine; Visit Provider Nurse Practitioner Psychiatric/Mental Health | DX: F33.2 Major depressive disorder, recurrent severe without psychotic features (principal); F41.1 Generalized anxiety disorder; F10.10 Alcohol abuse, uncomplicated; F17.210 Nicotine dependence, cigarettes, uncomplicated; Z79.899 Other long term (current) drug therapy | CPT/HCPCS: 80053 ==

== ENCOUNTER 2021-12-26 13:43 | Outpatient (CLI) | payer OTHER, MEDICAID, SELFPAY ==
--- NOTE | 2021-12-26 13:48 | XR_ITS ---
WS: [id number] SCREENING DEXA SCAN [employer] CLINICAL INFORMATION: GENERALIZED OSTEOPOROSIS COMPARISON: September 13, 2020 FINDINGS: The L1-L4 bone mineral density measures 1.011 g/cm2. This corresponds to a T score score of -1.7 and Z score of -2.2. Left femoral neck bone mineral density measures 0.885 g/cm2. This corresponds to a T score of -1.5 an d Z score of -1.5. Right femoral neck bone mineral density measures 0.876 g/cm2. This corresponds to a T score -1.6of an d Z score of -1.6. Mean femoral neck bone mineral density measures 0.880 g/cm2. This corresponds to a T score of -1.5 an d Z score of -1.5. XR/XR DEXA axial skeleton* [id number] IMPRESSION: Osteopenia lumbar spine and femoral necks. Patient's FRAX calculated 10 year probability for major osteoporotic fracture i s 12.4 % and osteoporotic hip fracture is 2.0%. Bone mineral density in the lumbar spine has increased 0.4% within the lumbar s pine and decreased -5.4% in the femoral necks since 2020.
== END 2021-12-26 13:44 | disposition home or self-care (01) ==
PROVIDERS: PCP Family Medicine; Visit Provider Family Medicine
DX: M81.0 Age-related osteoporosis without current pathological fracture (principal); M85.80 Other specified disorders of bone density and structure, unspecified site
CPT/HCPCS: 77080

== ENCOUNTER 2022-01-19 14:59 | Emergency (ER) | payer MEDICAID, SELFPAY ==
[2022-01-19] VITALS (13 sets, daily range): BP systolic 98–133; BP diastolic 69–89; PULSE 66–77; RESP 11–23; TEMP 36.1; O2SAT 92–97; BMI 32.9
--- NOTE | 2022-01-19 15:15 | XR_ITS ---
WS: [id number] Portable AP upright chest, 01/19/2022 Clinical Data: cp Comparison: Portable chest, 09/09/2020. Findings: No nodules, masses or effusions are seen. The heart is normal. The pulmonary vascularity is not increased. No pneumonia or pneumothorax is seen. XR/XR chest 1V portable [id number] Impression: Negative chest.
--- NOTE | 2022-01-19 15:15 | ECG_ITS ---
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 Measurements Intervals [place] Rate: 75 P: 62 [place]: 154 QRS: 57 QRSD: 89 T: 69 QT: 397 QTc: 445 Interpretive Statements SINUS RHYTHM INTERPRETATION BASED ON A DEFAULT AGE OF 40 YEARS Compared to ECG 05/05/2021 11:38:07 T-wave abnormality no longer present Electronically Signed On 01-20-2022 6:18:21 CDT by Lorin Andujar M.D. [id number]
--- NOTE | 2022-01-19 15:52 | ED_ITS ---
HPI - Chest Pain General: Chief Complaint: Chest Pain Stated Complaint: chest pain Time Seen by Provider: 01/19/22 15:15 Source: patient Mode of arrival: ambulatory Limitations: no limitations History of Present Illness: This patient presents to our emergency department because of central left-sided chest pain. He states the pain began sometime around 1:00 PM today. He states it is sharp in nature without radiation. He states it does not seem to change with taking a deep breath twisting turning e tc. He denies cough or fever. He denies history of coronary artery disease but does have a history of PMR as well as atrial fibrillation. He states he is taking all his usual pain medicine and other medicines today. He denies any associated nausea vomiting, cough, fevers etc. MD complaint: chest pain Prior episodes: Yes Onset: during rest Pain location: substernal and left chest Pain radiation: none Quality: aching and sharp Relieving factors: nothing Associated symptoms: Deny abdominal pain, dyspnea, fever(s), nausea, palpitations, syncope or vomiting Review of Systems Const: Denies: fever(s) or chills Eyes: Denies: change in vision ENMT: Denies: odynophagia, nasal discharge or nasal congestion Card: Reports: chest pain; Denies: palpitations, irregular heart rhythm, lightheadedness, syncope or pre- syncope Resp: Denies: dyspnea, productive cough, non-productive cough, wheezing or stridor GI: Denies: abdominal pain, nausea, vomiting or diarrhea : Denies: flank pain, difficulty urinating or dysuria Musc: Denies: neck pain, back pain, extremity pain or extremity swelling Skin/Breast: Denies: rash or pruritus Neuro: Denies: headache(s), numbness in extremities or weakness in extremities Jonathan/Lymph: Denies: easy bruising PFSH ED PFSH: Medical History Allergic contact dermatitis Atrial fibrillation with rapid ventricular response Benign essential HTN Chronic low back pain Diverticulitis GCA (giant cell arteritis) Generalized anxiety disorder Severe GERD (gastroesophageal reflux disease) Inflammatory arthritis Major depressive disorder, recurrent severe without psychotic features IVON (obstructive sleep apnea) Polymyalgia rheumatica Squamous cell carcinoma Surgical History History of amputation of finger History of colonoscopy 11/2020 History of esophagogastroduodenoscopy (EGD) History of kidney surgery Previous back surgery Status post laparoscopic cholecystectomy (01/26/21) Family History Sister CAD (coronary artery disease) Psychiatric illness Mother Cancer Rheumatoid arthritis Father Diabetes Hyperlipidemia Hypertension Grandmother Diabetes Other Family history of premature coronary artery disease Denies family history of Clotting disorder Dementia Chronic kidney disease (CKD) Systemic lupus erythematosus (SLE) in adult Suicide Anesthesia complication Bleeding disorder Lung disease Stroke Social History Smoking and tobacco status: current every day smoker cigarettes Alcohol intake: former Household members: spouse Housing: House 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 He makes good eye contact. Const: COMMON NORMALS: no acute distress, patient oriented x3 and alert GENERAL APPEARANCE: cooperative NUTRITIONAL APPEARANCE: overweight ORIENTATION/CONSCIOUSNESS: Yes awake HENMT: COMMON NORMALS: normocephalic, atraumatic, Normal nasal mucous membranes and turbinates present and moist oral mucous membranes HEAD & SCALP: normocephalic and atraumatic FACE & SINUS: normal facial exam NOSE: Normal nasal mucous membranes and turbinates present Eye: COMMON NORMALS: Equal, round and reactive pupils present, EOMs intact bilaterally and conjunctivae normal CONJUNCTIVA: Yes conjunctivae normal PUPIL: Yes Equal, round and reactive pupils present Neck/C-Spine: COMMON NORMALS: full ROM, no lymphadenopathy, no JVD and No carotid bruits Chest: COMMONS NORMALS: normal inspection of the chest OTHER: Palpation of his chest reveals tenderness along the rib margins and costochondral junction on the left side particularly ribs 567 and 8 Resp: COMMON NORMALS: normal respiratory effort, No retractions, No use of accessory muscles and clear to auscultation bilaterally AUSCULTATION: clear to auscultation bilaterally Cardio: COMMON NORMALS: no JVD, regular rate, regular rhythm, No murmurs present (Cardio) and Peripheral pulses 2+ throughout RATE: regular rate RHYTHM: regular rhythm PERIPHERAL PULSES: Peripheral pulses 2+ throughout GI: COMMON NORMALS: Normal to inspection, nondistended, normoactive bowel sounds present, Soft to palpation, non-tender and no masses PALPATION: Yes Soft to palpation : COMMON NORMALS: Yes no CVA tenderness BLADDER/KIDNEY EXAM: Yes no CVA tenderness Back/Pelvis: COMMON NORMALS: no CVA tenderness, thoracic and lumbar spine normal to inspection, no thoracic nor lumbar tenderness and thoraco-lumbar ROM normal Extremity: COMMON NORMALS: normal to inspection, full ROM, capillary refill normal, no joint enlargement, no calf tenderness and no pedal edema Neuro: COMMON NORMALS: patient oriented x3, moves all extremities, no focal motor deficits and no sensory deficits noted SENSORIUM/ORIENTATION: Yes alert CRANIAL NERVES: Yes CN normal except as noted SPEECH: speech normal Psych: COMMON NORMALS: mental status grossly normal Skin: COMMON NORMALS: no rashes or lesions noted, turgor normal and no petechiae GENERAL SKIN EXAM: no rashes or lesions noted and turgor normal Course Reevaluation(s): Reevaluation #1: Patient states he does not feel that either of the pain medications administered has made any change in his symptoms. Repeat evaluation reveals reproducibility and tenderness along his ribs again is noted 567 and 8. He also has some epigastric tenderness to palpation. Reviewed prior records he did have a CT chest abdomen pelvis 1 year ago which revealed no evidence of aortic disease at that time. Also subsequent abdominal pelvic CTs of failed to reveal any significant vascular issues. Time: 18:00 Reevaluation #2: Feeling much better. He ate fast food that his brought for him. He denies any pain or discomfort at this time other than some muscle soreness. Time: 20:00 Vital Signs: Vital signs: Vital Signs Temperature 97.0 F L 01/19/22 15:04 Pulse Rate 75 01/19/22 15:04 Respiratory Rate 16 01/19/22 17:04 Blood Pressure 122/78 01/19/22 15:04 Pulse Oximetry 97 01/19/22 15:04 MDM - Chest Pain Medical Decision Making This patient presented to the emergency department with epigastric and chest pain symptoms. Patient has a known history of PMR and has had multiple emerg ency department and other outpatient evaluations. He is evaluation today revealed physical findings that suggested possible musculoskeletal component to his presentation however due diligence was undertaken. Serial troponins and serial EKGs were reassuring. A bedside ultrasound revealed no evidence of pleural effusion grossly. And he responded to treatment which included H2 blockers. He was symptom-free at the time of reevaluation in the emergency department after observation. He had recently been taking a steroid taper which may or may not have affected his stomach. He apparently has been taking a proton pump inhibitor for several years we also reviewed whether the he needs to be changed to a different medication for long-term maintenance. At this time there is no evidence of an ongoing emergency medical condition such as great vessel disease, ACS, pneumonia, pericardial effusion etc. at this time. He is stable to be discharged home with outpatient follow-up with his family p toni. He voiced understanding of our evaluation and its limitations and implications and was appreciative of care. Medical Records I reviewed the patient's medical records. Lab Data I reviewed the patient's lab results. : 01/19/22 15:43 01/19/22 15:43 Radiology Impressions Chest X-Ray 01/19/22 15:15 Impression: Negative chest. Laboratory Results WBC 8.7 10^3/uL (4.0-10.0) 01/19/22 15:43 RBC 4.48 10^6/uL (4.1-5.3) 01/19/22 15:43 Hgb 15.0 g/dL (11.7-16.6) 01/19/22 15:43 Hct 44.6 % (42.0-52.0) 01/19/22 15:43 MCV 99.6 fl (80-94) H 01/19/22 15:43 MCH 33.5 pg (28.0-34.0) 01/19/22 15:43 MCHC 33.6 g/dL (30.0-36.0) 01/19/22 15:43 RDW 12.5 % (12.1-15.1) 01/19/22 15:43 Plt Count 175 10^3/cmm (130-400) 01/19/22 15:43 MPV 9.5 fL (7.4-10.4) 01/19/22 15:43 Neut % (Auto) 55.7 % 01/19/22 15:43 Lymph % (Auto) 33.1 % 01/19/22 15:43 Jack % (Auto) 9.1 % 01/19/22 15:43 Eos % (Auto) 0.7 % 01/19/22 15:43 Baso % (Auto) 0.7 % 01/19/22 15:43 Neut # (Auto) 4.82 10^3/uL (1.8-7.7) 01/19/22 15:43 Lymph # (Auto) 2.9 10^3/uL (0.8-4.8) 01/19/22 15:43 Jack # (Auto) 0.8 10^3/uL (0.2-0.9) 01/19/22 15:43 Eos # (Auto) 0.1 10^3/uL (0.0-0.8) 01/19/22 15:43 Baso # (Auto) 0.1 10^3/uL (0.0-0.1) 01/19/22 15:43 Nucleated RBC % (auto) 0 % 01/19/22 15:43 Nucleated RBCs # 0.0 /100WBC 01/19/22 15:43 Sodium 138 mmol/L (136-145) 01/19/22 15:43 Potassium 4.6 mmol/L (3.5-5.1) 01/19/22 15:43 Chloride 100 mmol/L (98-107) 01/19/22 15:43 Carbon Dioxide 24 mmol/L (22-29) 01/19/22 15:43 Anion Gap 18.6 (5-19) 01/19/22 15:43 BUN 18 mg/dL (6-20) 01/19/22 15:43 Creatinine 1.1 mg/dL (0.7-1.2) 01/19/22 15:43 GFR Calculation 69.0 mL/min (90-130) L 01/19/22 15:43 Glucose 99 mg/dL (65-115) 01/19/22 15:43 Calculated Osmolality 288 mOsm/kg (285-295) 01/19/22 15:43 Calcium 8.9 mg/dL (8.5-10.5) 01/19/22 15:43 Total Bilirubin 0.6 mg/dL (0.15-1.2) 01/19/22 15:43 AST 19 U/L (0-40) 01/19/22 15:43 ALT 30 U/L (0-41) 01/19/22 15:43 Alkaline Phosphatase 107 U/L (40-130) 01/19/22 15:43 Troponin T Baseline 13 ng/L (0-15) 01/19/22 15:43 Troponin T 120 Minute 9.99 ng/L (0-15) 01/19/22 17:46 Delta Troponin T 3.01 ABS# (0-10) 01/19/22 17:46 Total Protein 7.5 g/dL (6.6-8.7) 01/19/22 15:43 Albumin 4.5 g/dL (3.5-5.2) 01/19/22 15:43 Globulin 3.0 g/dL (1.3-4.6) 01/19/22 15:43 EKG Data EKG 1: I personally reviewed and interpreted this EKG as follows: Interpretation: EKG reveals a ventricular rate of 66 bpm consistent with normal sinus rhythm. MO QRS interval duration as well as normal QTC. No acute ST-T wave changes noted. Discharge Plan Discharge Patient Disposition: Home Clinical Impression: Polymyalgia rheumatica, Chest pain, Chronic gastroesophageal reflux disease Condition: Stable Prescriptions: No Action diphenhydramine HCl [Benadryl] 25 mg capsule 25 mg PO BEDTIME PRN (Reason: sleep) aspirin 325 mg tablet 325 mg PO DAILY@05 vitamin B complex [B Complex-Vitamin B12] Tablet 1 tab PO DAILY@05 albuterol sulfate [ProAir HFA] 90 mcg/actuation HFA aerosol inhaler 2 puff INHALATION Q6H PRN (Reason: Shortness Of Breath) Qty: 6.7 1RF celecoxib [Celebrex] 200 mg capsule 200 mg PO DAILY@0500 Protonix 40 mg tablet,delayed release (DR/EC) 40 mg PO DAILY@05 metoprolol tartrate 25 mg tablet 25 mg PO BID@,17 Qty: 180 3RF ascorbic acid (vitamin C) [Vitamin C] 500 mg Tablet 1,000 mg PO DAILY@05 Qty: 0 cholecalciferol (vitamin D3) [Vitamin D3] 25 mcg (1,000 unit) Capsule 75 mcg PO DAILY@05 Qty: 0 atorvastatin [Lipitor] 20 mg Tablet 20 mg PO DAILY@0500 lisinopril 2.5 mg tablet 2.5 mg PO DAILY@0500 flecainide 100 mg tablet 100 mg PO BID@0500,1700 gabapentin 600 mg tablet 600 mg PO TID@,12,17 hydrocodone-acetaminophen 5-325 mg tablet 1 tab PO Q12H Nitrostat 0.4 mg Tablet, Sublingual 0.4 mg SUBLINGUAL Q5M PRN (Reason: Chest Pain) Rx Instructions: do not exceed 3 doses per episode Prozac 20 mg capsule 20 mg PO DAILY@05 Discharge Orders: Discharge ED (Routine); Ordered 01/19/22 Ordered By: Radames Fernandes Referrals: Deepak Mock MD [Primary Care Provider] - Discharge Diet: Usual diet Discharge Activity: Increase activity as tolerated Patient Instructions: Opioid Safety Activity Restrictions/Additional Instructions: Take all your routine medications as prescribed. Call your primary care physic rika for follow-up and discussion regarding her medication profile. If you develop any new, persistent, worsening symptoms return to this or the nearest emergency department. Coding Level of Care Code ED Finisher [employer] for Coleman Sheppard Exam Comprehensive
[2022-01-19 15:56] LABS: Basophils # 0.1 10^3/uL (0.0-0.1); Basophils % 0.7 %; Eosinophils # 0.1 10^3/uL (0.0-0.8); Eosinophils % 0.7 %; Hematocrit 44.6 % (42.0-52.0); Lymphocytes # 2.9 10^3/uL (0.8-4.8); Lymphocytes % 33.1 %; Mean Corpuscular HGB Conc 33.6 g/dL (30.0-36.0); Mean Corpuscular Hemoglobin 33.5 pg (28.0-34.0); Mean Corpuscular Volume 99.6 fl (80-94); Mean Platelet Volume 9.5 fL (7.4-10.4); Monocytes # 0.8 10^3/uL (0.2-0.9); Monocytes % 9.1 %; Neutrophils # 4.82 10^3/uL (1.8-7.7); Neutrophils % 55.7 %; Nucleated Red Blood Cells % 0 %; Platelet Count 175 10^3/cmm (130-400); Red Blood Count 4.48 10^6/uL (4.1-5.3); Red Cell Distribution Width 12.5 % (12.1-15.1); White Blood Count 8.7 10^3/uL (4.0-10.0)
[2022-01-19] MEDS: morphine 4 mg/mL SDV 1 mL IVP (16:08)
[2022-01-19] MEDS: ondansetron 2 mg/ML SDV 2 mL 4 MG IVP (16:09)
--- NOTE | 2022-01-19 16:13 | PC.PHAR ---
pt states he takes care of his own medications-flecainide prescribed as 150mg BID filled 01/01/22 30d/s, pt states he is taking 100mg BID-notes are made in the pharmacy comments
[2022-01-19 16:40] LABS: Troponin(5th) Baseline 13 ng/L (0-15)
[2022-01-19 16:46] LABS: Alanine Aminotransferase 30 U/L (0-41); Albumin Level 4.5 g/dL (3.5-5.2); Alkaline Phosphatase 107 U/L (40-130); Anion Gap 18.6 (5-19); Aspartate Amino Transferase 19 U/L (0-40); Blood Urea Nitrogen 18 mg/dL (6-20); Calcium 8.9 mg/dL (8.5-10.5); Carbon Dioxide 24 mmol/L (22-29); Chloride 100 mmol/L (98-107); Glucose 99 mg/dL (65-115); Osmolality Calculated 288 mOsm/kg (285-295); Potassium 4.6 mmol/L (3.5-5.1); Sodium 138 mmol/L (136-145); Total Bilirubin 0.6 mg/dL (0.15-1.2); Total Protein 7.5 g/dL (6.6-8.7)
[2022-01-19] MEDS: HYDROmorphone 1 mg/mL INJ 1 mL IVP (17:04)
--- NOTE | 2022-01-19 17:15 | ECG_ITS ---
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 Measurements Intervals [place] Rate: 66 P: 25 [place]: 149 QRS: 47 QRSD: 89 T: 65 QT: 403 QTc: 424 Interpretive Statements SINUS RHYTHM Compared to ECG 01/19/2022 15:03:17 No significant changes Electronically Signed On 01-20-2022 6:27:57 CDT by Lorin Andujar M.D. [id number]
[2022-01-19] MEDS: ketorolac 30 mg/mL INJ 15 MG IVP (18:30)
[2022-01-19] MEDS: famotidine 20 mg/2 mL INJ 40 MG IVP (18:33)
[2022-01-19 18:41] LABS: Troponin 5 2HR 9.99 ng/L (0-15)
[2022-01-19 19:03] LABS: Troponin 5 2HR Delta 3.01 ABS# (0-10)
--- NOTE | 2022-01-19 19:42 | PC.NURSE ---
Patient requested to eat. Notified patient that I need an order from physician. Went back to room to update patient and he is eating a hamburger and fries from [employer]. Notified physician
== END 2022-01-19 20:24 | disposition home or self-care (01) ==
PROVIDERS: Emergency Provider Emergency Medicine; PCP Family Medicine
DX: R07.9 Chest pain, unspecified (principal); K21.9 Gastro-esophageal reflux disease without esophagitis; M35.3 Polymyalgia rheumatica; I10 Essential (primary) hypertension; I48.91 Unspecified atrial fibrillation; F17.210 Nicotine dependence, cigarettes, uncomplicated
CPT/HCPCS: 71045; 80053; 84484; 85025; 93005; 96374; 96375; 99285; J1170; J1885; J2270; J2405; J3490

== ENCOUNTER 2022-02-28 13:53 | Outpatient (CLI) | payer OTHER, MEDICAID, SELFPAY ==
--- NOTE | 2022-02-28 14:18 | PFTS_ITS ---
Date of Study:02/28/22 Date of Dictation: MECHANICS: Forced vital capacity (FVC) is reduced. Forced expiratory volume in one second (FEV1) is reduced. FEV1/FVC is reduced. FLOW VOLUME LOOP: Reduced lateral lung volumes with significant scooping. LUNG VOLUMES: Total lung capacity (TLC) is normal. Residual volume (RV) is increased. DIFFUSING CAPACITY FOR CARBON MONOXIDE: Normal. INTERPRETATION: The postbronchodilator spirometry is consistent with moderate airflow obstruction. There is no significant postbronchodilator response. Lung volumes are consistent with air trapping. Gas exchange (DLCO) is normal. MTDD
== END 2022-02-28 13:54 | disposition home or self-care (01) ==
LOC: RT 13:54
PROVIDERS: PCP Family Medicine; Visit Provider Family Medicine
DX: J44.9 Chronic obstructive pulmonary disease, unspecified (principal)
CPT/HCPCS: 94060; 94726; 94729; J7611

== ENCOUNTER 2022-03-13 19:02 | Emergency (ER) | payer OTHER, MEDICAID, SELFPAY ==
[2022-03-13] VITALS (52 sets, daily range): BP systolic 104–143; BP diastolic 60–83; PULSE 62–88; RESP 12–24; TEMP 36.4; O2SAT 91–100; BMI 32.5
--- NOTE | 2022-03-13 19:04 | XRR_ITS ---
PROCEDURE INFORMATION: Exam: XR Chest Exam date and time: 03/13/2022 7:41 PM Age: 56 years old Clinical indication: Chest wall pain; Additional info: Cp TECHNIQUE: Imaging protocol: Radiologic exam of the chest. Views: 1 view. COMPARISON: CR XR chest 1V portable [id number] 01/19/2022 3:19 PM FINDINGS: Lungs: Unremarkable. No consolidation. Pleural spaces: Unremarkable. No pleural effusion. No pneumothorax. Heart/Mediastinum: Unremarkable. No cardiomegaly. Bones/joints: Unremarkable. XR/XR chest 1V portable [id number] IMPRESSION: No acute findings.
--- NOTE | 2022-03-13 19:14 | ECG_ITS ---
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 Measurements Intervals [place] Rate: 81 P: 52 CA: 168 QRS: 54 QRSD: 90 T: 71 QT: 372 QTc: 434 Interpretive Statements SINUS RHYTHM Compared to ECG 01/19/2022 17:20:30 No significant changes Electronically Signed On 03-14-2022 3:46:37 CDT by Kennedy Bunn M.D. [id number]
--- NOTE | 2022-03-13 19:30 | ED_ITS ---
HPI - Chest Pain General: Chief Complaint: Chest Pain Stated Complaint: CP, SOB Time Seen by Provider: 03/13/22 19:26 Source: patient Mode of arrival: ambulatory Limitations: no limitations History of Present Illness: 56-year-old male states that roughly 3 to 4 hours ago he started having some dyspnea along with chest pain states been having increasing dyspnea over the last month he was prescribed a Spiriva that he ran out 3 days ago he states his pain is a pressure type pain is a 4 out of 10 denies any fever denies any cough denies any worsening proving factors denies any nausea or diaphoresis. Associated symptoms: Reports dyspnea; Deny abdominal pain, fever(s), nausea or vomiting Review of Systems Const: Denies: fever(s), chills, body aches or change in appetite Eyes: Denies: blurry vision or eye discomfort ENMT: Denies: throat pain or dental pain Card: Reports: chest pain Resp: Reports: dyspnea GI: Denies: abdominal pain, nausea, vomiting or diarrhea : Denies: dysuria Musc: Denies: neck pain or back pain Skin/Breast: Denies: rash Neuro: Denies: headache(s) Psych: Denies: depression Jonathan/Lymph: Denies: easy bruising All/Imm: Denies: urticaria PFSH ED PFSH: Medical History Allergic contact dermatitis Atrial fibrillation with rapid ventricular response Benign essential HTN Chronic low back pain Diverticulitis GCA (giant cell arteritis) Generalized anxiety disorder Severe GERD (gastroesophageal reflux disease) Inflammatory arthritis Major depressive disorder, recurrent severe without psychotic features IVON (obstructive sleep apnea) Polymyalgia rheumatica Squamous cell carcinoma Surgical History History of amputation of finger History of colonoscopy 11/2020 History of esophagogastroduodenoscopy (EGD) History of kidney surgery Previous back surgery Status post laparoscopic cholecystectomy (01/26/21) Family History Sister CAD (coronary artery disease) Psychiatric illness Mother Cancer Rheumatoid arthritis Father Diabetes Hyperlipidemia Hypertension Grandmother Diabetes Other Family history of premature coronary artery disease Denies family history of Clotting disorder Dementia Chronic kidney disease (CKD) Systemic lupus erythematosus (SLE) in adult Suicide Anesthesia complication Bleeding disorder Lung disease Stroke Social History Smoking and tobacco status: current every day smoker cigarettes Alcohol intake: former Household members: spouse Housing: House 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 History of recent travel: No Physical Exam Const: COMMON NORMALS: no acute distress, patient oriented x3 and healthy appearing HENMT: COMMON NORMALS: normocephalic and atraumatic HEAD & SCALP: normocephalic and atraumatic Eye: COMMON NORMALS: Equal, round and reactive pupils present and EOMs intact bilaterally PUPIL: Yes Equal, round and reactive pupils present Neck/C-Spine: COMMON NORMALS: full ROM and supple Chest: COMMONS NORMALS: normal inspection of the chest and normal palpation of entire chest wall Resp: COMMON NORMALS: normal respiratory effort, No retractions, No use of accessory muscles and clear to auscultation bilaterally AUSCULTATION: clear to auscultation bilaterally Cardio: COMMON NORMALS: regular rate, regular rhythm and No murmurs present (Cardio) RATE: regular rate RHYTHM: regular rhythm GI: COMMON NORMALS: Normal to inspection, nondistended, normoactive bowel sounds present, Soft to palpation, non-tender and no masses PALPATION: Yes Soft to palpation Extremity: COMMON NORMALS: normal to inspection and full ROM Neuro: COMMON NORMALS: patient oriented x3, moves all extremities and no focal motor deficits Psych: COMMON NORMALS: mental status grossly normal, Normal thought process present and cooperative THOUGHT PROCESS: Normal thought process present Skin: COMMON NORMALS: no rashes or lesions noted and no wounds GENERAL SKIN EXAM: no rashes or lesions noted Course Vital Signs: Vital signs: Vital Signs Temperature 97.6 F 03/13/22 19:05 Pulse Rate 82 03/13/22 23:10 Respiratory Rate 14 03/13/22 23:10 Blood Pressure 106/61 03/13/22 23:10 Pulse Oximetry 92 03/13/22 23:10 Oxygen Delivery Me thod 03/13/22 19:57 MDM - Chest Pain Medical Decision Making Patient presents here with chest pain that is atypical in nature patient's troponins here are normal he is well-appearing here no signs of acute coronary syndrome he is stable for discharge he is to follow-up with his car sales representative and return if worsening. Lab Data : 03/13/22 19:30 03/13/22 19:30 Radiology Impressions Chest X-Ray 03/13/22 19: IMPRESSION: No acute findings. Laboratory Results WBC 8.9 10^3/uL (4.0-10.0) 03/13/22 19:30 RBC 4.21 10^6/uL (4.1-5.3) 03/13/22 19: Hgb 14.3 g/dL (11.7-16.6) 03/13/22 19: Hct 42.3 % (42.0-52.0) 03/13/22 19: MCV 100.5 fl (80-94) H 03/13/22: MCH 34.0 pg (28.0-34.0) 03/13/22: MCHC 33.8 g/dL (30.0-36.0) 03/13/22: RDW 12.5 % (12.1-15.1) 03/13/22: Plt Count 199 10^3/cmm (130-400) 03/13/22 19: MPV 9.5 fL (7.4-10.4) 03/13/22 19: Neut % (Auto) 72.4 % 03/13/22 19: Lymph % (Auto) 20.8 % 03/13/22 19: [place] % (Auto) 5.4 % 03/13/22 19: Eos % (Auto) 0.6 % 03/13/22: Baso % (Auto) 0.2 % 03/13/22: Neut # (Auto) 6.46 10^3/uL (1.8-7.7) 03/13/22 19: Lymph # (Auto) 1.9 10^3/uL (0.8-4.8) 03/13/22: [place] # (Auto) 0.5 10^3/uL (0.2-0.9) 03/13/22 19: Eos # (Auto) 0.1 10^3/uL (0.0-0.8) 03/13/22 19: Baso # (Auto) 0.0 10^3/uL (0.0-0.1) 03/13/22 19:30 Nucleated RBC % (auto) 0 % 03/13/22 19: Nucleated RBCs # 0.0 /100WBC 03/13/22 19:30 Sodium 134 mmol/L (136-145) L 03/13/22 19:30 Potassium 4.5 mmol/L (3.5-5.1) 03/13/22 19:30 Chloride 100 mmol/L (98-107) 03/13/22 19:30 Carbon Dioxide 24 mmol/L (22-29) 03/13/22 19:30 Anion Gap 14.5 (5-19) 03/13/22 19:30 BUN 21 mg/dL (6-20) H 03/13/22:30 Creatinine 1.3 mg/dL (0.7-1.2) H 03/13/22:30 GFR Calculation 56.9 mL/min (90-130) L 03/13/22: Glucose 149 mg/dL (65-115) H 03/13/22:30 Calculated Osmolality 284 mOsm/kg (285-295) L 03/13/22:30 Calcium 9.1 mg/dL (8.5-10.5) 03/13/22 19:30 Total Bilirubin 0.4 mg/dL (0.15-1.2) 03/13/22 19:30 AST 14 U/L (0-40) 03/13/22 19:30 ALT 19 U/L (0-41) 03/13/22 19:30 Alkaline Phosphatase 108 U/L (40-130) 03/13/22 19:30 Troponin T Baseline 9 ng/L (0-15) 03/13/22 19:30 Troponin T 120 Minute 8.96 ng/L (0-15) 03/13/22 22:50 Delta Troponin T -0.04 ABS# (0-10) L 03/13/22 22:50 Total Protein 6.5 g/dL (6.6-8.7) L 03/13/22 19:30 Albumin 4.2 g/dL (3.5-5.2) 03/13/22 19:30 Globulin 2.3 g/dL (1.3-4.6) 03/13/22 19:30 EKG Data EKG 1: I personally reviewed and interpreted this EKG as follows: EKG interpretation date: 03/13/22 EKG interpretation time: 19:14 Interpretation: nsr hr [address] or t wave abnormalities qrs 90 qtc 410 EKG 2: I personally reviewed and interpreted this EKG as follows: EKG interpretation date: 03/13/22 EKG interpretation time: 20:48 Interpretation: nsr hr [address] or t wave abnormalities qrs 85 qtc 431 Discharge Plan Discharge Patient Disposition: Home Clinical Impression: Chest pain Qualifiers: Chest pain type: unspecified Qualified Code(s): R07.9 - Chest pain, unspecified Condition: Stable Prescriptions: No Action diphenhydramine HCl [Benadryl] 25 mg capsule 25 mg PO BEDTIME PRN (Reason: sleep) aspirin 325 mg tablet 325 mg PO DAILY@05 vitamin B complex [B Complex-Vitamin B12] Tablet 1 tab PO DAILY@05 albuterol sulfate [ProAir HFA] 90 mcg/actuation HFA aerosol inhaler 2 puff INHALATION Q6H PRN (Reason: Shortness Of Breath) Qty: 6.7 1RF celecoxib [Celebrex] 200 mg capsule 200 mg PO DAILY@0500 Protonix 40 mg tablet,delayed release (DR/EC) 40 mg PO DAILY@05 fluoxetine [Prozac] 40 mg capsule 40 mg PO QAM Qty: 30 3RF Rx Instructions: Take one capsule every morning metoprolol tartrate 25 mg tablet 25 mg PO BID@05,17 Qty: 180 3RF flecainide 100 mg tablet 100 mg PO BID@0500,1700 Qty: 120 0RF Rx Instructions: MUST KEEP YOUR APPOINTMENT PRIOR TO ANY MORE REFILLS ascorbic acid (vitamin C) [Vitamin C] 500 mg Tablet 1,000 mg PO DAILY@05 Qty: 0 cholecalciferol (vitamin D3) [Vitamin D3] 25 mcg (1,000 unit) Capsule 75 mcg PO DAILY@05 Qty: 0 atorvastatin [Lipitor] 20 mg Tablet 20 mg PO DAILY@0500 lisinopril 2.5 mg tablet 2.5 mg PO DAILY@0500 hydrocodone-acetaminophen 5-325 mg tablet 1 tab PO Q12H Nitrostat 0.4 mg Tablet, Sublingual 0.4 mg SUBLINGUAL Q5M PRN (Reason: Chest Pain) Rx Instructions: do not exceed 3 doses per episode gabapentin 600 mg tablet 600 mg PO TID Discharge Orders: Discharge ED (Routine); Ordered 03/13/22 Ordered By: Vinnie Redd Referrals: Deepak Mock MD [Primary Care Provider] - Discharge Diet: Advance as tolerated Discharge Activity: Resume usual activity Patient Instructions: Chest Pain (ED) Coding Level of Care Code ED Credit Officer for Chg Fwd Exam Comprehensive
[2022-03-13] MEDS: aspirin 81 mg Chew Tablet 324 MG PO (19:43)
[2022-03-13] MEDS: nitroglycerin 0.4 mg sublingual Tablet SUBLINGUAL (19:43)
[2022-03-13] MEDS: ipratropium-albuterol 3 mL Neb INHALATION (19:48)
[2022-03-13 19:50] LABS: Basophils % 0.2 %; Eosinophils # 0.1 10^3/uL (0.0-0.8); Eosinophils % 0.6 %; Hematocrit 42.3 % (42.0-52.0); Hemoglobin 14.3 g/dL (11.7-16.6); Lymphocytes # 1.9 10^3/uL (0.8-4.8); Lymphocytes % 20.8 %; Mean Corpuscular HGB Conc 33.8 g/dL (30.0-36.0); Mean Corpuscular Volume 100.5 fl (80-94); Mean Platelet Volume 9.5 fL (7.4-10.4); Monocytes # 0.5 10^3/uL (0.2-0.9); Monocytes % 5.4 %; Neutrophils # 6.46 10^3/uL (1.8-7.7); Neutrophils % 72.4 %; Nucleated Red Blood Cells % 0 %; Platelet Count 199 10^3/cmm (130-400); Red Blood Count 4.21 10^6/uL (4.1-5.3); Red Cell Distribution Width 12.5 % (12.1-15.1); White Blood Count 8.9 10^3/uL (4.0-10.0)
[2022-03-13 20:17] LABS: Troponin(5th) Baseline 9 ng/L (0-15)
[2022-03-13 20:18] LABS: Alanine Aminotransferase 19 U/L (0-41); Albumin Level 4.2 g/dL (3.5-5.2); Alkaline Phosphatase 108 U/L (40-130); Anion Gap 14.5 (5-19); Aspartate Amino Transferase 14 U/L (0-40); Blood Urea Nitrogen 21 mg/dL (6-20); Calcium 9.1 mg/dL (8.5-10.5); Carbon Dioxide 24 mmol/L (22-29); Chloride 100 mmol/L (98-107); Globulin 2.3 g/dL (1.3-4.6); Glomerular Filtration Rate 56.9 mL/min (90-130); Glucose 149 mg/dL (65-115); Osmolality Calculated 284 mOsm/kg (285-295); Potassium 4.5 mmol/L (3.5-5.1); Sodium 134 mmol/L (136-145); Total Bilirubin 0.4 mg/dL (0.15-1.2); Total Protein 6.5 g/dL (6.6-8.7)
[2022-03-13] MEDS: HYDROmorphone 1 mg/mL INJ 1 mL 0.5 MG IVP (20:23)
--- NOTE | 2022-03-13 21:04 | ECG_ITS ---
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 Measurements Intervals [place] Rate: 77 P: 51 NE: 179 QRS: 50 QRSD: 85 T: 70 QT: 400 QTc: 453 Interpretive Statements SINUS RHYTHM Compared to ECG 03/13/2022 19:14:00 No significant changes Electronically Signed On 03-14-2022 3:48:23 CDT by Kennedy Bunn M.D. [id number]
[2022-03-13] MEDS: HYDROcodone-acetaminophen 5-325 mg Tablet 1 TAB PO (23:14)
[2022-03-13 23:21] LABS: Troponin 5 2HR 8.96 ng/L (0-15)
[2022-03-14 00:02] LABS: Troponin 5 2HR Delta -0.04 ABS# (0-10)
== END 2022-03-14 00:10 | disposition home or self-care (01) ==
PROVIDERS: Emergency Provider Emergency Medicine; PCP Family Medicine
DX: R07.9 Chest pain, unspecified (principal); Z79.82 Long term (current) use of aspirin; F17.210 Nicotine dependence, cigarettes, uncomplicated; I10 Essential (primary) hypertension
CPT/HCPCS: 71045; 80053; 84484; 85025; 93005; 94640; 99284; J1170

== ENCOUNTER → 2022-06-14 09:29 | Outpatient (BNVA) | payer OTHER, MEDICAID, SELFPAY | PROVIDERS: PCP Family Medicine; Visit Provider Nurse Practitioner Psychiatric/Mental Health | DX: Z79.899 Other long term (current) drug therapy (principal) | CPT/HCPCS: 80053; 82306; 82607; 84439; 84443 ==

== ENCOUNTER → 2022-12-25 13:32 | Outpatient (BNVA) | payer MEDICARE, MEDICAID, SELFPAY | PROVIDERS: PCP Family Medicine; Visit Provider Internal Medicine Cardiovascular Disease | DX: R00.2 Palpitations (principal); R42 Dizziness and giddiness | CPT/HCPCS: 93242 ==

== ENCOUNTER → 2023-01-24 11:04 | Outpatient (BNVA) | payer MEDICARE, MEDICAID, SELFPAY | PROVIDERS: PCP Family Medicine; Visit Provider Internal Medicine Cardiovascular Disease | DX: I48.0 Paroxysmal atrial fibrillation (principal); F33.2 Major depressive disorder, recurrent severe without psychotic features; F17.210 Nicotine dependence, cigarettes, uncomplicated; Z79.899 Other long term (current) drug therapy; Z79.82 Long term (current) use of aspirin | CPT/HCPCS: 99214 ==

== ENCOUNTER → 2023-05-14 09:03 | Outpatient (BNVA) | payer MEDICARE, MEDICAID, SELFPAY | PROVIDERS: PCP Family Medicine; Visit Provider Specialist | DX: M25.511 Pain in right shoulder (principal); M35.3 Polymyalgia rheumatica; G89.29 Other chronic pain; M19.90 Unspecified osteoarthritis, unspecified site; Z79.899 Other long term (current) drug therapy | CPT/HCPCS: 36415; 80053; 85651; 86140; 86160; 86162; 86200; 86235; 86255; 86376; 86431 ==

== ENCOUNTER → 2023-05-14 09:50 | Outpatient (BNVA) | payer MEDICARE, MEDICAID, SELFPAY | PROVIDERS: PCP Family Medicine; Visit Provider Specialist | DX: M25.511 Pain in right shoulder (principal); M19.011 Primary osteoarthritis, right shoulder; G89.29 Other chronic pain; M35.3 Polymyalgia rheumatica; M19.90 Unspecified osteoarthritis, unspecified site; Z79.899 Other long term (current) drug therapy | CPT/HCPCS: 36415; 73030; 80053; 85651; 86140; 86160; 86162; 86200; 86235; 86255; 86376; 86431; 99204 ==

== ENCOUNTER 2023-05-31 12:08 | Outpatient (CLI) | payer MEDICARE, SELFPAY ==
--- NOTE | 2023-05-31 12:14 | CT_ITS ---
WS: [id number] LDCT LUNG CANCER SCREENING HISTORY: NICOTINE DEPENDENCE,CIGARETTES TECHNIQUE: Axial imaging performed from the apices to 1 cm below the costophrenic angles. Coronal and sagittal reformats are submitted with axial MIP series. All CT scans at [facility] use at least one of these dose optimization techniques: automated exposure control; mA and/or kV adjustment per patient size (includes targeted exams where dose is matched to clinical indication); or iterativ e reconstruction. DLP: 119.97 mGy.cm DIvol: Mean CTDIvol: 2.30 (mGy) COMPARISON: 10/27/2020 Diagnostic quality: Satisfactory Lungs: Mild emphysema. No mass or nodule. Heart: Normal size heart with no pericardial effusion.. Other findings: No enlarged mediastinal or hilar lymph nodes. Very mild atherosclerosis aorta. Small hiatal hernia. Hepatic steatosis. Prior cholecystectomy. Mild LEFT adrenal hyperplasia. RIGHT adrenal gland is not identified and may have been surgically removed. IMPRESSION: CT/CT lung screening [id number] LUNG-RADS: 1-Negative FOLLOW UP: 12 Month: Continue annual screening with LDCT OTHER FINDINGS (S MODIFIER): None.
== END 2023-05-31 12:09 | disposition home or self-care (01) ==
LOC: RAD 12:08
PROVIDERS: PCP Family Medicine; Visit Provider Family Medicine
DX: Z12.2 Encounter for screening for malignant neoplasm of respiratory organs (principal); F17.210 Nicotine dependence, cigarettes, uncomplicated
CPT/HCPCS: 36415; 71271; 80053; 85651; 86140; 86160; 86162; 86200; 86235; 86255; 86376; 86431

== ENCOUNTER → 2023-08-08 11:28 | Outpatient (BNVA) | payer MEDICARE, SELFPAY | PROVIDERS: PCP Family Medicine; Visit Provider Internal Medicine Cardiovascular Disease | DX: I48.0 Paroxysmal atrial fibrillation (principal); I10 Essential (primary) hypertension; F17.210 Nicotine dependence, cigarettes, uncomplicated; M35.3 Polymyalgia rheumatica | CPT/HCPCS: 99214 ==

== ENCOUNTER 2024-06-16 13:06 | Emergency (ER) | payer MEDICARE, SELFPAY ==
--- NOTE | 2024-06-16 13:07 | XRR_ITS ---
PROCEDURE INFORMATION: Exam: XR Left Shoulder Exam date and time: 06/16/2024 1:14 PM Age: 58 years old Clinical indication: Pain; Shoulder; Left; Additional info: Injury TECHNIQUE: Imaging protocol: Radiologic exam of the left shoulder. Views: 2 or more views. COMPARISON: CR XR shoulder LT min 2V* [id number] 10/01/2017 8:40 AM FINDINGS: Bones/joints: Osseous structures are intact. No fracture or malalignment. Joint surfaces are preserved. Soft tissues: Normal. XR/XR shoulder LT min 2V* [id number] IMPRESSION: No acute bony abnormalities.
[2024-06-16 13:12] VITALS: BP 160/83; PULSE 89; TEMP 36.4; O2SAT 99; BMI 31.4
--- NOTE | 2024-06-16 14:38 | W.ED.EXTPRO ---
HPI - Extremity Problem General: Chief complaint: Extremity Injury, Upper Stated complaint: left Shoulder pain Time Seen by Provider: 06/16/24 14:38 History of Present Illness: 58-year-old male complains of left shoulder pain. Patient refers the pain to the superior aspect of the shoulder radiating down to the insertion of the deltoid region. Neurovascularly he is intact he can use the arm is worsened with motion at the shoulder joint. No trauma that he can recall he does report that at work he was lifting some heavy items. He has no chest pain or associated shortness of breath Associated symptoms: Deny chest pain, fever(s) or rash Related Data Home Medications Medication Instructions Recorded Confirmed aspirin 325 mg tablet 325 mg PO DAILY@05 06/09/19 06/16/24 ascorbic acid (vitamin C) 500 mg 1,000 mg PO DAILY@05 ##0 11/14/19 06/16/24 tablet (Vitamin C) cholecalciferol (vitamin D3) 25 75 mcg PO DAILY@05 ##0 11/14/19 06/16/24 mcg (1,000 unit) capsule (Vitamin D3) pantoprazole 40 mg tablet,delayed 40 mg PO DAILY@05 01/05/22 06/16/24 release (Protonix) nitroglycerin 0.4 mg sublingual 0.4 mg sublingual Q5M PRN Chest 01/19/22 06/16/24 tablet (Nitrostat) Pain methylprednisolone 2 mg tablet 2 mg PO DAILY 03/22/22 06/16/24 gabapentin 600 mg tablet 600 mg PO TID 09/27/23 06/16/24 atorvastatin 40 mg tablet 40 mg PO DAILY 06/04/24 06/16/24 acetaminophen 325 mg tablet 650 mg PO QID PRN Pain 06/16/24 06/16/24 (Tylenol) umeclidinium 62.5 mcg-vilanterol 1 ea inhalation DAILY 06/16/24 06/16/24 25 mcg/actuation powdr for inhalation (Anoro Ellipta) vitamin B complex 1 tab PO DAILY 06/16/24 06/16/24 Previous Rx's Medication Instructions Recorded flecainide 100 mg tablet 100 mg PO BID@0500,1700 #180 tabs 07/02/23 metoprolol tartrate 25 mg tablet 25 mg PO BID@05,17 #180 tabs 01/14/24 escitalopram oxalate 20 mg tablet 20 mg PO .morning #90 tabs 01/30/24 diclofenac sodium 75 mg 75 mg PO Q12H PRN pain #20 tabs 06/16/24 tablet,delayed release prednisone 20 mg tablet 20 mg PO TID #15 tabs 06/16/24 Allergies Allergy/AdvReac Type Severity Reaction Status Date / Time tocilizumab [From Actemra] Allergy Severe ADR-Abdominal Verified 06/16/24 13:15 Pain tramadol Allergy Mild nausea Verified 06/16/24 13:15 diltiazem Allergy Unknown ALGY-Swell Verified 06/16/24 13:15 Lip/Tongue/Throat methotrexate AdvReac Intermediate tremors Verified 06/16/24 13:15 and nausea and not feel good tizanidine AdvReac Intermediate pain juliette Verified 06/16/24 13:15 in head cayenne AdvReac SWELLING Verified 06/16/24 13:15 IN HANDS Review of Systems Const: Denies: fever(s) or chills Card: Denies: chest pain Resp: Denies: dyspnea GI: Denies: abdominal pain : Denies: dysuria, urinary frequency or urinary urgency Musc: Denies: neck pain or back pain Skin/Breast: Denies: rash PFSH ED PFSH: Medical History Chronic low back pain Atrial fibrillation with rapid ventricular response Diverticulitis GCA (giant cell arteritis) Inflammatory arthritis Benign essential HTN Allergic contact dermatitis Polymyalgia rheumatica Squamous cell carcinoma IVON (obstructive sleep apnea) GERD (gastroesophageal reflux disease) Generalized anxiety disorder Severe Major depressive disorder, recurrent severe without psychotic features Surgical History Status post laparoscopic cholecystectomy (01/26/21) History of amputation of finger History of colonoscopy 11/2020 History of esophagogastroduodenoscopy (EGD) Previous back surgery History of kidney surgery Family History Sister CAD (coronary artery disease) Psychiatric illness Mother Cancer Rheumatoid arthritis Father Diabetes Hyperlipidemia Hypertension Grandmother Diabetes Other Family history of premature coronary artery disease Denies family history of Clotting disorder Dementia Chronic kidney disease (CKD) Systemic lupus erythematosus (SLE) in adult Suicide Anesthesia complication Bleeding disorder Lung disease Stroke Social History Smoking and tobacco/nicotine status: current every day tobacco/nicotine user cigarettes Alcohol intake: former Substance/Drug Use: never Household members: spouse Housing: House 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 Physical Exam Const: COMMON NORMALS: no acute distress GENERAL APPEARANCE: cooperative and comfortable ORIENTATION/CONSCIOUSNESS: Yes awake, Yes oriented to person, Yes oriented to place and Yes oriented to time HENMT: COMMON NORMALS: normocephalic, atraumatic and hearing grossly normal bilaterally HEAD & SCALP: normocephalic and atraumatic Resp: COMMON NORMALS: normal respiratory effort, No retractions, No use of accessory muscles and clear to auscultation bilaterally AUSCULTATION: clear to auscultation bilaterally Cardio: COMMON NORMALS: regular rate, regular rhythm and No murmurs present (Cardio) RATE: regular rate RHYTHM: regular rhythm GI: COMMON NORMALS: Soft to palpation and No hepatosplenomegaly present AUSCULTATION: Yes normoactive bowel sounds PALPATION: Yes Soft to palpation, No Tenderness to palpation present (GI), No Guarding due to palpation present (GI) and Yes No hepatosplenomegaly present Extremity: COMMON NORMALS: normal to inspection, capillary refill normal, no clubbing, cyanosis or edema, no calf tenderness and no pedal edema OTHER: Range of motion in the right left shoulder shows positive impingement side. 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 Neuro: SENSORIUM/ORIENTATION: Yes oriented to person, Yes oriented to place and Yes oriented to time Skin: COMMON NORMALS: no rashes or lesions noted GENERAL SKIN EXAM: no rashes or lesions noted Course Vital Signs: Vital signs: Vital Signs Temperature 97.6 F 06/16/24 13:12 Pulse Rate 81 06/16/24 15:18 Blood Pressure 123/78 06/16/24 15:18 Pulse Oximetry 96 06/16/24 15:18 Oxygen Delivery Me thod Room Air 06/16/24 13:12 MDM - Extremity (Nontraumatic) Medical Decision Making No sense of a cervical radiculopathy seems to be more directly in the rotator cuff. Started on a steroid taper anti-inflammatories and discharged home follow-up with orthopedics return if has further problems. Avoid working above shoulder level Medical Records I reviewed the patient's medical records. Lab Data I reviewed the patient's lab results. Radiology Impressions Shoulder X-Ray 06/16/24 13:07 IMPRESSION: No acute bony abnormalities. All radiology interpretation(s) finalized by discharge Discharge Plan Discharge Patient Disposition: Home Clinical Impression: Rotator cuff arthropathy of left shoulder Condition: Stable Prescriptions: New prednisone 20 mg tablet 20 mg PO TID Qty: 15 0RF Rx Instructions: 1 p.o. 3 times daily x3 days, 1 p.o. twice daily x2 days, 1 p.o. daily x2 days diclofenac sodium 75 mg tablet,delayed release (DR/EC) 75 mg PO Q12H PRN (Reason: pain) Qty: 20 0RF No Action aspirin 325 mg tablet 325 mg PO DAILY@05 escitalopram oxalate 20 mg tablet 20 mg PO .morning Qty: 90 2RF Rx Instructions: Take one tablet every morning Protonix 40 mg tablet,delayed release (DR/EC) 40 mg PO DAILY@05 methylprednisolone 2 mg tablet 2 mg PO DAILY atorvastatin 40 mg tablet 40 mg PO DAILY flecainide 100 mg tablet 100 mg PO BID@0500,1700 Qty: 180 3RF metoprolol tartrate 25 mg tablet 25 mg PO BID@05,17 Qty: 180 0RF Rx Instructions: Patient needs an appt w/ office for further refills ascorbic acid (vitamin C) [Vitamin C] 500 mg Tablet 1,000 mg PO DAILY@05 Qty: 0 cholecalciferol (vitamin D3) [Vitamin D3] 25 mcg (1,000 unit) Capsule 75 mcg PO DAILY@05 Qty: 0 nitroglycerin [Nitrostat] 0.4 mg Tablet, Sublingual 0.4 mg SUBLINGUAL Q5M PRN (Reason: Chest Pain) Rx Instructions: do not exceed 3 doses per episode gabapentin 600 mg tablet 600 mg PO TID Anoro Ellipta 62.5-25 mcg/actuation blister with device 1 ea INHALATION DAILY vitamin B complex Tablet 1 tab PO DAILY acetaminophen [Tylenol] 325 mg Tablet 650 mg PO QID PRN (Reason: Pain) Discharge Orders: Discharge ED (Routine); Ordered 06/16/24 Ordered By: Jerod Nur Referrals: Deepak Mock MD [Primary Care Provider] - Discharge Diet: Usual diet Discharge Activity: Increase activity as tolerated Patient Instructions: Opioid Safety, Pain Management Activity Restrictions/Additional Instructions: Thank you for choosing [facility] for your healthcare needs today. It is very important that you follow up as instructed or that you return to the Emergency Department should you have concerns or if your condition changes or worsens in any way. You were seen in the emergency room left shoulder pain on exam your x-ray was normal range of motion of the shoulder shows what appears to be rotator cuff arthropathy. You will be discharged home with steroid taper diclofenac to use as needed case management make arrangements for you to follow-up with orthopedics. 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
--- NOTE | 2024-06-16 15:02 | ECG_ITS ---
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
[2024-06-16 15:18] VITALS: BP 123/78; PULSE 81; O2SAT 96
--- NOTE | 2024-06-18 08:27 | DCPLANNER ---
Message sent to Orthopedics for follow up
== END 2024-06-16 15:18 | disposition home or self-care (01) ==
PROVIDERS: Emergency Provider Family Medicine; PCP Family Medicine
DX: M12.812 Other specific arthropathies, not elsewhere classified, left shoulder (principal); Z79.82 Long term (current) use of aspirin; F17.210 Nicotine dependence, cigarettes, uncomplicated; I10 Essential (primary) hypertension
CPT/HCPCS: 73030; 93005; 99284

== ENCOUNTER → 2024-08-19 09:23 | Outpatient (BNVA) | payer MEDICARE, SELFPAY | PROVIDERS: PCP Family Medicine; Referring Provider Family Medicine; Visit Provider Student in an Organized Health Care Education/Training Program | DX: M75.42 Impingement syndrome of left shoulder (principal); M75.122 Complete rotator cuff tear or rupture of left shoulder, not specified as traumatic; S46.102A Unspecified injury of muscle, fascia and tendon of long head of biceps, left arm, initial encounter; M25.511 Pain in right shoulder; G89.29 Other chronic pain; X58.XXXA Exposure to other specified factors, initial encounter | CPT/HCPCS: 20610; 99204; J3301; J9999 ==

== ENCOUNTER 2024-09-22 07:38 | Outpatient (CLI) | payer MEDICARE, SELFPAY ==
--- NOTE | 2024-09-22 07:43 | CT_ITS ---
WS: [id number] LDCT LUNG CANCER SCREENING TECHNIQUE: Noncontrast CT of the chest with coronal and sagittal reformatted images. CLINICAL INFORMATION: NICOTINE DEPENDENCE,CIGARETTES COMPARISON: CT 05/31/2023 DLP: 87.30 mGy.cm DIvol: Mean CTDIvol: 2.00 (mGy) All CT scans at [facility] use at least one of these dose optimization techniques: automated exposure control; mA and/or kV adjustment per patient size (includes targeted exams where dose is matched to clinical indication); or iterative reconstruction. FINDINGS: No new suspicious pulmonary parenchymal normalities. Mild chronic emphysematous changes. Mild aortic calcification. Normal caliber thoracic aorta. No mediastinal or hilar lymphadenopathy. No axillary lymphadenopathy. Small esophageal hiatal hernia. Fatty liver. Prior cholecystectomy. Prior postoperative changes resection of the RIGHT adrenal gland. Mild thoracic curve. Mild thoracic kyphos is. Prior kyphoplasty changes at T5. CT/CT lung screening [id number] IMPRESSION: LUNG-RADS: 1-Negative FOLLOW UP: 12 Month: Continue annual screening with LDCT
== END 2024-09-22 07:39 | disposition home or self-care (01) ==
PROVIDERS: PCP Family Medicine; Visit Provider Family Medicine
DX: Z12.2 Encounter for screening for malignant neoplasm of respiratory organs (principal); F17.210 Nicotine dependence, cigarettes, uncomplicated; J43.8 Other emphysema; I70.0 Atherosclerosis of aorta; K44.9 Diaphragmatic hernia without obstruction or gangrene; K76.0 Fatty (change of) liver, not elsewhere classified; Z90.49 Acquired absence of other specified parts of digestive tract; Z98.890 Other specified postprocedural states; M43.8X4 Other specified deforming dorsopathies, thoracic region; M40.294 Other kyphosis, thoracic region; R93.7 Abnormal findings on diagnostic imaging of other parts of musculoskeletal system
CPT/HCPCS: 71271

== ENCOUNTER → 2024-10-15 10:04 | Outpatient (BNVA) | payer MEDICARE, SELFPAY | PROVIDERS: PCP Family Medicine; Visit Provider Internal Medicine Cardiovascular Disease | DX: I48.0 Paroxysmal atrial fibrillation (principal); F33.2 Major depressive disorder, recurrent severe without psychotic features; F17.210 Nicotine dependence, cigarettes, uncomplicated; Z79.899 Other long term (current) drug therapy | CPT/HCPCS: 99214 ==

== ENCOUNTER 2025-01-12 11:43 | Outpatient (CLI) | payer MEDICARE, SELFPAY ==
--- NOTE | 2025-01-12 11:55 | XRR_ITS ---
PROCEDURE INFORMATION: Exam: XR Left Shoulder Exam date and time: 01/12/2025 12:00 PM Age: 59 years old Clinical indication: Left; X1 year worsening lateral shoulder pain that runs down to wrist; Additional info: Pain in left shoulder TECHNIQUE: Imaging protocol: Radiologic exam of the left shoulder. Views: 2 or more views. COMPARISON: CR XR shoulder LT min 2V* [id number] 06/16/2024 1:14 PM FINDINGS: Bones/joints: The humeral head appears slightly inferiorly subluxed on the 1st image of the series where the humerus is abducted. Alignment appears normal on the other radiographs and this may be projectional. No acute fracture. Soft tissues: Normal. XR/XR shoulder LT min 2V* [id number] IMPRESSION: No acute fracture.
== END 2025-01-12 11:44 | disposition home or self-care (01) ==
PROVIDERS: PCP Family Medicine; Visit Provider Family Medicine
DX: M25.512 Pain in left shoulder (principal)
CPT/HCPCS: 73030

== ENCOUNTER 2025-02-11 18:16 | Emergency (ER) | payer MEDICARE, SELFPAY ==
[2025-02-11] VITALS (7 sets, daily range): BP systolic 126–137; BP diastolic 57–81; PULSE 60–83; TEMP 36.8; O2SAT 92–99
--- OUTSIDE RECORDS SUMMARY | 2025-02-11 18:21 | XMS_ITS | Clinical Summary ---
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 Active cholecalciferol , Vitamin D3, (VITAMIN D3) 25 mcg (1,000 unit) Capsule Take by mouth daily. Active flecainide 100 mg tablet Take 100 mg by mouth 2 times daily. Active gabapentin 600 mg tablet Take 600 mg by mouth 3 times daily. Active methylPREDNISol one 2 mg tablet Take 2 mg by mouth daily. Active metoprolol tartrate 25 mg tablet Take 25 mg by mouth 2 times daily. Active nitroglycerin 0.[address] 0.4 mg under tongue every 5 minutes as needed for Chest Pain. Active pantoprazole DR 40 mg granules delayed-release for susp in packet 40 mg daily. Active ascorbic acid, vitamin C, (VITAMIN C) 500 mg tablet Take 500 mg by mouth daily. Active cyclobenzaprine (FLEXERIL) 10 mg tablet Take 1 Tablet (10 mg) by mouth 3 times daily as needed for Spasm. 90 Tablet 3 Active escitalopram oxalate (LEXAPRO) 10 mg tablet Take 10 mg by mouth daily. Active celecoxib (CeleBREX) 200 mg capsule Take 1 Capsule (200 mg) by mouth 2 times daily. 60 Capsule 3 Active Active Problems No known active problems Social History Tobacco Use Types Packs/Day Years Used Date Smoking Tobacco: Every Day Cigarettes Tobacco Cessation:Ready to Q uit: No; Counseling Given: Not Answered Sex and Gender Information Value Date Recorded Sex Assigned at Not on file Legal Sex Male 3:49 PM CDT Gender Identity Not on file Sexual Orientation Not on file Last Filed Vital Signs Vital Sign Reading Time Taken Comments Blood Pressure 140/110 04/12/2023 10:38 AM SAP ABAP DEVELOPER Pulse 66 04/12/2023 10:38 AM SAP ABAP DEVELOPER Temperature - - Respiratory Rate - - Oxygen Saturation 98% 04/12/2023 10:38 AM SAP ABAP DEVELOPER Inhaled Oxygen Concentration - - Weight 95.7 kg (211 lb) 04/12/2023 10:38 AM SAP ABAP DEVELOPER Height 177.8 cm (5' 10 ) 04/12/2023 10:38 AM SAP ABAP DEVELOPER Body Mass Index 30.28 04/12/2023 10:38 AM SAP ABAP DEVELOPER Plan of Treatment Health Maintenance Due Date Last Done Comments COLORECTAL SCREENING 2009 Colorectal Cancer Screening 2009 FIT-DNA Q 3 years 2009 FIT/FOBT Q 1 year 2009 Flex Sig/CT Colonography Q 5 years 2009 ZOSTER VACCINE (1 of 2) 2014 INFLUENZA VACCINE (#1) 2024 DTAP/TDAP/TD VACCINES (2 - T d or Tdap) 07/05/2030 07/05/2020 RSV VACCINE (60+ or ) (1 - 1-dose 75+ series) 12/08/2039 HEPATITIS B VACCINES Aged Out No long er eligible based on patient's age to complete this topic Insurance MEDICAID [place] MEDICARE PART A AND B BCBS MEDICARE HMO [facility] [place]
--- NOTE | 2025-02-11 18:30 | ECG_ITS ---
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 Measurements Intervals [place] Rate: 76 P: 68 PA: 181 QRS: 60 QRSD: 94 T: 78 QT: 391 QTc: 441 Interpretive Statements SINUS RHYTHM INTERPRETATION BASED ON A DEFAULT AGE OF 40 YEARS Compared to ECG 06/16/2024 15:02:52 No significant changes Electronically Signed On 02-11-2025 23:29:53 CDT by Klaudia Rose M.D. [email or web address] [id number]
--- NOTE | 2025-02-11 18:44 | XRR_ITS ---
PROCEDURE INFORMATION: Exam: XR Chest Exam date and time: 02/11/2025 6:54 PM Age: 59 years old Clinical indication: Pain; Chest pressure; Additional info: Chest pain, SOB, HX afib TECHNIQUE: Imaging protocol: Radiologic exam of the chest. Views: 1 view. COMPARISON: CT lung screening [id number] 09/22/2024 8:06 AM FINDINGS: Lungs: Unremarkable. No consolidation. Pleural spaces: Unremarkable. No pleural effusion. No pneumothorax. Heart/Mediastinum: Unremarkable. No cardiomegaly. Bones/joints: Unremarkable. XR/XR chest 1V portable [id number] IMPRESSION: No acute findings.
[2025-02-11 18:56] LABS: Hematocrit 46.5 % (37-53); Hemoglobin 16.30 g/dL (11.27-16.99); Mean Corpuscular HGB Conc 35.1 g/dL (30-55); Mean Corpuscular Hemoglobin 33.8 pg (27-33); Mean Corpuscular Volume 96.5 fl (82-101); Nucleated Red Blood Cells % 0 %; Platelet Count 236 10^3/cmm (157-399); Red Blood Count 4.82 10^6/uL (3.85-5.65); White Blood Count 9.96 10^3/uL (3.29-11.43)
[2025-02-11 19:07] LABS: Troponin(5th) Baseline 15 ng/L (0-15)
[2025-02-11 19:13] LABS: Alanine Aminotransferase 30 U/L (0-41); Albumin Level 4.8 g/dL (3.5-5.2); Alkaline Phosphatase 97 U/L (40-130); Anion Gap 17.1 (5-19); Aspartate Amino Transferase 21 U/L (0-40); Blood Urea Nitrogen 13 mg/dL (8-23); Calcium 9.3 mg/dL (8.5-10.5); Carbon Dioxide 24 mmol/L (22-29); Chloride 102 mmol/L (98-107); Creatinine Clr Calc Pharmacy 90.5987; Globulin 2.3 g/dL (1.3-4.6); Glucose 95 mg/dL (65-115); NT Pro B Type Natriuretic Pept 86 pg/mL (0-125); Osmolality Calculated 288 mOsm/kg (285-295); Potassium 4.1 mmol/L (3.5-5.1); Sodium 139 mmol/L (136-145); Total Protein 7.1 g/dL (6.6-8.7)
[2025-02-11] MEDS: diphenhydrAMINE 50 mg/mL SDV 1mL 25 MG IVP (19:19)
[2025-02-11] MEDS: metoclopramide 5 mg/mL SDV 2 mL 10 MG IVP (19:20)
[2025-02-11 19:43] LABS: INR 0.81 (0.8-1.2); Partial Thromboplastin Time 25.8 SECONDS (23.9-36.7); Prothrombin Time 11.80 SECONDS (12.1-14.9)
[2025-02-11 20:58] LABS: Troponin 5 2HR 14.77 ng/L (0-15); Troponin 5 2HR Delta -0.23 ABS# (0-10)
--- NOTE | 2025-02-11 21:09 | W.ED.CHESTPA ---
HPI - Chest Pain General: Chief Complaint: Chest Pain Stated Complaint: Chest Pain and sob Time Seen by Provider: 02/11/25 18:36 History of Present Illness: 59-year-old male with a past medical history significant for paroxysmal atrial fibrillation, recurrent chest pain with negative catheterization in 2016, follows with Dr. Rose of cardiology, major depressive disorder, chronic pain syndrome, hypertension, arthritis, smoker, anxiety, presenting to the emergency department with chest pain worse with lying flat since this morning and recurrent episodes of palpitations improved but not resolved at this time, took a dose of sublingual nitro without improvement of symptoms, also reports associated headache and generalized lightheadedness, denies fever cough or shortness of breath, denies leg swelling or calf tenderness, denies recent changes in weight, denies recent travel or immobilization, denies history of DVT/PE, Related Data Home Medications ?Medication ?Instructions ?Recorded ?Confirmed aspirin 325 mg tablet 325 mg PO DAILY@05 06/09/19 01/27/25 ascorbic acid (vitamin C) 500 mg 1,000 mg PO DAILY@05 ##0 11/14/19 01/27/25 tablet (Vitamin C) cholecalciferol (vitamin D3) 25 75 mcg PO DAILY@05 ##0 11/14/19 01/27/25 mcg (1,000 unit) capsule (Vitamin D3) pantoprazole 40 mg tablet,delayed 40 mg PO DAILY@05 01/05/22 01/27/25 release (Protonix) methylprednisolone 2 mg tablet 2 mg PO DAILY 03/22/22 01/27/25 gabapentin 600 mg tablet 600 mg PO TID 09/27/23 01/27/25 acetaminophen 325 mg tablet 650 mg PO QID PRN Pain 06/16/24 01/27/25 (Tylenol) umeclidinium 62.5 mcg-vilanterol 1 ea inhalation DAILY 06/16/24 01/27/25 25 mcg/actuation powdr for inhalation (Anoro Ellipta) vitamin B complex 1 tab PO DAILY 06/16/24 01/27/25 escitalopram oxalate 20 mg tablet 20 mg PO .morning 01/27/25 01/27/25 Previous Rx's ?Medication ?Instructions ?Recorded atorvastatin 40 mg tablet 40 mg PO DAILY #90 tabs 09/19/24 flecainide 100 mg tablet 100 mg PO BID@0500,1700 #180 tabs 09/19/24 nitroglycerin 0.4 mg sublingual 0.4 mg sublingual Q5M PRN Chest 09/19/24 tablet (Nitrostat) Pain #28 tabs metoprolol tartrate 25 mg tablet See Rx Instructions .Route 12/15/24 .COMPLEX #180 tabs duloxetine 30 mg capsule,delayed 30 mg PO .morning #30 caps 01/27/25 release Allergies Allergy/AdvReac Type Severity Reaction Status Date / Time tocilizumab (From [facility]) Allergy Severe ADR-Abdominal Verified 02/11/25 18:28 Pain tramadol Allergy Mild nausea Verified 02/11/25 18:28 diltiazem Allergy Unknown ALGY-Swell Verified 02/11/25 18:28 Lip/Tongue/Throat methotrexate AdvReac Intermediate tremors Verified 02/11/25 18:28 and nausea and not feel good tizanidine AdvReac Intermediate pain juliette Verified 02/11/25 18:28 in head cayenne AdvReac SWELLING Verified 02/11/25 18:28 IN HANDS PFSH ED PFSH: Medical History Chronic low back pain Atrial fibrillation with rapid ventricular response Diverticulitis GCA (giant cell arteritis) Inflammatory arthritis Benign essential HTN Allergic contact dermatitis Polymyalgia rheumatica Squamous cell carcinoma IVON (obstructive sleep apnea) GERD (gastroesophageal reflux disease) Generalized anxiety disorder Severe Major depressive disorder, recurrent severe without psychotic features Surgical History Status post laparoscopic cholecystectomy (01/26/21) History of amputation of finger History of colonoscopy 11/2020 History of esophagogastroduodenoscopy (EGD) Previous back surgery History of kidney surgery Family History Sister CAD (coronary artery disease) Psychiatric illness Mother Cancer Rheumatoid arthritis Father Diabetes Hyperlipidemia Hypertension Grandmother Diabetes Other Family history of premature coronary artery disease Denies family history of Clotting disorder Dementia Chronic kidney disease (CKD) Systemic lupus erythematosus (SLE) in adult Suicide Anesthesia complication Bleeding disorder Lung disease Stroke Social History Smoking and tobacco/nicotine status: current every day tobacco/nicotine user cigarettes Alcohol intake: former Substance/Drug Use: never Household members: spouse Housing: House 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 Normal color per patient. Neuro: Alert and oriented, no slurred speech, sensation and strength grossly intact all 4 extremities Psych: Appropriate for situation. 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 chemist, return precautions discussed prior to discharge Time: 21:12 Vital Signs: Vital signs: Vital Signs Temperature 98.3 F 02/11/25 18:16 Pulse Rate 68 02/11/25 19:30 Blood Pressure 136/79 02/11/25 19:30 Pulse Oximetry 96 02/11/25 19:30 Oxygen Delivery Me thod Room Air 02/11/25 18:16 MDM - Chest Pain Medical Decision Making 59-year-old male history of hypertension paroxysmal A-fib, no known history of congestive heart failure or coronary artery disease, smoker, depression and arthritis and chronic pain syndrome, presenting to the emergency department with onset of chest pain worse with lying flat with associated palpitations, headache, lightheadedness since this morning, attempted nitro without relief of symptoms, currently without diaphoresis nausea or radiation into the jaw or neck, nonexertional symptoms do not appear consistent with ACS in my medical judgment, troponin negative x 2, proBNP negative, chest x-ray no pulmonary edema, symptoms somewhat improved with headache management and monitoring. Lab Data Blood work with negative troponin x 2, normal CK, normal proBNP, no anemia or leukocytosis, normal electrolytes normal kidney function 02/11/25 18:34 02/11/25 18:34 Radiology Impressions Chest X-Ray 02/11/25 18:44 IMPRESSION: No acute findings. Laboratory Results WBC 9.96 10^3/uL (3.29-11.43) 02/11/25 18:34 RBC 4.82 10^6/uL (3.85-5.65) 02/11/25 18:34 Hgb 16.30 g/dL (11.27-16.99) 02/11/25 18:34 Hct 46.5 % (37-53) 02/11/25 18:34 MCV 96.5 fl (82-101) 02/11/25 18:34 MCH 33.8 pg (27-33) H 02/11/25 18:34 MCHC 35.1 g/dL (30-55) 02/11/25 18:34 RDW 12.3 % (12.1-15.1) 02/11/25 18:34 Plt Count 236 10^3/cmm (157-399) 02/11/25 18:34 MPV 9.4 fL (7.4-10.4) 02/11/25 18:34 Neut % (Auto) 49.2 % 02/11/25 18:34 Lymph % (Auto) 38.6 % 02/11/25 18:34 Menard % (Auto) 10.0 % 02/11/25 18:34 Eos % (Auto) 1.2 % 02/11/25 18:34 Baso % (Auto) 0.6 % 02/11/25 18:34 Neut # (Auto) 4.90 10^3/uL (1.8-7.7) 02/11/25 18:34 Lymph # (Auto) 3.8 10^3/uL (0.8-4.8) 02/11/25 18:34 Menard # (Auto) 1.0 10^3/uL (0.2-0.9) H 02/11/25 18:34 Eos # (Auto) 0.1 10^3/uL (0.0-0.8) 02/11/25 18:34 Baso # (Auto) 0.1 10^3/uL (0.0-0.1) 02/11/25 18:34 Nucleated RBC % (auto) 0 % 02/11/25 18:34 Nucleated RBCs # 0.0 /100WBC 02/11/25 18:34 PT 11.80 SECONDS (12.1-14.9) L 02/11/25 18:34 INR 0.81 (0.8-1.2) 02/11/25 18:34 APTT 25.8 SECONDS (23.9-36.7) 02/11/25 18:34 Sodium 139 mmol/L (136-145) 02/11/25 18:34 Potassium 4.1 mmol/L (3.5-5.1) 02/11/25 18:34 Chloride 102 mmol/L (98-107) 02/11/25 18:34 Carbon Dioxide 24 mmol/L (22-29) 02/11/25 18:34 Anion Gap 17.1 (5-19) 02/11/25 18:34 BUN 13 mg/dL (8-23) 02/11/25 18:34 Creatinine 1.0 mg/dL (0.7-1.2) 02/11/25 18:34 GFR Calculation 76.2 mL/min (90-130) L 02/11/25 18:34 Glucose 95 mg/dL (65-115) 02/11/25 18:34 Calculated Osmolality 288 mOsm/kg (285-295) 02/11/25 18:34 Calcium 9.3 mg/dL (8.5-10.5) 02/11/25 18:34 Total Bilirubin 0.6 mg/dL (0.15-1.2) 02/11/25 18:34 AST 21 U/L (0-40) 02/11/25 18:34 ALT 30 U/L (0-41) 02/11/25 18:34 Alkaline Phosphatase 97 U/L (40-130) 02/11/25 18:34 Creatine Kinase 138 U/L (39-308) 02/11/25 18:34 Troponin T Baseline 15 ng/L (0-15) 02/11/25 18:34 Troponin T 120 Minute 14.77 ng/L (0-15) 02/11/25 20:29 Delta Troponin T -0.23 ABS# (0-10) L 02/11/25 20:29 NT-Pro-B Natriuret Pep 86 pg/mL (0-125) 02/11/25 18:34 Total Protein 7.1 g/dL (6.6-8.7) 02/11/25 18:34 Albumin 4.8 g/dL (3.5-5.2) 02/11/25 18:34 Globulin 2.3 g/dL (1.3-4.6) 02/11/25 18:34 All radiology interpretation(s) finalized by discharge ED provider radiology interpretation(s): Chest x-ray negative EKG Data EKG 1: I personally reviewed and interpreted this EKG as follows: EKG interpretation date: 02/11/25 EKG interpretation time: 18:22 Interpretation: Normal sinus rhythm at 76 bpm, no STEMI no ectopy normal axis, QTc 421 ms, no [id number] Clincial Decision Support The following clinical decision support tools were used to aid in care of the patient HEART Score -> History: Slightly Suspicous, EKG: Normal, Age: 45-64 yrs, Risk Factors: 1 or 2 Risk Factors, Troponin: Baseline Trop <16 ng/L. Resulting HEART Score: 2. Discharge Plan Discharge Patient Disposition: Home Clinical Impression: Chest pain Qualifiers: Chest pain type: unspecified Qualified Code(s): R07.9 - Chest pain, unspecified Headache Qualifiers: Headache type: unspecified Headache chronicity pattern: acute headache Intractability: not intractable Qualified Code(s): R51.9 - Headache, unspecified Condition: Stable Prescriptions: No Action aspirin 325 mg tablet 325 mg PO DAILY@05 atorvastatin 40 mg tablet 40 mg PO DAILY Qty: 90 0RF flecainide 100 mg tablet 100 mg PO BID@0500,1700 Qty: 180 0RF nitroglycerin [Nitrostat] 0.4 mg tablet, sublingual 0.4 mg SUBLINGUAL Q5M PRN (Reason: Chest Pain) Qty: 28 0RF Rx Instructions: do not exceed 3 doses per episode Protonix 40 mg tablet,delayed release (DR/EC) 40 mg PO DAILY@05 methylprednisolone 2 mg tablet 2 mg PO DAILY escitalopram oxalate 20 mg tablet 20 mg PO .morning Rx Instructions: Take half tablet every morning x 7 days then discontinue duloxetine 30 mg capsule,delayed release(DR/EC) 30 mg PO .morning Qty: 30 2RF Rx Instructions: Take one capsule every morning after titration off Escitalopram metoprolol tartrate 25 mg tablet See Rx Instructions .ROUTE .COMPLEX Qty: 180 3RF Dose Instruction: TAKE 1 TABLET BY MOUTH TWICE DAILY AT 5 AM AND 5 PM. PATIENT NEEDS APPOINTMENT FOR FURTHER REFILLS Rx Instructions: TAKE 1 TABLET BY MOUTH TWICE DAILY AT 5 AM AND 5 PM. ascorbic acid (vitamin C) [Vitamin C] 500 mg Tablet 1,000 mg PO DAILY@05 Qty: 0 cholecalciferol (vitamin D3) [Vitamin D3] 25 mcg (1,000 unit) Capsule 75 mcg PO DAILY@05 Qty: 0 gabapentin 600 mg tablet 600 mg PO TID Anoro Ellipta 62.5-25 mcg/actuation blister with device 1 ea INHALATION DAILY vitamin B complex Tablet 1 tab PO DAILY acetaminophen [Tylenol] 325 mg Tablet 650 mg PO QID PRN (Reason: Pain) Discharge Orders: Discharge ED (Routine); Ordered 02/11/25 Ordered By: Seth Navas Referrals: Deepak Mock MD [Primary Care Provider, Family Practice] Patient Instructions: Chest Pain (DC), Patient Portal & Milly Instructions Print Language: Turkmen Coding Level of Care Code ED [employer] Operator for Coleman Sheppard
== END 2025-02-11 21:45 | disposition home or self-care (01) ==
PROVIDERS: Emergency Provider Student in an Organized Health Care Education/Training Program; PCP Family Medicine
DX: R07.9 Chest pain, unspecified (principal); R51.9 Headache, unspecified; Z79.82 Long term (current) use of aspirin; F17.210 Nicotine dependence, cigarettes, uncomplicated; I10 Essential (primary) hypertension
CPT/HCPCS: 36415; 71045; 80053; 82550; 83880; 84484; 85025; 85610; 85730; 93005; 96374; 96375; 99285; J1200; J1885; J2765; J7030; J9999

== ENCOUNTER 2025-02-24 08:20 | Outpatient (RCR) | payer MEDICARE, SELFPAY | END 2025-02-24 23:59 | disposition home or self-care (01) | LOC: SPT 08:20 | PROVIDERS: Visit Provider Family Medicine | DX: M25.512 Pain in left shoulder (principal); M54.9 Dorsalgia, unspecified; G89.29 Other chronic pain | CPT/HCPCS: 97161 ==

== ENCOUNTER 2025-02-25 05:00 | Outpatient (RCR) | payer MEDICARE, SELFPAY | END 2025-03-23 10:22 | disposition home or self-care (01) | LOC: SPT 05:00 | PROVIDERS: Visit Provider Family Medicine | DX: M25.512 Pain in left shoulder (principal); M54.9 Dorsalgia, unspecified; G89.29 Other chronic pain | CPT/HCPCS: 97032; 97110; 97140 ==

== ENCOUNTER → 2025-03-04 13:47 | Outpatient (BNVA) | payer MEDICARE, SELFPAY | PROVIDERS: Visit Provider Student in an Organized Health Care Education/Training Program | DX: M75.42 Impingement syndrome of left shoulder (principal) | CPT/HCPCS: 99213 ==

== ENCOUNTER 2025-03-05 11:37 | Outpatient (CLI) | payer MEDICARE, SELFPAY ==
--- NOTE | 2025-03-05 12:15 | MR_ITS ---
WS: [id number] MRI LEFT SHOULDER HISTORY: rule out rotator cuff tear COMPARISON: Radiographs 01/12/2025 TECHNIQUE: Multiplanar sequences of the shoulder joint are submitted. Mild increased signal of the AC joint. No large osteophytes. Small amount of fluid in the subdeltoid bursa. No significant subacromial impingement. No os acromion. Normal position of the biceps tendon. Mild narrowing of the glenohumeral joint. Decreased signal in the distal infraspinatus tendon is probably calcific tendinitis. This could potentially be a bone fragment. Distal supraspinatus tendon is completely torn and retracted to the superior humeral head. Partial tear also suspected of the anterior most infraspinatus tendon insertion site. No subscapularis tendon tear. Cortical defect involving the superior humeral head with peripheral increased signal measures 12 mm. No labral tear. MR/MR shoulder LT wo con* [id number] IMPRESSION: 1. Complete tear of the distal supraspinatus tendon with retraction to the sup erior humeral head. Tear extends into the anteriormost infraspinatus tendon. 2. Focal low signal nodule closely associated with the distal infraspinatus te ndon and the adjacent supraspinatus tendon. This is either calcific tendinitis or a bone fragment related to humeral head osteonecrosis. 3. Bony defect in the superior humeral head is most consistent with an area of osteonecrosis. The low signal nodule associated with the infraspinatus and sup raspinatus tendons may be a bone fragment from the area of osteonecrosis. 4. Mild AC joint sprain.
== END 2025-03-05 11:38 | disposition home or self-care (01) ==
LOC: RAD 11:37
PROVIDERS: Visit Provider Student in an Organized Health Care Education/Training Program
DX: M75.42 Impingement syndrome of left shoulder (principal); S43.52XA Sprain of left acromioclavicular joint, initial encounter; S46.812A Strain of other muscles, fascia and tendons at shoulder and upper arm level, left arm, initial encounter; X58.XXXA Exposure to other specified factors, initial encounter
CPT/HCPCS: 73221

== ENCOUNTER → 2025-03-31 07:42 | Outpatient (BNVA) | payer MEDICARE, SELFPAY | PROVIDERS: Visit Provider Student in an Organized Health Care Education/Training Program | DX: M75.102 Unspecified rotator cuff tear or rupture of left shoulder, not specified as traumatic (principal); M75.42 Impingement syndrome of left shoulder; S49.92XA Unspecified injury of left shoulder and upper arm, initial encounter; M75.20 Bicipital tendinitis, unspecified shoulder; M75.32 Calcific tendinitis of left shoulder; M19.012 Primary osteoarthritis, left shoulder; X58.XXXA Exposure to other specified factors, initial encounter; M75.22 Bicipital tendinitis, left shoulder | CPT/HCPCS: 99214 ==

== ENCOUNTER → 2025-04-20 09:00 | Outpatient (BNVA) | payer MEDICARE, SELFPAY | PROVIDERS: PCP Family Medicine; Visit Provider Nurse Practitioner Family | DX: I48.0 Paroxysmal atrial fibrillation (principal); Z79.82 Long term (current) use of aspirin; F33.2 Major depressive disorder, recurrent severe without psychotic features; Z79.899 Other long term (current) drug therapy; G47.30 Sleep apnea, unspecified; Z99.89 Dependence on other enabling machines and devices; F17.210 Nicotine dependence, cigarettes, uncomplicated | CPT/HCPCS: 99213 ==

== ENCOUNTER 2025-04-27 14:03 | Outpatient (CLI) | payer MEDICARE, SELFPAY ==
--- NOTE | 2025-04-27 14:11 | US_ITS ---
WS: [id number] INDICATION: Cat bite RIGHT lower extremity TECHNIQUE: Ultrasound soft tissue of concern FINDINGS: Ultrasound soft tissue area of concern. Skin thickening with prominent soft tissue edema in the area of concern RIGHT medial calf. Induration in the subcutaneous soft tissues with a small amount of scattered fluid. No drainable abscess or fluid collection at this time. US/US soft tissue/extremity [id number] IMPRESSION: No drainable abscess or fluid collection at this time
== END 2025-04-27 14:04 | disposition home or self-care (01) ==
LOC: RAD 14:04
PROVIDERS: PCP Family Medicine; Visit Provider Family Medicine
DX: R22.41 Localized swelling, mass and lump, right lower limb (principal); S81.831A Puncture wound without foreign body, right lower leg, initial encounter; W55.01XA Bitten by cat, initial encounter
CPT/HCPCS: 76882

== ENCOUNTER 2025-04-30 06:30 | Day surgery (SDC) | payer MEDICARE, SELFPAY ==
[2025-04-30] VITALS (10 sets, daily range): BP systolic 96–143; BP diastolic 44–88; PULSE 57–80; RESP 16–20; TEMP 36.1–36.2; O2SAT 92–95; BMI 30.4
[2025-04-30] MEDS: acetaminophen 1,000 MG/100 ML PIGGYBACK 400 MG IV (07:02)
--- NOTE | 2025-04-30 07:27 | ANES.PREANE2 ---
Pre-Anesthetic Assessment Height/Weight: Height 1.78 m Weight 96.162 kg Temp Pulse Resp BP Pulse Ox O2 Del Method 97 F L 68 18 114/88 94 Room Air 04/30/25 06:49 04/30/25 06:49 04/30/25 06:49 04/30/25 06:49 04/30/25 06:49 04/30/25 06:50 Operation Date: 04/30/25 08:10 Proposed Procedures p Shoulder Diagnosic and Surgical Arthroscopy w/ POSSIBLE Calcific Tendinitis Excision(Left) - Alirio Brumfield DO s Subacromial Decompression(Left) - Alirio Brumfield DO s POSSIBLE Acromioclavicular (AC) Joint Resection(Left) - Alirio Brumfield DO s Rotator Cuff Debridement Vs. Repair(Left) - Alirio Brumfield DO Familial anesthetic complications: none Was Beta Lachelle taken within 24 hours: Yes Was Clonidine taken within 24 hours: N/A Last intake: Intake Last Liquid Date 04/29/25 Last Liquid Time 18:00 Last Solid Date 04/29/25 Last Solid Time 18:00 Social Tobacco and No alcohol Exam alert, oriented x 3, clear to auscultation bilaterally and regular rate & rhythm Airway Mallampati: Class III Pulmonary Sleep Apnea CV/HEM Atrial Fibrillation and Hypertension Anesthetic Plan ASA status: 3 Anesthesia: General and Regional (specify below) Risk of > 500 ml blood loss (7ml/kg in children): No Medications/Allergies Home Medications ?Medication ?Instructions ?Recorded ?Confirmed ?Last Taken ?Type aspirin 325 mg tablet 325 mg PO DAILY@05 06/09/19 04/29/25 04/24/25 History ascorbic acid (vitamin C) 500 mg 1,000 mg PO DAILY@05 ##0 11/14/19 04/29/25 06/16/24 05:00 History tablet (Vitamin C) cholecalciferol (vitamin D3) 25 75 mcg PO DAILY@05 ##0 11/14/19 04/29/25 04/26/25 History mcg (1,000 unit) capsule (Vitamin D3) pantoprazole 40 mg tablet,delayed 40 mg PO DAILY@05 01/05/22 04/30/25 04/30/25 05:00 History release (Protonix) methylprednisolone 2 mg tablet 2 mg PO DAILY 03/22/22 04/29/25 04/26/25 History gabapentin 600 mg tablet 600 mg PO TID 09/27/23 04/29/25 04/26/25 History umeclidinium 62.5 mcg-vilanterol 1 ea inhalation DAILY 06/16/24 04/29/25 04/29/25 History 25 mcg/actuation powdr for inhalation (Anoro Ellipta) vitamin B complex 1 tab PO DAILY 06/16/24 04/29/25 06/16/24 05:00 History atorvastatin 40 mg tablet 40 mg PO DAILY #90 tabs 09/19/24 04/29/25 04/28/25 Rx nitroglycerin 0.4 mg sublingual 0.4 mg sublingual Q5M PRN Chest 09/19/24 04/29/25 Unknown Rx tablet (Nitrostat) Pain #28 tabs escitalopram oxalate 20 mg tablet 20 mg PO .morning 01/27/25 04/29/25 04/29/25 History duloxetine 30 mg capsule,delayed 30 mg PO .morning #30 caps 03/18/25 04/30/25 04/30/25 05:00 Rx release flecainide 100 mg tablet 100 mg PO BID 04/29/25 04/30/25 04/30/25 05:00 History metoprolol tartrate 25 mg tablet 25 mg PO BID 04/29/25 04/30/25 04/30/25 05:00 History Allergies Allergy/AdvReac Type Severity Reaction Status Date / Time tocilizumab (From [facility]) Allergy Severe ADR-Abdominal Verified 04/30/25 06:46 Pain tramadol Allergy Mild nausea Verified 04/30/25 06:46 diltiazem Allergy Unknown ALGY-Swell Verified 04/30/25 06:46 Lip/Tongue/Throat methotrexate AdvReac Intermediate tremors Verified 04/30/25 06:46 and nausea and not feel good tizanidine AdvReac Intermediate pain juliette Verified 04/30/25 06:46 in head cayenne AdvReac SWELLING Verified 04/30/25 06:46 IN HANDS Current Medications Generic Name Dose Route Start Last Admin Trade Name Freq PRN Reason Stop Dose Admin Sodium Chloride 1,000 mls @ 30 mls/hr 04/30/25 06:45 04/30/25 07:02 Sodium Chloride 0.9% IV 05/01/25 06:44 30 mls/hr .Q24H ADELFO Administration PFSH Anesthesia Medical History Chronic low back pain Atrial fibrillation with rapid ventricular response Diverticulitis GCA (giant cell arteritis) Inflammatory arthritis Benign essential HTN Allergic contact dermatitis Polymyalgia rheumatica Squamous cell carcinoma IVON (obstructive sleep apnea) GERD (gastroesophageal reflux disease) Generalized anxiety disorder Severe Major depressive disorder, recurrent severe without psychotic features Surgical History Status post laparoscopic cholecystectomy (01/26/21) History of amputation of finger History of colonoscopy 11/2020 History of esophagogastroduodenoscopy (EGD) Previous back surgery History of kidney surgery Family History Sister CAD (coronary artery disease) Psychiatric illness Mother Cancer Rheumatoid arthritis Father Diabetes Hyperlipidemia Hypertension Grandmother Diabetes Other Family history of premature coronary artery disease Denies family history of Clotting disorder Dementia Chronic kidney disease (CKD) Systemic lupus erythematosus (SLE) in adult Suicide Anesthesia complication Bleeding disorder Lung disease Stroke Social History Smoking and tobacco/nicotine status: current every day tobacco/nicotine user cigarettes Alcohol intake: former Substance/Drug Use: never Household members: spouse Housing: House 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 Data Anesthesia Cardiac Studies: Echocardiogram 08/20/20 Holter Monitor 12/25/22 Anesthesia Procedures Nerve Block Nerve Block 1: Main Anesthesia: general anesthesia Time Out Performed: Yes Consent: requested by attending/covering physician, from patient, from other, risks and benefits reviewed and patient agrees to proceed Nerve block location: interscalene (L) Anesthesia monitors applied: pulse oximetry, EKG, BP cuff and oxygen Nerve block position: supine Anesthetic Used: ropivicaine 0.5% (20) and with decadron (4 mg) Ultrasound used to: recognize landmarks Nerve Stimulator Used?: No Interscalene/Femoral BLK: 2 stimuplex 22 g needle used for position and inplane approach, visualize local anesthetic spread and no vascular puncture identified Injection: neg aspiration of heme Patient Tolerated Procedure: well Complications: none Additional Comments: diagnosis is post op pain
--- NOTE | 2025-04-30 08:48 | W.PM.OPSUD ---
Surgery/Procedure H&P Update DATE OF PROCEDURE: April 30, 2025 DATE H&P PERFORMED: 03/31/25 H&P UPDATE INFORMATION: I have reviewed H&P completed within last 30 days, I have examined patient prior to procedure and No changes to prior documentation PREOP DIAGNOSIS: Left shoulder subacromial impingement, AC joint arthritis, rotator cuff tea PRIMARY INDICATION FOR PROCEDURE: Left shoulder rotator cuff tear, mild AC joint arthritis biceps tendinitis, rotator cuff impingement, possible calcific tendinitis PLANNED PROCEDURE: Operation Date: 04/30/25 08:10 Proposed Procedures p Shoulder Diagnosic and Surgical Arthroscopy w/ POSSIBLE Calcific Tendinitis Excision(Left) - DO fahad Street Subacromial Decompression(Left) - DO fahad Street POSSIBLE Acromioclavicular (AC) Joint Resection(Left) - DO fahad Street Rotator Cuff Debridement Vs. Repair(Left) - Alirio Brumfield DO
[2025-04-30] MEDS: ceFAZolin 2,000 MG in sodium chloride 0.9% (plus) 50 ML 100 MG IV (09:05)
--- NOTE | 2025-04-30 10:42 | W.PM.BPON ---
Date of Procedure: 04/30/2025 Surgeon: Alirio Brumfield DO Cable Dispatcher(s): Rolly Brumfield PA-C Procedure(s) performed: Left shoulder diagnostic and surgical arthroscopy with rotator cuff repair (small) Left shoulder diagnostic and surgical diascopy with biceps tenodesis Left shoulder diagnostic and surgical arthroscopy with labral debridement Left shoulder diagnostic and surgical arthroscopy with acromioclavicular joint debridement Left shoulder diagnostic and surgical arthroscopy with subacromial decompression (bursectomy/acromioplasty) Findings of the procedure(s): Patient underwent procedure as planned without issues or complications found to have a tear in the rotator cuff underwent repair as well as patient also found to have superior labral tear with unstable biceps anchor as well as tearing and inflammation around the long head of the biceps tendon given the inflammatory process around this but the good intra-articular tendon quality performed an intra-articular biceps tenodesis. Procedure went as well without issues or complications placed in a sling and taken recovery in stable condition Estimated blood loss: 5 mL Specimen(s) removed: None Post-operative diagnosis: Left shoulder rotator cuff tear, superior labral tear with unstable bicep anchor/biceps tendinitis, labral fraying, subacromial impingement, AC joint scar tissue/sprain
--- NOTE | 2025-04-30 10:46 | P.OP_ITS ---
Operative Report Date of procedure: April 30, 2025 Surgeon: Alirio Brumfield DO Dog Behaviorist: Rolly Brumfield PA-C: PA was necessary for assistance in this case with shoulder positioning to execute the procedure, assistance with instrumentation, assisted rotator cuff repair and instrumentation/implant fixation, assist with wound closure and dressing application. Procedure: Preoperative diagnosis: Left shoulder rotator cuff tear, mild AC joint arthritis biceps tendinitis, rotator cuff impingement, possible calcific tendinitis Post-op diagnosis:? Left shoulder rotator cuff tear, superior labral tear with unstable bicep anchor/biceps tendinitis, labral fraying, subacromial impingement, AC joint scar tissue/sprain Procedure done: Left shoulder diagnostic and surgical arthroscopy with rotator cuff repair (small) Left shoulder diagnostic and surgical diascopy with biceps tenodesis Left shoulder diagnostic and surgical arthroscopy with labral debridement Left shoulder diagnostic and surgical arthroscopy with acromioclavicular joint debridement Left shoulder diagnostic and surgical arthroscopy with subacromial decompression (bursectomy/acromioplasty) Surgeon: Alirio Brumfield DO Estimated blood loss: [5 ]mL IV fluids: 1200mL Implants: Arthrex 4.75 swivel lock Arthrex scorpion and suture tape Arthrex 4.75 swivel lock loop and tack bicep tenodesis kit Complications: None Condition: stable Disposition: same day Brief History: Patient been seen and worked up in the outpatient setting for Left?shoulde r?pain.? Pt had an MRI which showed findings below.? Patient's failed conservative treatment and has weakness.? We talked about treatment options far as nonoperative and operative intervention..? We talked about risk benefits complication alternatives surgical nonsurgical treatment options.? Understanding risk of surgery pt agrees to proceed with surgical intervention.? All questions have been answered at this time.? Patient elects proceed with surgery and consent obtained in preoperative holding area for left shoulder diagnostic and surgical arthroscopy with subacromial decompression, possible acromioclavicular joint resection, rotator cuff debridement versus repair, possible biceps tenotomy versus tenodesis, possible calcific tendinitis excision MR/MR shoulder LT wo con* [id number] IMPRESSION: 1. Complete tear of the distal supraspinatus tendon with retraction to the superior humeral head. Tear extends into the anteriormost infraspinatus tendon. 2. Focal low signal nodule closely associated with the distal infraspinatus tendon and the adjacent supraspinatus tendon. This is either calcific tendinitis or a bone fragment related to humeral head osteonecrosis. 3. Bony defect in the superior humeral head is most consistent with an area of osteonecrosis. The low signal nodule associated with the infraspinatus and supraspinatus tendons may be a bone fragment from the area of osteonecrosis. 4. Mild AC joint sprain. Procedure: Patient seen evaluated in the preoperative holding area.? Consent reviewed and s igned with patient.? Once again reviewed patient's MRI results as well as? planned surgical intervention.? Correct extremity marked.? Patient seen evaluated by anesthesia department received regional anesthesia.? Once ready for surgery was taken back to the operative suite.? Patient then subsequently underwent anesthesia per the anesthesia department was transported onto the OR table.? Patient was then placed into a lateral decubitus position with a beanbag and was appropriately secured to the bed.? All bony prominences well-padded.? Patient then had the Left upper extremity was then prepped and draped in standard orthopedic fashion.? Patient received appropriate preoperative antibiotics.? Final timeout performed. The Left upper extremity was then held in hanging from traction utilizing sterile technique.? Next started with standard diagnostic and surgical arthroscopy with posterior portal position introduced arthroscope into the glenohumeral joint.? Visualized the glenohumeral joint I then introduced a spinal needle within the rotator cuff interval to confirm appropriate anterior portal placement.? Once this was confirmed I then made my?small?incision and then introduced my arthroscopic shaver into the glenohumeral joint.? After flushing the joint fluid, was clearly evident patient had biceps tendon tearing as well as Superior labral tear. Patient had appreciable unstable biceps anchor most pronounced in the superior labrum. Given there appears to be healthy intra-articular tendon plan was for an intra-articular biceps tenodesis at the superior portion as it enters the intertubercular groove. Thermal wand introduced into the rotator interval. I then release of the rotator interval to have appropriate visualization and the ability to perform biceps tenodesis. At this point I established a purple passport cannula which was introduced. Next I performed an Arthrex loop and tap biceps tenodesis. Passer was then made around the tendon luggage tag stitch around and then thru the tendon, I then utilized a thermal wand to release the biceps tendon at the anchor to perform with tenotomy. I then loaded with suture onto an Arthrex 4.75 swivel lock suture anchor. A punch was then placed in appropriate position at the entry point into the intertubercular groove just superior to the subscapularis tendon. Punch was then introduced to the appropriate depth. The suture loaded on the swivel lock was then advanced held under appropriate tension and shoulder lock anchor was then advanced and had excellent fixation. Excess suture was then cut biceps tenodesis was complete. I then utilized a thermal wand to seal the edges of the superior labrum. Next I evaluated the subscapularis tendon which was intact and no evidence of tear. ?Next there was significant labral tearing at biceps anchor and circumferential.? ? I then subsequently utilized a a arthroscopic shaver and thermal wand to perform a labral debridement.? This point time I then visualized the glenohumeral joint.? 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 Axillary pouch was free of loose bodies from viewing the posterior portal. The entirety of the cartilage Of the humerus was inspected and probed there was no area of osteonecrosis and focalized loose cartilage flap. There is also no evidence of loose bodies in the joint. There was a negative escape bubble sign but there was some fraying on the distal and anterior aspect of the supraspinatus tendon which was marked with a spinal needle. This completed my work within the glenohumeral joint all fluid was suctioned free of the joint.? ?Next I reintroduced the arthroscope posteriorly.? And went to the subacromial space.? I established my lateral working portal at the site of which my spinal needle was marking of the rotator cuff tear.? Thermal wand was then introduced laterally and then I subsequently performed extensive bursectomy of the subacromial space.? Patient had a large anterior bone spur.? At this point time I proceeded with my AC joint. Once I moved to the AC joint it was evident that there was no significant arthritic changes there was significant scar tissue which I then subsequently performed an AC joint debridement once this was taken to appropriate edges and debrided it was satisfactory but this was already had normal space which was roughly still a centimeter in space. Scar tissue was debrided with arthroscopic shaver and then this completed the work and the AC joint. ? I then performed an acromioplasty to complete my subacromial decompression prior to fixing the rotator cuff tear.? Next the arthroscopic shaver was then used previous spinal needle spot that is marked the?small?hole in the rotator cuff this was consistent with a?small?full-thickness tear.? There was dense scar tissue buildup over this area there was no evidence of calcific tendinitis in this area and this was not an embedded loose body as there is no fragmentation from the area osteonecrosis is that the MRI talked about this result I feel this was dense thickening of scar tissue of the ends of the rotator cuff as this was a very dense thick portion this was debrided appropriately in preparation for repair. Given the?small?size this did not need a medial and lateral row configuration as result my plan was for a horizontal mattress stitch with a single lateral row anchor.? As result I loaded and Arthrex scorpion with fiber tape and subsequently.? A horizontal mattress purchase appropriately spaced to the?small?tear of the supraspinatus tendon.? At this point in time and then introduced a shaver to debride the rotator cuff footprint and decorticate the footprint in preparation for repair, next I marked by swivel lock position.? Fiber tape was then loaded into a 4.75 swivel lock I then subsequently punched and then subsequently placement 4.75 swivel lock while maintaining appropriate tension and repair of rotator cuff and this was advanced with excellent fixation I then had a final confirmation of appropriate repair of the supraspinatus rotator cuff tendon tear.? Sutures were then cut with an arthroscopic suture cutter and subsequently evaluated the rotator cuff repair.? Repair was found to be satisfactory?shoulder?was taken through range of motion and the repair moved as a unit with no evidence of loss of fixation. ?I then switched the arthroscope to the lateral portal to confirm this tension- free repair.? I took the?shoulder?through range of motion and the rotator cuff repair was stable and moved as a unit. ?Next I then introduced the arthroscopic shaver posteriorly to complete my subacromial decompression appropriate complaining all the way up to the lateral edge of the acromion.? This completed the surgery.? All fluid was suctioned from the?shoulder.? All instruments were removed.? The lateral incision was then closed with nylon stitches.? As well as the portal sites closed with portal nylon stitches.? Xeroform 4 x 4's ABD and tape was then applied to the Left?shoulder?and was placed into a?shoulder?abduction pillow sling for rotator cuff repair.? Patient was then awakened from anesthesia and then taken back to PACU in stable condition.? Patient tolerated procedure without any issues. Disposition: Patient taken back in stable condition recovering well.? Dressings on in place clean dry and intact.? Will be nonweightbearing to the Left upper extremity.? Follow rotator cuff repair protocol.? Patient to follow-up with me in the office in 2 weeks.? Patient will receive appropriate discharge instruction as well as pain medication postoperatively.? All questions answered.? We will contact the office for any questions or concerns.
--- NOTE | 2025-04-30 11:10 | PM.PACU ---
PACU note Narrative: Patient is a 59-year-old male who just underwent a left shoulder arthroscopy with rotator cuff repair. Patient transferred to PACU in stable condition. Pain is well controlled. shoulder Dressing on , dry and in place. Patient's operative arm is in a shoulder immobilizer. Patient is awake and alert and able to respond to my questions accordingly. Patient's fingers are warm with good perfusion. Normal cap refill under 2 seconds. Patient can wiggle fingers and has sensation to fingers intact. Exam: awake Disposition: discharged
[2025-04-30] MEDS: HYDROcodone-acetaminophen 5-325 mg Tablet 1 TAB PO (11:36)
--- NOTE | 2025-04-30 15:33 | ANE.PACU2 ---
Inpatient post-anesthesia follow up: Airway intact: Yes Vital signs: Temperature 97.2 F Pulse Rate 60 Respiratory Rate 18 Blood Pressure 129/64 Pulse Oximetry 95 Oxygen Delivery Me thod Room Air Oxygen Flow Rate Fraction of Inspir ed Oxygen Hydration adequate: Yes Nausea and vomiting: No Pain level: 1 Mental status: Baseline
== END 2025-04-30 12:30 | disposition home or self-care (01) ==
PROVIDERS: PCP Family Medicine; Visit Provider Student in an Organized Health Care Education/Training Program
PROC: (CPT 29805; principal; 2025-04-30 07:50)
PROC: (CPT 29826; 2025-04-30 07:50)
PROC: (CPT 29824; 2025-04-30 07:50)
PROC: (CPT 29827; 2025-04-30 07:50)
PROC: (CPT 23430; 2025-04-30 07:50)
PROC: (CPT 29827; 2025-04-30 07:50)
DX: M75.102 Unspecified rotator cuff tear or rupture of left shoulder, not specified as traumatic (principal); M19.012 Primary osteoarthritis, left shoulder; M75.22 Bicipital tendinitis, left shoulder; M75.42 Impingement syndrome of left shoulder; S43.432A Superior glenoid labrum lesion of left shoulder, initial encounter; X58.XXXA Exposure to other specified factors, initial encounter; I48.91 Unspecified atrial fibrillation; I10 Essential (primary) hypertension; G47.33 Obstructive sleep apnea (adult) (pediatric); Z85.828 Personal history of other malignant neoplasm of skin; K21.9 Gastro-esophageal reflux disease without esophagitis; F33.9 Major depressive disorder, recurrent, unspecified; Z80.9 Family history of malignant neoplasm, unspecified; F17.210 Nicotine dependence, cigarettes, uncomplicated; Z79.82 Long term (current) use of aspirin
CPT/HCPCS: 29827; 29826; 29828; C1713; J0131; J0169; J0690; J1100; J1885; J2250; J2405; J2704; J2710; J2795; J3010; J3490; J7030; J9999

== ENCOUNTER → 2025-05-15 10:12 | Outpatient (BNVA) | payer MEDICARE, SELFPAY | PROVIDERS: PCP Family Medicine; Visit Provider Physician Assistant | DX: Z98.890 Other specified postprocedural states (principal) | CPT/HCPCS: 99024 ==